=== PATIENT | male | born 1980 | race Caucasian/White ===

== ENCOUNTER 2021-11-04 20:06 | Emergency (ER) | payer OTHER, SELFPAY ==
--- NOTE | ~2021-11-04 | CT_ITS ---
EXAMINATION: NONCONTRAST HEAD CT NONCONTRAST CERVICAL SPINE CT INDICATION INFORMATION: Fall COMPARISON: None TECHNIQUE: Separate noncontrast CT examinations of the head and cervical spine were performed. Coronal and sagittal images were created for each examination at the technologist workstation. This CT examination was performed using dose optimization techniques as appropriate, variously including the following: *Automated exposure control *Adjustment of mA and/or kV according to patient size (this includes techniques or standardized protocols for targeted exams where dose is matched to indication/reason for exam; i.e. extremities or head) *Use of iterative reconstruction technique DLP: 1218 mGy-cm FINDINGS: Head: There is no evidence of acute intracranial hemorrhage or territorial infarction. No abnormal mass effect or midline shift is seen. Lainez to white matter differentiation is well preserved. No extra-axial fluid collections are identified. No hydrocephalus. No significant volume loss. There is no abnormal attenuation within the brain parenchyma. No acute osseous abnormality. The mastoid air cells and visualized portions of the paranasal sinuses are well aerated. Cervical spine: There is anatomic alignment of the vertebral bodies and posterior elements. The atlantoaxial and atlantooccipital articulations are intact. Vertebral body heights maintained. Endplate osteophytes present throughout cervical spine, most millimeters C5-C6 and C6-C7 No evidence of acute fracture. No prevertebral soft tissue swelling. Visualized portions of the lung apices are unremarkable. The thyroid gland is unremarkable. CT/CT cervical spine wo IV con IMPRESSION: No acute intracranial pathology. No cervical spine fracture or traumatic malalignment.
--- NOTE | ~2021-11-04 | CT_ITS ---
EXAMINATION CT CHEST, ABDOMEN AND PELVIS WITH CONTRAST CLINICAL INFORMATION: Left upper quadrant pain COMPARISON: None. TECHNIQUE: Multidetector volumetric CT imaging of the chest, abdomen and pelvis was obtained after the administration of 85 mL of intravenous Omnipaque 350 without immediate adverse reactions. Coronal and sagittal reformats were reviewed. This CT examination was performed using dose optimization techniques as appropriate, variously including the following: *Automated exposure control *Adjustment of mA and/or kV according to patient size (this includes techniques or standardized protocols for targeted exams where dose is matched to indication/reason for exam; i.e. extremities or head) *Use of iterative reconstruction technique DLP: 1184 mGy-cm. FINDINGS: CHEST LUNGS/PLEURA: The lungs are clear with no evidence of inflammation or nodules. There is no pleural effusion. No pleural mass or thickening. MEDIASTINUM/YUMI: Heart normal in size without pericardial effusion. Great vessels normal caliber. No mediastinal or hilar lymphadenopathy. CHEST WALL/AXILLA: Unremarkable. ABDOMEN/PELVIS HEPATOBILIARY: Liver normal in size, contour and morphology. No suspicious lesions. No intra or extrahepatic biliary dilation. Gallbladder unremarkable. PANCREAS: Unremarkable. SPLEEN: Unremarkable. ADRENAL GLANDS: Unremarkable. KIDNEYS, URETERS AND BLADDER: Kidneys normal in size, axis and morphology demonstrating symmetric enhancement. No hydronephrosis or urinary calculi. Ureters normal in course and caliber. Bladder grossly unremarkable.. GASTROINTESTINAL TRACT: No bowel related abnormalities. PELVIC VISCERA: Uterus and adnexa unremarkable. LYMPH NODES: No lymphadenopathy. PERITONEUM/BODY WALL: Unremarkable. VASCULAR STRUCTURES: Unremarkable. OSSEOUS STRUCTURES Age-indeterminate nondisplaced avulsion fracture of the left anteroinferior glenoid. No additional potential acute fractures. CT/CT abdomen pelvis w IV con IMPRESSION: * No acute visceral traumatic injury within the chest, abdomen or pelvis. * Age-indeterminate avulsion fracture of the left anteroinferior glenoid AKA osseous Bankart lesion. * No additional fractures.
--- NOTE | ~2021-11-04 | CT_ITS ---
EXAMINATION: NONCONTRAST HEAD CT NONCONTRAST CERVICAL SPINE CT INDICATION INFORMATION: Fall COMPARISON: None TECHNIQUE: Separate noncontrast CT examinations of the head and cervical spine were performed. Coronal and sagittal images were created for each examination at the technologist workstation. This CT examination was performed using dose optimization techniques as appropriate, variously including the following: *Automated exposure control *Adjustment of mA and/or kV according to patient size (this includes techniques or standardized protocols for targeted exams where dose is matched to indication/reason for exam; i.e. extremities or head) *Use of iterative reconstruction technique DLP: 1218 mGy-cm FINDINGS: Head: There is no evidence of acute intracranial hemorrhage or territorial infarction. No abnormal mass effect or midline shift is seen. [place] to white matter differentiation is well preserved. No extra-axial fluid collections are identified. No hydrocephalus. No significant volume loss. There is no abnormal attenuation within the brain parenchyma. No acute osseous abnormality. The mastoid air cells and visualized portions of the paranasal sinuses are well aerated. Cervical spine: There is anatomic alignment of the vertebral bodies and posterior elements. The atlantoaxial and atlantooccipital articulations are intact. Vertebral body heights maintained. Endplate osteophytes present throughout cervical spine, most millimeters C5-C6 and C6-C7 No evidence of acute fracture. No prevertebral soft tissue swelling. Visualized portions of the lung apices are unremarkable. The thyroid gland is unremarkable. CT/CT head/brain wo IV con IMPRESSION: No acute intracranial pathology. No cervical spine fracture or traumatic malalignment.
[2021-11-04 20:11] VITALS: BP 136/78; PULSE 100; O2SAT 98
[2021-11-04 20:23] VITALS: BP 140/84; PULSE 100; RESP 18; TEMP 36.6; O2SAT 96; BMI 28.3
[2021-11-04] MEDS: Ketorolac Tromethamine 30 MG/ML VIAL 15 MG IVPUSH (22:34)
[2021-11-04] MEDS: LORazepam 1 MG TABLET PO (22:34)
--- NOTE | 2021-11-04 22:40 | ED.GENADULT ---
HPI - General Adult General Chief complaint: Extremity Injury, Upper Stated complaint: fall from skateboard LEFT SHOULDER PAIN Time Seen by Provider: 11/04/21 21:57 Source: patient Mode of arrival: EMS History of Present Illness HPI narrative: 40-year-old male arrives via EMS for persistent chest pain after falling off of his skateboard 2 days prior. Patient was evaluated at [facility]. Patient is autistic and communicates primarily through texting. History is difficult to obtain as patient is currently experiencing anxiety that he states stems from his inability to move back and forth to relieve the anxiety because of the pain that he is currently experiencing. Related Data Previous Rx's Medication Instructions Recorded ketorolac 10 mg tablet 10 mg PO Q6H PRN pain 5 days #20 11/05/21 tabs Allergies Allergy/AdvReac Type Severity Reaction Status Date / Time No Known Allergies Allergy Verified 11/04/21 20:16 Review of Systems Review of Systems: Pertinent positives and negatives as stated in HPI. PMFSH Past Medical History Source: nursing notes reviewed Social History Social History Advance Directives: No Advance Directives Information Provided: Yes Physical Exam ED Vital Signs: Vital Signs - 24 hr 11/04/21 20:23 Temperature 97.9 F Pulse Rate 100 Respiratory Rate 18 Blood Pressure 140/84 H Pulse Oximetry 96 Oxygen Delivery Method Room Air BMI result Body Mass Index 28.3 VITAL SIGNS: Reviewed. GENERAL: Well developed, well nourished, in no acute distress. HEAD: Normocephalic/atraumatic EYES: PERRLA, EOMI EARS: Ext canals without abnormality, TMs non-bulging and non-erythematous NOSE: Nares patent bilateral OROPHARYNX: no oral lesions noted, posterior pharynx clear and non-erythematous without noted tonsillar enlargement/erythema/exudates NECK: Supple, no adenopathy, no midline cervical spine tenderness LUNGS: Normal breath sounds. No adventitious sounds or accessory muscle use. SpO2<96>; CHEST PAIN: No crepitus or obvious deformity but pain on palpation at the left anterior lower chest wall CARDIOVASCULAR: Regular rate and rhythm without noted murmurs, no JVD or lower extremity edema. ABDOMEN: Soft, non-tender, non-distended with bowel sounds. No rigidity. No guarding. No palpable masses or hernias noted MUSCULOSKELETAL: No tenderness, deformities, or effusions noted on gross inspection. EXTREMITIES: No cyanosis, clubbing or edema; road rash noted at bilateral distal quads and at the left proximal forearm onto the elbow, but full range of motion noted at all shoulders/elbows/wrists/knees.. SKIN: Inspection of the skin reveals no rashes, but abrasions as noted above NEUROLOGIC: Alert and oriented x 4. Strength and sensation to light touch were grossly intact x 4. Course Course Course Narrative: 40-year-old male with history and clinical presentation consistent with traumatic injury sustained after motorized skateboard. Concern regarding possible rib fractures but lower clinical suspicion for splenic injury however will trauma scan at this time. Review of all investigations negative for acute findings but on re-evaluation patient has had complete resolution of his pain. He was given all results and discharged home in stable condition. Medical Decision Making Lab Data Result diagrams: 11/04/21 22:35 11/04/21 22:35 Labs: Lab Results 11/04/21 11/04/21 11/04/21 Range/Units 22:35 22:35 22:35 WBC 8.2 (4.8-10.8) X10*3/uL RBC 5.39 (4.60-5.80) X10*6/uL Hgb 15.6 (14.0-18.0) g/dl Hct 46.5 (42.0-52.0) % MCV 86.3 (80.0-98.0) fL MCH 28.9 (27.0-33.0) pg MCHC 33.5 (31.0-36.0) g/dl RDW 13.1 (11.0-16.0) % Plt Count 253 (160-400) X10*3/uL MPV 10.6 (9.4-12.4) fL Immature Gran % (Auto) 0.1 (0.0-0.4) % Neut % (Auto) 58.4 (45-73) % Lymph % (Auto) 32.1 (20-40) % [place] % (Auto) 8.0 (2-11) % Eos % (Auto) 1.0 (0-4) % Baso % (Auto) 0.4 (0-2) % Lymph # (Auto) 2.6 (1.2-4.9) X10*3/uL [place] # (Auto) 0.7 (0.1-1.2) X10*3/uL Eos # (Auto) 0.1 (0.0-0.4) X10*3/uL Baso # (Auto) 0.0 (0.0-0.2) X10*3/uL Abs Immat Gran (auto) 0.01 (0.00-0.03) X10*3/uL Absolute Neuts (auto) 4.8 (2.0-8.3) x10*3/uL Absolute Nucleated RBC 0.000 (0.0-0.012) X10*3/uL Nucleated RBC % (auto) 0.0 (0.0-0.2) /100WBC PT 11.5 (10.0-13.1) SEC INR 1.0 (0.9-1.1) Sodium 140 (135-145) mmol/L Potassium 4.3 (3.3-5.1) mmol/L Chloride 104 (96-108) mmol/L Carbon Dioxide 23 (22-29) mmol/L Anion Gap 17 (12-20) BUN 11 (9-16) mg/dL Creatinine 1.21 (0.5-1.4) mg/dL Estim Creat Clear Calc 78.5 Estimated GFR > 60 Random Glucose 90 (60-115) mg/dL Calcium 9.1 (8.4-10.2) mg/dL Total Bilirubin 1.0 (0.0-1.0) mg/dL AST 34 (5-37) U/L ALT 37 (0-40) U/L Alkaline Phosphatase 94 (39-117) U/L Total Protein 7.2 (6.5-8.0) g/dL Albumin 4.3 (3.5-5.0) g/dL Discharge Plan Discharge Clinical Impression: Fall from skateboard, subsequent encounter, Chest wall pain Patient Disposition: Home, Self-Care Instructions: Fall Prevention (ED), Chest Wall Pain (ED) Additional Instructions: 1. Take medication as prescribed. 2. Follow-up with your primary care provider in the next 1-2 days for re-evaluation. Return to the ER for worsening symptoms. Prescriptions: New ketorolac 10 mg tablet 10 mg PO Q6H PRN (Reason: pain) 5 Days Qty: 20 0RF Rx Instructions: Patient received Toradol in the emergency room.
[2021-11-04 22:59] LABS: MANUAL DIFF FLAG NO
[2021-11-04 23:00] LABS: Basophils Percent Auto 0.4 % (0-2); Eosinophils Absolute Auto 0.1 X10*3/uL (0.0-0.4); Hematocrit 46.5 % (42.0-52.0); Hemoglobin 15.6 g/dl (14.0-18.0); Imm Gran Abs Auto 0.01 X10*3/uL (0.00-0.03); Imm Gran Pct Auto 0.1 % (0.0-0.4); Lymphocytes Absolute Auto 2.6 X10*3/uL (1.2-4.9); Lymphocytes Percent Auto 32.1 % (20-40); Mean Corpuscular HGB Conc 33.5 g/dl (31.0-36.0); Mean Corpuscular Hemoglobin 28.9 pg (27.0-33.0); Mean Corpuscular Volume 86.3 fL (80.0-98.0); Mean Platelet Volume 10.6 fL (9.4-12.4); Monocytes Absolute Auto 0.7 X10*3/uL (0.1-1.2); Neutrophils Absolute Auto 4.8 x10*3/uL (2.0-8.3); Neutrophils Percent Auto 58.4 % (45-73); Platelet Count 253 X10*3/uL (160-400); Red Blood Count 5.39 X10*6/uL (4.60-5.80); Red Cell Distribution Width 13.1 % (11.0-16.0); White Blood Count 8.2 X10*3/uL (4.8-10.8)
[2021-11-04 23:05] LABS: Prothrombin Time 11.5 SEC (10.0-13.1)
[2021-11-04 23:15] LABS: Alanine Aminotransferase 37 U/L (0-40); Albumin Level 4.3 g/dL (3.5-5.0); Alkaline Phosphatase 94 U/L (39-117); Anion Gap 17 (12-20); Aspartate Amino Transferase 34 U/L (5-37); Blood Urea Nitrogen 11 mg/dL (9-16); Calcium 9.1 mg/dL (8.4-10.2); Carbon Dioxide 23 mmol/L (22-29); Chloride 104 mmol/L (96-108); Creatinine Clr Calc Pharmacy 78.5; Estimated Glomerular Filt Rate > 60; Glucose Random 90 mg/dL (60-115); Potassium 4.3 mmol/L (3.3-5.1); Sodium 140 mmol/L (135-145); Total Protein 7.2 g/dL (6.5-8.0)
[2021-11-04] MEDS: iohexoL 350 MG/ML 100 ML INFUS..BTL 85 ML IV (23:50)
[2021-11-05 00:10] VITALS: BP 122/64; PULSE 88
[2021-11-05] MEDS: Mirtazapine 7.5 MG TABLET 3.75 MG PO (02:28)
[2021-11-05] MEDS: Lidocaine 4 % Patch ADH..PATCH 1 PATCH TRANSDERMA (02:28)
[2021-11-05] MEDS: clonazePAM 1 MG TABLET PO (02:28)
[2021-11-05 04:51] VITALS: BP 113/61; PULSE 59; RESP 15; TEMP 36.1; O2SAT 95
[2021-11-05 05:47] VITALS: BP 122/62; PULSE 54; RESP 17; TEMP 36.1; O2SAT 97
--- NOTE | 2021-11-05 05:48 | PC.NURSE ---
Addendum entered by Shagufta Rae 11/05/21 05:49: PT SLEEPING . GIVEN WARM BLANKET AND BELONGINGS PLACES IN PERSONAL BELONGINGS AND PLACED BEDSIDE Original Note: PT S;AMY
--- NOTE | 2021-11-05 06:42 | PC.NURSE ---
CALL OUT TO [facility] FOR TRANSFER BACK TO HOME CALLS OUT TO [facility] [id number], [id number], [id number] AND [id number] [facility] WAS UNABLE TO PASS DUMP MOTORMAN AFTER MULTIPLE TIMES
[2021-11-05] MEDS: Ketorolac Tromethamine 15 MG/ML VIAL IVPUSH (07:45)
--- NOTE | 2021-11-05 07:56 | PC.NURSE ---
PT AWAITING RIDE HOME. TRANSPORTATION BOOKED PT REQUESTING MEDICATION PRIOR TO DISCHARGE. ADDITIONAL DOSE PROVIDED TO PATIENT OF TORADOL. IV REMOVED. PT UPDATED ON PLAN OF CARE NUMEROUS TIMES.
--- NOTE | 2021-11-05 08:39 | PC.NURSE ---
PT REFUSING TO WAIT FOR RIDE. DUE TO THE PATIENT HAVING TO TRAVEL BACK TO [place], THE COOLER WEATHER CONDITIONS THIS AM, THIS RN SPOKE WITH SECURITY AND SECURITY WILL BRING PATIENT HOME.
== END 2021-11-05 08:40 | disposition home or self-care (01) ==
PROVIDERS: Emergency Provider Student in an Organized Health Care Education/Training Program
DX: Z04.3 Encounter for examination and observation following other accident (principal); R07.89 Other chest pain; M25.512 Pain in left shoulder; F41.9 Anxiety disorder, unspecified; F84.0 Autistic disorder
CPT/HCPCS: 36415; 70450; 71260; 72125; 74177; 80053; 85025; 85610; 96374; 96376; 99284; J1885; Q9967

== ENCOUNTER 2021-11-24 00:25 | Emergency (ER) | payer OTHER, SELFPAY ==
[2021-11-24 00:40] VITALS: PULSE 82; O2SAT 98
--- NOTE | 2021-11-24 00:51 | ED_ITS ---
HPI - Psych General Chief Complaint: General Medical Stated Complaint: EMOTIONALLY DISTRAUGHT Time Seen by Provider: 11/24/21 00:50 Source: patient Mode of arrival: ambulatory Limitations: no limitations History of Present Illness HPI Narrative: Patient autistic with limited history being very anxious nauseated vomiting 5 or 6 times no diarrhea no fever no other complaints Related Data Home Medications Medication Instructions Recorded Confirmed clonazepam 1 mg disintegrating 1 tab PO DAILY 11/05/21 11/05/21 tablet mirtazapine 7.5 mg tablet 0.5 - 1 tab PO BEDTIME insomnia 11/05/21 11/05/21 Previous Rx's Medication Instructions Recorded ketorolac 10 mg tablet 10 mg PO Q6H PRN pain 5 days #20 11/05/21 tabs Allergies Allergy/AdvReac Type Severity Reaction Status Date / Time No Known Allergies Allergy Verified 11/04/21 20:16 Review of Systems Review of Systems: Yes all other systems are reviewed and are negative PMFSH Social History Social History Advance Directives: No Advance Directives Information Provided: Yes Physical Exam Vital Signs: Vital Signs: Last Vital Signs Temp 97.9 F 11/24/21 02:56 Pulse 89 11/24/21 02:56 Resp 17 11/24/21 02:56 BP 126/76 11/24/21 02:56 Pulse Ox 96 11/24/21 02:56 O2 Del Method 11/24/21 02:56 BMI result Body Mass Index 31.3 Appearance: Alert. Very anxious using sign language Eyes: PERRLA, No Nystagmus ENT: Pharynx normal. Oral Mucosa moist Neck: Normal inspection. Neck supple. CVS: Normal heart rate and rhythm. Pulses normal. Respiratory: No respiratory distress. Equal air entry bilateral, no wheezing/ rales/rhonchi Abdomen: Soft and nontender. Bowel sounds are present, no mass palpable, no CVA tenderness Skin: Skin warm and dry. Normal skin color. Normal skin turgor. Extremities: No lower extremity edema. No calf tenderness Neuro: Oriented X 3. No motor deficit. MDM - Psych MDM Narrative Medical decision making narrative: Patient with stable labs nausea improved after Zofran taking p.o. fluids discharged patient to residential Lab Data Attestation: I reviewed the patient's lab results. Result diagrams: 11/24/21 01:23 11/24/21 01:23 Labs: Lab Results 11/24/21 11/24/21 11/24/21 Range/Units 01:23 01:23 01:23 WBC 8.7 (4.8-10.8) X10*3/uL RBC 5.72 (4.60-5.80) X10*6/uL Hgb 16.7 (14.0-18.0) g/dl Hct 49.3 (42.0-52.0) % MCV 86.2 (80.0-98.0) fL MCH 29.2 (27.0-33.0) pg MCHC 33.9 (31.0-36.0) g/dl RDW 13.2 (11.0-16.0) % Plt Count 283 (160-400) X10*3/uL MPV 10.8 (9.4-12.4) fL Immature Gran % (Auto) 0.2 (0.0-0.4) % Neut % (Auto) 62.4 (45-73) % Lymph % (Auto) 27.8 (20-40) % [place] % (Auto) 8.6 (2-11) % Eos % (Auto) 0.7 (0-4) % Baso % (Auto) 0.3 (0-2) % Lymph # (Auto) 2.4 (1.2-4.9) X10*3/uL [place] # (Auto) 0.8 (0.1-1.2) X10*3/uL Eos # (Auto) 0.1 (0.0-0.4) X10*3/uL Baso # (Auto) 0.0 (0.0-0.2) X10*3/uL Abs Immat Gran (auto) 0.02 (0.00-0.03) X10*3/uL Absolute Neuts (auto) 5.4 (2.0-8.3) x10*3/uL Absolute Nucleated RBC 0.000 (0.0-0.012) X10*3/uL Nucleated RBC % (auto) 0.0 (0.0-0.2) /100WBC Sodium 141 (135-145) mmol/L Potassium 4.2 (3.3-5.1) mmol/L Chloride 104 (96-108) mmol/L Carbon Dioxide 23 (22-29) mmol/L Anion Gap 18 (12-20) BUN 11 (9-16) mg/dL Creatinine 1.18 (0.5-1.4) mg/dL Estim Creat Clear Calc 89.3 Estimated GFR > 60 Random Glucose 94 (60-115) mg/dL Lactic Acid 1.9 (0.5-2.0) mmol/L Calcium 9.3 (8.4-10.2) mg/dL Total Bilirubin 0.6 (0.0-1.0) mg/dL AST 27 (5-37) U/L ALT 23 (0-40) U/L Alkaline Phosphatase 116 D (39-117) U/L Total Protein 7.8 (6.5-8.0) g/dL Albumin 4.5 (3.5-5.0) g/dL COVID-19 (SUZI) (Negative) COVID-19 Clin Com 11/24/21 Range/Units 01:23 WBC (4.8-10.8) X10*3/uL RBC (4.60-5.80) X10*6/uL Hgb (14.0-18.0) g/dl Hct (42.0-52.0) % MCV (80.0-98.0) fL MCH (27.0-33.0) pg MCHC (31.0-36.0) g/dl RDW (11.0-16.0) % Plt Count (160-400) X10*3/uL MPV (9.4-12.4) fL Immature Gran % (Auto) (0.0-0.4) % Neut % (Auto) (45-73) % Lymph % (Auto) (20-40) % [place] % (Auto) (2-11) % Eos % (Auto) (0-4) % Baso % (Auto) (0-2) % Lymph # (Auto) (1.2-4.9) X10*3/uL [place] # (Auto) (0.1-1.2) X10*3/uL Eos # (Auto) (0.0-0.4) X10*3/uL Baso # (Auto) (0.0-0.2) X10*3/uL Abs Immat Gran (auto) (0.00-0.03) X10*3/uL Absolute Neuts (auto) (2.0-8.3) x10*3/uL Absolute Nucleated RBC (0.0-0.012) X10*3/uL Nucleated RBC % (auto) (0.0-0.2) /100WBC Sodium (135-145) mmol/L Potassium (3.3-5.1) mmol/L Chloride (96-108) mmol/L Carbon Dioxide (22-29) mmol/L Anion Gap (12-20) BUN (9-16) mg/dL Creatinine (0.5-1.4) mg/dL Estim Creat Clear Calc Estimated GFR Random Glucose (60-115) mg/dL Lactic Acid (0.5-2.0) mmol/L Calcium (8.4-10.2) mg/dL Total Bilirubin (0.0-1.0) mg/dL AST (5-37) U/L ALT (0-40) U/L Alkaline Phosphatase (39-117) U/L Total Protein (6.5-8.0) g/dL Albumin (3.5-5.0) g/dL COVID-19 (SUZI) Negative (Negative) COVID-19 Clin Com See Note Discharge Plan Discharge Clinical Impression: Anxiety Patient Disposition: Home, Self-Care Instructions: Anxiety (ED) Additional Instructions: Relax at home Continue taking your medication Prescriptions: No [facility] ketorolac 10 mg tablet 10 mg PO Q6H PRN (Reason: pain) 5 Days Qty: 20 0RF Rx Instructions: Patient received Toradol in the emergency room. mirtazapine 7.5 mg tablet 0.5 - 1 tab PO BEDTIME clonazepam 1 mg tablet,disintegrating 1 tab PO DAILY Interventions: ED Discharge Assessment Last Done: 11/24/21 06:26 Discharge Date/Time: 11/24/21 06:30
[2021-11-24 01:03] VITALS: BP 125/90; PULSE 62; RESP 16; O2SAT 95; BMI 31.3
[2021-11-24 01:33] LABS: MANUAL DIFF FLAG NO
[2021-11-24 01:37] LABS: Basophils Percent Auto 0.3 % (0-2); Eosinophils Absolute Auto 0.1 X10*3/uL (0.0-0.4); Eosinophils Percent Auto 0.7 % (0-4); Hematocrit 49.3 % (42.0-52.0); Hemoglobin 16.7 g/dl (14.0-18.0); Imm Gran Abs Auto 0.02 X10*3/uL (0.00-0.03); Imm Gran Pct Auto 0.2 % (0.0-0.4); Lymphocytes Absolute Auto 2.4 X10*3/uL (1.2-4.9); Lymphocytes Percent Auto 27.8 % (20-40); Mean Corpuscular HGB Conc 33.9 g/dl (31.0-36.0); Mean Corpuscular Hemoglobin 29.2 pg (27.0-33.0); Mean Corpuscular Volume 86.2 fL (80.0-98.0); Mean Platelet Volume 10.8 fL (9.4-12.4); Monocytes Absolute Auto 0.8 X10*3/uL (0.1-1.2); Monocytes Percent Auto 8.6 % (2-11); Neutrophils Absolute Auto 5.4 x10*3/uL (2.0-8.3); Neutrophils Percent Auto 62.4 % (45-73); Platelet Count 283 X10*3/uL (160-400); Red Blood Count 5.72 X10*6/uL (4.60-5.80); Red Cell Distribution Width 13.2 % (11.0-16.0); White Blood Count 8.7 X10*3/uL (4.8-10.8)
[2021-11-24 01:45] LABS: Lactic Acid 1.9 mmol/L (0.5-2.0)
[2021-11-24 01:46] VITALS: TEMP 37.4
[2021-11-24] MEDS: 0.9 % Sodium Chloride 1,000 ML 999 ML IV (01:47)
[2021-11-24] MEDS: ondansetron HCL 4 MG/2 ML VIAL IVPUSH (01:49)
--- NOTE | 2021-11-24 01:50 | PC.NURSE ---
pt has his spiderman in has arms with headphones on with his hat. sigh board at bedside. pt also has a bite calming mouth piece.
[2021-11-24 01:51] LABS: Alanine Aminotransferase 23 U/L (0-40); Albumin Level 4.5 g/dL (3.5-5.0); Alkaline Phosphatase 116 U/L (39-117); Anion Gap 18 (12-20); Aspartate Amino Transferase 27 U/L (5-37); Bilirubin Total 0.6 mg/dL (0.0-1.0); Blood Urea Nitrogen 11 mg/dL (9-16); COVID-19 Test Negative (Negative); Calcium 9.3 mg/dL (8.4-10.2); Carbon Dioxide 23 mmol/L (22-29); Chloride 104 mmol/L (96-108); Creatinine Clr Calc Pharmacy 89.3; Estimated Glomerular Filt Rate > 60; Glucose Random 94 mg/dL (60-115); Potassium 4.2 mmol/L (3.3-5.1); Sodium 141 mmol/L (135-145); Total Protein 7.8 g/dL (6.5-8.0)
--- OUTSIDE RECORDS SUMMARY | 2021-11-24 01:52 | XMS_ITS | Continuity of Care Document ---
:1980 Author Organization [facility] Address [address] [place] [id number]- Care Team Providers Name Role Phone Not on Staff, PCP Primary Care Physician Unavailable Encounter [facility] [place](s[place] 12/29/20 - 12/30/[address] [id number]- Encounter Diagnosis Pain, dental (Final) - 12/30/20 Discharge Disposition: A-D/C Home Attending Physician: Alix Howard MD Admitting Physician: Alix Howard MD Referring Physician: Not on Staff, Referring MD Allergies, Adverse Reactions, Alerts Substance Reaction Severity Status Ativan Active Medications Augmentin 875 mg-125 mg oral tablet 1 tablet, By Mouth, Every 12 hours, for 10 days, # 20 tablet, 0 Refills, Acute 01/09/21 6:47:00 EST,12/30/20 6:47:00 EST, Tablet, [facility]/pharmacy #[id number], Partial fill upon patient request if the prescription is for a schedule II opioid drug. Start Date: 12/30/20 Stop Date: 01/09/21 Status: Ordered Vital Signs Most recent to oldest 1 2 3 [Reference Range]: Oxygen Saturation [94-100 %] 95 % 98 % 100 % (12/30/20 6:31 AM) (12/30/20 2:31 AM) (12/29/20 8:22 PM) Pulse Rate [55-90 bpm] 64 bpm 80 bpm 81 bpm (12/30/20 6:31 AM) (12/30/20 2:31 AM) (12/29/20 8:22 PM) Blood Pressure [90-138/55-84 124/63 mm Hg 142/70 mm Hg 144 /86 mm Hg mm Hg] (12/30/20 6:31 AM) *H* *H* (12/30/20 2:31 AM) (12/29/20 8:2 2 PM) Respiratory Rate [16-30 18 br/min 24 br/min 20 br/mi n br/min] (12/30/20 6:31 AM) (12/30/20 2:31 AM) (12/29/20 8:22 PM) Temperature [96.8-100.4 98.3 DegF 99.1 DegF DegF] (12/30/20 2:31 AM) (12/29/20 8:22 PM) Mode of Delivery (Oxygen) Room air Room air (12/30/20 2:31 AM) (12/29/20 8:22 PM) Blood pressure sites Arm, left (12/30/20 2:31 AM) Temperature Route Oral Oral (12/30/20 2:31 AM) (12/29/20 8:22 PM)
--- OUTSIDE RECORDS SUMMARY | 2021-11-24 01:52 | XMS_ITS | Continuity of Care Document ---
:1980 Author Organization [facility] Address [address] [place] [id number] Care Team Providers Name Role Phone Not on Staff, PCP Primary Care Physician Unavailable Encounter [facility] Date(s): 09/02/21 - 09/09/[address] [address] Encounter Diagnosis Unresponsive (Final) - 09/02/21 Discharge Disposition: A-D/C Home Attending Physician: Charlie Berg MD Admitting Physician: Madi Moya MD Referring Physician: Not on Staff, Referring MD Allergies, Adverse Reactions, Alerts Substance Reaction Severity Status Ativan Active Milk Products Active Immunizations Given and Recorded Vaccine Date Status Refusal Reason SARS-CoV-2 (COVID-19) mRNA BNT-162b2 vac 09/30/20 Recorde d Medications Adderall XR 30 mg oral capsule, extended release 1 capsule = 30 mg, By Mouth, 2 times a day, 0 Refills, Maintenance, 08/31/21 23:30:00 EDT, Partial fill upon patient request if the prescription is for a schedule II opioid drug. Start Date: 08/31/21 Status: OrderedclonazePAM 0.5 mg oral tablet 1 tablet = 0.5 mg, By Mouth, 3 times a day, 0 Refills, Maintenance, 08/31/21 23:30:00 EDT, Partial fill upon patient request if the prescription is for a schedule II opioid drug. Start Date: 08/31/21 Status: OrderedclonazePAM 1 mg oral tablet, disintegrating 1 tablet = 1 mg, By Mouth, Daily at bedtime, PRN Anxiety, 0 Refills, Maintenance, 09/02/21 22:54:00 EDT, DIS Tablet, Partial fill upon patient request if the prescription is for a schedule II opioid drug. Start Date: 09/02/21 Status: Orderedomeprazole 40 mg oral enteric coated capsule 1 capsule = 40 mg, By Mouth, 2 times a day, 0 Refills, Maintenance, 08/31/21 23:30:00 EDT, Partial fill upon patient request if the prescription is for a schedule II opioid drug. Start Date: 08/31/21 Status: OrderedTestosterone Cypionate 200 mg/mL intramuscular solution = 100 mg, Intramuscular, Every 7 days Start Date: 09/02/21 Status: Orderedtriamcinolone 0.1% topical cream 1 application, Topically, 2 times a day, 2 Weeks on, 1 Week off., 0 Refills, Maintenance, 08/31/21 23:30:00 EDT, Partial fill upon patient request if the prescription is for a schedule II opioid drug. Start Date: 08/31/21 Status: Ordered Problem List Condition Effective Dates Status Health Status Informant ADHD(Confirmed) Active Autism disorder(Confirmed) Active Results Orders for Microbiology Reports Name Date Blood Culture 09/02/21 Blood Culture #2 09/02/21 Microbiology Reports TEST:Blood Culture STATUS:Auth (Verified) BODY SITE: SOURCE:Blood COLLECTED DATE/TIME:09/02/21 5:30 PMBlood Culture SPECIMEN DESCRIPTION : BLOOD NO SITE SPECIAL REQUESTS : NONE CULTURE : NO GROWTH 5 DAYS. REPORT STATUS : FINAL 09/07/2021TEST:Blood Culture, Second Order STATUS:Auth (Verified) BODY SITE: SOURCE:Blood COLLECTED DATE/TIME:09/02/21 5:30 PMBlood Culture, Second Order SPECIMEN DESCRIPTION : BLOOD RTHD SPECIAL REQUESTS : NONE CULTURE : NO GROWTH 5 DAYS. REPORT STATUS : FINAL 2Radiology Reports Exam Date Time Procedure Performing Provider Status 09/09/21 7:51 AM Chest Portable Nuno Bradley; Auth (Verified) Notes:(Chest Portable) Reason For Exam: Tube PlacementRESULT: Chest Portable Chest Portable Reason: Tube Placement; Clinical Question(s): Tube Placement COMPARISON: 09/08/2021 FINDINGS: LINES AND TUBES: Endotracheal tube and nasogastric tubes are in stable position. LUNGS AND PLEURA: There is persistent increased opacity within the right infrahilar and left lower lobe. No pleural effusion. No pneumothorax. HEART, MEDIASTINUM AND YUMI: Heart is normal in size. Normal upper mediastinal and hilar contour. BONES AND SOFT TISSUES: No acute abnormality. IMPRESSION: Bibasilar airspace disease. Recommend follow-up to resolution. WSN: [id number] Ordering Physician: Rich Schwartz Dictated By: Gogo Jaime MD Dictated Date/Time: 09/09/21 9:01 am Reviewed By: Gogo Jaime MD Signed By: Gogo Jaime MD Signed Date/Time: 09/09/21 9:01 am Transcribed By: MIKAYLA Transcribed Date/Time: 09/09/21 8:59 am Exam Date Time Procedure Performing Provider Status 09/08/21 4:58 PM Chest Portable Do , Jerry; Jan (Verified) Notes:(Chest Portable) Reason For Exam: Follow up ET Tube advancement - patient pulled at tube;Tube PlacementRESULT: Chest Portable Chest Portable Reason: Tube Placement; Follow up ET Tube advancement - patient pulled at tube; Clinical Question(s): Tube Placement / Tube Placement COMPARISON: Earlier today. FINDINGS: LINES AND TUBES: Endotracheal tube ends 3.2 cm above the sintia. Enteric tube tip and side-port project in the stomach. LUNGS AND PLEURA: Low lung volumes with mild bibasilar airspace opacity, likely atelectasis. No pleural effusion. No pneumothorax. HEART, MEDIASTINUM AND YUMI: Heart is normal in size. Normal mediastinal and hilar contour. BONES AND SOFT TISSUES: No acute abnormality. IMPRESSION: Support structures as above. WSN: [id number] Ordering Physician: Sandy Patricio Dictated By: Damián Baptiste MD Dictated Date/Time: 09/08/21 4:59 pm Reviewed By: Damián Baptiste MD Signed By: Damián Baptiste MD Signed Date/Time: 09/08/21 4:59 pm Transcribed By: CSLino Transcribed Date/Time: 09/08/21 4:59 pm Exam Date Time Procedure Performing Provider Status 09/08/21 9:05 AM Chest Portable Christie Caldera; Jan (Verified) Notes:(Chest Portable) Reason For Exam: Tube PlacementRESULT: Chest Portable Chest Portable Reason: Tube Placement; COMPARISON: Earlier this morning FINDINGS: LINES AND TUBES: ET tube and NG tube are in good position. LUNGS AND PLEURA: Slightly improved lung volumes. Improved minor bibasilar opacity. No new consolidation or edema. No pleural effusion. No pneumothorax. HEART, MEDIASTINUM AND YUMI: Heart is normal in size. Normal upper mediastinal and hilar contour. BONES AND SOFT TISSUES: No acute abnormality. IMPRESSION: Improved lung volumes and aeration. Minor bibasilar opacity is probably atelectasis. WSN: [id number] Ordering Physician: Rich Schwartz Dictated By: Brad Waller MD Dictated Date/Time: 09/08/21 2:13 pm Reviewed By: Brad Waller MD Signed By: Brad Waller MD Signed Date/Time: 09/08/21 2:13 pm Transcribed By: MIKAYLA Transcribed Date/Time: 09/08/21 2:11 pm Exam Date Time Procedure Performing Provider Status 09/08/21 6:30 AM Chest Portable Ele Palma (Verified) Notes:(Chest Portable) Reason For Exam: Tube PlacementRESULT: Chest Portable AP supine portable chest dated September 08, 2021 at 0612 hours. Comparison films are from September 02, 2021. HISTORY: Tube placement. FINDINGS: The cardiac silhouette is mildly increased in size and unchanged. Endotracheal tube is present with its tip 3.9 cm proximal to the sintia. A nasogastric tube enters the left upper quadrant loops in the region of the gastric fundus and extends off the film in the midline. The tip and sideholeare distal to the EG junction region. There is some increased attenuation at the lung bases most consistent with atelectasis. No pleural effusions are identified. Minimal degenerative changes are noted in the spine. IMPRESSION: Endotracheal tube and nasogastric tube in place. Minimal bibasilar atelectasis. Examination [id number]. Thank you for allowing me to participate in the care of this patient. WSN: [id number] Ordering Physician: Flavio Sherman Dictated By: Hal Harrison MD Dictated Date/Time: 09/08/21 10:19 a Reviewed By: Hal Harrison MD Signed By: Hal Harrison MD Signed Date/Time: 09/08/21 10:19 am Transcribed By: MIKAYLA Transcribed Date/Time: 09/08/21 10:18 am Exam Date Time Procedure Performing Provider Status 09/04/21 9:23 PM Abdomen AP Cherry , David; Auth (Verified) Notes:(Abdomen AP) Reason For Exam: MRI screen;Other:RESULT: XR Abdomen AP XR Abdomen AP 1 view INDICATION/CLINICAL QUESTION: Reason: Other:; MRI screen; Clinical Question(s): Other:; MRI screen; Order Comment: Called RN 2009 she requested that we do exam portably COMPARISON: None FINDINGS: Normal bowel gas pattern. No evidence of obstruction. No evidence of pneumoperitoneum. No organomegaly, masses or calcifications. No acute bone findings. IMPRESSION: No acute abnormality. WSN: [id number] Ordering Physician: Hema Soto Dictated By: Dayday Castanon MD Dictated Date/Time: 09/04/21 9:37 pm Reviewed By: Dayday Castanon MD Signed By: Dayday Castanon MD Signed Date/Time: 09/04/21 9:37 pm Transcribed By: MIKAYLA Transcribed Date/Time: 09/04/21 9:29 pm Exam Date Time Procedure Performing Provider Status 09/02/21 8:46 PM Chest Portable Jorge Heath; Jan (Verifie d) Notes:(Chest Portable) Reason For Exam: Line/Tube Placement;Other:RESULT: Chest Portable Chest Portable Reason: Other:; Line Tube Placement; Clinical Question(s): Other:; Confirm Position, Assess for Complication COMPARISON: Previous exam same day FINDINGS: LINES AND TUBES: Endotracheal tube tip 4 cm above the Sintia. Enteric tube in good position with the sidehole believe the diaphragm. LUNGS AND PLEURA: Clear lungs. Normal pulmonary vascularity. No pleural effusion. No pneumothorax. HEART, MEDIASTINUM AND YUMI: Heart is normal in size. Normal upper mediastinal and hilar contour. BONES AND SOFT TISSUES: No acute abnormality. IMPRESSION: Enteric tube and endotracheal tube appear in good position. WSN: [id number] Ordering Physician: Carri Pennington Dictated By: Dayday Castanon MD Dictated Date/Time: 09/02/21 8:55 pm Reviewed By: Dayday Castanon MD Signed By: Dayday Castanon MD Signed Date/Time: 09/02/21 8:55 pm Transcribed By: MIKAYLA Transcribed Date/Time: 09/02/21 8:54 pm Exam Date Time Procedure Performing Provider Status 09/02/21 5:46 PM Chest Portable Micheal Paez; Auth (Verified) Notes:(Chest Portable) Reason For Exam: Shortness of BreathRESULT: Chest Portable Chest Portable INDICATION: Hx of Present Illness: see level one sheet; Reason: Shortness of Breath; Clinical Question(s): CHF COMPARISON: None. FINDINGS: LINES AND TUBES: An endotracheal tube terminating 3 cm above the sintia is noted. An enterogastric tube is also present terminating in the mid/distal stomach. LUNGS AND PLEURA: The lungs are clear and the pulmonary vascularity is normal. There is mild bibasilar atelectasis. No effusion or pneumothorax. HEART, MEDIASTINUM AND YUMI: The cardiac silhouette is mildly enlarged. The mediastinal contours are within normal limits. BONES AND SOFT TISSUES: No acute abnormality. IMPRESSION: Mild cardiomegaly. No consolidation or edema. Support tubes as described. WSN: [id number] Ordering Physician: Terrell Lau Dictated By: Renae Keith MD Dictated Date/Time: 09/02/21 5:50 pm Reviewed By: Renae Keith MD Signed By: Renae Keith MD Signed Date/Time: 09/02/21 5:50 pm Transcribed By: MIKAYLA Transcribed Date/Time: 09/02/21 5:48 pm Vital Signs Most recent to oldest 1 2 3 [Reference Range]: Weight 83.5 kg (09/02/21 9:50 PM) Oxygen Saturation [94-100 %] 94 % 91 % 92 % (09/09/21 2:00 PM) *L* *L* (09/09/21 1:00 PM) (09/09/21 12:00 P M) Pulse Rate [55-90 bpm] 49 bpm 77 bpm 66 bpm *L* (09/06/21 8:00 PM) (09/06/21 2:00 PM ) (09/08/21 5:00 AM) Blood Pressure [90-138/55-84 mm 136/72 mm Hg 108/52 mm Hg 116/68 mm Hg Hg] (09/09/21 1:00 PM) (09/09/21 12:00 PM) (09/09/21 11:00 AM) Respiratory Rate [16-30 br/min] 32 br/min 28 br/min 21 br/min *H* (09/09/21 1:00 PM) (09/09/21 12:00 P M) (09/09/21 2:00 PM) Temperature [96.8-100.4 DegF] 99.0 DegF 98.7 DegF 98 .8 DegF (09/09/21 8:00 AM) (09/09/21 4:00 AM) (09/09/21 12:00 AM) Mode of Delivery (Oxygen) Room air Room air Room a ir (09/09/21 2:00 PM) (09/09/21 1:00 PM) (09/09/21 12:00 PM) Blood pressure sites Arm, right Arm, left Arm, left (09/08/21 5:00 PM) (09/08/21 4:00 PM) (09/08/21 3:00 P M) Temperature Route Oral Axillary Axillary (09/09/21 8:00 AM) (09/09/21 4:00 AM) (09/09/21 12:00 AM) Dry Weight 90 kg 83.5 kg 90 kg (09/02/21 9:50 PM) (09/02/21 9:00 PM) (09/02/21 8:1 4 PM) Weight Obtained Via Bed scale (09/02/21 9:50 PM) Dry Weight Obtained Via Bed scale (09/02/21 9:00 PM) Social History Social History Type Response Smoking Status Never (less than 100 in life time) entered on: 09/02/21 Sex
--- OUTSIDE RECORDS SUMMARY | 2021-11-24 01:52 | XMS_ITS ---
:1980 Author Care Team Providers Name Role Phone [facility] Primary Care Provider [phone] SONAM MAHAJAN MD Primary Care Provider [phone] Allergies Code Code System Name Reaction Severity Status Onset [id number] RxNorm Ativan ? ? Active ? Notes: SSRIs antipsychotics Medications Name Status Start Date Stop Date ? ? acetaminophen 500 mg tablet Active ? Not available TAKE 2 TABLETS EVERY 6 HOURS BY ORAL ROUTE FOR 7 DAYS. *OTC NOT COVERED* Adderall XR 30 mg capsule,extended release Active ? Not available TAKE 1 CAPSULE (30 MG TOTAL) BY MOUTH 2 (TWO) TIMES A DAY FOR 2 8 DAYS. amoxicillin 500 mg capsule Completed ? 12/13 amoxicillin 875 mg-potassium clavulanate 125 mg tablet Completed ? 05/08/2021 TAKE 1 TABLET BY MOUTH EVERY 12 HOURS FOR 10 DAYS anastrozole Active ? Not available azithromycin 250 mg tablet Completed ? 07/03 TAKE 1 TABLET BY MOUTH EVERY DAY FOR 4 DAYS bacitracin 500 unit/gram topical ointment Completed ? 05/08/2021 APPLY TO AFFECTED AREA TWICE A DAY BD Integra Syringe 3 mL 25 gauge x 1 Active ? Not available INJECT MEDICATION ONCE WEEKLY (PREFER 1 ML SYRINGE, OK TO S UB 3 ML IF NEEDED) BD Luer-Akila Syringe 3 mL 25 gauge x 1 Active ? Not available USE TO INJECT MEDICATION WEEKLY BD PrecisionGlide 25 gauge x 1 needle Active ? Not available USE 1 BY MISCELLANEOUS ROUTE EVERY 7 DAYS. BD Tuberculin Slip-Tip 1 mL syringe Active ? Not available 1 EACH BY MISCELLANEOUS ROUTE EVERY 7 DAYS. cefuroxime axetil 500 mg tablet Completed ? 05/08/2021 1 TABLET TWICE DAILY X 1 WEEK clindamycin 1 % lotion Completed ? APPLY TO FACE AND BACK TWICE DAILY AFTER CLEANSING WITH BENZOYL PEROXIDE clindamycin HCl 300 mg capsule Completed ? 0 05/08/2021 TAKE 1 CAPSULE BY MOUTH THREE TIMES A DAY clonazepam 0.5 mg tablet Active ? Not martin ilable TAKE 1 TABLET BY MOUTH 2 TIMES A DAY. clonazepam 1 mg disintegrating tablet Completed ? 07/03/2021 diclofenac 1 % topical gel Completed ? 10/18 APPLY 2 GRAMS TO AFFECTED AREA 4 TIMES A DAY escitalopram 5 mg tablet Completed ? Fiber Laxative (calcium polycarbophil) 625 mg tablet Completed ? 10/18/2020 TAKE 1 TABLET BY MOUTH THREE TIMES A DAY OTC NOT COVERED guanfacine ER 2 mg tablet,extended release 24 hr Completed ? 10/18/2020 TAKE 1 TABLET BY MOUTH EVERY DAY hydrocortisone 2.5 % topical ointment Completed ? 12/13/2020 APPLY TO AFFECTED AREA TWICE A DAY Hypodermic [place] 18 gauge x 02/07 Active ? Not available USE TO DRAW UP MEDICATION WEEKLY. ibuprofen 200 mg tablet Active ? Not avai lable 400 mg PO administered on scene. Time administered:1824 Linzess 290 mcg capsule Completed ? 10/19/19 methylphenidate 10 mg tablet Completed ? 03/2021 TAKE 1 TABLET BY MOUTH TWICE A DAY methylphenidate 5 mg tablet Completed ? 08/2020 TAKE 1 TABLET BY MOUTH TWICE A DAY mirtazapine 7.5 mg tablet Completed ? 2021 naproxen Active ? Not available naproxen 500 mg tablet Completed ? omeprazole 20 mg capsule,delayed release Active ? Not available omeprazole 40 mg capsule,delayed release Completed ? 05/08/2021 ondansetron 4 mg disintegrating tablet Completed ? 10/18/2020 DISSOLVE 1 TABLET BY MOUTH EVERY 8 HOURS NEEDED FOR NAUSEA oxycodone 10 mg tablet Completed ? TAKE 1 TABLET (10 MG TOTAL) BY MOUTH EV MICHELLE 6 (SIX) HOURS NEEDED. PARTIAL FILL OK penicillin V potassium 500 mg tablet Completed ? 12/13/2020 TAKE 1 TABLET EVERY 8 HOURS BY ORAL ROUTE FOR 7 DAYS. Senna Laxative 8.6 mg tablet Completed ? 01/2021 TAKE 2 TABLETS BY MOUTH NIGHTLY AT BEDTIME. OTC NOT COVERRED sucralfate 1 gram tablet Completed ? TAKE 1 TABLET BY MOUTH FOUR TIMES A DAY NEEDED testosterone cypionate 200 mg/mL intramuscular oil Active ? Not available INJECT 0.5 ML (100 MG TOTAL) INTO THE MUSCLE EVERY 7 DAYS. triamcinolone acetonide 0.1 % topical cream Active ? Not available APPLY TWICE DAILY TO ABDOMEN AND BACK 2 WEEKS ON, 1 WEEK OFF. NOT FOR FACE OR BODY FOLDS. Vyvanse 40 mg capsule Completed ? 10/18/2020 TAKE 1 CAPSULE BY MOUTH EVERY DAY IN THE MORNING Vyvanse 50 mg capsule Completed ? 10/18/2020 TAKE 1 CAPSULE BY MOUTH EVERY MORNING Notes: naproxen 500 mg BID in home tizanidine 4mg Q6prn in home Problems None recorded. Procedures Date Name Performed by ? 07/03/2021 XR, Cervical Spine, 2 or 3 View [facility] are Corporate Office ([facility]) [address] [place] [address] (Work Place) 07/03/2021 XR, Thoracic Spine, 2 View [facility] ([facility]) [address] [place] [address] (Work Place) Results Lab Results None recorded. Past Encounters 07/03/2021 Pain in Cervical Spine; Thoracic Back Pa in Rosmery Castro [employer]: [address], [place] , Ph. [phone] 05/08/2021 Acute Pharyngitis; Acute Otitis Media Rosmery Castro [employer]: [address], [place] , Ph. [phone] 12/13/2020 Dental Abscess; High-functioning Autism Neftali Rutledge PA: [address], [place] , Ph. [phone] 10/18/2020 Dental Abscess Lotus Hernández [employer]: [address] [place], [place] , Ph. [phone] Social History None recorded. Vaccine List None recorded. Plan of Care Patient Instructions Explicit directions written out for pt and to show to case liner next week when arrives and instructions regarding Tride nt calling -You were seen today for sore throat an d right ear pain -You have a right ear infection and am t reating you for a possible strep throat as well -We gave you ibuprofen 400mg and your fi rst dose of your antibiotic Azithromycin 500mg -A prescription for Azithromycin 250mg o ne tablet once a day for 4 days is sent to your pharmacy -TAKE YOUR TYLENOL 1000MG 3 TIMES A DAY TO HELP YOU WITH YOUR PAIN -Increase your water to prevent dehydrat ion -Mariana will pickler helper your prescription t omorrow for your antibiotics -Call your doctor for a follow up visit; seek medical attention if any increased fever, pain, cough or shortness of breath Thank you for your visit with [facility] today. We cannot always find the exact cause of your symptoms during your initial visit. Please follow up with your primary care provider or specialist with in 24-48 hours to be rechecked or seek m edical attention if your symptoms do not go away or get worse. If you develop any new or worsening symptoms and need after hours care, please go to nearest ER and/or call 911. If you have additional concerns or deve lop a change in your condition between 8am-10pm, please [facility] at [phone] to help navigate your care. [facility] came to your home to ev aluate you for pain to your sinuses and left teeth. You have an absess to the gums and infec tion. We sent a prescription to the pharmacy f or antibiotics You were taking acetaminophen PM for ana n. THis has benadryl in it. You should not take that during the day- it can make you feel drowsy. We sent a prescription to the pharmacy f or acetaminophen to take for the pain THis prescription may not be covered by your insurance. You talked about your headhitting and eric wilkinson overwhelmed. I am going to contact Emma so she ca n help you with resources. If you feel anymore pain or vomiting go to the Emergency department. Reminders Provider Appointments None recorded. ? ? Lab None recorded. ? ? Referral None recorded. ? ? Procedures None recorded. ? ? Surgeries None recorded. ? ? Imaging None recorded. ? ? Vitals 07/03/2021 05:32PM D05 Established Patient Blood Pressure 134/78 mm[Hg] 05/08/2021 07:06PM D05 Established Patient Blood Pressure 138/72 mm[Hg] 12/13/2020 06:20PM D05 New patient Blood Pressure 120/80 mm[Hg] 10/18/2020 05:51PM D05 Established Patient Blood Pressure 120/74 mm[Hg]
[2021-11-24 02:56] VITALS: BP 126/76; PULSE 89; RESP 17; TEMP 36.6; O2SAT 96
--- NOTE | 2021-11-24 03:03 | PC.NURSE ---
PT COMMUNICATING WITH STAFF THROUGH AN ALPHABET BOARD SPELLING OUT WORDS. PT REQUESTED ALL NOISES MINIMIZED AND ROOM DARK. PT GIVEN CALL ORTIZ AND LIGHT AND NOISE MINIMIZED.
--- NOTE | 2021-11-24 05:09 | PC.NURSE ---
pt is awake and hungry and thirsty per to sign board. pt has been sleeping ivf infusing.
--- NOTE | 2021-11-24 05:46 | PC.NURSE ---
pt tolerated po challenge, pt had crackers, pudding, gingerale and no vomiting or pain. pt is ready for discharge and trying to obtain a ride home for the pt.
--- NOTE | 2021-11-24 06:31 | PC.NURSE ---
pt lives by himself and address comfirmed with pt.
== END 2021-11-24 06:30 | disposition home or self-care (01) ==
PROVIDERS: Emergency Provider Internal Medicine
DX: F41.9 Anxiety disorder, unspecified (principal); R11.2 Nausea with vomiting, unspecified; Z20.822 Contact with and (suspected) exposure to COVID-19; F84.0 Autistic disorder; Z79.899 Other long term (current) drug therapy
CPT/HCPCS: 80053; 83605; 85025; 87635; 96361; 96374; 99284; 99285; J2405

== ENCOUNTER 2021-11-25 01:03 | Emergency (ER) | payer OTHER, SELFPAY ==
--- NOTE | 2021-11-25 01:19 | ED.GENADULT ---
HPI - General Adult General Chief complaint: General Medical Stated complaint: not feeling well, abd pain yesterday Time Seen by Provider: 11/25/21 01:14 Source: patient Mode of arrival: EMS Limitations: language barrier History of Present Illness HPI narrative: Patient nonverbal autistic was seen here yesterday for vomiting today he was found lying on the ground next to the POOL saying not feeling good but unable to get in details no vomiting today no diarrhea today no fever On further investigation did notice that patient has PCU supposed to bring food and water every day and has not come for 1 week as HAND PLEATER does not have a car to come to his house Related Data Home Medications Medication Instructions Recorded Confirmed clonazepam 1 mg disintegrating 1 tab PO DAILY 11/05/21 11/05/21 tablet mirtazapine 7.5 mg tablet 0.5 - 1 tab PO BEDTIME insomnia 11/05/21 11/05/21 Previous Rx's Medication Instructions Recorded ketorolac 10 mg tablet 10 mg PO Q6H PRN pain 5 days #20 11/05/21 tabs Allergies Allergy/AdvReac Type Severity Reaction Status Date / Time No Known Allergies Allergy Verified 11/04/21 20:16 Review of Systems Review of Systems: Yes all other systems are reviewed and are negative [facility] Social History Social History Advance Directives: No Physical Exam ED Vital Signs: Vital Signs - 24 hr 11/25/21 01:21 11/25/21 01:25 11/25/21 02:00 Pulse Rate 75 57 64 Respiratory Rate 14 14 16 Blood Pressure 132/62 132/62 Pulse Oximetry 97 98 Oxygen Delivery Method Room Air BMI result Body Mass Index 25.9 Appearance: Alert. Autistic nonverbal. No acute distress. Eyes: PERRLA, No Nystagmus ENT: Pharynx normal. Oral Mucosa moist Neck: Normal inspection. Neck supple. CVS: Normal heart rate and rhythm. Pulses normal. Respiratory: No respiratory distress. Equal air entry bilateral, no wheezing/rales/rhonchi Abdomen: Soft and nontender. Bowel sounds are present, no mass palpable, no CVA tenderness Skin: Skin warm and dry. Normal skin color. Normal skin turgor. Extremities: No lower extremity edema. No calf tenderness Neuro: Alert and awake nonverbal autistic Medical Decision Making [facility] Narrative Medical decision making narrative: Patient with situation with HAND PLEATER not able to come to his house unable to supply his meals comes here with nonspecific complaints will consult case management for disposition Lab Data Labs: Lab Results 11/25/21 Range/Units 04:44 POC Glucose 90 (60-115) mg/dL Discharge Plan Discharge Clinical Impression: Weakness Patient Disposition: Still a Patient Instructions: Weakness (ED) Prescriptions: No Action ketorolac 10 mg tablet 10 mg PO Q6H PRN (Reason: pain) 5 Days Qty: 20 0RF Rx Instructions: Patient received Toradol in the emergency room. mirtazapine 7.5 mg tablet 0.5 - 1 tab PO BEDTIME clonazepam 1 mg tablet,disintegrating 1 tab PO DAILY
[2021-11-25 01:21] VITALS: BP 132/62; PULSE 75; RESP 14; O2SAT 97; BMI 25.9
[2021-11-25 01:25] VITALS: BP 132/62; PULSE 57; RESP 14; O2SAT 98
[2021-11-25] MEDS: LORazepam 1 MG TABLET PO (01:28)
[2021-11-25 02:00] VITALS: PULSE 64; RESP 16
--- NOTE | 2021-11-25 02:03 | PC.NURSE ---
EDDI MCDONALD SAID NOT TO CHANGE PATIENT INTO HOSPITAL ATTIRE .
[2021-11-25] MEDS: Acetaminophen 325 MG TABLET 650 MG PO (03:52)
--- NOTE | 2021-11-25 04:06 | PC.NURSE ---
Addendum entered by Robyn Wynn RN 11/25/21 04:51: Pt drank 2 containers of apple juice. POC came out to 90 after the apple juice. I discussed with the patient what low blood sugar can do to the body and pt stated he understands. Pt given a sandwich, jello, and apple juice. Will recheck when he's finished. Original Note: Pt is nonverbal at a baseline but has been communicating using communication boards and [id number]. Pt stated that his [employer] is supposed to come every day but she has not been there since due to her having no car. The [employer] is the person who brings him food and drinks so the pt has not had food and drinks for several days. Pt also stated he has been unable to control urination and has been unable to have a bowel movement. Pt is complaining of a headache, which was treated with tylenol, and dizziness, likely related to lack of food and proper hydration. Pt has been given oral fluids. Continuing to monitor, Charge and Provider aware of situation.
[2021-11-25 04:48] LABS: Glucose, Whole Blood 90 mg/dL (60-115)
[2021-11-25 05:27] VITALS: BP 118/55; PULSE 67; RESP 16; TEMP 36.7; O2SAT 96
[2021-11-25 10:00] VITALS: BP 122/62; PULSE 66; RESP 16; TEMP 36.7; O2SAT 99
--- NOTE | 2021-11-25 10:27 | MHC.CM.ED ---
Addendum entered by Annelise Sotelo 11/25/21 10:35: PCP is Fabiola Wilkerson on [facility] in [place]. Original Note: Received case management consult overnight. Patient came to the ER due to not feeling well. Work up essentially negative. 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 Patient told ER staff his [employer], Trang, no longer has a car and has not been able to get him found. Patient is active with [employer]. T/W spoke with Nighat at [facility] via telephone at [phone]. Patient has been privately paying for Trang. [facility] has secured [employer] hours through [employer]. Ernesto has just been having difficulty finding someone for patient. Staff from [facility] sees patient on Monday and Monday. Nighat will be at patient's apartment on tomorrow, Sunday 11/26. Patient typically orders [employer] delivery when he needs food. He also travels all over using his skateboard. Patient recently has received a No trespassing and No harassment order against a child welfare social worker in [place]. Patient has not taken this well. Patient denies he has mental health issues and will become defensive about this, which is how the 2 orders were obtained. Nighat feels patient can safely be discharged home. SHARI Lock aware. Security will transport patient home. Continue to monitor for d/c needs.
== END 2021-11-25 11:25 | disposition home or self-care (01) ==
PROVIDERS: Emergency Provider Internal Medicine; PCP Family Medicine
DX: R10.9 Unspecified abdominal pain (principal); R11.10 Vomiting, unspecified; Z79.899 Other long term (current) drug therapy
CPT/HCPCS: 82947; 99284

== ENCOUNTER 2021-12-06 18:19 | Emergency (ER) | payer MEDICAID, OTHER, SELFPAY ==
--- NOTE | ~2021-12-06 | XR_ITS ---
EXAMINATION: XR shoulder LT 1V, XR shoulder RT 1V CLINICAL INFORMATION: Reason for Exam shoulder pain COMPARISON: None. TECHNIQUE: Single AP views both shoulders taken portably FINDINGS: Patient is in 4 point restraints, unable to be positioned for transscapular Y-view per technologist report. Right shoulder: No gross fracture or dislocation on limited single view. Small humeral head marginal osteophyte consistent with mild glenohumeral joint osteoarthritis. AC joint is congruent and intact. Visualized portion of the right lung is grossly clear. Left shoulder: No acute fracture or gross dislocation on limited single view. AC joint is congruent and intact with small marginal osteophytes. Suspected subacromial spur. Visualized left lung is grossly clear. XR/XR shoulder RT 1V IMPRESSION: 1. No gross fracture or dislocation on limited single view of the shoulders. 2. Mild right glenohumeral joint osteoarthritis and mild left acromioclavicular arthropathy. 3. Left subacromial spur.
--- NOTE | ~2021-12-06 | XR_ITS ---
EXAMINATION: XR shoulder LT 1V, XR shoulder RT 1V CLINICAL INFORMATION: Reason for Exam shoulder pain COMPARISON: None. TECHNIQUE: Single AP views both shoulders taken portably FINDINGS: Patient is in 4 point restraints, unable to be positioned for transscapular Y-view per technologist report. Right shoulder: No gross fracture or dislocation on limited single view. Small humeral head marginal osteophyte consistent with mild glenohumeral joint osteoarthritis. AC joint is congruent and intact. Visualized portion of the right lung is grossly clear. Left shoulder: No acute fracture or gross dislocation on limited single view. AC joint is congruent and intact with small marginal osteophytes. Suspected subacromial spur. Visualized left lung is grossly clear. XR/XR shoulder LT 1V IMPRESSION: 1. No gross fracture or dislocation on limited single view of the shoulders. 2. Mild right glenohumeral joint osteoarthritis and mild left acromioclavicular arthropathy. 3. Left subacromial spur.
[2021-12-06 18:35] VITALS: BP 146/76; PULSE 102; RESP 18; TEMP 36.9; O2SAT 98; BMI 28.3
[2021-12-06] MEDS: Midazolam HCl/PF 2 MG/2 ML VIAL IM (20:00)
[2021-12-06] MEDS: Haloperidol Lactate 5 MG/ML VIAL IM (20:00)
--- NOTE | 2021-12-06 20:09 | ED_ITS ---
HPI - Psych General Chief Complaint: Psychiatric Symptoms Stated Complaint: crisis, autistic Time Seen by Provider: 12/06/21 19:05 Source: patient Mode of arrival: ambulatory Limitations: other (Patient communicating with an iPad and typing. Tells me he does not feel comfortable talking) History of Present Illness HPI Narrative: 41-year-old male history of autism, anxiety presenting to the emergency department with suicidal ideation with plan that he is unwilling to disclose. Patient walked into the emergency department in told triage that he was having a hard time in that he is having issues with the world. He was speaking through his captain Gabi stuffed animal. I was called to the front of the emergency department to see this patient as they were trying to walk him into a room and patient sat down in the hallway by the [facility] with his iPad and refused to go into the behavioral health pod. I tried to speak to patient and figure out why he was here and he kept asking me will I be forced to stay? , I explained to him I did not now and it depended on why he was here, he was unwilling to tell me why he came into the emergency department today. Patient then proceeded to call his autism passenger service representative, her name was Nighat, he called Nighat and Nighat was placed on speaker phone, I was speaking to patient for approximately 45 minutes and trying to get information out of him however guillermo luna not cooperating. Nighat explained to me that over the past few months patient has been expressing suicidal thoughts and has acted a few times. She tells me recently patient laid on railroad tracks and was hoping to get hit by a moving train. She expresses that today he stood in front of a moving vehicle and did not care if he was going to . She reports that he had a hard day today with several court this morning that did not go as he wanted. She tells me he was advised to come into the emergency department. She tells me that for the 1st time this patient was asking for inpatient admission as he felt like he needed additional support and help. She tells me that he is afraid of the words Section 12. I explained to Nighat in patient that unfortunately based off comments he made and wanting to hurt himself he would have to be placed on a Section 12 by a doctor here in the emergency department so he could be evaluated by them behavioral health team and potentially happen inpatient psychiatric admission. During this conversation patient became very upset he tried to elope from the emergency department after I repetitively told him he could not eloped. Patient went and being done the [facility] doors trying to leave, became aggressive and started throwing things and hitting the wall. At this time patient was a threat to self and others around him. Security was called for additional help, we tried to verbally deescalate the situation for approximately 45 minutes to an hour, patient decided to lay in front of 1 of the emergency department main entrance is not allowing for people to come into the department or leave the department, blocking an exit way, we explained to patient that we needed to speak to him in a private space that we could try to get him the resources he needed, patient became very angry started throwing his iPad, phone, backpack, headphones on the ground, when we tried to help the patient up into a we a chair he began punching, biting, hitting, kicking security guards, again threat to self and others, I instructed nursing to please initiate medication restrained on this patient, patient told me multiple times that he was allergic to all antipsychotic and allergic to everything and unwilling to take the injection, I was willing to compromise with patient and explained to him that if he got into the wheelchair and was brought into the [facility] willingly we would not need restraints, patient again became very combative towards staff members and drink security guards, therefore medication restraints were given. When I asked patient what his allergy was he tells me it did not make him feel good. Did not report any severe allergic reactions affects such as anaphylaxis, shortness of breath, chest pain or difficulty breathing. Therefore Versed, Haldol and Benadryl were administered with an IM injection. We tried to place patient into a wheelchair again patient uncooperative, it took multiple security guards and nursing staff to get patient into a wheelchair. Patient was brought into the psychiatric [facility] continues to scream, still combative, threat to self and others, was placed in 4 point restraints and an additional dose of Zyprexa was given as patient was still threat to others and self. After physical restraints patient complained of shoulder pain bilaterally and he said is hurting him a lot however he was moving bilateral shoulders freely, no gross abnormalities on exam normal pulses and strength. Therefore x- rays were immediately ordered to rule out fracture, dislocation. Prior to this all occurring patient did deny medical complaints. Was unwilling to answer a full review of systems. He did however endorse suicidal ideation with plan that he was unwilling to disclose. My attending Dr. Arreola placed patient on a section 12. Related Data Home Medications Medication Instructions Recorded Confirmed clonazepam 1 mg disintegrating 1 tab PO DAILY 11/05/21 11/05/21 tablet mirtazapine 7.5 mg tablet 0.5 - 1 tab PO BEDTIME insomnia 11/05/21 11/05/21 Previous Rx's Medication Instructions Recorded ketorolac 10 mg tablet 10 mg PO Q6H PRN pain 5 days #20 11/05/21 tabs Allergies Allergy/AdvReac Type Severity Reaction Status Date / Time No Known Allergies Allergy Verified 12/06/21 18:35 Review of Systems Review of Systems: Yes Unobtainable due to mental status PMFSH Past Medical History Attestation statement: The following information was validated with the patient. Source: old records reviewed and nursing notes reviewed Social History Social History Advance Directives: No Advance Directives Information Provided: No Physical Exam Vital Signs: Vital Signs: Last Vital Signs Temp 98.5 F 12/06/21 18:35 Pulse 102 H 12/06/21 18:35 Resp 18 12/06/21 18:35 BP 146/76 H 12/06/21 18:35 Pulse Ox 98 12/06/21 18:35 O2 Del Method 12/06/21 18:35 BMI result Body Mass Index 28.3 vss Appearance: Alert.? Oriented X3.? No acute distress.? Head: Normocephalic, atraumatic, no step-offs or deformities Eyes: Pupils equal, round and reactive to light.? Neck: Normal inspection.? Neck supple.? CVS: Normal heart rate and rhythm.? Pulses normal.? Respiratory: No respiratory distress.? Breath sounds normal.? Abdomen: Soft and nontender.? Skin: Skin warm and dry.? Normal skin color.? Normal skin turgor.? Extremities: No lower extremity edema.? No calf ttp. 5/5 strength to bilateral upper and lower extremities Neuro: Oriented X 3.? No motor deficit.? No sensory deficit. CN 2-12 intact Course Reevaluation(s) Reevaluation #1: X-rays of bilateral shoulders with no acute fractures or dislocations. Based off physical exam low suspicion for ligamentous or tendon injury. Time: 21:14 Reevaluation #2: Patient out of restraints, cooperative. CBC within normal limits. Chemistry with no acute findings. Ethanol negative. COVID negative. X-ray of bilateral shoulders again within normal limits. Patient moving bilateral upper extremities without difficulties. At this time patient will be placed in physician observation to allow more time to be evaluated by the behavioral health team. At time observation was started patient common cooperative vital signs stable. Will continue to monitor Time: 22:10 MDM - Psych MDM Narrative Medical decision making narrative: 1938 41-year-old male presents with suicidal ideation unwilling to disclose plan, uncooperative with history, physical exam. Requiring physical and medical restraints. Threat to self and others upon arrival. Physical examination benign. Plan at this time is medical clearance evaluation by the behavioral health team. I suspect this patient would benefit from an inpatient psychiatric admission based off of his history, physical and speaking to his autism passenger service representative Medical Records Attestation: I reviewed the patient's medical records. Lab Data Attestation: I reviewed the patient's lab results. Result diagrams: 12/06/21 21:13 12/06/21 21:13 Labs: Lab Results 12/06/21 12/06/21 12/06/21 Range/Units 21:13 21:13 21:13 WBC 10.6 (4.8-10.8) X10*3/uL RBC 5.29 (4.60-5.80) X10*6/uL Hgb 15.4 (14.0-18.0) g/dl Hct 45.5 (42.0-52.0) % MCV 86.0 (80.0-98.0) fL MCH 29.1 (27.0-33.0) pg MCHC 33.8 (31.0-36.0) g/dl RDW 13.7 (11.0-16.0) % Plt Count 234 (160-400) X10*3/uL MPV 10.7 (9.4-12.4) fL Immature Gran % (Auto) 0.4 (0.0-0.4) % Neut % (Auto) 80.9 H (45-73) % Lymph % (Auto) 11.9 L (20-40) % Chase % (Auto) 6.5 (2-11) % Eos % (Auto) 0.1 (0-4) % Baso % (Auto) 0.2 (0-2) % Lymph # (Auto) 1.3 (1.2-4.9) X10*3/uL Chase # (Auto) 0.7 (0.1-1.2) X10*3/uL Eos # (Auto) 0.0 (0.0-0.4) X10*3/uL Baso # (Auto) 0.0 (0.0-0.2) X10*3/uL Abs Immat Gran (auto) 0.04 H (0.00-0.03) X10*3/uL Absolute Neuts (auto) 8.6 H (2.0-8.3) x10*3/uL Absolute Nucleated RBC 0.000 (0.0-0.012) X10*3/uL Nucleated RBC % (auto) 0.0 (0.0-0.2) /100WBC Sodium 142 (135-145) mmol/L Potassium 3.7 (3.3-5.1) mmol/L Chloride 105 (96-108) mmol/L Carbon Dioxide 23 (22-29) mmol/L Anion Gap 18 (12-20) BUN 14 (9-16) mg/dL Creatinine 1.22 (0.5-1.4) mg/dL Estim Creat Clear Calc 77.1 Estimated GFR > 60 Random Glucose 89 (60-115) mg/dL Calcium 9.1 (8.4-10.2) mg/dL Magnesium 2.3 (1.6-2.6) mg/dL Total Bilirubin 0.7 (0.0-1.0) mg/dL AST 37 (5-37) U/L ALT 34 (0-40) U/L Alkaline Phosphatase 102 (39-117) U/L Total Protein 7.0 (6.5-8.0) g/dL Albumin 4.2 (3.5-5.0) g/dL Ethyl Alcohol < 10 mg/dL COVID-19 (SUZI) Negative (Negative) COVID-19 Clin Com See Note Critical Care Time Critical Care Time Critical Care Time: No Discharge Plan Discharge Clinical Impression: Suicidal ideation, Depression, Acute anxiety, Autism Patient Disposition: Still a Patient Prescriptions: No Action ketorolac 10 mg tablet 10 mg PO Q6H PRN (Reason: pain) 5 Days Qty: 20 0RF Rx Instructions: Patient received Toradol in the emergency room. mirtazapine 7.5 mg tablet 0.5 - 1 tab PO BEDTIME clonazepam 1 mg tablet,disintegrating 1 tab PO DAILY
[2021-12-06] MEDS: OLANZapine 10 MG VIAL IM (20:10)
[2021-12-06 21:00] VITALS: BP 128/68; PULSE 117; RESP 18; TEMP 36.3; O2SAT 93
[2021-12-06 21:33] LABS: MANUAL DIFF FLAG NO
[2021-12-06 21:35] LABS: Basophils Percent Auto 0.2 % (0-2); Eosinophils Percent Auto 0.1 % (0-4); Hematocrit 45.5 % (42.0-52.0); Hemoglobin 15.4 g/dl (14.0-18.0); Imm Gran Abs Auto 0.04 X10*3/uL (0.00-0.03); Imm Gran Pct Auto 0.4 % (0.0-0.4); Lymphocytes Absolute Auto 1.3 X10*3/uL (1.2-4.9); Lymphocytes Percent Auto 11.9 % (20-40); Mean Corpuscular HGB Conc 33.8 g/dl (31.0-36.0); Mean Corpuscular Hemoglobin 29.1 pg (27.0-33.0); Mean Platelet Volume 10.7 fL (9.4-12.4); Monocytes Absolute Auto 0.7 X10*3/uL (0.1-1.2); Monocytes Percent Auto 6.5 % (2-11); Neutrophils Absolute Auto 8.6 x10*3/uL (2.0-8.3); Neutrophils Percent Auto 80.9 % (45-73); Platelet Count 234 X10*3/uL (160-400); Red Blood Count 5.29 X10*6/uL (4.60-5.80); Red Cell Distribution Width 13.7 % (11.0-16.0); White Blood Count 10.6 X10*3/uL (4.8-10.8)
[2021-12-06 21:48] LABS: COVID-19 Test Negative (Negative)
[2021-12-06 21:50] LABS: Alanine Aminotransferase 34 U/L (0-40); Albumin Level 4.2 g/dL (3.5-5.0); Alkaline Phosphatase 102 U/L (39-117); Anion Gap 18 (12-20); Aspartate Amino Transferase 37 U/L (5-37); Bilirubin Total 0.7 mg/dL (0.0-1.0); Blood Urea Nitrogen 14 mg/dL (9-16); Calcium 9.1 mg/dL (8.4-10.2); Carbon Dioxide 23 mmol/L (22-29); Chloride 105 mmol/L (96-108); Creatinine Clr Calc Pharmacy 77.1; Estimated Glomerular Filt Rate > 60; Ethanol < 10 mg/dL; Glucose Random 89 mg/dL (60-115); Magnesium 2.3 mg/dL (1.6-2.6); Potassium 3.7 mmol/L (3.3-5.1); Sodium 142 mmol/L (135-145)
--- NOTE | 2021-12-06 22:08 | PC.NURSE ---
Pt changed into appropriate hospital attire, belonging searched by security
--- NOTE | 2021-12-06 22:18 | MHC.CARE ---
CARE team attempted to contact Nighat from [employer] ([phone]) and left a message requesting a return call to gather information. Pt received several IM medications and is snoring and sleeping soundly. CARE team will attempt to meet with pt later this evening, otherwise he will be seen in the morning.
[2021-12-07 01:57] LABS: Appearance Urine Clear; Color Urine Yellow; Glucose Urine UA Negative (Negative); Leukocyte Esterase Urine Negative (Negative); Nitrite Urine Negative (Negative); PH 7.5 (5.0-9.0); UMIC TRIGGER UACC YES; Urine Blood Negative (Negative); Urine Ketones Negative (Negative); Urine Protein 30 (1+) mg/dL (Neg-Trace)
[2021-12-07 02:00] LABS: Bacteria Urine None Seen (None Seen); Hyaline Casts Urine 0-2 /LPF (0-2); RBC Urine 0-2 /HPF (0-2); Squamous Epithelial Cell Urine 0-2 /HPF (0-2); WBC Urine 0-5 /HPF (0-5)
[2021-12-07 02:25] LABS: Amphetamine Screen Urine POSITIVE (Not Detect); Barbiturates, Urine Not Detected (Not Detect); Benzodiazepines Screen Urine POSITIVE (Not Detect); Cannabinoid Screen Urine Not Detected (Not Detect); Cocaine Screen Urine Not Detected (Not Detect); Fentanyl, urine Not Detected (Not Detect); Opiate Screen Urine Not Detected (Not Detect); Phencyclidine Screen Urine Not Detected (Not Detect)
--- NOTE | 2021-12-07 05:19 | PC.NURSE ---
Pt attempted to communicate with staff. Staff asked are you hungry, thirsty, cold and do you have to use the restroom all of which pt shook his head no. Pt then shook head yes to wanting his tablet to which is being held at this time.
--- NOTE | 2021-12-07 05:39 | PC.NURSE ---
Pt cleaned and changed, linen changed.
[2021-12-07 06:01] VITALS: RESP 18
[2021-12-07] MEDS: clonazePAM 1 MG TABLET PO (07:12)
--- NOTE | 2021-12-07 07:27 | PC.NURSE ---
patient appears to remain at rest at present respirations are even and unlabored patient appears in no distress
[2021-12-07] MEDS: clonazePAM 1 MG TABLET 0.5 MG PO (11:07)
[2021-12-07] MEDS: clonazePAM 0.5 MG TABLET PO ×2 (13:31→20:16)
[2021-12-07] MEDS: Omeprazole 20 MG CAPSULE.DR PO (14:45)
--- NOTE | 2021-12-07 15:47 | PC.NURSE ---
via communication board client informed me he dislikes our undergarments fit, he tried to message his resource herman, no answer, i called and left message for this person to provide some for him.
--- NOTE | 2021-12-07 15:50 | P.CNPS_ITS ---
History of Present Illness Date of Service: 12/07/2021 Chief Complaint: Unknown? Autisitic Reason for Consult: SI Discussed with referring provider: Yes Sources of Information: patient interviewed, chart reviewed and crisis/core team assessment reviewed HPI Narrative: Mr. Fernandes is a 41 year-old male with hx of Autism. Pt self presented to [facility]. He reported increase suicidal ideation. He initially was hesitant to enter the pod asking if he will be held against his will. Pt communicated with IPad. In the ED pt reported increase anxiety; he reports he can't care for himself as he used to. He lives on his own. He has a master degree as SHERI therapist and worked up until several month currently on medical leave. 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 Pt reports this person helping changing clothes, taking a bath, cleaning. However, this person according to the pt, told he she can no longer work for him as she was using drugs and getting high. Pt asked to be referred to [facility] where they can meet both psychiatric and needs related to developmental condition such as Autism. Collateral information was gathered from Nighat, who is an adaptive physical education specialist who has worked with Jose Juan since he moved 2 years ago to [place] from [place]. Nighat reports that at baseline pt is able able to have full conversations without use of ipad or other devices. Nighat reports that he is consider a high functioning individual with Autism and for this reason he does not qualify for further services from [facility] including housing as he was making a salary of 60,000/year and able to attend to his ADLs. Nighat reports that pt can present very different to different people (to some as more capable or less capable than he truly is). Nighat reports that regression in her expertise is not due to his underlying Autistic disorder. Nighat reports that pt has been showing increase in impulsive behaviors such as walking into traffic or into train track which he denies was w ith intent to end his life. Nighat also reports some concerning behaviors such as stocking female providers and has one or more restraining orders against him. In the ED, pt denies suicidal or homicidal ideation. He denies hx of VH/AH. He denies any plan or intent to harm himself. Pt reports he would like to do PHP through [facility] if wait time for inpt bed in their D[facility] is too long. He reports be ing in the ED is too stressful and triggering for him. Past Psychiatric History: Past medication trials: adderall, which pt reports has been helpful, clonazepam. Pt reports he has paradoxical effects with antipsychotics and can't take them. Hx of impulsive behaviors such as running into traffic, but he denies that this was a suicide attempt. Medical Evaluation Reviewed: Yes [facility] Medical History (Updated 12/21/21 @ 13:50 by Kiya Martínez) Autism Diagnostics Vital Signs (24Hr): Vital Signs - 24 hr 12/06/21 18:35 12/06/21 21:00 12/07/21 06:01 Temperature 98.5 F 97.3 F Pulse Rate 102 H 117 H Respiratory Rate 18 18 18 Blood Pressure 146/76 H 128/68 Pulse Oximetry 98 93 Oxygen Delivery Method Room Air Room Air BMI result Body Mass Index 28.3 Labs Results: 12/06/21 21:13 12/06/21 21:13 Labs: Laboratory Results - last 48 hr 12/06/21 12/06/21 12/06/21 21:13 21:13 21:13 WBC 10.6 RBC 5.29 Hgb 15.4 Hct 45.5 MCV 86.0 MCH 29.1 MCHC 33.8 RDW 13.7 Plt Count 234 MPV 10.7 Immature Gran % (Auto) 0.4 Neut % (Auto) 80.9 H Lymph % (Auto) 11.9 L Kerr % (Auto) 6.5 Eos % (Auto) 0.1 Baso % (Auto) 0.2 Lymph # (Auto) 1.3 Kerr # (Auto) 0.7 Eos # (Auto) 0.0 Baso # (Auto) 0.0 Abs Immat Gran (auto) 0.04 H Absolute Neuts (auto) 8.6 H Absolute Nucleated RBC 0.000 Nucleated RBC % (auto) 0.0 Sodium 142 Potassium 3.7 Chloride 105 Carbon Dioxide 23 Anion Gap 18 BUN 14 Creatinine 1.22 Estim Creat Clear Calc 77.1 Estimated GFR > 60 Random Glucose 89 Calcium 9.1 Magnesium 2.3 Total Bilirubin 0.7 AST 37 ALT 34 Alkaline Phosphatase 102 Total Protein 7.0 Albumin 4.2 Urine Color Urine Appearance Urine pH Ur Specific [place] Urine Protein Urine Glucose (UA) Urine Ketones Urine Blood Urine Nitrite Ur Leukocyte Esterase Urine RBC Urine WBC Ur Squamous Epith Cells Urine Bacteria Hyaline Casts Urine Opiates Screen Urine Fentanyl Screen Ur Barbiturates Screen Ur Phencyclidine Scrn Ur Amphetamines Screen U Benzodiazepines Scrn Urine Cocaine Screen U Marijuana (THC) Screen Ethyl Alcohol < 10 COVID-19 (SUZI) Negative COVID-19 Clin Com See Note 12/07/21 12/07/21 01:47 01:47 WBC RBC Hgb Hct MCV MCH MCHC RDW Plt Count MPV Immature Gran % (Auto) Neut % (Auto) Lymph % (Auto) Kerr % (Auto) Eos % (Auto) Baso % (Auto) Lymph # (Auto) Kerr # (Auto) Eos # (Auto) Baso # (Auto) Abs Immat Gran (auto) Absolute Neuts (auto) Absolute Nucleated RBC Nucleated RBC % (auto) Sodium Potassium Chloride Carbon Dioxide Anion Gap BUN Creatinine Estim Creat Clear Calc Estimated GFR Random Glucose Calcium Magnesium Total Bilirubin AST ALT Alkaline Phosphatase Total Protein Albumin Urine Color Yellow Urine Appearance Clear Urine pH 7.5 Ur Specific [place] 1.020 Urine Protein 30 (1+) H Urine Glucose (UA) Negative Urine Ketones Negative Urine Blood Negative Urine Nitrite Negative Ur Leukocyte Esterase Negative Urine RBC 0-2 Urine WBC 0-5 Ur Squamous Epith Cells 0-2 Urine Bacteria None Seen Hyaline Casts 0-2 Urine Opiates Screen Not Detected Urine Fentanyl Screen Not Detected Ur Barbiturates Screen Not Detected Ur Phencyclidine Scrn Not Detected Ur Amphetamines Screen POSITIVE H U Benzodiazepines Scrn POSITIVE H Urine Cocaine Screen Not Detected U Marijuana (THC) Screen Not Detected Ethyl Alcohol COVID-19 (SUZI) COVID-19 Clin Com Imaging Radiology Impressions: ITS Impressions Shoulder X-Ray 12/06/21 20:49 IMPRESSION: 1. No gross fracture or dislocation on limited single view of the shoulders. 2. Mild right glenohumeral joint osteoarthritis and mild left acromioclavicular arthropathy. 3. Left subacromial spur. Shoulder X-Ray 12/06/21 20:49 IMPRESSION: 1. No gross fracture or dislocation on limited single view of the shoulders. 2. Mild right glenohumeral joint osteoarthritis and mild left acromioclavicular arthropathy. 3. Left subacromial spur. Mental Status Exam Mental Status Exam Narrative: Appearance: casually groomed, fair hygiene, in NAD Psychomotor: some agitation noted Speech: communicating through Ipad, mostly non verba; SI: denies HI: denies Mood: anxious Affect: congruent Insight/judgment: fair Memory/cog: alert, oriented x 3 not formally tested. Medications Medications Current Medications Amphetamine/Dextroamphetamine (Dextroamphetamine/Amphetamine Xr 10 Mg Cap.Er.24h) 30 mg PO BID [facility] Last Admin: 12/07/21 13:28 Dose: Not Given Clonazepam (Clonazepam 0.5 Mg Tablet) 0.5 mg PO TID [facility] Last Admin: 12/07/21 13:31 Dose: 0.5 mg Clonazepam (Clonazepam 1 Mg Tablet) 1 mg PO BEDTIME PRN PRN Reason: Insomnia Allergies Allergies Allergy/AdvReac Type Severity Reaction Status Date / Time No Known Allergies Allergy Verified 12/06/21 18:35 Assessment & Plan Assessment & Plan (1) Autism disorder: Status: Acute Code(s): F84.0 - Autistic disorder Plan Mr. Fernandes is a 41 year-old trans male with hx of high functioning Autism. He self presented to [facility] reporting increase suicidal ideation, sturggling to care for himself. Pt adamantly denied any plan or intent to harm himself and requested referral to [facility] as they offered specialized treatment for individual with both developmental disorders and psychiatric disorder. Due to long wait list and given that pt adamantly denies any plan or intent to harm himself, recommendation was to referred pt to PHP at [facility] who report can increase level of care to inpatient if acuity increases. We discussed risks, benefits and alternative treatment options. At this moment, pt has been on same psychotropic medications prescribed by his PCP. Pt reports paradoxical effects with antipsychotics and feels adderall most effective for impulsivity. Nighat- his OP onboarding specialist expressed concern regarding this pt increasing impulsivity, inappropriate behaviors towards female providers and legal consequences including restraining orders. Nighat concern that this are not traits of his Autistic disorder and hoping pt more open to accept psychiatric care as he had declined in the past. PLAN 1. Pt to return home, follow up with PHP at [facility]. Given that he denies any plan or intent to harm himself and requestion OP psychiatric treatment. I spent minutes with the patient and/or on the patient floor today, greater than?50% of which was spent counseling/coordinating care.
[2021-12-07] MEDS: LORazepam 1 MG TABLET 2 MG PO ×3 (16:32→21:47)
--- NOTE | 2021-12-07 18:17 | PC.NURSE ---
client over the last 60-90 minutes expressed via communication board how he was concerned regarding the wait, and the fact he could not get a hold of [facility] support resource person to bring him new undergarments. im always different , everyone dc besides me
[2021-12-07] MEDS: OLANZapine 10 MG TABLET PO (18:37)
--- NOTE | 2021-12-07 18:38 | PC.NURSE ---
client soon after dinner escalated, walking around unit testing doors thiago go thiago go explained to patient couldnt leave, sought out oreder from provider, client took po ativan and olanzapine, provider also had added in beadryl and will admin that also po if possible
[2021-12-07] MEDS: diphenhydrAMINE HCL 25 MG TABLET 50 MG PO (18:56)
[2021-12-07] MEDS: Magnesium Hydrox/Alum Hydrox 30 ML ORAL.SUSP 15 ML PO (20:16)
[2021-12-07 20:30] VITALS: BP 109/64; PULSE 107; RESP 20; TEMP 36.3; O2SAT 96
--- NOTE | 2021-12-07 21:36 | PC.NURSE ---
pt with increasing restlessness, agitation. patient very upset because she is being held hostage here, asking to speak to a croze machine operator. saying we are not allowed to keep him here for more than one night. pt banging on exit doors. security called, DI Duke present. gave verbal order to this RN to administer 2mg ativan po. pt is willing to take this medication for sleep.
--- NOTE | 2021-12-07 22:22 | PC.NURSE ---
patient resting comfortably on stretcher
[2021-12-07] MEDS: Dextroamphetamine/Amphetamine XR 10 MG CAP.ER.24H 30 MG PO (22:31)
--- NOTE | 2021-12-07 22:34 | PC.NURSE ---
pt up again, agitated and restless, requesting his adderall medication because he says it helps to calm him down at night time and he takes it every night before bed. administered as ordered. pt requesting tablet but denied because last time the tablet was in his possession he tried smashing it on the ground. will continue to monitor
--- NOTE | 2021-12-07 23:33 | ECG_ITS ---
Test Reason : cp Blood Pressure : / mmHG Vent. Rate : 090 BPM Atrial Rate : 090 BPM P-R Int : 142 ms QRS Dur : 086 ms QT Int : 338 ms P-R-T Axes : 047 051 007 degrees QTc Int : 413 ms Normal sinus rhythm Minimal voltage criteria for LVH, may be normal variant ( Sokolow-Owusu ) Borderline ECG No previous ECGs available Referred By: Megan Francois Electronically Signed By:CONSTANCE FERNÁNDEZ MD
[2021-12-08] MEDS: chlorproMAZINE HCl 25 MG/ML AMPUL 50 MG IM (00:25)
--- NOTE | 2021-12-08 00:36 | PC.NURSE ---
IM thorazine administered per provider request. pt still restless with increasing aggression and agitation. pt is a harm to self and others. pt becomes very agitated and aggressive when unable to get his words/thoughts out as he wishes. multiple attempts for prn meds, other remedies such as food, drink, music, coloring, headphones attempted to calm patient but no relief. will continue to monitor closely.
[2021-12-08 07:48] VITALS: BP 117/75; PULSE 116; RESP 17; TEMP 36.8; O2SAT 96
--- NOTE | 2021-12-08 07:50 | PC.NURSE ---
Patient unsteady on feet, provider notified. Additionally, patients HR 116. Provider notified.
--- NOTE | 2021-12-08 09:33 | PC.NURSE ---
Addendum entered by Romain Augustine 12/08/21 13:36: Kiya ordered 1mg Klonopin and instructed to still give patient 0.5mg Klonopin at 1500 med pass. Addendum entered by Romain Augustine 12/08/21 13:34: Provider Kiya ordered patients morning meds due to patient refusing medications this morning. Addendum entered by Romain Augustine 12/08/21 10:06: Patient refused medications, provider made aware Original Note: patient starting to escalate. Saying he wants to leave AMA. Refusing medications. Dr. Gonzales made aware.
[2021-12-08] MEDS: Dextroamphetamine/Amphetamine XR 10 MG CAP.ER.24H 30 MG PO (11:31)
[2021-12-08] MEDS: clonazePAM 1 MG TABLET PO (11:31)
--- NOTE | 2021-12-08 13:42 | PC.NURSE ---
Patient accompanied to car with provider network manager Mihaela and Ciro from [employer] to get helmet and vest. Commercial Loan Underwriter Mihaela says there is no need for a 1:1 with this individual due to no ligature risks on his belongings (helmet and calming vest). Provider Kiya and provider network manager Mihaela say patient can use phone, tablet and xbox controller while in room. The phone, tablet and xbox controller are to have a time limit for use. Mihaela instructed for about an hour at a time then to be out back in locker or Care team office to charge device. Electronics are to be used only in the individuals room and not on the unit.
[2021-12-08] MEDS: hydrOXYzine HCL 50 MG TABLET PO (16:15)
[2021-12-08] MEDS: LORazepam 1 MG TABLET 2 MG PO (16:15)
--- NOTE | 2021-12-08 16:49 | MHC.SW.PN ---
This keno writer/runner spoke to [facility] regarding resource availability that could provide compassionate, educated care for both the patient's autism and psychiatric diagnosis. The inpatient unit currently has an estimated three week waiting list. This keno writer/runner spoke with a social media intern at the [facility] who verified they are able provide services to the patient that would address both his identified needs. This keno writer/runner spoke with the patient who continued to ask to leave the hospital indicating the pod was a challenging environment for him to be in due to the noise, and numerous people going in and out, and being stuck in a isolated area. The patient reported he would like to be discharged home with PC support and a referral to [facility]. When this keno writer/runner explained to the patient that he can't stay on the [facility] inpatient wait list if he is discharged, but could work with their team via the virtual [facility] the patient requested a referral be placed for the outpatient program. This keno writer/runner review the case with the treatment team in the Pod who were agreeable with this plan. A referral to [facility] was placed with an anticipated intake apt before Monday. Outpatient resources are attempting to secure PC support for the patient. The patient was agreeable with this plan, denied SI/HI and reported that if he felt unsafe he would call 911.
--- NOTE | 2021-12-08 18:16 | PC.NURSE ---
Due to patient being medicated with 2mg Ativan prior to discharge orders being put in Dr. Escobar discharged patient with a Lyft that was set up by the Care team.
--- NOTE | 2021-12-08 18:55 | MHC.CARE ---
Multiple conversations with patient regarding discharge planning. Providers expressed concern about patient driving home after receiving Ativan dose at 4:15 pm as it could be sedating and put him at risk. Patient adamantly disagreed with plan to stay until 8:00 and safely take his own car home. A compromise was reached and patient agreed to accept a LYFT home, additional LYFT was offered to pick him up at home tomorrow and bring him back to get his car. He stated he would take the LYFT home and get his car later tonight after 8pm. Patient did not get into the LYFT at 5:50 but stated he would wait in the parking lot until [address] his own car home.
== END 2021-12-08 18:33 | disposition still patient (30) ==
PROVIDERS: Physician Assistant; Emergency Provider Internal Medicine; PCP Family Medicine
DX: F33.1 Major depressive disorder, recurrent, moderate (principal); R45.851 Suicidal ideations; F41.1 Generalized anxiety disorder; M25.512 Pain in left shoulder; M25.511 Pain in right shoulder; F43.0 Acute stress reaction; F84.0 Autistic disorder; Z20.822 Contact with and (suspected) exposure to COVID-19; Z79.899 Other long term (current) drug therapy
CPT/HCPCS: 73020; 80053; 80307; 81001; 82077; 83735; 85025; 87635; 93005; 96372; 99285; J2250; J3230; Q0163

== ENCOUNTER 2021-12-13 13:59 | Emergency (ER) | payer MEDICAID, SELFPAY ==
--- NOTE | 2021-12-13 14:10 | ED_ITS ---
HPI - General Adult General Chief complaint: General Medical Stated complaint: UTI AND TOOTH INFECTION Time Seen by Provider: 12/13/21 14:10 Source: patient and EMS Mode of arrival: EMS Limitations: no limitations History of Present Illness HPI narrative: Patient is a 41 year old assigned female at , now male, with a history of autism, violent behaviors, manipulative behaviors, and recent diagnosis of a dental infection and vaginal infection presenting to the emergency department today to get his first dose of medication that he was prescribed at a different facility last night. Patient is able to speak full sentences and sometimes chooses to communicate via his tablet or cell phone. This evening, the patient refused to answer any of my questions. EMS stated that the patient's discharge p aperwork suggested the patient was prescribed Augmentin and when they asked the patient, the patient told them he was unable to go turkey picker this medication but he needs it so he came here. CARE team informed me that the patient has been behaving inappropriately toward various hospitals resulting in multiple no trespassing orders. CARE team informed me that the patient needs boundaries to be asserted, firmly. EMS stated that the patient's family service caseworker is off until tomorrow evening. Treatments prior to arrival: none Related Data Home Medications Medication Instructions Recorded Confirmed clonazepam 1 mg disintegrating 1 tab PO BEDTIME PRN Insomnia 11/05/21 12/07/21 tablet clonazepam 0.5 mg tablet 1 tab PO TID 12/07/21 12/07/21 dextroamphetamine-amphetamine ER 1 cap PO BID 12/07/21 12/07/21 30 mg 24hr capsule,extend release (Adderall XR) testosterone cypionate 200 mg/mL 0.5 ml IM QWEEK 12/07/21 12/07/21 intramuscular oil Allergies Allergy/AdvReac Type Severity Reaction Status Date / Time quetiapine [From Seroquel] Allergy Unknown Verified 12/08/21 11:53 Review of Systems Review of Systems: Yes Other (patient refused to answer) [facility] Past Medical History Attestation statement: The following information was validated with the patient. Source: old records reviewed Social History Social History Advance Directives: No Advance Directives Information Provided: No Physical Exam ED Vital Signs: Vital Signs - 24 hr 12/13/21 14:16 Temperature 97.9 F Pulse Rate 67 Respiratory Rate 18 Blood Pressure 103/51 L Pulse Oximetry 97 BMI result Body Mass Index 31.4 Const General: alert and awake Nutritional Appearance: obese Orientation/consciousness: patient oriented x3 Limitations: behavioral limitations HENMT Head: Yes normal to inspection Ears: hearing grossly normal bilaterally General nose exam: Normal external nose present Face and sinus: Yes normal facial exam Teeth and gingiva: dentition normal Eyes General: appearance normal, both eyes and all related structures Periorbital: periorbital findings normal Eyelids: Yes eyelids normal Conjunctivae: conjunctivae normal Pupils: Equal, round and reactive pupils present EOM: EOMs intact bilaterally Neck Neck: Yes normal visual inspection and Yes full ROM Chest Chest palpation & inspection: normal inspection of the chest Resp Effort & Inspection: normal respiratory effort GI Inspection: Yes normal to inspection Neuro General: patient oriented x3 Cranial nerves: Yes Equal, round and reactive pupils present Extrem General: Yes normal to inspection and Yes full ROM Medications Administered Discontinued Medications Generic Name Dose Route Start Last Admin Trade Name Freq PRN Reason Stop Dose Admin Acetaminophen 650 mg 12/13/21 16:49 12/13/21 17:07 Acetaminophen 325 Mg Tablet PO 12/13/21 16:50 650 mg ONCE ONE Administration Amoxicillin/Clavulanate Potassium 875 mg 12/13/21 15:27 12/13/21 15:33 Amoxicillin/Potassium Clav 875 Mg Tablet PO 12/13/21 15:28 875 mg ONCE ONE Administration Medical Decision Making [facility] Narrative Medical decision making narrative: Patient is a 41 year old assigned female at , now male, with a history of autism, violent behaviors, manipulative behaviors, and recent diagnosis of a dental infection and vaginal infection presenting to the emergency department today for an initial dose of his medication he was prescribed last night. Patient's physical exam showed an uncooperative and easily agitated individual. Patient refused all additional testing. After reviewing the records from [facility] and confirming he was prescribed Augmentin and told to use an OTC barrier cream for his vaginal infection, I gave him a dose of Augmentin here. Patient's primary care sales representative confirmed she would be getting the rest of his prescription tomorrow. Patient was cleared for discharge and attempted multiple manipulative behaviors to stay in the department longer. With the help of security and the patient's aide, the patient was able to discharge safely. Medical Records Medical records reviewed: Yes I reviewed the patient's medical records. Discharge Plan Discharge Clinical Impression: Malingering, Dental infection Patient Disposition: Home, Self-Care Instructions: Dental Abscess (ED) Additional Instructions: Take your antibiotics as prescribed by the facility you visited last night. Follow up with your primary care provider. Return to the emergency department immediately if your symptoms worsen or if you develop any dizziness, shortness of breath, difficulty breathing, chest pain, blurry vision, loss of vision, nausea, vomiting, abdominal pain, fever, chills, back pain, or any other complaints. Prescriptions: No Action clonazepam 1 mg tablet,disintegrating 1 tab PO BEDTIME PRN (Reason: Insomnia) dextroamphetamine-amphetamine [Adderall XR] 30 mg capsule,extended release 24hr 1 cap PO BID clonazepam 0.5 mg tablet 1 tab PO TID testosterone cypionate 200 mg/mL oil 0.5 ml IM QWEEK Referrals: [facility] [Provider Group] (Call to establish and follow up with a primary care provider. If you already have a primary care provider, please follow up with them. ) [facility] [Provider Group] (Call to establish and follow up with a primary care provider. If you already have a primary care provider, please follow up with them. ) [facility] [Provider Group] (Call to establish and follow up with a primary care provider. If you already have a primary care provider, please follow up with them. ) Print Language: Persian
[2021-12-13 14:16] VITALS: BP 103/51; BP 118/78; PULSE 67; PULSE 68; RESP 18; TEMP 36.6; O2SAT 97; O2SAT 98; BMI 31.4
--- NOTE | 2021-12-13 15:00 | PC.NURSE ---
patient uncooperative with changing and taking vitals . provider aware . patient aware of plan of care .
--- NOTE | 2021-12-13 15:30 | PC.NURSE ---
patient increased agitation yelling and hitting head against wall . attempting to redirect patient . provider aware . security at bedside for assistance . patient assisted back to room . provider contacted care team regarding plan of care .
[2021-12-13] MEDS: Amoxicillin/Potassium Clav 875 MG TABLET PO (15:33)
--- NOTE | 2021-12-13 16:00 | PC.NURSE ---
Plan of care for patient to discharge , patient had increased agitation in hallway . patient deceided to leave without paperwork . provider aware .
--- NOTE | 2021-12-13 16:55 | PC.NURSE ---
patient returned with pct to get discharge paperwork and Tylenol . went over discharge paperwork and plan of care . provider aware .
[2021-12-13] MEDS: Acetaminophen 325 MG TABLET 650 MG PO (17:07)
== END 2021-12-13 17:00 | disposition home or self-care (01) ==
PROVIDERS: Emergency Provider Emergency Medicine
DX: Z76.5 Malingerer [conscious simulation] (principal); K04.7 Periapical abscess without sinus; F64.0 Transsexualism
CPT/HCPCS: 99283

== ENCOUNTER 2021-12-20 20:10 | Inpatient (IN) | payer OTHER, MEDICAID, SELFPAY ==
--- NOTE | 2021-12-20 | ECG_ITS ---
Test Reason : SLOW HEART RATE Blood Pressure : / mmHG Vent. Rate : 050 BPM Atrial Rate : 050 BPM P-R Int : 122 ms QRS Dur : 084 ms QT Int : 374 ms P-R-T Axes : 011 055 033 degrees QTc Int : 340 ms Sinus bradycardia Minimal voltage criteria for LVH, may be normal variant ( Sokolow-Owusu ) Borderline ECG When compared with ECG of 07-DEC-2021 23:56, Vent. rate has decreased BY 40 BPM T wave amplitude has decreased in Anterior leads QT has shortened Referred By: Mariela Ibarra Electronically Signed By:CONSTANCE FERNÁNDEZ MD
[2021-12-20 20:17] VITALS: BP 138/75; PULSE 61; RESP 18; TEMP 37; O2SAT 97
--- NOTE | 2021-12-20 20:19 | ED_ITS ---
HPI - Psych General Chief Complaint: Overdose Stated Complaint: SI Time Seen by Provider: 12/20/21 20:18 Source: patient, EMS and old records reviewed Mode of arrival: EMS Limitations: no limitations History of Present Illness HPI Narrative: 41-year-old transgender female to male with history of autism, violent behavior who presents to the ER from home via EMS for evaluation of possible suicidal ideation and tylenol overdose. His immigration case manager hadn't heard from him all weekend so police were called for a wellness check. He was found barricaded in his apartment with furniture. He was holding an empty tylenol PM bottle and NyQuil bottle that was [address]. He reports he ingested the medications over the last 48-72 hours. He was using his ipad to communicate with police and said he did it to kill himself. On arrival to the ER patient was minimally cooperative with interview. He denied SI or attempt to the nurse. MD complaint: suicidal ideation and feels depressed Onset (ago): unknown Treatments prior to arrival: placed on mental health hold Related Data Home Medications Medication Instructions Recorded Confirmed clonazepam 1 mg disintegrating 1 tab PO BEDTIME PRN Insomnia 11/05/21 12/07/21 tablet clonazepam 0.5 mg tablet 1 tab PO TID 12/07/21 12/07/21 dextroamphetamine-amphetamine ER 1 cap PO BID 12/07/21 12/07/21 30 mg 24hr capsule,extend release (Adderall XR) testosterone cypionate 200 mg/mL 0.5 ml IM QWEEK 12/07/21 12/07/21 intramuscular oil Allergies Allergy/AdvReac Type Severity Reaction Status Date / Time quetiapine [From Seroquel] Allergy Unknown Verified 12/20/21 20:51 Review of Systems Review of Systems: Yes Unobtainable due to mental condition and Unobtainable due to mental status PMFSH Social History Social History Advance Directives: No Advance Directives Information Provided: Yes Physical Exam Vital Signs: Vital Signs: Last Vital Signs Temp 98.6 F 12/20/21 20:40 Pulse 63 12/20/21 20:40 Resp 18 12/20/21 20:40 BP 122/62 12/20/21 20:40 Pulse Ox 99 12/20/21 20:40 O2 Del Method 12/20/21 20:40 BMI result Body Mass Index 35.5 Appearance: Alert. Nonverbal, rocking back and forth. Eyes: Pupils equal, round and reactive to light. ENT: Pharynx normal. Neck: Normal inspection. Neck supple. CVS: Normal heart rate and rhythm. Pulses normal. Respiratory: No respiratory distress. Breath sounds normal. Abdomen: Soft and nontender. +BS x4 Skin: Skin warm and dry. Normal skin color. Normal skin turgor. No rashes. Extremities: No lower extremity edema. Neuro/psych: awake and alert, agitated. not answering questions or following commands. moving all extremities spontaneously. Course Course Course Narrative: 41-year-old male with history of autism who presents to the ER for evaluation of possible suicide attempt. He reportedly ingested a significant amount of Tylenol over the weekend, unknown time frame. Will check Tylenol level, LFTs, U tox. Sitter at the bedside. Patient vomited small amount of green vomitus which could be the nyquil. Reevaluation(s) Reevaluation #1: Tylenol level is elevated at 33. Spoke with poison Control who is recommending treatment with N-acetylcysteine given his ingestion time is unknown. Will plan for medical admission. 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 He has taken a significant clinical decline over the last 6 months. Consultations Consultation #1: Poison Control Medications Administered Discontinued Medications Generic Name Dose Route Start Last Admin Trade Name Francis PRN Reason Stop Dose Admin Acetylcysteine 15,000 mg/ 275 mls @ 275 mls/hr 12/20/21 21:53 12/20/21 22:40 Dextrose IV 12/20/21 22:52 275 mls/hr ONCE ONE Administration Lorazepam 1 mg 12/20/21 21:54 12/20/21 22:01 Lorazepam 1 Mg Tablet PO 12/20/21 21:55 1 mg ONCE ONE Administration MDM - Psych Medical Records Attestation: I reviewed the patient's medical records. Lab Data Attestation: I reviewed the patient's lab results. Result diagrams: 12/20/21 21:08 12/20/21 21:08 Labs: Lab Results 12/20/21 12/20/21 12/20/21 Range/Units 21:08 21:08 21:08 WBC 6.6 (4.8-10.8) X10*3/uL RBC 5.44 (4.60-5.80) X10*6/uL Hgb 15.6 (14.0-18.0) g/dl Hct 47.5 (42.0-52.0) % MCV 87.3 (80.0-98.0) fL MCH 28.7 (27.0-33.0) pg MCHC 32.8 (31.0-36.0) g/dl RDW 13.6 (11.0-16.0) % Plt Count 280 (160-400) X10*3/uL MPV 11.0 (9.4-12.4) fL Immature Gran % (Auto) 0.5 H (0.0-0.4) % Neut % (Auto) 53.3 (45-73) % Lymph % (Auto) 35.1 (20-40) % [place] % (Auto) 9.2 (2-11) % Eos % (Auto) 1.4 (0-4) % Baso % (Auto) 0.5 (0-2) % Lymph # (Auto) 2.3 (1.2-4.9) X10*3/uL [place] # (Auto) 0.6 (0.1-1.2) X10*3/uL Eos # (Auto) 0.1 (0.0-0.4) X10*3/uL Baso # (Auto) 0.0 (0.0-0.2) X10*3/uL Abs Immat Gran (auto) 0.03 (0.00-0.03) X10*3/uL Absolute Neuts (auto) 3.5 (2.0-8.3) x10*3/uL Absolute Nucleated RBC 0.000 (0.0-0.012) X10*3/uL Nucleated RBC % (auto) 0.0 (0.0-0.2) /100WBC PT (10.0-13.1) SEC INR (0.9-1.1) APTT (26.0-36.4) SEC Sodium 143 (135-145) mmol/L Potassium 4.1 (3.3-5.1) mmol/L Chloride 107 (96-108) mmol/L Carbon Dioxide 23 (22-29) mmol/L Anion Gap 17 (12-20) BUN 12 (9-16) mg/dL Creatinine 1.14 (0.5-1.4) mg/dL Estim Creat Clear Calc 95.2 Estimated GFR > 60 Random Glucose 105 (60-115) mg/dL Calcium 9.2 (8.4-10.2) mg/dL Magnesium 2.0 (1.6-2.6) mg/dL Total Bilirubin 0.3 (0.0-1.0) mg/dL Direct Bilirubin < 0.2 (0.0-0.5) mg/dL AST 24 (5-37) U/L ALT 24 (0-40) U/L Alkaline Phosphatase 95 (39-117) U/L Total Protein 7.2 (6.5-8.0) g/dL Albumin 4.3 (3.5-5.0) g/dL Salicylates < 5.0 L (15-30) mg/dL Acetaminophen 33 H (<30) mcg/mL Ethyl Alcohol < 10 mg/dL COVID-19 (SUZI) Negative (Negative) COVID-19 Clin Com See Note 12/20/21 Range/Units 21:08 WBC (4.8-10.8) X10*3/uL RBC (4.60-5.80) X10*6/uL Hgb (14.0-18.0) g/dl Hct (42.0-52.0) % MCV (80.0-98.0) fL MCH (27.0-33.0) pg MCHC (31.0-36.0) g/dl RDW (11.0-16.0) % Plt Count (160-400) X10*3/uL MPV (9.4-12.4) fL Immature Gran % (Auto) (0.0-0.4) % Neut % (Auto) (45-73) % Lymph % (Auto) (20-40) % [place] % (Auto) (2-11) % Eos % (Auto) (0-4) % Baso % (Auto) (0-2) % Lymph # (Auto) (1.2-4.9) X10*3/uL [place] # (Auto) (0.1-1.2) X10*3/uL Eos # (Auto) (0.0-0.4) X10*3/uL Baso # (Auto) (0.0-0.2) X10*3/uL Abs Immat Gran (auto) (0.00-0.03) X10*3/uL Absolute Neuts (auto) (2.0-8.3) x10*3/uL Absolute Nucleated RBC (0.0-0.012) X10*3/uL Nucleated RBC % (auto) (0.0-0.2) /100WBC PT 10.8 (10.0-13.1) SEC INR 0.9 (0.9-1.1) APTT 32.0 (26.0-36.4) SEC Sodium (135-145) mmol/L Potassium (3.3-5.1) mmol/L Chloride (96-108) mmol/L Carbon Dioxide (22-29) mmol/L Anion Gap (12-20) BUN (9-16) mg/dL Creatinine (0.5-1.4) mg/dL Estim Creat Clear Calc Estimated GFR Random Glucose (60-115) mg/dL Calcium (8.4-10.2) mg/dL Magnesium (1.6-2.6) mg/dL Total Bilirubin (0.0-1.0) mg/dL Direct Bilirubin (0.0-0.5) mg/dL AST (5-37) U/L ALT (0-40) U/L Alkaline Phosphatase (39-117) U/L Total Protein (6.5-8.0) g/dL Albumin (3.5-5.0) g/dL Salicylates (15-30) mg/dL Acetaminophen (<30) mcg/mL Ethyl Alcohol mg/dL COVID-19 (SUZI) (Negative) COVID-19 Clin Com ECG Data Attestation: I personally reviewed and interpreted this ECG as follows: ECG interpretation date: 12/20/21 ECG interpretation time: 22:56 Interpretation: Sinus bradycardia, ventricular rate 50 beats per minute, normal OH interval, normal QT, normal QTC, peaked T-waves in V2 and V3. No ST segment elevations. Critical Care Time Critical Care Time Critical Care Time: Yes Total Critical Care Time: 38 Attestation: I have personally provided critical care time exclusive of time spent on separately billable procedures. Time includes review of lab data, radiology results, discussion with consultants, and monitoring for potential decompensation. Intervention performed as documented. Discharge Plan Discharge Clinical Impression: Acetaminophen overdose Patient Disposition: Admitted As Inpatient
[2021-12-20 20:40] VITALS: BP 122/62; PULSE 63; RESP 18; TEMP 37; O2SAT 99; BMI 35.5
[2021-12-20 21:17] LABS: MANUAL DIFF FLAG NO
[2021-12-20 21:23] LABS: INTERNATIONAL NORM RATIO 0.9 (0.9-1.1); Prothrombin Time 10.8 SEC (10.0-13.1)
[2021-12-20 21:25] LABS: COVID-19 Test Negative (Negative); IDNOW Serial# 55D5AD1C
[2021-12-20 21:34] LABS: Basophils Percent Auto 0.5 % (0-2); Eosinophils Absolute Auto 0.1 X10*3/uL (0.0-0.4); Eosinophils Percent Auto 1.4 % (0-4); Hematocrit 47.5 % (42.0-52.0); Hemoglobin 15.6 g/dl (14.0-18.0); Imm Gran Abs Auto 0.03 X10*3/uL (0.00-0.03); Imm Gran Pct Auto 0.5 % (0.0-0.4); Lymphocytes Absolute Auto 2.3 X10*3/uL (1.2-4.9); Lymphocytes Percent Auto 35.1 % (20-40); Mean Corpuscular HGB Conc 32.8 g/dl (31.0-36.0); Mean Corpuscular Hemoglobin 28.7 pg (27.0-33.0); Mean Corpuscular Volume 87.3 fL (80.0-98.0); Monocytes Absolute Auto 0.6 X10*3/uL (0.1-1.2); Monocytes Percent Auto 9.2 % (2-11); Neutrophils Absolute Auto 3.5 x10*3/uL (2.0-8.3); Neutrophils Percent Auto 53.3 % (45-73); Platelet Count 280 X10*3/uL (160-400); Red Blood Count 5.44 X10*6/uL (4.60-5.80); Red Cell Distribution Width 13.6 % (11.0-16.0); White Blood Count 6.6 X10*3/uL (4.8-10.8)
[2021-12-20 21:40] LABS: Acetaminophen LAB 33 mcg/mL (<30); Alanine Aminotransferase 24 U/L (0-40); Albumin Level 4.3 g/dL (3.5-5.0); Alkaline Phosphatase 95 U/L (39-117); Anion Gap 17 (12-20); Aspartate Amino Transferase 24 U/L (5-37); Bilirubin Direct < 0.2 mg/dL (0.0-0.5); Bilirubin Total 0.3 mg/dL (0.0-1.0); Blood Urea Nitrogen 12 mg/dL (9-16); Calcium 9.2 mg/dL (8.4-10.2); Carbon Dioxide 23 mmol/L (22-29); Chloride 107 mmol/L (96-108); Creatinine Clr Calc Pharmacy 95.2; Estimated Glomerular Filt Rate > 60; Ethanol < 10 mg/dL; Glucose Random 105 mg/dL (60-115); Potassium 4.1 mmol/L (3.3-5.1); Salicylate < 5.0 mg/dL (15-30); Sodium 143 mmol/L (135-145); Total Protein 7.2 g/dL (6.5-8.0)
[2021-12-20] MEDS: LORazepam 1 MG TABLET PO (22:01)
[2021-12-20] MEDS: Acetylcysteine 15,000 MG in Dextrose 5 % 200 ML 275 MG IV (22:40)
--- NOTE | 2021-12-20 22:43 | P.HPHOSP_ITS ---
History of Present Illness Date of Service: 12/20/21 Chief Complaint: overdose This is a 41-year-old male with past medical history of autism communicates through Ipad, for possible suicidal ideation and attempt. Patient is not communicating with me, his iPad is being charged right now and he has his back turned to me and not cooperating and unable to give much history to me and I am unable to review his system. Therefore history is obtained mostly from EMR as well as ER PA. It appears the patient was found after his crm consultant had not heard from him all weekend long so police were called for a wellness check. He was found barricaded in his apartment with furniture, he was holding an empty Tylenol p.m. bottle and NyQuil bottle that was 3/[address] gone. The ingestion. Is unclear although he reported to the ED PA that he ingested of 48-72 hours ago. He reported to police that he wanted to kill himself. On arrival patient is hemodynamically stable no significant abnormal vitals Labs are significant for WBC count of 6.6, LFTs within normal range, with no abnormal AST, ALT, or bili. Poison control was called, and given the unknown ingestion time they recommended complete NAC treatment Unable to obtain past medical history Review of Systems Review of Systems: Yes all other systems are reviewed and are negative [facility] Medical History (Updated 12/21/21 @ 06:55 by Lupillo Grant MD) Autism Pertinent family history: unable to obtain Social History Patient Tobacco Use Status: Never used Tobacco Smoked in Last 30 Days: No Advance Directives: No Advance Directives Information Provided: Yes Meds Allergies Allergy/AdvReac Type Severity Reaction Status Date / Time quetiapine [From Seroquel] Allergy Unknown Verified 12/20/21 20:51 Active Medications: Current Medications Acetylcysteine 15,000 mg/ (Dextrose) 275 mls @ 275 mls/hr IV ONCE ONE Stop: 12/20/21 22:52 Last Admin: 12/20/21 22:40 Dose: 275 mls/hr Acetylcysteine 10,000 mg/ (Dextrose) 1,050 mls @ 62.506 mls/hr IV ONCE@0400 ELADIO Stop: 12/21/21 20:48 Acetylcysteine 5,000 mg/ (Dextrose) 525 mls @ 131.25 mls/hr IV ONCE ONE Stop: 12/21/21 03:59 Pharmacy Consult (Consult Rx Perform Med Rec) 1 each MISCELLANE ONCE PRN PRN Reason: Consult order Home Medications Medication Instructions Recorded Confirmed Last Taken Type clonazepam 1 mg disintegrating 1 tab PO BEDTIME PRN Insomnia 11/05/21 12/07/21 11/04/21 History tablet clonazepam 0.5 mg tablet 1 tab PO TID 12/07/21 12/07/21 Unknown History dextroamphetamine-amphetamine ER 1 cap PO BID 12/07/21 12/07/21 Unknown History 30 mg 24hr capsule,extend release (Adderall XR) testosterone cypionate 200 mg/mL 0.5 ml IM QWEEK 12/07/21 12/07/21 Unknown History intramuscular oil Physical Exam Vital Signs and Narrative: Vital Signs: Last Vital Signs Temp 98.6 F 12/20/21 20:40 Pulse 63 12/20/21 20:40 Resp 18 12/20/21 20:40 BP 122/62 12/20/21 20:40 Pulse Ox 99 12/20/21 20:40 O2 Del Method 12/20/21 20:40 BMI result Body Mass Index 35.5 Results Labs CBC and Chem 7: 12/21/21 05:33 12/20/21 21:08 Labs: Laboratory Results - last 24 hr 12/20/21 12/20/21 12/20/21 21:08 21:08 21:08 MCV 87.3 MCH 28.7 MCHC 32.8 RDW 13.6 Plt Count 280 MPV 11.0 Immature Gran % (Auto) 0.5 H Neut % (Auto) 53.3 Lymph % (Auto) 35.1 [place] % (Auto) 9.2 Eos % (Auto) 1.4 Baso % (Auto) 0.5 Lymph # (Auto) 2.3 [place] # (Auto) 0.6 Eos # (Auto) 0.1 Baso # (Auto) 0.0 Abs Immat Gran (auto) 0.03 Absolute Neuts (auto) 3.5 Absolute Nucleated RBC 0.000 Nucleated RBC % (auto) 0.0 PT INR APTT Anion Gap 17 Estim Creat Clear Calc 95.2 Estimated GFR > 60 Random Glucose 105 Calcium 9.2 Magnesium 2.0 Total Bilirubin 0.3 Direct Bilirubin < 0.2 AST 24 ALT 24 Alkaline Phosphatase 95 Total Protein 7.2 Albumin 4.3 Salicylates < 5.0 L Acetaminophen 33 H Ethyl Alcohol < 10 COVID-19 (SUZI) Negative COVID-19 Clin Com See Note 12/20/21 21:08 MCV MCH MCHC RDW Plt Count MPV Immature Gran % (Auto) Neut % (Auto) Lymph % (Auto) [place] % (Auto) Eos % (Auto) Baso % (Auto) Lymph # (Auto) [place] # (Auto) Eos # (Auto) Baso # (Auto) Abs Immat Gran (auto) Absolute Neuts (auto) Absolute Nucleated RBC Nucleated RBC % (auto) PT 10.8 INR 0.9 APTT 32.0 Anion Gap Estim Creat Clear Calc Estimated GFR Random Glucose Calcium Magnesium Total Bilirubin Direct Bilirubin AST ALT Alkaline Phosphatase Total Protein Albumin Salicylates Acetaminophen Ethyl Alcohol COVID-19 (SUZI) COVID-19 Clin Com Assessment and Plan (1) Acetaminophen overdose: Status: Acute Plan 41-year-old male with autism presents to the hospital after ingesting unknown amount of Tylenol and NyQuil and admitting to to being suicidal # acetaminophen overdose - unknown ingestion time or amount - acetaminophen level of 33 - no LFT abnormality - poison control recommends NAC- started in ED - Will monitor CMP q6hr - psych consulted DVT ppx: lovenox Given requirement for neck, evaluation for suicidal attempt patient required minimum 2 night inpatient hospital stay Quality Stroke Does the patient have a stroke diagnosis?: No VTE Prior VTE?: No VTE Risk Level:: Medical - moderate - high VTE Device Contraindication: Treatment Not Indicated VTE Drug Contraindication: N/A - Med Ordered
--- NOTE | 2021-12-20 22:54 | MHC.CARE ---
CARE team aware of the pt in the ED. This instructional writer spoke with ED provider who reported that the pt ingested a significant amount of tylenol over the weekend and will require medical admission. Per report- pt endorsed suicidal ideation to EMS and that he was trying to kill himself. In the ED pt has denied this. Pt is known to the CARE team from recent presentations to the ED for behavioral health concerns. Dr. Joellen Lorenz, clinical psychologist for [facility], called and requested an update on the pt. This instructional writer called back and left a message for Dr. Lorenz. Phone number is [phone].
--- NOTE | 2021-12-20 23:13 | PC.NURSE ---
Sam arrives via EMS d/t attempted SI via OD on tylenol and nyquill. 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 Per his community team, He has had a mental decline for the past several months and his outpatient team is working closely with him. They say Jose Juan is very intelligent and will use his autism diagnosis and disability to mask his mental health problems. They used the phrase he maxes out his autism to hide his mental health Don't use the phrase mental health this will send Sam into a fit. He will not acknowledge he has mental health issues. His outpatient team frequently has to send police for well checks because he disappears Today he was found in his apartment with the door barricaded and locked. He had taken ??unknown amounts of tylenol and 3/4 bottle of Nyquill. He communicated with police (who know sam well) that he wanted to and kill himself. He now denies saying this. Poison control contacted r/t OD and recommendations given. Sam needs firm directions and limit setting. He is re-directable easily with a firm voice and a choice of 2 things (sit in chair or bed, blood draw on left or right, etc) He does not like psycal touch, loud noise and bright lights. He has his noise canceling headphones on him, a stuffed hulk to hold onto and his IPAD is charging at the nurses station. (his name is on it) He likes a blanket over his eyes to help block out light. He has his Captain Gabi dotson locked in a locker. He stims by rocking back and forth, twirling his fingers, groaning and chewing (he did not bring anything to chew on) He also has relaxing music on his IPAD to listen to. Sam sleeps in a tent at home and one was made in the ER for him using a fitted sheet stretched over the side rails. (sitter is still able to visualize his face) Sam's normal baseline is verbal and can communicate easily. If he is overwhelmed he will use his IPAD and jesters to communicate. for [facility] psych or further info: Radha Waller area president and chief executive officer of [facility] [phone] rosmery Larson regional safety manager [phone] Morelia Lorenz clinical psych DDS [phone]
--- NOTE | 2021-12-20 23:30 | PC.NURSE ---
pt bed linen soiled ,was change and pt given warm blanket .
[2021-12-20 23:33] VITALS: BP 155/77; PULSE 66; RESP 16; TEMP 36.6; O2SAT 98
--- NOTE | 2021-12-20 23:51 | PC.NURSE ---
Pt was not able to insert an IV d/t he was agitated.
[2021-12-21] MEDS: Acetylcysteine 5,000 MG in Dextrose 5 % 500 ML 131.25 MG IV (01:28)
[2021-12-21] MEDS: LORazepam 0.5 MG TABLET PO (03:33)
[2021-12-21] MEDS: Acetylcysteine 10,000 MG in Dextrose 5 % 1,000 ML 62.51 MG IV (03:38)
[2021-12-21 06:08] LABS: MANUAL DIFF FLAG NO
[2021-12-21 06:17] LABS: Basophils Percent Auto 0.4 % (0-2); Eosinophils Absolute Auto 0.1 X10*3/uL (0.0-0.4); Eosinophils Percent Auto 1.1 % (0-4); Hematocrit 44.9 % (42.0-52.0); Hemoglobin 14.7 g/dl (14.0-18.0); Imm Gran Abs Auto 0.02 X10*3/uL (0.00-0.03); Imm Gran Pct Auto 0.3 % (0.0-0.4); Lymphocytes Absolute Auto 2.2 X10*3/uL (1.2-4.9); Lymphocytes Percent Auto 30.5 % (20-40); Mean Corpuscular HGB Conc 32.7 g/dl (31.0-36.0); Mean Corpuscular Hemoglobin 28.4 pg (27.0-33.0); Mean Corpuscular Volume 86.8 fL (80.0-98.0); Mean Platelet Volume 10.8 fL (9.4-12.4); Monocytes Absolute Auto 0.7 X10*3/uL (0.1-1.2); Monocytes Percent Auto 9.3 % (2-11); Neutrophils Absolute Auto 4.2 x10*3/uL (2.0-8.3); Neutrophils Percent Auto 58.4 % (45-73); Platelet Count 252 X10*3/uL (160-400); Red Blood Count 5.17 X10*6/uL (4.60-5.80); Red Cell Distribution Width 13.5 % (11.0-16.0); White Blood Count 7.2 X10*3/uL (4.8-10.8)
[2021-12-21 07:02] VITALS: BP 133/98; PULSE 90; RESP 18; O2SAT 97
--- NOTE | 2021-12-21 07:19 | PHA.MEDREC ---
Pharmacy Consult ? Medication Reconciliation Pharmacy has completed the medication reconciliation. Patient was just here on 12/13.
--- NOTE | 2021-12-21 09:56 | MHC.CARE ---
CARE Team receives a call from Steve Lorenz who is a part of pt?s team.? She is returning a return call placed by CARE Team yesterday.? Dr. Lorenz advises CARE Team of the following: Dr. Lorenz and pt?s team are concerned about how close pt comes to harming himself.? She identifies ?several? incidents where pt has ?Come close? to harming himself. Pt has SI and para suicidal thoughts at baseline He struggles with supports as he is someone who provides supports to others.? Because of this, he does not work well with his support system. 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 He has recently lost his license Pt was recently admitted to [facility] ICU after he lost consciousness.? He had to be intubated.? There is a suspicion that he overtook Clonopin.
[2021-12-21] MEDS: clonazePAM 0.5 MG TABLET PO ×3 (11:14→20:24)
--- NOTE | 2021-12-21 11:17 | MHC.CM.PN ---
MESSAGE LEFT FOR CALVIN ([facility] SUPERVISOR) TO ASK FOR A CALL BACK TO PERFORM CASE MANAGEMENT ASSESSMENT. CALVIN : [phone]
--- NOTE | 2021-12-21 11:29 | MHC.CARE ---
Jamila from [facility] Co-Response clinician who was on scene during the initial call available to provide information. [phone]
--- NOTE | 2021-12-21 12:00 | MHC.CARE ---
CARE public information coordinator speaks with assistant manager airside operations from [facility] crisis services, Marissa Pettit [facility] in order to gather history about pt to inform a plan of care. [facility] crisis has worked closely with pt, as he is in their catchment area, residing in [place], [place]. Per Marissa, pt has a dx of ASD and has DDS, but is very high functioning. Pt does struggle in some areas of functioning, however, pt's challenges are also impacted by borderline personality disorder. Pt has a history of suicide attempts and gestures. Pt struggles with interpersonal effectiveness, helplessness, chronic feelings of emptiness and severe emotion dysregulation. Per Marissa, pt has not been hospitalized by the [facility] team, as they have been unable to place him on an adult unit due to ASD dx and the wait time for DDU, and pt not being willing to remain for the bedsearch. Pt is not yet medically cleared. Once medically cleared, please consult the CARE Team. In the meantime, CARE Team recommends clear, consistent boundaries, minimal, monotone response to inappropriate behavior, positive engagement during periods of appropriate behavior. Staff should huddle often to make sure everyone is on the same page. Reducing staff splitting and maintaining consistent communication will decrease opportunities for pt to engage in staff manipulation.?If pt becomes dysregulated, a small core group should respond with a clear lead. Give short, concrete answers, directions, rules. Direct, blunt language is helpful. This is safe. This is not safe. Also use first, then language: First we need to lower the volume, then you can use the phone. Only ask one question at a time to the pt. Tell the pt how long you have to spend with him, and give him a heads up when you only have a few minutes remaining in your interaction.
--- NOTE | 2021-12-21 12:48 | P.CNPS_ITS ---
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 Banquet Set Up Person called to assess capacity for patient to make medical decisions for himself after he refused Acetylcystiene treatment. Initially, patient was emotional having recently been restrained for trying to leave the hospital, saying he was handled roughly; pt was non-verbal, making grunts and writing down his complaints on a white-board, protesting the restraint saying he was only leaving to get his Ipad which he uses to communicate. Patient was able to calm down and communicated via writing that he did not attempt suicide at all, that he's not stupid and would never have chosen such a method that is rarely effective; rather he said he's been taking tyelonol PM and Nyquill, trying to sleep since he's been feeling depressed due to unfairly treated by police in [place]. Regarding taking acetylcysteine for treatment, patient says he has no problem with it, that he just unplugged the IV to go to the bathroom and was angry when he was restrained while trying to leave the hospital. Banquet Set Up Person reviewed/educated patient on Tylenol overdose, acetaminophen levels in the blood, the potential benefits of acetylcysteine treatment and the risks of refusing treatment including the risk of fulminant liver; fha underwriter and patient looked at his acetaminophen level. Patient adequately understands the medical concern and risks of taking too much Tylenol and the need for treatment. Patient asked very astute, even medically informed questions, demonstrating that he fully understood. He asked to see his acetaminophen blood level. When fha underwriter showed it to him, he pointed out that his level is just minimally over the threshold and an unlikely concern. Patient was able to make a clear decision regarding treatment and said he agreed to continue treatment. And at this point fha underwriter finds that patient has capacity to make such medical decisions for himself. Initially patient was mute and communicated by writing on the white board and then writing on a piece of paper. However as the interview progressed patient started saying words; eventually he started speaking in rudimentary-like sentences but they were linear, goal oriented and effective, without any ambiguity. Patient explained that he took a leave of absence from his job Banquet Set Up Person was not called to assess for safety. However there was concerns regarding Tylenol overdose. Patient admits being depressed and that suicidal ideation can come and go and it is fleeting; however he denies any suicidality at this time. Of note, it seems patient told EMS that he was suicidal and then at Hospital, told nurse at the hospital this was not a suicide attempt. Patient reports that he did attempt suicide around 20 years ago with a gun but nothing since; he said couple months ago as he approached train tracks, and idea popped into his head and he lingered around train tracks, with what he reports was mild SI no actual intent or plan. Later fha underwriter talked to Marissa Pettit, pressure dispatcher of Crisis whose been working with patient over past few months. Regarding mutism, she that patient changes his communication depending on the situation. She says he is able to talk in clear, articulate full sentences, with perfect grammar, without any lisp or impediment and remaining completely logical and linear; she says the same with written communication. She says that he will pretend to be mute depending on with whom he's interacting. Marissa says that he has reported depression and expressed passive wish, however she does not think that patient is in imminent risk of harm to self or others, at least not intentionally. She says he has many suicidal gestures with high rescue factor. She thinks that this most recent Tylenol overdose was intended to be provocative, and not that the patient wanted to . She does agree that he remains at risk for accidentally over-stepping a gesture and accidentally harming himself however she maintains that this would be unintentional. She does not think inpatient admission would be helpful at all. She shared about his numerous charges for harassment and restraining orders. Banquet Set Up Person also talk to his counseling case manager Nighat. She reports that he has gotten Section 12 multiple times but never gets admitted to a psychiatric hospital. She agrees that he makes gestures and is provocative, making people worried that he is suicidal when he is not. She is worried that at some point in the future he will also push the gesture too far in accidentally hurt himself. She is also worried that he has suicidal thoughts high functioning until this summer However history of splitting relationships and significant interpersonal relationship strife Patient clear that he is not currently suicidal saying I am not going to leave and kill myself ... says that I am safe to go Is future oriented and looking for help to get his [facility] back [facility] Medical History (Updated 10/16/23 @ 18:28 by Henri Jones MD) Autism disorder Anxiety with depression ADHD Autism Diagnostics Vital Signs (24Hr): Vital Signs - 24 hr 12/20/21 20:40 12/20/21 20:17 12/20/21 23:33 Temperature 98.6 F 98.6 F 97.8 F Pulse Rate 63 61 66 Respiratory Rate 18 18 16 Blood Pressure 122/62 138/75 155/77 H Pulse Oximetry 99 97 98 Oxygen Delivery Method Room Air Room Air Room Air 12/21/21 07:02 Temperature Pulse Rate 90 Respiratory Rate 18 Blood Pressure 133/98 H Pulse Oximetry 97 Oxygen Delivery Method Room Air BMI result Body Mass Index 35.5 Labs 12/21/21 05:33 12/21/21 21:48 Labs: Laboratory Results - last 48 hr 12/20/21 12/20/21 12/20/21 21:08 21:08 21:08 WBC 6.6 RBC 5.44 Hgb 15.6 Hct 47.5 MCV 87.3 MCH 28.7 MCHC 32.8 RDW 13.6 Plt Count 280 MPV 11.0 Immature Gran % (Auto) 0.5 H Neut % (Auto) 53.3 Lymph % (Auto) 35.1 [place] % (Auto) 9.2 Eos % (Auto) 1.4 Baso % (Auto) 0.5 Lymph # (Auto) 2.3 [place] # (Auto) 0.6 Eos # (Auto) 0.1 Baso # (Auto) 0.0 Abs Immat Gran (auto) 0.03 Absolute Neuts (auto) 3.5 Absolute Nucleated RBC 0.000 Nucleated RBC % (auto) 0.0 PT INR APTT Sodium 143 Potassium 4.1 Chloride 107 Carbon Dioxide 23 Anion Gap 17 BUN 12 Creatinine 1.14 Estim Creat Clear Calc 95.2 Estimated GFR > 60 Random Glucose 105 Calcium 9.2 Magnesium 2.0 Total Bilirubin 0.3 Direct Bilirubin < 0.2 AST 24 ALT 24 Alkaline Phosphatase 95 Total Protein 7.2 Albumin 4.3 Salicylates < 5.0 L Acetaminophen 33 H Ethyl Alcohol < 10 COVID-19 (SUZI) Negative COVID-19 Clin Com See Note 12/20/21 12/21/21 21:08 05:33 WBC 7.2 RBC 5.17 Hgb 14.7 Hct 44.9 MCV 86.8 MCH 28.4 MCHC 32.7 RDW 13.5 Plt Count 252 MPV 10.8 Immature Gran % (Auto) 0.3 Neut % (Auto) 58.4 Lymph % (Auto) 30.5 [place] % (Auto) 9.3 Eos % (Auto) 1.1 Baso % (Auto) 0.4 Lymph # (Auto) 2.2 [place] # (Auto) 0.7 Eos # (Auto) 0.1 Baso # (Auto) 0.0 Abs Immat Gran (auto) 0.02 Absolute Neuts (auto) 4.2 Absolute Nucleated RBC 0.000 Nucleated RBC % (auto) 0.0 PT 10.8 INR 0.9 APTT 32.0 Sodium Potassium Chloride Carbon Dioxide Anion Gap BUN Creatinine Estim Creat Clear Calc Estimated GFR Random Glucose Calcium Magnesium Total Bilirubin Direct Bilirubin AST ALT Alkaline Phosphatase Total Protein Albumin Salicylates Acetaminophen Ethyl Alcohol COVID-19 (SUZI) COVID-19 Clin Com Medications Medications Current Medications Amphetamine/Dextroamphetamine (Dextroamphetamine/Amphetamine Xr 10 Mg Cap.Er.24h) 30 mg PO BID [facility] Clonazepam (Clonazepam 0.5 Mg Tablet) 0.5 mg PO TID [facility] Last Admin: 12/21/21 11:14 Dose: 0.5 mg Clonazepam (Clonazepam 1 Mg Tablet) 1 mg PO BEDTIME PRN PRN Reason: Insomnia Docusate Sodium (Docusate Sodium 100 Mg Capsule) 100 mg PO DAILY PRN PRN Reason: Constipation Enoxaparin Sodium (Enoxaparin Sodium 40 Mg/0.4 Ml Syringe) 40 mg SUBCUT Q24H [facility] Last Admin: 12/21/21 00:27 Dose: Not Given Acetylcysteine 10,000 mg/ (Dextrose) 1,050 mls @ 62.506 mls/hr IV ONCE@0400 [facility] Stop: 12/21/21 20:48 Last Admin: 12/21/21 03:38 Dose: 62.51 mls/hr Lactated Ringer's (Lr) 1,000 mls @ 100 mls/hr IVCONT .Q10H [facility] Last Admin: 12/21/21 12:41 Dose: Not Given Ondansetron HCl (Ondansetron Hcl 4 Mg/2 Ml Vial) 4 mg IVPUSH Q8H PRN PRN Reason: Nausea and Vomiting Pharmacy Consult (Consult Rx Perform Med Rec) 1 each MISCELLANE ONCE PRN PRN Reason: Consult order Sodium Chloride (0.9 % Sodium Chloride Flush 3 Ml Syringe) 3 ml IVFLUSH QSHIFT [facility] Last Admin: 12/21/21 12:41 Dose: Not Given Allergies Allergies Allergy/AdvReac Type Severity Reaction Status Date / Time quetiapine [From Seroquel] Allergy Unknown Verified 12/20/21 20:51 Assessment & Plan Assessment & Plan (1) Borderline personality disorder: Status: Suspected Code(s): F60.3 - Borderline personality disorder (2) ADHD: Status: Acute Code(s): F90.9 - Attention-deficit hyperactivity disorder, unspecified type (3) Autism disorder: Status: Acute Code(s): F84.0 - Autistic disorder Plan Patient does not require inpatient level of care I spent minutes with the patient and/or on the patient floor today, greater than?50% of which was spent counseling/coordinating care.
--- NOTE | 2021-12-21 13:27 | MHC.CARE ---
CARE Team responds to [place] [facility], room 370 to assist with the de-escalation of pt.? Attempts at de-escalation were initially successful but pt soon escalated and was restrained and brought back to his room by Security Officers. Pt continued to escalate and CARE Team cleared the scene, returning to the office to gather collateral information on interventions that have been successful for pt. CARE Team speaks with Morelia Lorenz, Clinical psych DDS ([phone]).? She reports that Direct, almost blunt, honest conversation works well for communicating with pt.? Knowing when things are rules/safe is important to communication with pt: ?It?s not safe to take too much Tylenol? [place] language works best with pt. Pt is a fan of [employer]/movies.? He sees himself as Captain Gabi (The hero) and The Hulk(A misunderstood villain) When communicating with pt, questions such as ?What would Gabi do?? have been helpful in the past. Pt will engage in head banging behavior as a means of self-soothing. This usually occurs when he has reached a pinnacle of frustration.? Pt has a helmet he wears for such behaviors. At home, he has two tents in his apartment, one in the living room and the other in the bedroom.? He does not own a bed.? He sleeps in both tents and has expressed no desire to own a bed. Pt has a weighted vest, weighing approximately 80lbs that he wears; this has a calming effect on him. Pt also utilizes a sensory swing.? It is a sack like swing he sits inside that compresses him. Pt is sensitive to sound and light as well as large groups of people. He has sensory videos on his I Pad which have proven helpful for him in the past.? Watching things on his I Pad whether they be sensory videos or movies has proven helpful in the past. Pt also has a foam chew object that he uses.? Any object with ?give? can be used to perform this function. Pt reported an Ativan allergy, Dr. Lorenz stated she was unaware of any Ativan allergy stating that pt responds well to Ativan and had wanted a standing order for it as it helps him to speak better. Pt also reported a dairy allergy.? Dr. Lorenz was unaware of any dairy allergy. CARE Team speaks with pt?s President Sales And Marketing Ms. Nighat Alanis ([phone]).? Pt has been with her since August 2021.? Since she has had pt on her caseload, he has stopped a train on the tracks in [place] by standing on the tracks. On Monday of last week, pt had a therapy appointment and was discussing the perceived transgressions of the [facility].? When this topic is discussed, pt usually becomes upset.? Ms. Alanis last had a conversation with pt Monday evening via text.? Ms. Alains stated that she does not monitor her work cell phone over the weekend and on Monday mornings she often has emails and texts sent by pt.? On Monday, she had none.? She attempted to contact pt and there was no response.? Generally, pt will respond or will delay his response.? Ms. Alanis believes this may be attention seeking behavior.? Once a deadline is established, ?If you don?t respond by this time I will call the police for a wellness check? pt will respond by that time or shortly after the deadline.? On this day, pt did not respond.? Concerned, Ms. Alanis called the police and requested a wellness search. Pt has a hx of attempts.? Ms. Alanis reports that every time he makes an attempt, he goes to the hospital, stabilizes, is discharged and the next attempt is worse.
[2021-12-21] MEDS: Dextroamphetamine/Amphetamine XR 10 MG CAP.ER.24H 30 MG PO ×2 (13:58→20:24)
--- NOTE | 2021-12-21 14:24 | HO.PM.IMPN ---
Subjective Subjective Date of Service: 12/21/21 Interval History: SIand attemp. tylenol toxicity Review of Systems patient was significantly agitated this morning, has underlying history of autism was trying to go out of the hospital, but his all resection considering suicidal ideation and attempt. Otherwise denies chest pain or shortness of breath or nausea or vomiting. Physical Exam Vital Signs: Vital Signs: Last Vital Signs Temp 97.8 F 12/20/21 23:33 Pulse 90 12/21/21 07:02 Resp 18 12/21/21 07:02 BP 133/98 H 12/21/21 07:02 Pulse Ox 97 12/21/21 07:02 O2 Del Method 12/21/21 07:02 BMI result Body Mass Index 35.5 Refused exam otherwise working okay conveys most to the masses by writing on the board Objective Data Active Medications Amphetamine/Dextroamphetamine (Dextroamphetamine/Amphetamine Xr 10 Mg Cap.Er.24h) 30 mg PO BID [facility] Last Admin: 12/21/21 13:58 Dose: 30 mg Documented By: JENNIFER Clonazepam (Clonazepam 0.5 Mg Tablet) 0.5 mg PO TID [facility] Last Admin: 12/21/21 11:14 Dose: 0.5 mg Documented By: JENNIFER Clonazepam (Clonazepam 1 Mg Tablet) 1 mg PO BEDTIME PRN PRN Reason: Insomnia Docusate Sodium (Docusate Sodium 100 Mg Capsule) 100 mg PO DAILY PRN PRN Reason: Constipation Enoxaparin Sodium (Enoxaparin Sodium 40 Mg/0.4 Ml Syringe) 40 mg SUBCUT Q24H [facility] Last Admin: 12/21/21 00:27 Dose: Not Given Documented By: CELESTE Non-Admin Reason: Patient Refused Acetylcysteine 10,000 mg/ (Dextrose) 1,050 mls @ 62.506 mls/hr IV ONCE@0400 [facility] Stop: 12/21/21 20:48 Last Admin: 12/21/21 03:38 Dose: 62.51 mls/hr Documented By: ALVA Lactated Ringer's (Lr) 1,000 mls @ 100 mls/hr IVCONT .Q10H [facility] Last Admin: 12/21/21 12:41 Dose: Not Given Documented By: JENNIFER Non-Admin Reason: IV Running Ondansetron HCl (Ondansetron Hcl 4 Mg/2 Ml Vial) 4 mg IVPUSH Q8H PRN PRN Reason: Nausea and Vomiting Pharmacy Consult (Consult Rx Perform Med Rec) 1 each MISCELLANE ONCE PRN PRN Reason: Consult order Sodium Chloride (0.9 % Sodium Chloride Flush 3 Ml Syringe) 3 ml IVFLUSH QSHIFT [facility] Last Admin: 12/21/21 12:41 Dose: Not Given Documented By: JENNIFER Non-Admin Reason: IV Running Labs CBC & Chem 7: 12/21/21 05:33 12/20/21 21:08 Labs: Laboratory Results - last 24 hr 12/20/21 12/20/21 12/20/21 21:08 21:08 21:08 MCV 87.3 MCH 28.7 MCHC 32.8 RDW 13.6 Plt Count 280 MPV 11.0 Immature Gran % (Auto) 0.5 H Neut % (Auto) 53.3 Lymph % (Auto) 35.1 [place] % (Auto) 9.2 Eos % (Auto) 1.4 Baso % (Auto) 0.5 Lymph # (Auto) 2.3 [place] # (Auto) 0.6 Eos # (Auto) 0.1 Baso # (Auto) 0.0 Abs Immat Gran (auto) 0.03 Absolute Neuts (auto) 3.5 Absolute Nucleated RBC 0.000 Nucleated RBC % (auto) 0.0 PT INR APTT Anion Gap 17 Estim Creat Clear Calc 95.2 Estimated GFR > 60 Random Glucose 105 Calcium 9.2 Magnesium 2.0 Total Bilirubin 0.3 Direct Bilirubin < 0.2 AST 24 ALT 24 Alkaline Phosphatase 95 Total Protein 7.2 Albumin 4.3 Salicylates < 5.0 L Acetaminophen 33 H Ethyl Alcohol < 10 COVID-19 ([facility]ZI) Negative COVID-19 Clin Com See Note 12/20/21 12/21/21 21:08 05:33 MCV 86.8 MCH 28.4 MCHC 32.7 RDW 13.5 Plt Count 252 MPV 10.8 Immature Gran % (Auto) 0.3 Neut % (Auto) 58.4 Lymph % (Auto) 30.5 [place] % (Auto) 9.3 Eos % (Auto) 1.1 Baso % (Auto) 0.4 Lymph # (Auto) 2.2 [place] # (Auto) 0.7 Eos # (Auto) 0.1 Baso # (Auto) 0.0 Abs Immat Gran (auto) 0.02 Absolute Neuts (auto) 4.2 Absolute Nucleated RBC 0.000 Nucleated RBC % (auto) 0.0 PT 10.8 INR 0.9 APTT 32.0 Anion Gap Estim Creat Clear Calc Estimated GFR Random Glucose Calcium Magnesium Total Bilirubin Direct Bilirubin AST ALT Alkaline Phosphatase Total Protein Albumin Salicylates Acetaminophen Ethyl Alcohol COVID-19 ([facility]ZI) COVID-19 Clin Com Assessment and Plan (1) Autism disorder: Status: Acute (2) Acetaminophen overdose: Status: Acute (3) Suicidal ideation: Status: Acute Plan 41-year-old male with autism presents to the hospital after ingesting unknown amount of Tylenol and NyQuil and admitting to to being suicidal # acetaminophen overdose - unknown ingestion time or amount - acetaminophen level of 33 - no LFT abnormality - poison control recommends NAC- started in ED d/w poision control -advised to do next labs including cmp,pt/inr ,tylenol levels 2 hours before completion of NAC. will call back poison control once NAC completed and above labs are available. autism?-behvaiour agiatation: started clonazepam and adderal - psych consulted. SI/attemp: will need BHN clearence before discharge, patient cannot sign AMA unless cleared by BHN ( after he is medically clear). DVT ppx: lovenox ongoing inpatient need; suicidal attempt, tylenol toxicity-on NAC, needs labs monitering as above (cmp,pt/inr ,tylenol levels 2 hours before completion of NAC). Quality Stroke Does the patient have a stroke diagnosis?: No VTE Prior VTE?: No VTE Risk Level:: Medical - moderate - high VTE Device Contraindication: Treatment Not Indicated VTE Drug Contraindication: N/A - Med Ordered
[2021-12-21] MEDS: ondansetron HCL 4 MG/2 ML VIAL IVPUSH (14:45)
--- NOTE | 2021-12-21 15:04 | PC.NURSE ---
Between - code assist was called twice on PT. Pt is on SI watch and is section 12. Pt tried to leave by the the stairs. Security responded. Pt returned to room and sat in his bed. Aprox 15min later he tried to leave again. Pt got aggrevated by the security and got physical and yelling. Pt was forced to the ground in order so no one, including the pt would be hurt. He calmed down when his tablet was returned to him (which was charging on a docking station). He then returned to his room where he took his clonipine. MD Jones came to speak to Pt. Stressed the importance of the SI precautions, and the need to continue his treatment for Acetiminophen OD. Patient has been staying in his room, except to go on walks through the unit w/ the sitter.
[2021-12-21 16:00] VITALS: BP 124/60; PULSE 63; RESP 17; TEMP 36.6; O2SAT 96
[2021-12-21] MEDS: cloNIDine HCL 0.1 MG TABLET PO ×2 (16:58→20:22)
--- NOTE | 2021-12-21 17:19 | MHC.CARE ---
CARE Team meets with pt in order to gather information to inform a care plan and support pt self regulating while in the hospital and decrease behavioral concerns. T/w is joined by JAY Hernandez. Pt is initially reluctant to meet with CARE Team, making no eye contact and mumbled speech about super heros and comics, fixated on his IV pump. Pt is able to focus within a minute or two, redirected by his 1:1, and lays in bed. Pt makes intermittent eye contact during the remainder of this interaction and communicates exclusively through his tablet. CARE Team introduces the intervention that they are there to learn about pt's strengths and needs in order to help the staff in the hospital learn how to best work with him. Pt is initial resistant and unwilling to talk about himself, derailing the conversation to focus on the rights of people with autism broadly instead of his needs. Pt identifies that he does not want staff to be hands on with him or give him medication, but is also unwilling to talk about himself, changing the subject despite being redirected to the topic of conversation many times. Pt has an inflated sense of self, and is focused on discussing his accomplishments and criticizing t/w, again avoiding talking about any problems or solutions. CARE Team offers validation, empathic response, and motivational interviewing. Pt eventually agrees to make a list of his triggers and coping strategies to share with the CARE Team tomorrow morning. CARE Team recommends a multidisciplinary huddle tomorrow to discuss how to best support pt. CARE Team will continue to work on a care plan so pt can be best served [place] [facility] [place]
[2021-12-21] MEDS: Haloperidol Lactate 5 MG/ML VIAL IVPUSH (19:55)
--- NOTE | 2021-12-21 20:35 | PM.EVENT ---
Event Note Date of Service: 12/21/21 Event Note: Echo to assist was called on this patient, patient was being very aggressive, attacking nurse, not following command, walking around the candelario and being destructive, 5 mg of Haldol had to be given.
[2021-12-21 22:07] LABS: Prothrombin Time 11.3 SEC (10.0-13.1)
[2021-12-21 22:17] LABS: Acetaminophen LAB < 1 mcg/mL (<30); Alanine Aminotransferase 26 U/L (0-40); Albumin Level 4.1 g/dL (3.5-5.0); Alkaline Phosphatase 88 U/L (39-117); Anion Gap 16 (12-20); Aspartate Amino Transferase 28 U/L (5-37); Bilirubin Total 0.2 mg/dL (0.0-1.0); Blood Urea Nitrogen 14 mg/dL (9-16); Calcium 9.3 mg/dL (8.4-10.2); Carbon Dioxide 22 mmol/L (22-29); Chloride 106 mmol/L (96-108); Creatinine Clr Calc Pharmacy 107.5; Estimated Glomerular Filt Rate > 60; Glucose Random 109 mg/dL (60-115); Potassium 3.9 mmol/L (3.3-5.1); Sodium 140 mmol/L (135-145); Total Protein 6.8 g/dL (6.5-8.0)
--- NOTE | 2021-12-21 23:05 | MHC.PIE ---
12/22 1999 p; staff reports pt anxious agitated in room, pt taking iv med line off iv site. med line placed back on pt, pt educated on need for iv medication. ?sitter at bed side. ? as this display card writer come out of room and in candelario way, pt came out of room with increased anxiousness and agitation, when try to redirect pt back in room, pt pushed his way out to the nursing station, started erasing and drawing onto nursing boards. staff try to stop pt, where then pt became aggressive flailing his arms and legs hitting and kicking staff as staff and I were sandwich between pt and nursing station counter i; code assist called, security called. on seen, stat haldol given. pt redirected back into room. e; back in pt room, pt making accusation security broke arms and shoulders as he flailing his arms and legs. nursing supervisor fiberglass boat assembly in room pt redirected numerous times. pt given prn catapress along with his pm meds. at 2300, pt in bed asleep, sitter at bed side will cont to monitor
[2021-12-21] MEDS: 0.9 % Sodium Chloride Flush 3 ML SYRINGE IVFLUSH (23:13)
--- NOTE | 2021-12-21 23:29 | PC.NURSE ---
Around 1949, code assist called on pt, Dr. Grnat gave verbal order for 5 mg IV Haldol, this RN removed haldol from pyxis by override and administered medication to pt at 1954.
[2021-12-22] MEDS: cloNIDine HCL 0.1 MG TABLET PO ×2 (05:14→10:59)
[2021-12-22] MEDS: LORazepam 0.5 MG TABLET PO (06:17)
--- NOTE | 2021-12-22 06:18 | MHC.PIE ---
p; pt c/o anxiety and agitation i; prn catapress given p; pt c/o anxiety and agitation. pt reports catapress had little to no effect. pt asking for more meds. note; pt is asking for more meds to calm down as pt is rocking in bed and trying to bang his head i; dr nash notified; new order ativan 0.5 po now e; will cont to montor
[2021-12-22 07:53] VITALS: BP 117/60; PULSE 63; RESP 18; TEMP 36.9; O2SAT 98
[2021-12-22] MEDS: Dextroamphetamine/Amphetamine XR 10 MG CAP.ER.24H 30 MG PO (07:58)
[2021-12-22] MEDS: clonazePAM 0.5 MG TABLET PO ×3 (07:58→14:40)
[2021-12-22] MEDS: 0.9 % Sodium Chloride Flush 3 ML SYRINGE IVFLUSH (07:59)
--- NOTE | 2021-12-22 11:04 | PC.NURSE ---
1045: Pt asking for security to come so they can make you give me medicine to sleep Told pt this nurse would contact physician to see about any additional medications. Pt banging head continuously into bed rail. Dr Arellano notified, stat BHN consult ordered. Po Klonopin and prn Clonidine ordered to be given to pt- medication given per MD. Attempting to get BHN stat but nobody avaiable at this momoent. Dr Arellano notified and care team will be asked to see pt.
[2021-12-22 12:00] VITALS: BP 100/70; PULSE 81; RESP 18; TEMP 36.5; O2SAT 95
--- NOTE | 2021-12-22 13:32 | PM.DS ---
DS: Providers Provider Date of Service: 12/22/21 Date of admission: 12/20/21 22:41 Primary care physician: Unknown Physician Consults: 12/21/21 06:55 Consult to Psychiatry Routine Consulting Provider: Psych Covering Reason for consultation: Suicide attempt Has provider been notified: No 12/21/21 10:07 BHN [Consult to Crisis] Stat Reason for consultation: SI/ tylenol toxicity Has provider been notified: No Consult to Care Team Routine Comment: Reason for consultation: SI/tyelnol toxicity 12/21/21 10:43 Consult to Psychiatry Stat Consulting Provider: Psych Covering Reason for consultation: mood dis /behavioural agitation/tylenol toxicity Has provider been notified: No 12/22/21 10:46 BHN [Consult to Crisis] Stat Reason for consultation: med clear ,possible need psych placement,increased behaviour disturbances Has provider been notified: No DS: Diagnosis Discharge Diagnosis (1) Autism disorder: Status: Acute (2) Acetaminophen overdose: Status: Acute (3) Suicidal ideation: Status: Acute DS: Summary Hospital Course Hospital Course: 41-year-old male with past medical history of autism communicates through Ipad, for possible suicidal ideation and attempt.? Patient is not communicating with me, his iPad is being charged right now and he has his back turned to me and not cooperating and unable to give much history to me and I am unable to review his system.? Therefore history is obtained mostly from EMR as well as ER PA. It appears the patient was found after his information clerk brokerage had not heard from him all weekend long so police were called for a wellness check.? He was found barricaded in his apartment with furniture, he was holding an empty Tylenol p.m. bottle and NyQuil bottle that was [address].? The ingestion.? Is unclear although he reported to the ED PA that he ingested of 48-72 hours ago.? He reported to police that he wanted to kill himself. On arrival patient is hemodynamically stable no significant abnormal vitals Labs are significant for WBC count of 6.6, LFTs within normal range, with no abnormal AST, ALT, or bili. Poison control was called, and given the unknown ingestion time they recommended complete NAC treatment. Unable to obtain past medical history. Hopsital course: patient came to the hospital because of suicidal attempt secondary to Tylenol overdose- completed NAC - with LFTs BMP and PT INR seems to be fine.discussed with poision control no further recomendation, Strongly advised to avoid Tylenol use. seen by psych and care team and cleared for discharge. patient follow-up with his psych outpatient. Patient is to follow up outpatient with PCP. above management discussed with the patient by psych and also Hospitalist team. Time Spent with Patient Time attestation: Total time spent providing and/or coordinating discharge services: Discharge coordination time: Greater than 30 minutes Quality: Safe Use of Opioids Does Pt have an Active Cancer Diagnosis on the Problem List?: No Quality: Stroke Does the patient have a stroke diagnosis?: No Physical Exam Vital Signs: Vital Signs: Last Vital Signs Temp 97.7 F 12/22/21 12:00 Pulse 81 12/22/21 12:00 Resp 18 12/22/21 12:00 BP 100/70 12/22/21 12:00 Pulse Ox 95 12/22/21 12:00 O2 Del Method 12/22/21 12:00 BMI result Body Mass Index 35.5 refused exam. DS: Data Data Completed and Pending Labs on day of discharge: Laboratory Results - last 24 hr 12/21/21 12/21/21 21:48 21:48 PT 11.3 INR 1.0 Sodium 140 Potassium 3.9 Chloride 106 Carbon Dioxide 22 Anion Gap 16 BUN 14 Creatinine 1.01 Estim Creat Clear Calc 107.5 Estimated GFR > 60 Random Glucose 109 Calcium 9.3 Total Bilirubin 0.2 AST 28 ALT 26 Alkaline Phosphatase 88 Total Protein 6.8 Albumin 4.1 Acetaminophen < 1 Discharge Plan Discharge Anticipated Discharge Date/Time: 12/22/21 13:27 Patient Disposition: Home, Self-Care Discharge Diagnosis: acetaminophen toxicity,SI Referrals: Physician,Unknown J [Primary Care Provider] - 1 Week Discharge Medications: Continued clonazepam 1 mg tablet,disintegrating 1 tab PO BEDTIME PRN (Reason: Insomnia) dextroamphetamine-amphetamine [Adderall XR] 30 mg capsule,extended release 24hr 1 cap PO BID clonazepam 0.5 mg tablet 1 tab PO TID testosterone cypionate 200 mg/mL oil 0.5 ml IM QWEEK Discharge Orders: Discharge Order (Routine); Ordered 12/22/21 Ordered By: Suri Arellano Diet: Advance to usual diet Activity on Discharge: As tolerated Stand Alone Forms: Patient Portal Discharge page Care Plan Goals: patient came to the hospital because of suicidal attempt secondary to Tylenol overdose- completed NAC - with LFTs BMP and PT INR seems to be fine. seen by psych and care team and cleared for discharge. patient follow-up with his psych outpatient. Health Concerns: as above. Plan of Treatment: As above. Assessment: As above.
--- NOTE | 2021-12-22 16:01 | MHC.CARE ---
Per Dr. Jones, pt is appropriate for discharge as pt denied suicidal intent when ingesting tylenol, denies ongoing SI, and has been struggling with chronic emotional and behavioral dysregulation. CARE Team goes to see pt on S3 to follow up on intervention from yesterday. Pt is advocating to return to his apartment in [place], denying SI repetitively to CARE Team. Pt does not use Ipad to communicate today, instead is verbally communicating in short, stammered sentences. Pt is emotionally regulated throughout interactions with CARE Team today and is observed to be less hostile then during interactions yesterday. Pt was ready for discharge per Dr. Santiago and Dr. Solitario, however, pt's outpatient case Nighat baez reached out and stated that pt made a statement that he was planning to attempt suicide once he leaves the hospital. CARE Team seeks to gather information about this and asks pt's 1:1 for more information. 1:1 states that she has not left pt's side all day and he has not made any calls. Pt states that he was communicating with Nighat by text and agrees to show t/w the texts which follow: Nighat- I asked him what would happen if you didn't go. He wasn't sure. He's gonna find out. I am not allowed to assist you in court because I am not a command post craftsman Pt- Who is help me I wish is kill before felony criminal I am not criminal Why is Emma not answer me any ever I am leaving now go home Is Chiara come tomorrow help with get [facility] back Upon processing with pt about what he means, he indicates that he would rather be then go to skilled nursing, as he has a court date coming up on the . CARE Team informs pt that if he is having suicidal thoughts before, during or after court, he should be assessed by crisis or come to the ED. Pt is agreeable with this plan. Pt also shows future orientation and hopefulness about getting insurance reinstated, which would allow him to get reconnected with a therapist and psychiatrist outpatient. Pt also shows orientation in terms of speaking at length about wanting to reside in a senior care, hopeful that he will feel much better once he is around other people. He reflects on feeling profoundly lonely without any friends or family. Pt discloses to CARE Team that he has been shunned by his entire family. He identifies that he was raised in an amish Christian community and he is not accepted due to being a trans man. He reports sorrowfully that his siblings are forbidden by the parents to interact with him. He reports being raised in [place] and that his family later relocated to [place]. He describes that his family regards him as a monster. This chronically invalidating environment was likely a contributing factor to the development of a personality disorder. CARE Team speaks with Dr. Jones and Dena Ramos, director of Behavioral Health. The plan continues to be for pt to discharge back to his apartment today. Pt continue to deny SI. Pt has been struggling chronically with emotional dysregulation and has engaging in risky behavioral without the intent to . The following safety plan was made in collaboration with pt and was shared with [facility] crisis services, DDS, pt and his renal case manager Nighat: Safety Plan for Jose Juan- If experiencing thoughts of taking dangerous actions that could cause injury or : Call [facility] crisis services [phone] Call 911 Proceed to a local emergency department If Jose Juan has already taken dangerous actions that have caused or could cause danger to him, such as taking medications in any way that it does not say on the bottle, Jose Juan will Call 911 Jose Juan engaged in a discussion with the CARE Team, using language recommended by his team that was clear and concrete about what is ?dangerous? and an ?emergency.? Jose Juan was able to help list the following: ?not breathing,? ?train tracks,? ?anything that causes bleeding,? ?not being able to breathe.? Once Jose Juan gets home from the ED on 12/22- Dispose of leftover Nyquil by throwing it away and taking out the trash Engage in a distraction by playing video games Get a good night?s sleep In the morning, check in with your team Distress Tolerance: When Jose Juan is feeling intense negative emotions, Jose Juan should use distractions, such as playing video games, reading comics, etc. Jose Juan is encouraged to try the attached TIPP skills when experiencing intense negative emotions. Try paired muscle relaxation technique attached.? Jose Juan is encouraged to engage in a sensory self check in and make himself as comfortable as possible and follow this up by engaging his mind in a distracting activity that will challenge the mind.? Use sensory swing, spend time in tent, wear vest Other: Jose Juan has been placed on alert with [facility] crisis services in [place]. Jose Juan denies having access to firearms, or other dangerous means at home. CARE Team has recommended to Jose Juan?s team daily check ins and increased support leading up to the court date on 12/28 which is causing Jose Juan increased stress.? CARE Team recommends that Jose Juan?s outpatient team refer Jose Juan to a therapist and psychiatrist.? CARE Team receives a call from [facility] clinical psychologist, Morelia Lorenz [phone]. Morelia identifies that she agrees that pt has borderline personality disorder along with ASD, and she has also been concerned that pt may have DID. She indicates that pt has been seen many time by [facility] crisis by they have never found pt to meet IPLOC. Morelia advocates for IPLOC for pt for diagnostic clarification and med management. CARE TEam shares recommendations and safety plans. CARE Team recommends referral for outpatient psychiatrist and therapist for pt. Morelia reports that there is not a senior care from [facility] for pt to reside in.
--- NOTE | 2021-12-22 16:01 | MHC.CM.PN ---
DP: PT MEDICALLY CLEARED FOR DISCHARGE. LYSUDHIR RIDE BOOKED AND PT AWARE TO BE IN LOBBY BY 4: 15 PM.
== END 2021-12-22 16:00 | disposition home or self-care (01) | DRG 918 ==
LOC: HO.ED 22:01 → HO.EDOVER 22:51 → HO.S3 23:43
PROVIDERS: Physician Assistant; Admitting Provider Internal Medicine; Emergency Provider Internal Medicine; PCP Family Medicine; Visit Provider Internal Medicine
DX: T39.1X2A Poisoning by 4-Aminophenol derivatives, intentional self-harm, initial encounter (principal); F84.0 Autistic disorder; Z20.822 Contact with and (suspected) exposure to COVID-19; Z88.8 Allergy status to other drugs, medicaments and biological substances; Z79.899 Other long term (current) drug therapy; F64.0 Transsexualism
CPT/HCPCS: 36415; 80048; 80053; 80076; 80143; 80179; 82077; 83735; 85025; 85610; 85730; 87635; 93005; 99285; J0132; J2405

== ENCOUNTER → 2021-12-20 22:41 | Outpatient (BNV) | payer OTHER, MEDICAID, SELFPAY | PROVIDERS: Admitting Provider Internal Medicine; Emergency Provider Internal Medicine; PCP Family Medicine; Visit Provider Psychiatry & Neurology Psychiatry | DX: F60.3 Borderline personality disorder (principal); F90.9 Attention-deficit hyperactivity disorder, unspecified type; F84.0 Autistic disorder | CPT/HCPCS: 99499 ==

== ENCOUNTER 2021-12-23 17:59 | Emergency (ER) | payer MEDICAID, SELFPAY ==
[2021-12-23 18:01] VITALS: BP 139/73; PULSE 134; RESP 18; TEMP 36.6; O2SAT 95; BMI 28.3
--- NOTE | 2021-12-23 18:01 | ED.PSYCH ---
HPI - Psych General Chief Complaint: Psychiatric Symptoms <DI Trejo - Last Filed: 12/23/21 18:07> Stated Complaint: crisis <DI Trejo - Last Filed: 12/23/21 18:07> Time Seen by Provider: 12/23/21 18:28 <DI Trejo - Last Filed: 12/23/21 18:07> Source: other (Patient's nurse) <Carri Mclean MD - Last Filed: 12/24/21 00:21> Mode of arrival: ambulatory <Carri Mclean MD - Last Filed: 12/24/21 00:21> Limitations: no limitations <Carri Mclean MD - Last Filed: 12/24/21 00:21> History of Present Illness HPI Narrative: Per patient's notes, Patient comes to the emergency room stating that ?he steam is telling him that he should be at the community health?. Patient was discharged from the hospital yesterday after a Tylenol overdose. When I spoke to the patient, patient is wearing a comfort best, helmet for head protection as he likes to hit his head against the wall for anxiety relief. I phoned the patient under at tent that he built with the room mattress, a chair and a blanket. The only thing the patient says overnight over again is hulk . According to triage nurse, patient made suicidal comments. <Carri Mclean MD - Last Filed: 12/24/21 00:21> Related Data Home Medications: Home Medications Medication Instructions Recorded Confirmed clonazepam 1 mg disintegrating 1 tab PO BEDTIME PRN Insomnia 11/05/21 12/21/21 tablet clonazepam 0.5 mg tablet 1 tab PO TID 12/07/21 12/21/21 dextroamphetamine-amphetamine ER 1 cap PO BID 12/07/21 12/21/21 30 mg 24hr capsule,extend release (Adderall XR) testosterone cypionate 200 mg/mL 0.5 ml IM QWEEK 12/07/21 12/21/21 intramuscular oil Previous Rx's Medication Instructions Recorded clonidine HCl 0.1 mg tablet 0.1 mg PO BID PRN Anxiety #14 tabs 12/22/21 <DI Trejo - Last Filed: 12/23/21 18:07> Allergies/Adverse Reactions: Allergies Allergy/AdvReac Type Severity Reaction Status Date / Time quetiapine [From Seroquel] Allergy Unknown Verified 12/20/21 20:51 <DI Trejo - Last Filed: 12/23/21 18:07> Review of Systems Review of Systems: Yes Unobtainable due to mental condition <Carri Mclean MD - Last Filed: 12/24/21 00:21> [facility] Past Medical History Medical History: Medical History Autism <DI Trejo - Last Filed: 12/23/21 18:07> Social History Social History: Social History Patient Tobacco Use Status: Never used Tobacco Advance Directives: No Advance Directives Information Provided: No <DI Trejo - Last Filed: 12/23/21 18:07> Physical Exam Vital Signs: Vital Signs: Last Vital Signs Temp 98 F 12/23/21 22:36 Pulse 65 12/23/21 22:36 Resp 19 12/23/21 22:36 BP 126/76 12/23/21 22:36 Pulse Ox 96 12/23/21 22:36 O2 Del Method 12/23/21 22:36 BMI result Body Mass Index 28.3 <DI Trejo - Last Filed: 12/23/21 18:07> Vital Signs: Last Vital Signs Temp 98 F 12/23/21 22:36 Pulse 65 12/23/21 22:36 Resp 19 12/23/21 22:36 BP 126/76 12/23/21 22:36 Pulse Ox 96 12/23/21 22:36 O2 Del Method 12/23/21 22:36 BMI result Body Mass Index 28.3 <Carri Mclean MD - Last Filed: 12/24/21 00:21> Const: Other: Appearance: Alert. No acute distress, hiding under his tent made from a mattress, a chair and blankets Eyes: Pupils equal, round and reactive to light. ENT: Pharynx normal. Wearing a helmet Neck: Normal inspection. Neck supple. No lymph nodes noted. No crepitus CVS: Normal heart rate and rhythm. Pulses normal. Normal S1 and S2, wearing a comfort vest Respiratory: No respiratory distress. Breath sounds normal. No Wheezing. No rales Abdomen: Soft and nontender. No rigidity. No distention. Skin: Skin warm and dry. Normal skin color. Normal skin turgor. Extremities: No lower extremity edema. No Lacerations. No Rash Neuro: CN 2 through 12 grossly intact Psych: Hiding, keeps saying hulk <Carri Mclean MD - Last Filed: 12/24/21 00:21> Course Course Course Narrative: RMVic--41-year-old male with past medical history of autism communicates through Ipad, discharged yesterday after suicide attempt by Tylenol overdose, c/o suicidal ideations. Reports everyone is telling me I need to be in a psych hospital. Vague plan. Denies HI/ ETOH or drug use Plan: Labs, RENE, Crisis consult ordered <DI Trejo - Last Filed: 12/23/21 18:07> RME--41-year-old male with past medical history of autism communicates through Ipad, discharged yesterday after suicide attempt by Tylenol overdose, c/o suicidal ideations. Reports everyone is telling me I need to be in a psych hospital. Vague plan. Denies HI/ ETOH or drug use Plan: Labs, RENE, Crisis consult ordered Since the patient has a Hulk stuffed animal, care team and also nursing bone plant supervisor are agreeable to have the patient keep his hulk at bedside, security checking it for potential harmful objects. Patient has not provided any urine sample. [facility] consult pending. Physician observation started at 21:30 <Carri Mclean MD - Last Filed: 12/24/21 00:21> Medications Administered Generic Name Dose Route Start Last Admin Trade Name Freq PRN Reason Stop Dose Admin Clonazepam 1 mg 12/23/21 22:30 12/23/21 22:36 Clonazepam 1 Mg Tablet PO 1 mg BEDTIME ELADIO Administration Discontinued Medications Generic Name Dose Route Start Last Admin Trade Name Freq PRN Reason Stop Dose Admin Clonidine HCl 0.1 mg 12/23/21 23:16 12/23/21 23:22 Clonidine Hcl 0.1 Mg Tablet PO 12/23/21 23:17 0.1 mg ONCE ONE Administration Protocol Lorazepam 2 mg 12/23/21 23:16 12/23/21 23:22 Lorazepam 1 Mg Tablet PO 12/23/21 23:17 2 mg ONCE ONE Administration Omeprazole 40 mg 12/23/21 23:16 12/23/21 23:22 Omeprazole 40 Mg Capsule. PO 12/23/21 23:17 40 mg ONCE ONE Administration <DI Trejo - Last Filed: 12/23/21 18:07> Medications Administered Generic Name Dose Route Start Last Admin Trade Name Freq PRN Reason Stop Dose Admin Clonazepam 1 mg 12/23/21 22:30 12/23/21 22:36 Clonazepam 1 Mg Tablet PO 1 mg BEDTIME ELADIO Administration Discontinued Medications Generic Name Dose Route Start Last Admin Trade Name Freq PRN Reason Stop Dose Admin Clonidine HCl 0.1 mg 12/23/21 23:16 12/23/21 23:22 Clonidine Hcl 0.1 Mg Tablet PO 12/23/21 23:17 0.1 mg ONCE ONE Administration Protocol Lorazepam 2 mg 12/23/21 23:16 12/23/21 23:22 Lorazepam 1 Mg Tablet PO 12/23/21 23:17 2 mg ONCE ONE Administration Omeprazole 40 mg 12/23/21 23:16 12/23/21 23:22 Omeprazole 40 Mg Capsule. PO 12/23/21 23:17 40 mg ONCE ONE Administration <Carri Mclean MD - Last Filed: 12/24/21 00:21> MDM - Psych Lab Data Labs: Lab Results 12/23/21 Range/Units 19:23 COVID-19 (SUZI) Negative (Negative) COVID-19 Clin Com See Note <DI Trejo - Last Filed: 12/23/21 18:07> Lab Results 12/23/21 Range/Units 19:23 COVID-19 (SUZI) Negative (Negative) COVID-19 Clin Com See Note <Carri Mclean MD - Last Filed: 12/24/21 00:21> Discharge Plan Discharge Clinical Impression: Suicidal ideation <DI Trejo - Last Filed: 12/23/21 18:07> Patient Disposition: Still a Patient <DI Trejo - Last Filed: 12/23/21 18:07> Prescriptions: No Action clonazepam 1 mg tablet,disintegrating 1 tab PO BEDTIME PRN (Reason: Insomnia) dextroamphetamine-amphetamine [Adderall XR] 30 mg capsule,extended release 24hr 1 cap PO BID clonazepam 0.5 mg tablet 1 tab PO TID testosterone cypionate 200 mg/mL oil 0.5 ml IM QWEEK clonidine HCl 0.1 mg Tablet 0.1 mg PO BID PRN (Reason: Anxiety) Qty: 14 0RF Protocol: Hold for SBP< HOLD for SBP < : 90 <DI Trejo - Last Filed: 12/23/21 18:07>
--- NOTE | 2021-12-23 19:02 | PC.NURSE ---
Addendum entered by Idania Palacio RN 12/24/21 05:35: pt walked out of his room, asking why his room does not have a TV and the other room has TV, this RN explained to him that the room that he has unfortunately does not have a TV he can watch tv after 7am,in order to respect other pt sleep schedule. pt stated to get increasealy agitated and wrote down that he was placed in that room because he's being target because he is autistic, pt stated that this is torturing. pt continuously looking into other pt room, this RN told him that he cant do that because he needs to respect other patient privacy. pt became very frustrated and walked into his room and started to hit his head on the wall, this RN told him that he needs to wear his helmet, pt refuse to wear his helmet, security, pt asked to be restrained. This RN tried to re-oriented the pt multiple time, pt not following direction, pt continuously stating that he being target because he is autistic. The pt proceeded to take the chair and started to hit the chair, security removed the chair from the room and pt became more labile. this RN been accommodating pt needs throughout the night. gave pt home diapers because he stated that the one here leaked through, helped the pt put his vest, helped the pt with incontinent care. this RN advocated for the pt to obtained his stuff animal for comfort, before giving his stuff animal, this RN called security and asked them to come and patdown the stuff toy, then called back and told me that it was already patdown and that it is safe to give it to the pt. pt made aware that once a room with a TV becomes available, we can accommodate changes, but unfortunately all room are occupied and it wont happen until one of the other pt are discharged. pt stated that he wants his tablet, this RN told him that he cant get his tablet due to policy. pt being disruptive to the unit. when this RN walked into the pt room to fix his bed, I notice a bottle of pills in the floor, pt stated that it felt from the black underwear, security will run the cameras to see where the pills came from. incontinent care provided to the pt. cylinder tester allowed the pt to watch TV in the community area, this RN verbalized that it not safe to keep pt in the community area because he still agitated and I need to maintained the rest of the pt safety. Addendum entered by Idania Palacio RN 12/23/21 22:42: this RN spoke with nursing wet end supervisor Dajuan, and she agree that Jose Juan can have his hulk stuff animal Original Note: report received from EDDI Guy pt is alert, in his room, currently wearing a safety helmet pt currently hitting his head with the wall close monitoring maintained
--- NOTE | 2021-12-23 19:03 | PC.NURSE ---
Addendum entered by Malena Jose 12/23/21 19:21: pt has historically thrown ipad when frustrated/upset at staff or in regards to changes in treatment plan. Original Note: Pt arrives ambulatory c/o SI symptoms. Pt compliant w/ job change crew member. Pt is intermittently non-verbal and utilizes ipad as communication device when needed. Nursing garbage collection supervisor contacted, care team contacted. Ipad taken with rest of belongings. Paper Non-verbal communication board left in room. Pt allowed to keep velcro compression vest and helmet for safety. Belongings inventoried. Per care team: pt's stuffed animal was placed in locker.
[2021-12-23 19:44] LABS: COVID-19 Test Negative (Negative)
--- NOTE | 2021-12-23 20:42 | MHC.CARE ---
CARE team spoke to nurse and charge regarding CARE plan. Pt has been engaging in head banging despite attempting to redirect. CARE Team attempted to meet with pt, he was observed to be laying in position underneath chair and desk in pod room. Pt refused to engage with this automatic typewriter inspector and continues to preseverate on his hulk stuffed animal and comfort item. Pt refused to engage even after multiple attempts and attempting to utilize his communication board, he kept replying hulk, hulk indicating he wanted his hulk. Pt has a hx of borderline personality disorder, goal is to not admit him psychiatrically as this has not been helpful to him and will not resolve his ongoing chronic issues. Pt is non-verbal at this time, but also refusing to engage in ways that he does communicate. Pt will be a follow up tomorrow.
[2021-12-23 22:00] VITALS: RESP 20
[2021-12-23 22:36] VITALS: BP 126/76; PULSE 65; RESP 19; TEMP 36.6; O2SAT 96
[2021-12-23] MEDS: clonazePAM 1 MG TABLET PO (22:36)
[2021-12-23] MEDS: LORazepam 1 MG TABLET 2 MG PO (23:22)
[2021-12-23] MEDS: Omeprazole 40 MG CAPSULE.DR PO (23:22)
[2021-12-23] MEDS: cloNIDine HCL 0.1 MG TABLET PO (23:22)
[2021-12-24] MEDS: OLANZapine 10 MG TABLET PO (03:27)
--- NOTE | 2021-12-24 10:59 | PC.NURSE ---
pt requesting home meds including testosterone that he typically takes on wednesdays. pt reports that he did not take it this week and therefor he needs it. contacted pharmacy to verify ability to give the testosterone, pt does have the vials, sealed, in his belongings. pt becoming increasingly frustrated in the process it takes to verify and give him his meds. pt gesturing and did hit his head three times on the nursing station frame. was able to accept redirection. Working with Dr. Kaplan to verify and order meds at this time.
[2021-12-24] MEDS: clonazePAM 0.5 MG TABLET PO ×3 (11:07→20:23)
[2021-12-24] MEDS: cloNIDine HCL 0.1 MG TABLET PO (11:07)
[2021-12-24] MEDS: Dextroamphetamine/Amphetamine XR 10 MG CAP.ER.24H 30 MG PO ×2 (11:07→20:24)
[2021-12-24] MEDS: Omeprazole 20 MG CAPSULE.DR PO (11:07)
[2021-12-24] MEDS: LORazepam 1 MG TABLET 2 MG PO (13:12)
[2021-12-24] MEDS: HaloperidoL 5 MG TABLET 10 MG PO ×2 (13:12→22:39)
--- NOTE | 2021-12-24 17:41 | MHC.CARE ---
CARE Team makes referral to [facility] at [phone]. At 1744 CARE Team follow up with Peng at [facility], who reports that have received referral, however, their electronic fax system is down and they are unable to open the referral to review it.
[2021-12-24] MEDS: Ondansetron ODT 4 MG TAB.RAPDIS TRANSLINGU (18:11)
--- NOTE | 2021-12-24 18:40 | PC.NURSE ---
pt has been labile throughout shift requiring frequent redirection. pt showered on his own today but did appear from shower naked and stood in the milue two times to make requests for more shampoo. informed pt this is not acceptable as there are other pts on the unit and pt was redirected to shower. pt medicated as necessary throughout shift per APR. home meds continued.
--- NOTE | 2021-12-24 19:35 | MHC.CARE ---
Peng from [facility] reports that his director is indicating that pt is too high functioning for their unit so they are unable to accommodate pt tonight but will reconsider tomorrow morning. Pt will remain in the ED tomorrow night and CARE Team will follow up with [facility] tomorrow. Pt continues to be here on a voluntary basis and should be want to d/c, CARE Team will meet w/ pt and complete a safety plan and d/c pt. DDS in agreement that long boarding for [facility] is not ideal.
[2021-12-24] MEDS: clonazePAM 1 MG TABLET PO (20:24)
--- NOTE | 2021-12-25 01:12 | PC.NURSE ---
patient restless. having bad dreams . reassured that he is in a safe place, tucked into bed with his hulk stuffed animal. will continue 15 min checks..
[2021-12-25 01:43] VITALS: RESP 18
[2021-12-25 02:44] VITALS: BP 112/67; PULSE 72; RESP 16; TEMP 36.2; O2SAT 97
[2021-12-25] MEDS: clonazePAM 1 MG TABLET PO (04:25)
--- NOTE | 2021-12-25 08:20 | PC.NURSE ---
report taken from night rn. Undertstood from report and pt chart that [facility] was connsidering pt but he might be to high functioning for their facility. Pt in er for aggresion at [facility] and some regressive behavior (wearing diapers). Pt is voluntary and may be d/c after a reeval by care team. pt asleep but was awake and ambulatory @0700, pt tolerated all of breakfast tray
--- NOTE | 2021-12-25 09:52 | MHC.CARE ---
Call placed to [facility] admissions dept [phone] to check in on eligibility for admission to [facility]. The admissions personnel report that pt is ineligible for the [facility], but he was also put on the waitlist. When asked to clarify what this means, they state there is no supervisor lending activities on all weekend and to call back Monday. CARE Team advocates that this is unfair to the pt, DDS and the pt are advocating for [facility], etc.
[2021-12-25] MEDS: Dextroamphetamine/Amphetamine XR 10 MG CAP.ER.24H 30 MG PO (10:37)
[2021-12-25] MEDS: Omeprazole 20 MG CAPSULE.DR PO (10:38)
[2021-12-25] MEDS: clonazePAM 0.5 MG TABLET PO (10:38)
[2021-12-25] MEDS: cloNIDine HCL 0.1 MG TABLET PO (12:11)
[2021-12-25 12:25] VITALS: BP 132/83; PULSE 91; RESP 20; TEMP 36.2; O2SAT 98
== END 2021-12-25 12:35 | disposition home or self-care (01) ==
PROVIDERS: Emergency Medicine; Emergency Provider Emergency Medicine Emergency Medical Services; PCP Family Medicine
DX: R45.851 Suicidal ideations (principal); F41.1 Generalized anxiety disorder; F43.0 Acute stress reaction; Z20.822 Contact with and (suspected) exposure to COVID-19; Z79.899 Other long term (current) drug therapy
CPT/HCPCS: 87635; 99284; 99285

== ENCOUNTER 2022-01-08 11:38 | Emergency (ER) | payer MEDICAID, SELFPAY ==
[2022-01-08 11:44] VITALS: BP 139/67; PULSE 104; RESP 18; TEMP 36.9; O2SAT 97; BMI 35.2
--- NOTE | 2022-01-08 12:36 | PC.NURSE ---
Pt refused Covid swab and urine collection at this time. Rn aware.
[2022-01-08] MEDS: clonazePAM 0.5 MG TABLET PO (13:06)
[2022-01-08] MEDS: cloNIDine HCL 0.2 MG TABLET PO (13:06)
[2022-01-08 14:00] VITALS: BP 118/78; PULSE 70; RESP 16; TEMP 36.2; O2SAT 98
[2022-01-08 14:19] LABS: MANUAL DIFF FLAG NO
[2022-01-08 14:24] LABS: Basophils Percent Auto 0.4 % (0-2); Eosinophils Absolute Auto 0.1 X10*3/uL (0.0-0.4); Hematocrit 46.6 % (42.0-52.0); Hemoglobin 15.5 g/dl (14.0-18.0); Imm Gran Abs Auto 0.02 X10*3/uL (0.00-0.03); Imm Gran Pct Auto 0.3 % (0.0-0.4); Lymphocytes Absolute Auto 1.9 X10*3/uL (1.2-4.9); Lymphocytes Percent Auto 25.5 % (20-40); Mean Corpuscular HGB Conc 33.3 g/dl (31.0-36.0); Mean Corpuscular Hemoglobin 28.4 pg (27.0-33.0); Mean Corpuscular Volume 85.5 fL (80.0-98.0); Mean Platelet Volume 10.7 fL (9.4-12.4); Monocytes Absolute Auto 0.7 X10*3/uL (0.1-1.2); Monocytes Percent Auto 9.3 % (2-11); Neutrophils Absolute Auto 4.7 x10*3/uL (2.0-8.3); Neutrophils Percent Auto 63.5 % (45-73); Platelet Count 272 X10*3/uL (160-400); Red Blood Count 5.45 X10*6/uL (4.60-5.80); Red Cell Distribution Width 13.6 % (11.0-16.0); White Blood Count 7.3 X10*3/uL (4.8-10.8)
[2022-01-08 14:44] LABS: Alanine Aminotransferase 22 U/L (0-40); Albumin Level 4.4 g/dL (3.5-5.0); Alkaline Phosphatase 109 U/L (39-117); Anion Gap 12 (12-20); Aspartate Amino Transferase 24 U/L (5-37); Bilirubin Total 0.6 mg/dL (0.0-1.0); Blood Urea Nitrogen 16 mg/dL (9-16); Calcium 9.4 mg/dL (8.4-10.2); Carbon Dioxide 25 mmol/L (22-29); Chloride 104 mmol/L (96-108); Estimated Glomerular Filt Rate > 60; Glucose Random 89 mg/dL (60-115); Potassium 3.8 mmol/L (3.3-5.1); Sodium 137 mmol/L (135-145); Total Protein 7.4 g/dL (6.5-8.0)
[2022-01-08 14:45] LABS: Acetaminophen LAB < 1 mcg/mL (<30)
--- NOTE | 2022-01-08 15:34 | MHC.CARE ---
Safety Plan for Jose Juan- If experiencing thoughts of taking dangerous actions that could cause injury or : Call [facility] crisis services [phone] Call 911 Proceed to a local emergency department If Jose Juan has already taken dangerous actions that have caused or could cause danger to him, such as taking medications in any way that it does not say on the bottle, Jose Juan will Call 911 Distress Tolerance: When Jose Juan is feeling intense negative emotions, Jose Juan should use distractions, such as playing video games, reading comics, etc. Jose Juan is encouraged to try the attached TIPP skills when experiencing intense negative emotions. Try paired muscle relaxation technique attached.? Jose Juan is encouraged to engage in a sensory self check in and make himself as comfortable as possible and follow this up by engaging his mind in a distracting activity that will challenge the mind.? Use sensory swing, spend time in tent, wear vest Other: Jose Juan has been placed on alert with [facility] crisis services in [place]. Jose Juan denies having access to firearms, or other dangerous means at home. CARE Team has recommended to Jose Juan?s team daily check ins an over the weekend.? CARE Team recommends that Jose Juan?s outpatient team continues to work with him on creating weekend support plan.
[2022-01-08] MEDS: hydrOXYzine HCL 50 MG TABLET PO (15:41)
--- NOTE | 2022-01-08 15:51 | MHC.CARE ---
MARJAN with Morelia from [facility]
--- NOTE | 2022-01-08 21:20 | MHC.CARE ---
Care Team left a voice message for pt. Purpose of call was to follow up.
--- NOTE | 2022-01-09 12:24 | MHC.CARE ---
CARE team attempted to contact pt for follow up call, phone disconnected.
== END 2022-01-08 16:08 | disposition home or self-care (01) ==
PROVIDERS: Emergency Provider Emergency Medicine
DX: T39.1X2A Poisoning by 4-Aminophenol derivatives, intentional self-harm, initial encounter (principal); T48.4X2A Poisoning by expectorants, intentional self-harm, initial encounter; Y92.039 Unspecified place in apartment as the place of occurrence of the external cause; R45.851 Suicidal ideations; F20.9 Schizophrenia, unspecified; F84.0 Autistic disorder; F64.0 Transsexualism; F60.3 Borderline personality disorder
CPT/HCPCS: 36415; 80053; 80143; 85025; 99284

== ENCOUNTER 2022-01-24 10:11 | Inpatient (IN) | payer OTHER, SELFPAY ==
--- NOTE | ~2022-01-24 | CT_ITS ---
EXAMINATION: CT SCAN OF THE TEMPORAL BONES CLINICAL INFORMATION: Vertigo and ataxia. COMPARISON: Brain MRI dated 01/25/2022. TECHNIQUE: Multidetector helical imaging was performed in the axial plane with generation of oblique axial and coronal reformatted projections. This CT examination was performed using dose optimization techniques as appropriate, variously including the following: *Automated exposure control *Adjustment of mA and/or kV according to patient size (this includes techniques or standardized protocols for targeted exams where dose is matched to indication/reason for exam; i.e. extremities or head) *Use of iterative reconstruction technique DLP: 188 mGy-cm. FINDINGS: The external auditory canals and tympanic membranes are normal. The ossicular chains are intact bilaterally. No osseous erosion is seen. No soft tissue abnormality is seen in the middle ear cavities. The mastoid air cells are well aerated. The facial nerves follow a normal course bilaterally. There is focal significant osseous thinning at the apices of both superior semicircular canals. The remaining inner ear structures and internal auditory canals are normal. The visualized paranasal sinuses are clear. CT/CT internal auditory canals BI IMPRESSION: Significant focal bony thinning at the apices of both superior semicircular canals, for which the possibility of a subtle osseous dehiscence is difficult to rule out.
--- NOTE | ~2022-01-24 | CT_ITS ---
EXAMINATION: CT HEAD WITHOUT CONTRAST CLINICAL INFORMATION: Trauma COMPARISON: 11/04/2021 TECHNIQUE: Contiguous axial imaging was performed from the skull base to vertex without intravenous administration of contrast. This CT examination was performed using dose optimization techniques as appropriate, variously including the following: *Automated exposure control *Adjustment of mA and/or kV according to patient size (this includes techniques or standardized protocols for targeted exams where dose is matched to indication/reason for exam; i.e. extremities or head) *Use of iterative reconstruction technique DLP: 714 mGy-cm FINDINGS: There is no evidence of acute intracranial hemorrhage or territorial infarction. No abnormal mass effect or midline shift is seen. Lainez to white matter differentiation is well preserved. No extra-axial fluid collections are identified. No significant volume loss. No hydrocephalus. There is no abnormal attenuation within the brain parenchyma. The osseous structures and soft tissues are normal. The mastoid air cells and visualized portions of the paranasal sinuses are well aerated. CT/CT head/brain wo IV con IMPRESSION: No acute intracranial pathology.
--- NOTE | ~2022-01-24 | MR_ITS ---
EXAMINATION: MR BRAIN WITHOUT AND WITH CONTRAST CLINICAL INFORMATION: Persistent vertigo. Ataxia. COMPARISON: CT head 01/24/2022. TECHNIQUE: Multiplanar MR imaging of the brain was performed without and with contrast. A total of 9 mL Gadavist was utilized for this examination. FINDINGS: Dedicated high-resolution imaging through the posterior fossa reveals no cerebellopontine angle cistern mass. There is no abnormal enhancement along the cisternal segments of the 7th or 8th cranial nerves. There is a questionable thinning or dehiscence at the apex of the right superior semicircular canal. Labyrinthine structures are otherwise normal. No mastoid or middle ear effusion. No abnormal petrous temporal bone enhancement. Postcontrast images of the whole brain reveal no abnormal intracranial mass or enhancement. There is no intracranial mass effect midline shift. No abnormal extra-axial collection. Lateral and third ventricles are normal. No hydrocephalus. Midline structures including the cervicomedullary junction are normal. No acute bone marrow signal changes. MR/MR head/brain wo/w con IMPRESSION: There is questionable thinning or dehiscence of bone at the apex of the right superior semicircular canal. Correlation with clinical symptoms of a third window phenomenon are therefore recommended. A dedicated CT scan of the temporal bone can also be obtained for better anatomic characterization. Otherwise no discrete anatomic finding to provide an explanation for this patient's vertigo and ataxia.
--- NOTE | ~2022-01-24 | XR_ITS ---
EXAMINATION: XR ABDOMEN KUB CLINICAL INDICATION: Abdominal pain COMPARISON: None TECHNIQUE: AP view of the abdomen. FINDINGS: Large colonic stool burden. Small amount of gas and stool in the rectum. No dilated air-filled small bowel loops. No appreciable bowel wall thickening. No gross large volume free air on this supine exam. Visualized lung bases are clear. No acute osseous abnormality identified. XR/XR KUB IMPRESSION: 1. Large colonic stool burden. Correlate clinically with signs or symptoms of constipation. 2. Nonobstructive bowel gas pattern.
[2022-01-24 10:25] VITALS: BP 147/74; BP 172/78; PULSE 70; RESP 18; TEMP 36.6; O2SAT 98; BMI 32.9
--- NOTE | 2022-01-24 10:41 | PC.NURSE ---
patient communicating with staff with use of phone. bg etienne . heart rate regular 70 beats per minute . breathing even and unlabored . lungs clear throughout . skin pink warm and dry . abdomen soft not tender . patient reports headache 10 out of 10 with episodes of feeling dizzy at times also nauseous that started this AM . patient aware of plan of care .
--- NOTE | 2022-01-24 10:59 | ED_ITS ---
HPI - General Adult General Chief complaint: General Medical Stated complaint: HEADACHE Time Seen by Provider: 01/24/22 10:49 Source: patient Limitations: other (Patient with history of autism who is unable to verbalize when under stress. He communicates typing in to his cellphone.) History of Present Illness HPI narrative: Patient states he feels very dizzy for the past 2 days. Worse with head movement. He states it feels like his head is going to explode. A feels similar to when he had an episode of vertigo about 20 years ago. He states he was hospitalized at that time it was due to crystals in his ears. He currently denies headache. Positive nausea. Unable to elicit causative factor secondary to communication issues. Related Data Home Medications Medication Instructions Recorded Confirmed clonazepam 0.5 mg tablet 1 tab PO TID 12/07/21 01/08/22 dextroamphetamine-amphetamine ER 1 cap PO BID 12/07/21 01/08/22 30 mg 24hr capsule,extend release (Adderall XR) testosterone cypionate 200 mg/mL 0.5 ml IM QWEEK 12/07/21 01/08/22 intramuscular oil clonidine HCl 0.2 mg tablet 1 tab PO TID attention deficit 01/08/22 01/08/22 hyperactivity disorder hydroxyzine pamoate 50 mg capsule 1 cap PO BID PRN anxiety 01/08/22 01/08/22 omeprazole 40 mg capsule,delayed 1 cap PO BID 01/08/22 01/08/22 release Allergies Allergy/AdvReac Type Severity Reaction Status Date / Time quetiapine [From Seroquel] Allergy Unknown Verified 12/20/21 20:51 Review of Systems Review of Systems: See HPI for limitations [facility] Past Medical History Medical History Autism Social History Social History Patient Tobacco Use Status: Never used Tobacco Smoked in Last 30 Days: Yes Advance Directives: No Advance Directives Information Provided: Yes Physical Exam ED Vital Signs: Vital Signs - 24 hr 01/24/22 10:25 01/24/22 12:06 Temperature 97.9 F Pulse Rate 70 66 Respiratory Rate 18 18 Blood Pressure 147/74 H 144/49 H Pulse Oximetry 98 97 Oxygen Delivery Method Room Air Room Air BMI result Body Mass Index 32.9 Const Other: Patient appears highly anxious. Vital signs are stable, mildly hypertensive. HENMT Other: Normocephalic atraumatic Eyes Other: Patient unable to cooperate with extraocular muscles as this makes him very n auseous when he at times to look laterally. Resp Other: Clear and equal bilaterally Cardio Other: Regular rate and rhythm without murmurs rubs or gallops GI Other: Soft, nontender, nondistended Skin Other: Warm pink and dry Neuro Other: Unable to evaluate Psych Other: Appears very anxious Course Course Course Narrative: 13:20. Patient is feeling little better after Ativan and Phenergan. Will treat with more Ativan. Patient states he has been banging his head a lot this week. He states he strikes it up against the wall as part of his autism. He is still communicating with his phone and not verbally. Will order CT scan of the brain. Routine labs 16:20. Workup shows normal CBC, normal chemistries. His CT scan is normal. He was treated with IV Ativan, IV Phenergan, IV Benadryl. P.o. meclizine. He states he feels a little bit better and was able to attempt ambulation but is very unsteady on his feet and is unable to ambulate without assistance. Given these findings, we will hospitalize him for further treatment until he is improved enough to ambulate safely. If no improvement possibly further neurologic evaluation. Medications Administered Discontinued Medications Generic Name Dose Route Start Last Admin Trade Name Freq PRN Reason Stop Dose Admin Diphenhydramine HCl 50 mg 01/24/22 14:10 01/24/22 14:37 Diphenhydramine Hcl 50 Mg/Ml Vial IVPUSH 01/24/22 14:11 50 mg ONCE ONE Administration Sodium Chloride 1,000 mls @ 999 mls/hr 01/24/22 11:00 01/24/22 13:23 Ns IV 01/24/22 12:00 Infused .Q1H1M ELADIO Infusion Promethazine HCl 12.5 mg/ 50.5 mls @ 202 mls/hr 01/24/22 10:58 01/24/22 13:23 Sodium Chloride IV 01/24/22 10:59 Infused ONCE ONE Infusion Lorazepam 1 mg 01/24/22 10:58 01/24/22 11:53 Lorazepam 2 Mg/Ml Vial IVPUSH 01/24/22 10:59 1 mg ONCE ONE Administration Lorazepam 1 mg 01/24/22 13:18 01/24/22 13:46 Lorazepam 2 Mg/Ml Vial IVPUSH 01/24/22 13:19 1 mg ONCE ONE Administration Meclizine HCl 25 mg 01/24/22 16:10 01/24/22 16:17 Meclizine Hcl 25 Mg Tablet PO 01/24/22 16:11 25 mg ONCE ONE Administration Medical Decision Making Medical Decision Making [facility] Narrative: Patient with a history of autism presents with symptoms that are certainly comp atible with benign positional vertigo. Additional differential would include stroke. Unable to do full neuro exam secondary to severe symptoms. Will treat symptomatically with lorazepam IV as well as Phenergan IV. Will reassess afterwards. Patient is outside of treatment windows for stroke, but symptoms are more likely peripheral vertigo in origin. Lab Data Result Diagrams: 01/24/22 13:29 01/24/22 13:29 Labs: Lab Results 01/24/22 01/24/22 01/24/22 Range/Units 11:07 13:29 13:29 WBC 7.5 (4.8-10.8) X10*3/uL RBC 5.27 (4.60-5.80) X10*6/uL Hgb 14.9 (14.0-18.0) g/dl Hct 44.6 (42.0-52.0) % MCV 84.6 (80.0-98.0) fL MCH 28.3 (27.0-33.0) pg MCHC 33.4 (31.0-36.0) g/dl RDW 13.1 (11.0-16.0) % Plt Count 232 (160-400) X10*3/uL MPV 10.2 (9.4-12.4) fL Immature Gran % (Auto) 0.3 (0.0-0.4) % Neut % (Auto) 72.5 (45-73) % Lymph % (Auto) 19.3 L (20-40) % [place] % (Auto) 7.2 (2-11) % Eos % (Auto) 0.3 (0-4) % Baso % (Auto) 0.4 (0-2) % Lymph # (Auto) 1.4 (1.2-4.9) X10*3/uL [place] # (Auto) 0.5 (0.1-1.2) X10*3/uL Eos # (Auto) 0.0 (0.0-0.4) X10*3/uL Baso # (Auto) 0.0 (0.0-0.2) X10*3/uL Abs Immat Gran (auto) 0.02 (0.00-0.03) X10*3/uL Absolute Neuts (auto) 5.4 (2.0-8.3) x10*3/uL Absolute Nucleated RBC 0.000 (0.0-0.012) X10*3/uL Nucleated RBC % (auto) 0.0 (0.0-0.2) /100WBC Sodium 140 (135-145) mmol/L Potassium 4.5 (3.3-5.1) mmol/L Chloride 109 H (96-108) mmol/L Carbon Dioxide 24 (22-29) mmol/L Anion Gap 12 (12-20) BUN 12 (9-16) mg/dL Creatinine 1.14 (0.5-1.4) mg/dL Estim Creat Clear Calc 85.7 Estimated GFR > 60 Random Glucose 96 (60-115) mg/dL Calcium 8.9 (8.4-10.2) mg/dL Total Bilirubin 0.9 (0.0-1.0) mg/dL AST 23 (5-37) U/L ALT 20 (0-40) U/L Alkaline Phosphatase 107 (39-117) U/L Total Protein 6.7 (6.5-8.0) g/dL Albumin 4.1 (3.5-5.0) g/dL Influenza Type A (PCR) NEGATIVE (Negative) Influenza Type B (PCR) NEGATIVE (Negative) RSV RNA Qual (PCR) NEGATIVE (Negative) SARS-CoV-2 RNA (RT-PCR) NEGATIVE (Negative) Discharge Plan Discharge Patient Disposition: Admitted As Inpatient Prescriptions: No Action dextroamphetamine-amphetamine [Adderall XR] 30 mg capsule,extended release 24hr 1 cap PO BID clonazepam 0.5 mg tablet 1 tab PO TID testosterone cypionate 200 mg/mL oil 0.5 ml IM QWEEK clonidine HCl 0.2 mg tablet 1 tab PO TID omeprazole 40 mg capsule,delayed release(DR/EC) 1 cap PO BID hydroxyzine pamoate 50 mg capsule 1 cap PO BID PRN (Reason: anxiety)
[2022-01-24] MEDS: LORazepam 2 MG/ML VIAL 1 MG IVPUSH ×2 (11:53→13:46)
[2022-01-24] MEDS: 0.9 % Sodium Chloride 1,000 ML 999 ML IV (11:53)
[2022-01-24 11:54] LABS: Influenza A PCR NEGATIVE (Negative); Influenza B PCR NEGATIVE (Negative); Resp Syncy Virus RNA Qual PCR NEGATIVE (Negative); SARS COV2 PCR INHOUSE NEGATIVE (Negative)
[2022-01-24 12:06] VITALS: BP 144/49; PULSE 66; RESP 18; O2SAT 97
[2022-01-24 13:38] LABS: MANUAL DIFF FLAG NO
[2022-01-24 13:46] LABS: Basophils Percent Auto 0.4 % (0-2); Eosinophils Percent Auto 0.3 % (0-4); Hematocrit 44.6 % (42.0-52.0); Hemoglobin 14.9 g/dl (14.0-18.0); Imm Gran Abs Auto 0.02 X10*3/uL (0.00-0.03); Imm Gran Pct Auto 0.3 % (0.0-0.4); Lymphocytes Absolute Auto 1.4 X10*3/uL (1.2-4.9); Lymphocytes Percent Auto 19.3 % (20-40); Mean Corpuscular HGB Conc 33.4 g/dl (31.0-36.0); Mean Corpuscular Hemoglobin 28.3 pg (27.0-33.0); Mean Corpuscular Volume 84.6 fL (80.0-98.0); Mean Platelet Volume 10.2 fL (9.4-12.4); Monocytes Absolute Auto 0.5 X10*3/uL (0.1-1.2); Monocytes Percent Auto 7.2 % (2-11); Neutrophils Absolute Auto 5.4 x10*3/uL (2.0-8.3); Neutrophils Percent Auto 72.5 % (45-73); Platelet Count 232 X10*3/uL (160-400); Red Blood Count 5.27 X10*6/uL (4.60-5.80); Red Cell Distribution Width 13.1 % (11.0-16.0); White Blood Count 7.5 X10*3/uL (4.8-10.8)
[2022-01-24 13:57] LABS: Alanine Aminotransferase 20 U/L (0-40); Albumin Level 4.1 g/dL (3.5-5.0); Alkaline Phosphatase 107 U/L (39-117); Anion Gap 12 (12-20); Aspartate Amino Transferase 23 U/L (5-37); Bilirubin Total 0.9 mg/dL (0.0-1.0); Blood Urea Nitrogen 12 mg/dL (9-16); Calcium 8.9 mg/dL (8.4-10.2); Carbon Dioxide 24 mmol/L (22-29); Chloride 109 mmol/L (96-108); Creatinine Clr Calc Pharmacy 85.7; Estimated Glomerular Filt Rate > 60; Glucose Random 96 mg/dL (60-115); Potassium 4.5 mmol/L (3.3-5.1); Sodium 140 mmol/L (135-145); Total Protein 6.7 g/dL (6.5-8.0)
[2022-01-24] MEDS: diphenhydrAMINE HCL 50 MG/ML VIAL IVPUSH (14:37)
--- NOTE | 2022-01-24 15:30 | PC.NURSE ---
PT GIVEN A SANDWICH AND APPLE JUICE FOR PO CHALLENGE.
[2022-01-24] MEDS: Meclizine HCl 25 MG TABLET PO ×2 (16:17→20:46)
[2022-01-24 16:43] VITALS: BP 140/69; PULSE 57; RESP 16; TEMP 36.3; O2SAT 97
--- NOTE | 2022-01-24 18:06 | PHA.MEDREC ---
Pharmacy Consult ? Medication Reconciliation Pharmacy has completed the medication reconciliation.
--- NOTE | 2022-01-24 18:48 | PM.IMHP ---
History of Present Illness Date of Service: 01/24/22 Attending physician on admission: [facility] Chief Complaint: headache, vertigo 41-year-old assigned female at , now male on hormone injections, history of autism, history of violent and manipulative behaviors, and ADHD presented to the ED earlier today from home where he states he resides alone with the assistance of AIDS from DDS, for evaluation of dizziness, headache, and gait instability for the last 2 days. He communicates primarily typing into his cellphone and is unable to verbalize when under stress. He states dizziness feels like the room is spinning in circles and is worse with head movements. States he has had a constant headache rated as a 5/10 sharp pain that increases to a 10/10 with head movements. There has also been associated nausea but no vomiting. He has been unable to walk without feeling as if he is going to fall which is not his baseline. He states he had a similar episode of vertigo years ago and has been hospitalized in the past ?due to Crystal's in my ears?. In the ED, vital signs stable. Hematology chemistry studies unremarkable. Negative for flu, RSV, and COVID-19. Head CT negative for any acute intracranial pathology. In the ED, patient treated with Phenergan, 25 mg meclizine, 1 mg lorazepam, 50 mg diphenhydramine with some improvement in symptoms. However, he was still noted to be very unsteady on his feet and as a result as being recommended for admission. He is also given 1 L IV NS. Review of Systems Review of Systems: General: No fevers, malaise, unintentional weight loss HEENT: No blurred vision, diplopia. Cardiovascular: No chest pain, palpitations, or leg edema Respiratory: No shortness of breath, wheezing, cough GI: +nausea. No abdominal pain, vomiting, diarrhea, constipation, melena, hematochezia : No dysuria, hematuria, increased urinary frequency MSK: No myalgia, back pain Neuro: +generalized weakness, +headache, +vertigo. No paresthesias Skin: No rashes or lesions [facility] Medical History ADHD Autism Family History Other Family history unknown Pertinent family history: Pt unaware of family history Social History Household Members: None Housing: Unknown / Unable to assess Do you presently have visiting nurse or other home services: No Unable to assess alcohol history related to: Unknown Patient Tobacco Use Status: Never used Tobacco service: No Current occupational status: disabled Meds Allergies Allergy/AdvReac Type Severity Reaction Status Date / Time quetiapine [From Seroquel] Allergy Unknown Verified 12/20/21 20:51 Active Medications: Current Medications Acetaminophen (Acetaminophen 325 Mg Tablet) 650 mg PO Q6H PRN PRN Reason: Pain, Mild (Pain Scale 1-3) Lorazepam (Lorazepam 0.5 Mg Tablet) 0.5 mg PO Q6H PRN PRN Reason: Anxiety Meclizine HCl (Meclizine Hcl 25 Mg Tablet) 25 mg PO TID ELADIO Ondansetron HCl (Ondansetron Hcl 4 Mg/2 Ml Vial) 4 mg IVPUSH Q8H PRN PRN Reason: Nausea and Vomiting Sodium Chloride (0.9 % Sodium Chloride Flush 3 Ml Syringe) 3 ml IVFLUSH [facility] Home Medications Medication Instructions Recorded Confirmed Last Taken Type dextroamphetamine-amphetamine ER 1 cap PO BID 12/07/21 01/24/22 Unknown History 30 mg 24hr capsule,extend release (Adderall XR) testosterone cypionate 200 mg/mL 0.5 ml IM [id number] 12/07/21 01/24/22 01/23/22 History intramuscular oil clonidine HCl 0.2 mg tablet 1 tab PO TID attention deficit 01/08/22 01/24/22 Unknown History hyperactivity disorder hydroxyzine pamoate 50 mg capsule 1 cap PO TID@0800,1200,1600 01/08/22 02/13/22 Unknown History omeprazole 40 mg capsule,delayed 1 cap PO BID 01/08/22 01/24/22 Unknown History release hydroxyzine pamoate 50 mg capsule 2 cap PO BEDTIME 02/13/22 02/13/22 Unknown History Physical Exam Vital Signs and Narrative: Vital Signs: Last Vital Signs Temp 97.4 F 01/24/22 16:43 Pulse 57 01/24/22 16:43 Resp 16 01/24/22 16:43 BP 140/69 H 01/24/22 16:43 Pulse Ox 97 01/24/22 16:43 O2 Del Method 01/24/22 16:43 BMI result Body Mass Index 32.9 Constitutional - Awake and Alert, No apparent distress Eyes - PERRLA Ears: External ears normal, canals clear, TMs intact and pearly rich with good cone of light Cardiovascular - S1S2, RRR, No edema Respiratory - Normal lung expansion, Normal respiratory effort, No respiratory distress, CTA bilaterally Gastrointestinal - NT / ND; +BS; No rebound or guarding Extremities - no calf tenderness bilaterally, no swelling Skin - Warm/Dry Neurological - Alert & oriented x3, PERRLA, Unable to participate in further neuro exam, mildly tremulous Psychological - Anxious appearing Results Labs 01/24/22 13:29 01/27/22 06:40 Labs: Laboratory Results - last 24 hr 01/24/22 01/24/22 01/24/22 11:07 13:29 13:29 MCV 84.6 MCH 28.3 MCHC 33.4 RDW 13.1 Plt Count 232 MPV 10.2 Immature Gran % (Auto) 0.3 Neut % (Auto) 72.5 Lymph % (Auto) 19.3 L [place] % (Auto) 7.2 Eos % (Auto) 0.3 Baso % (Auto) 0.4 Lymph # (Auto) 1.4 [place] # (Auto) 0.5 Eos # (Auto) 0.0 Baso # (Auto) 0.0 Abs Immat Gran (auto) 0.02 Absolute Neuts (auto) 5.4 Absolute Nucleated RBC 0.000 Nucleated RBC % (auto) 0.0 Anion Gap 12 Estim Creat Clear Calc 85.7 Estimated GFR > 60 Random Glucose 96 Calcium 8.9 Total Bilirubin 0.9 AST 23 ALT 20 Alkaline Phosphatase 107 Total Protein 6.7 Albumin 4.1 Influenza Type A (PCR) NEGATIVE Influenza Type B (PCR) NEGATIVE RSV RNA Qual (PCR) NEGATIVE SARS-CoV-2 RNA (RT-PCR) NEGATIVE Imaging Radiologist's Impressions: Impressions Head CT 01/24/22 14:35 IMPRESSION: No acute intracranial pathology. Assessment and Plan (1) Vertigo: Status: Acute Plan 41-year-old assigned female at , now male on hormone injections, history of autism, history of violent and manipulative behaviors, and ADHD to be observed for persistent vertigo with gait ataxia. #Vertigo -Likely peripheral, however cannot exclude central vertigo/cerebellar infarction given persistent gait ataxia, vertigo, nausea though suspicion is low given pt history -Head CT without acute intracranial abnormality -Unable to perform MRI at this time due to pt autism/anxiety without sedation -Appreciate neuro input -Meclizine 25 mg TID -Out of bed with assist -Ondansetron PRN nausea -Monitor vitals -PT eval for kurt maneuver, gait/generalized weakness evaluation #Acute headache -Head CT unremarkable -Tylenol prn #ADHD/anxiety -Continue home meds #GERD -continue ppi DVT prophylaxis- mechanical Full code Time Spent With Patient Time: Total time managing care of this patient today ____ minutes. Quality Stroke Does the patient have a stroke diagnosis?: No VTE Prior VTE?: No VTE Risk Level:: Medical - moderate - high VTE Device Contraindication: N/A - Device Ordered VTE Drug Contraindication: Treatment Not Indicated
[2022-01-24 18:57] VITALS: BP 142/70; PULSE 74; RESP 16; TEMP 36.6; O2SAT 97
--- NOTE | 2022-01-24 19:35 | PC.NURSE ---
This writter assumed care for this PT at 1900. PT communicating via cellphone. PT calm, laying on stretcher.
[2022-01-24 20:00] VITALS: BP 124/60; PULSE 52; RESP 16; TEMP 36.6; O2SAT 98
--- NOTE | 2022-01-24 20:25 | PC.NURSE ---
PT reported 08/15 headpain, refused tylenol. Provider notified. Waiting for mew orders
--- NOTE | 2022-01-24 20:38 | MHC.EDTECH ---
pt had 2 ham sandwiches and 2 pudding for supper ,drank 600 ml juice .
--- NOTE | 2022-01-24 20:40 | MHC.EDTECH ---
pt was wet ,care given ,clean pullups on .
[2022-01-24] MEDS: ondansetron HCL 4 MG/2 ML VIAL IVPUSH (20:46)
[2022-01-24] MEDS: LORazepam 0.5 MG TABLET PO (20:54)
--- NOTE | 2022-01-24 21:07 | PC.NURSE ---
PT refused new order of pain med states don't care for me because I have autisms .PT reassured . Meds given as documented. PT aware of plan.
[2022-01-24 21:49] VITALS: BP 137/62; PULSE 52; RESP 14; TEMP 36.7; O2SAT 96
[2022-01-24] MEDS: hydrOXYzine HCL 50 MG TABLET PO (23:46)
[2022-01-24] MEDS: cloNIDine HCL 0.2 MG TABLET PO (23:46)
[2022-01-25] MEDS: traZODone HCL 25 MG HALFTAB PO ×3 (00:06→23:23)
[2022-01-25] MEDS: 0.9 % Sodium Chloride Flush 3 ML SYRINGE IVFLUSH ×4 (00:13→19:27)
[2022-01-25] MEDS: Omeprazole 40 MG CAPSULE.DR PO ×3 (00:13→19:27)
[2022-01-25 04:00] VITALS: BP 140/62; PULSE 67; RESP 18; TEMP 36.6; O2SAT 97
[2022-01-25] MEDS: ondansetron HCL 4 MG/2 ML VIAL IVPUSH (05:20)
[2022-01-25] MEDS: LORazepam 0.5 MG TABLET PO ×3 (05:28→21:01)
[2022-01-25] MEDS: hydrOXYzine HCL 50 MG TABLET PO ×3 (08:45→21:00)
[2022-01-25] MEDS: Dextroamphetamine/Amphetamine XR 10 MG CAP.ER.24H 30 MG PO ×2 (08:45→14:30)
[2022-01-25] MEDS: cloNIDine HCL 0.2 MG TABLET PO ×3 (08:45→19:27)
[2022-01-25] MEDS: SUMAtriptan succinate 50 MG TABLET PO (08:45)
[2022-01-25] MEDS: Meclizine HCl 25 MG TABLET PO ×3 (08:45→19:27)
[2022-01-25 08:55] VITALS: BP 117/59; PULSE 52; RESP 16; TEMP 37.2; O2SAT 98
[2022-01-25] MEDS: Ibuprofen 400 MG TABLET PO ×2 (10:55→17:05)
--- NOTE | 2022-01-25 11:13 | PM.NEUROCN ---
History of Present Illness Data of Consult Service Date: 01/25/22 Primary Care Provider: None Physician HPI Reason for consult: vertigo and headache 41 yr old female at , now transitioning to male on hormone injections, history of autism, history of violent and manipulative behaviors, and ADHD presented to the ED earlier today from home where he states he resides alone with the assistance of AIDS from D[facility], for evaluation of dizziness, headache, and gait instability for the last 2 days.? He communicates primarily typing into his cellphone and is unable to verbalize when under stress.? He states dizziness feels like the room is spinning in circles and is worse with head movements.? States he has had a constant headache rated as a 5/10 sharp pain that increases to a 10/10 with head movements.? There has also been associated nausea but no vomiting.? He has been unable to walk without feeling as if he is going to fall which is not his baseline.? 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 Review of Systems Review of Systems: General: No fevers, malaise, unintentional weight loss HEENT: No blurred vision, diplopia. Cardiovascular: No chest pain, palpitations, or leg edema Respiratory: No shortness of breath, wheezing, cough GI: +nausea. No abdominal pain, vomiting, diarrhea, constipation, melena, hematochezia : No dysuria, hematuria, increased urinary frequency MSK: No myalgia, back pain Neuro: +generalized weakness, +headache, +vertigo. No paresthesias Skin: No rashes or lesions PMFSH Past Medical History Medical History ADHD Autism Family History Family History Other Family history unknown Pertinent family history: Pt unaware of family history Social History Social History Patient Tobacco Use Status: Never used Tobacco Smoked in Last 30 Days: Yes Currently Displaying Signs/Symptoms of Drug Intoxication Withdrawal: No Advance Directives: No Advance Directives Information Provided: Yes Meds Allergies Allergy/AdvReac Type Severity Reaction Status Date / Time quetiapine [From Seroquel] Allergy Unknown Verified 12/20/21 20:51 Active Medications: Current Medications Acetaminophen (Acetaminophen 325 Mg Tablet) 650 mg PO Q6H PRN PRN Reason: Pain, Mild, headache Amphetamine/Dextroamphetamine (Dextroamphetamine/Amphetamine Xr 10 Mg Cap.Er.24h) 30 mg PO BID@0830,1430 [facility] Last Admin: 01/25/22 08:45 Dose: 30 mg Clonidine HCl (Clonidine Hcl 0.2 Mg Tablet) 0.2 mg PO TID [facility]; Protocol Last Admin: 01/25/22 08:45 Dose: 0.2 mg Hydroxyzine HCl (Hydroxyzine Hcl 50 Mg Tablet) 50 mg PO QID PRN PRN Reason: anxiety Last Admin: 01/25/22 08:45 Dose: 50 mg Ibuprofen (Ibuprofen 400 Mg Tablet) 400 mg PO Q6H PRN PRN Reason: moderate pain Last Admin: 01/25/22 10:55 Dose: 400 mg Lorazepam (Lorazepam 0.5 Mg Tablet) 0.5 mg PO Q6H PRN PRN Reason: Anxiety Last Admin: 01/25/22 05:28 Dose: 0.5 mg Meclizine HCl (Meclizine Hcl 25 Mg Tablet) 25 mg PO TID [facility] Last Admin: 01/25/22 08:45 Dose: 25 mg Omeprazole (Omeprazole 40 Mg Capsule.Dr) 40 mg PO BID [facility] Last Admin: 01/25/22 08:45 Dose: 40 mg Ondansetron HCl (Ondansetron Hcl 4 Mg/2 Ml Vial) 4 mg IVPUSH Q8H PRN PRN Reason: Nausea and Vomiting Last Admin: 01/25/22 05:20 Dose: 4 mg Sodium Chloride (0.9 % Sodium Chloride Flush 3 Ml Syringe) 3 ml IVFLUSH QSHIFT [facility] Last Admin: 01/25/22 08:46 Dose: 3 ml Sumatriptan Succinate (Sumatriptan Succinate 50 Mg Tablet) 50 mg PO DAILY MRX1 PRN PRN Reason: mejias/dizziness Last Admin: 01/25/22 08:45 Dose: 50 mg Trazodone HCl (Trazodone Hcl 25 Mg Halftab) 25 mg PO BEDTIME PRN PRN Reason: insomnia Last Admin: 01/25/22 00:06 Dose: 25 mg Home Medications Medication Instructions Recorded Confirmed Last Taken Type dextroamphetamine-amphetamine ER 1 cap PO BID 12/07/21 01/24/22 Unknown History 30 mg 24hr capsule,extend release (Adderall XR) testosterone cypionate 200 mg/mL 0.5 ml IM [id number] 12/07/21 01/24/22 01/23/22 History intramuscular oil clonidine HCl 0.2 mg tablet 1 tab PO TID attention deficit 01/08/22 01/24/22 Unknown History hyperactivity disorder hydroxyzine pamoate 50 mg capsule 1 cap PO BID PRN anxiety 01/08/22 01/24/22 Unknown History omeprazole 40 mg capsule,delayed 1 cap PO BID 01/08/22 01/24/22 Unknown History release Physical Exam Vital Signs: Vital Signs: Last Vital Signs Temp 98.9 F 01/25/22 08:55 Pulse 52 01/25/22 08:55 Resp 16 01/25/22 08:55 BP 117/59 L 01/25/22 08:55 Pulse Ox 98 01/25/22 08:55 O2 Del Method 01/25/22 08:55 BMI result Body Mass Index 32.9 Const: Other: Patient appears highly anxious. Vital signs are stable, mildly hypertensive. HEENT: Other: Normocephalic atraumatic Eyes: Other: Patient unable to cooperate with extraocular muscles as this makes him very nauseous when he at times to look laterally. Resp: Other: Clear and equal bilaterally Cardio: Other: Regular rate and rhythm without murmurs rubs or gallops GI: Other: Soft, nontender, nondistended Skin: Other: Warm pink and dry Neuro: Other: inconsistent exam with many features suggestive of a functional disorder. Communicates well thru typing via cell phone. No nystagmus . Espinosa snot turn eyes to left . No facial droop. No movement sensitivity on exam. LUE weakness and non functional status on objective testing but was using cell phone with both hands earlier. Plantars are flexor Psych: Other: Appears very anxious Results Labs CBC & Chem 7: 01/24/22 13:29 01/24/22 13:29 Labs: Short CBC 01/24/22 Range/Units 13:29 WBC 7.5 (4.8-10.8) X10*3/uL Hgb 14.9 (14.0-18.0) g/dl Hct 44.6 (42.0-52.0) % Plt Count 232 (160-400) X10*3/uL BMP 01/24/22 13:29 Sodium 140 Potassium 4.5 Chloride 109 H Carbon Dioxide 24 BUN 12 Creatinine 1.14 Calcium 8.9 Liver Function 01/24/22 Range/Units 13:29 Total Bilirubin 0.9 (0.0-1.0) mg/dL AST 23 (5-37) U/L ALT 20 (0-40) U/L Alkaline Phosphatase 107 (39-117) U/L Albumin 4.1 (3.5-5.0) g/dL Assessment and Plan (1) Vertigo: Status: Acute Possible labyrinthine dysfunction. Lot of functional overlay with inconsistent left sided weakness Recom: MRI brain. Clonazepam 0.5 mg bid (2) Autism disorder: Status: Acute (3) Anxiety with depression: Status: Acute Clonazepam 0.5 mg bid. Psych evaluation Plan 41-year-old assigned female at , now male on hormone injections, history of autism, history of violent and manipulative behaviors, and ADHD to be observed for persistent vertigo with gait ataxia. #Vertigo -Likely peripheral, however cannot exclude central vertigo/cerebellar infarction given persistent gait ataxia, vertigo, nausea though suspicion is low given pt history -Head CT without acute intracranial abnormality -Unable to perform MRI at this time due to pt autism/anxiety without sedation -Appreciate neuro input -Meclizine 25 mg TID -Out of bed with assist -Ondansetron PRN nausea -Monitor vitals -PT eval for kurt maneuver, gait/generalized weakness evaluation #Acute headache -Head CT unremarkable -Tylenol prn #ADHD/anxiety -Continue home meds #GERD -continue ppi DVT prophylaxis- mechanical Full code Time Spent With Patient Time: Total time managing care of this patient today ____ minutes. Procedures Date of Service Date of Service: 01/25/22
--- NOTE | 2022-01-25 11:20 | MHC.CM.PN ---
Addendum entered by Catina Sharp 01/26/22 12:32: PER PT, PCP DR. MAHAJAN OF [facility] Original Note: [facility] DELIVERED. EMR REVIEWED FROM PAST VISITS, SOME INPUT FROM PT WITH YES/NO SIGN LANGUAGE, NON VERBAL AND UNABLE TO ACCESS HIS CELL PHONE LOW ON POWER. MESSAGE LEFT FOR [employer]ENDIE ([phone]) TO RETURN CALL TO PROVIDE FUTHER INFO AND TO INQUIRE ABOUT BRINGING A PHONE BIOMEDICAL ENGINEERING TECHNOLOGIST TO [facility] [place]. CHART REVIEW: LIVES ALONE IN AN APT. USES IPAD/CELL PHONE TO COMMUNICATE. NO HCP ON FILE. UNSURE OF PCP. CM WILL FOLLOW AND ADD TO ASSESSMENT ONCE SPEAKS WITH [employer]. DP: HOME WITH RESUMPTION OF COMMUNITY SERVICES. ? BLS VS.LYFT? CM TO FOLLOW.
--- NOTE | 2022-01-25 12:40 | P.PNIM_ITS ---
Subjective Subjective Date of Service: 01/25/22 <DI Mueller - Last Filed: 01/25/22 13:23> 02/14/22 <Jim Egan MD - Last Filed: 02/14/22 11:56> Interval History: Seen in follow up for gait ataxia, CARCAMO, vertigo Interval history: Still reporting nausea, vomiting x1. States he does not have headache, but persistent zaps throughout his head worse with head movements. Still feels like he will fall if walking. <DI Mueller - Last Filed: 01/07 13:23> Review of Systems Review of Systems: Yes all other systems are reviewed and are negative <DI Mueller - Last Filed: 01/25/22 13:23> Physical Exam Vital Signs: Vital Signs: Last Vital Signs Temp 98.9 F 01/25/22 08:55 Pulse 52 01/25/22 08:55 Resp 16 01/25/22 08:55 BP 117/59 L 01/25/22 08:55 Pulse Ox 98 01/25/22 08:55 O2 Del Method 01/25/22 08:55 BMI result Body Mass Index 32.9 <DI Mueller - Last Filed: 01/25/22 13:23> Constitutional - Awake and Alert, No apparent distress Eyes - PERRLA Ears:? External ears normal, canals clear, TMs intact and pearly rich with good cone of light Cardiovascular - S1S2, RRR, No edema Respiratory - Normal lung expansion, Normal respiratory effort, No respiratory distress, CTA bilaterally Extremities - no calf tenderness bilaterally, no swelling? Skin - Warm/Dry Neurological - Alert & oriented x3, PERRLA, Unable to participate in further neuro exam, mildly tremulous Psychological - Anxious appearing <DI Mueller - Last Filed: 01/25/22 13:23> Objective Data Active Medications Acetaminophen (Acetaminophen 325 Mg Tablet) 650 mg PO Q6H PRN PRN Reason: Pain, Mild, headache Amphetamine/Dextroamphetamine (Dextroamphetamine/Amphetamine Xr 10 Mg Cap.Er .24h) 30 mg PO BID@0830,1430 [facility] Last Admin: 01/25/22 08:45 Dose: 30 mg Documented By: CLAY Clonidine HCl (Clonidine Hcl 0.2 Mg Tablet) 0.2 mg PO TID [facility]; Protocol Last Admin: 01/25/22 08:45 Dose: 0.2 mg Documented By: CLAY Hydroxyzine HCl (Hydroxyzine Hcl 50 Mg Tablet) 50 mg PO QID PRN PRN Reason: anxiety Last Admin: 01/25/22 08:45 Dose: 50 mg Documented By: CLAY Ibuprofen (Ibuprofen 400 Mg Tablet) 400 mg PO Q6H PRN PRN Reason: moderate pain Last Admin: 01/25/22 10:55 Dose: 400 mg Documented By: CLAY Lorazepam (Lorazepam 0.5 Mg Tablet) 0.5 mg PO Q6H PRN PRN Reason: Anxiety Last Admin: 01/25/22 11:39 Dose: 0.5 mg Documented By: CLAY Meclizine HCl (Meclizine Hcl 25 Mg Tablet) 25 mg PO TID [facility] Last Admin: 01/25/22 08:45 Dose: 25 mg Documented By: CLAY Omeprazole (Omeprazole 40 Mg Capsule.Dr) 40 mg PO BID [facility] Last Admin: 01/25/22 08:45 Dose: 40 mg Documented By: CLAY Ondansetron HCl (Ondansetron Hcl 4 Mg/2 Ml Vial) 4 mg IVPUSH Q8H PRN PRN Reason: Nausea and Vomiting Last Admin: 01/25/22 05:20 Dose: 4 mg Documented By: TARA Sodium Chloride (0.9 % Sodium Chloride Flush 3 Ml Syringe) 3 ml IVFLUSH [facility] Last Admin: 01/25/22 08:46 Dose: 3 ml Documented By: CLAY Sumatriptan Succinate (Sumatriptan Succinate 50 Mg Tablet) 50 mg PO DAILY MRX1 PRN PRN Reason: carcamo/dizziness Last Admin: 01/25/22 08:45 Dose: 50 mg Documented By: CLAY Trazodone HCl (Trazodone Hcl 25 Mg Halftab) 25 mg PO BEDTIME PRN PRN Reason: insomnia Last Admin: 01/25/22 00:06 Dose: 25 mg Documented By: LALALM <DI Mueller - Last Filed: 01/25/22 13:23> Labs CBC & Chem 7: 01/24/22 13:29 01/27/22 06:40 <DI Mueller - Last Filed: 01/25/22 13:23> Labs: Laboratory Results - last 24 hr 01/24/22 01/24/22 13:29 13:29 MCV 84.6 MCH 28.3 MCHC 33.4 RDW 13.1 Plt Count 232 MPV 10.2 Immature Gran % (Auto) 0.3 Neut % (Auto) 72.5 Lymph % (Auto) 19.3 L [place] % (Auto) 7.2 Eos % (Auto) 0.3 Baso % (Auto) 0.4 Lymph # (Auto) 1.4 [place] # (Auto) 0.5 Eos # (Auto) 0.0 Baso # (Auto) 0.0 Abs Immat Gran (auto) 0.02 Absolute Neuts (auto) 5.4 Absolute Nucleated RBC 0.000 Nucleated RBC % (auto) 0.0 Anion Gap 12 Estim Creat Clear Calc 85.7 Estimated GFR > 60 Random Glucose 96 Calcium 8.9 Total Bilirubin 0.9 AST 23 ALT 20 Alkaline Phosphatase 107 Total Protein 6.7 Albumin 4.1 <DI Mueller - Last Filed: 01/25/22 13:23> Assessment and Plan (1) Vertigo: Status: Acute <DI Mueller - Last Filed: 01/25/22 13:23> Assessment and Plan: 41-year-old assigned female at , now male on hormone injections, history of autism, history of violent and manipulative behaviors, and ADHD to be observed for persistent vertigo with gait ataxia. #Vertigo -Likely peripheral, however cannot exclude central vertigo/cerebellar infarction given persistent gait ataxia, vertigo, nausea though suspicion is low given pt history -Head CT without acute intracranial abnormality. -Seen by neuro w/ question of labyrinth d/o. MRI recommended. Will premedicate with versed for sedation due to severe anxiety -Meclizine 25 mg TID -Out of bed with assist -Ondansetron PRN nausea -Monitor vitals -PT eval for kurt maneuver, gait/generalized weakness evaluation #Headache -associated with nausea and vertigo -?vestibular migraine -Sumatriptan ordered, tylenol, ibuprofen -Treat vertigo as above #ADHD/anxiety -Continue home meds -Add lorazepam #GERD -continue ppi DVT prophylaxis- mechanical Full code Pt requires ongoing inpt stay for management of persistent vertigo with gait ataxia at significant risk for falls requiring further imaging with MRI requi ring sedation as well as ongoing expert consultation <DI Mueller - Last Filed: 01/25/22 13:23> Time Spent With Patient Time: Total time managing care of this patient today ____ minutes. <DI Mueller - Last Filed: 01/25/22 13:23> Quality Stroke Does the patient have a stroke diagnosis?: No <DI Mueller - Last Filed: 01/25/22 13:23> VTE Prior VTE?: No <DI Mueller - Last Filed: 01/25/22 13:23> VTE Risk Level:: Medical - moderate - high <DI Mueller - Last Filed: 01/25/22 13:23> VTE Device Contraindication: N/A - Device Ordered <DI Mueller - Last Filed: 01/25/22 13:23> VTE Drug Contraindication: Treatment Not Indicated <DI Mueller - Last Filed: 01/25/22 13:23>
[2022-01-25 15:27] VITALS: PULSE 52; O2SAT 98
[2022-01-25] MEDS: Midazolam HCl/PF 2 MG/2 ML VIAL IVPUSH (19:26)
[2022-01-25] MEDS: Acetaminophen 325 MG TABLET 650 MG PO (21:01)
[2022-01-25 23:48] VITALS: BP 106/58; PULSE 56; RESP 18; TEMP 36.3; O2SAT 97
[2022-01-26 05:12] VITALS: BP 112/57; PULSE 49; RESP 16; TEMP 36.4; O2SAT 97
[2022-01-26] MEDS: cloNIDine HCL 0.2 MG TABLET PO ×3 (07:05→19:59)
[2022-01-26] MEDS: hydrOXYzine HCL 50 MG TABLET PO ×3 (07:06→19:59)
[2022-01-26] MEDS: Acetaminophen 325 MG TABLET 650 MG PO ×2 (07:06→20:01)
[2022-01-26] MEDS: Dextroamphetamine/Amphetamine XR 10 MG CAP.ER.24H 30 MG PO ×2 (07:06→14:05)
[2022-01-26] MEDS: Omeprazole 40 MG CAPSULE.DR PO ×2 (07:06→19:59)
[2022-01-26] MEDS: 0.9 % Sodium Chloride Flush 3 ML SYRINGE IVFLUSH ×3 (07:06→20:04)
[2022-01-26] MEDS: Meclizine HCl 25 MG TABLET PO ×3 (07:06→19:59)
[2022-01-26 08:00] VITALS: BP 100/55; PULSE 68; RESP 19; TEMP 36.2; O2SAT 93
[2022-01-26 09:48] LABS: Anion Gap 13 (12-20); Blood Urea Nitrogen 11 mg/dL (9-16); Calcium 9.2 mg/dL (8.4-10.2); Carbon Dioxide 26 mmol/L (22-29); Chloride 102 mmol/L (96-108); Creatinine Clr Calc Pharmacy 68.8; Estimated Glomerular Filt Rate 55; Glucose Random 145 mg/dL (60-115); Potassium 4.3 mmol/L (3.3-5.1); Sodium 137 mmol/L (135-145)
[2022-01-26] MEDS: LORazepam 0.5 MG TABLET PO ×2 (10:45→20:59)
[2022-01-26] MEDS: Midazolam HCl/PF 2 MG/2 ML VIAL IVPUSH (11:02)
[2022-01-26] MEDS: ondansetron HCL 4 MG/2 ML VIAL IVPUSH (14:05)
--- NOTE | 2022-01-26 14:38 | MHC.CM.PN ---
EMR REVIEWED P.T. RECOMMENDS HOME VS. STR, MULTIPLE REFERRALS PLACED WITH NO BED OFFERS. [facility] IS FOLLOWING BUT UNSURE IF WILL HAVE AN AVAILABILITY. CM WILL CONTINUE TO FOLLOW.
[2022-01-26 15:23] VITALS: BP 121/65; PULSE 86; RESP 18; TEMP 36.6; O2SAT 98
--- NOTE | 2022-01-26 16:37 | P.PNNE_ITS ---
Subjective Subjective Date of Service: 01/26/22 Interval History: gait ataxia, CARCAMO, vertigo, nausea, vomiting x1. States he does not have headache. Gets persistent zaps throughout his head worse with head movements. Still feels like he will fall if walking. Critical Care Time (minutes): 0 Physical Exam Vital Signs: Vital Signs: Last Vital Signs Temp 97.8 F 01/26/22 15:23 Pulse 86 01/26/22 15:23 Resp 18 01/26/22 15:23 BP 121/65 01/26/22 15:23 Pulse Ox 98 01/26/22 15:23 O2 Del Method 01/26/22 15:23 BMI result Body Mass Index 32.9 Const: Other: Patient appears highly anxious. Vital signs are stable, mildly hypertensive. HEENT: Other: Normocephalic atraumatic Eyes: Other: Patient unable to cooperate with extraocular muscles as this makes him very nauseous when he at times to look laterally. Resp: Other: Clear and equal bilaterally Cardio: Other: Regular rate and rhythm without murmurs rubs or gallops GI: Other: Soft, nontender, nondistended Skin: Other: Warm pink and dry Neuro: Other: inconsistent exam with many features suggestive of a functional disorder. Communicates well thru typing via cell phone. No nystagmus . Espinosa snot turn eyes to left . No facial droop. No movement sensitivity on exam. LUE weakness and non functional status on objective testing but was using cell phone with both hands earlier. Plantars are flexor Psych: Other: Appears very anxious Objective Data Labs CBC & Chem 7: 01/24/22 13:29 01/26/22 09:03 Labs: Laboratory Results - last 24 hr 01/26/22 09:03 Sodium 137 Potassium 4.3 Chloride 102 Carbon Dioxide 26 Anion Gap 13 BUN 11 Creatinine 1.42 H Estim Creat Clear Calc 68.8 Estimated GFR 55 Random Glucose 145 H Calcium 9.2 Progress Note: A&P Assessment and plan (1) Vertigo: Status: Acute Assessment and Plan: MRI and CT reviewed . Not convinced that this is clinically relevant. Recom. Clonazepam 1mg hs and 0.5 mg in am. Meclizine 25mg bid. If sx persist can be referred to [facility] for another opinion about the rel evance of the MRI/ Ct findings. Plan 41-year-old assigned female at , now male on hormone injections, history of autism, history of violent and manipulative behaviors, and ADHD to be observed for persistent vertigo with gait ataxia. #Vertigo -Likely peripheral, however cannot exclude central vertigo/cerebellar infarction given persistent gait ataxia, vertigo, nausea though suspicion is low given pt history -Head CT without acute intracranial abnormality. -Seen by neuro w/ question of labyrinth d/o. MRI recommended. Will premedicate with versed for sedation due to severe anxiety -Meclizine 25 mg TID -Out of bed with assist -Ondansetron PRN nausea -Monitor vitals -PT eval for kurt maneuver, gait/generalized weakness evaluation #Headache -associated with nausea and vertigo -?vestibular migraine -Sumatriptan ordered, tylenol, ibuprofen -Treat vertigo as above #ADHD/anxiety -Continue home meds -Add lorazepam #GERD -continue ppi DVT prophylaxis- mechanical Full code Pt requires ongoing inpt stay for management of persistent vertigo with gait ataxia at significant risk for falls requiring further imaging with MRI requiring sedation as well as ongoing expert consultation Time Spent With Patient Time: Total time managing care of this patient today ____ minutes. Procedures Date of Service Date of Service: 01/26/22 Quality Stroke Does the patient have a stroke diagnosis?: No VTE Prior VTE?: No VTE Risk Level:: Medical - moderate - high VTE Device Contraindication: N/A - Device Ordered VTE Drug Contraindication: Treatment Not Indicated
--- NOTE | 2022-01-26 17:05 | HO.PM.IMPN ---
Subjective Subjective Date of Service: 01/26/22 <DI Mueller - Last Filed: 01/26/22 17:08> 02/14/22 <Jim Egan MD - Last Filed: 02/14/22 11:56> Interval History: Seen in follow up for gait ataxia, CARCAMO, vertigo Interval history: Still reporting nausea, vomiting x1. States he does not have headache, but persistent zaps throughout his head worse with head movements. Still feels like he will fall if walking. <DI Mueller - Last Filed: 01/26/22 17:08> Review of Systems Review of Systems: Yes all other systems are reviewed and are negative <DI Mueller - Last Filed: 01/26/22 17:08> Physical Exam Vital Signs: Vital Signs: Last Vital Signs Temp 97.8 F 01/26/22 15:23 Pulse 86 01/26/22 15:23 Resp 18 01/26/22 15:23 BP 121/65 01/26/22 15:23 Pulse Ox 98 01/26/22 15:23 O2 Del Method 01/26/22 15:23 BMI result Body Mass Index 32.9 <DI Mueller - Last Filed: 01/26/22 17:08> Constitutional - Awake and Alert, No apparent distress Eyes - PERRLA Ears:? External ears normal, canals clear, TMs intact and pearly rich with good cone of light Cardiovascular - S1S2, RRR, No edema Respiratory - Normal lung expansion, Normal respiratory effort, No respiratory distress, CTA bilaterally Extremities - no calf tenderness bilaterally, no swelling? Skin - Warm/Dry Neurological - Alert & oriented x3, PERRLA, Unable to participate in further neuro exam, mildly tremulous Psychological - Anxious appearing <DI Mueller - Last Filed: 01/26/22 17:08> Objective Data Active Medications Acetaminophen (Acetaminophen 325 Mg Tablet) 650 mg PO Q6H PRN PRN Reason: Pain, Mild, headache Last Admin: 01/26/22 07:06 Dose: 650 mg Documented By: CLAY Amphetamine/Dextroamphetamine (Dextroamphetamine/Amphetamine Xr 10 Mg Cap.Er.24h) 30 mg PO BID@0830,1430 [facility] Last Admin: 01/26/22 14:05 Dose: 30 mg Documented By: CLAY Clonidine HCl (Clonidine Hcl 0.2 Mg Tablet) 0.2 mg PO TID [facility]; Protocol Last Admin: 01/26/22 14:05 Dose: 0.2 mg Documented By: CLAY Hydroxyzine HCl (Hydroxyzine Hcl 50 Mg Tablet) 50 mg PO QID PRN PRN Reason: anxiety Last Admin: 01/26/22 14:05 Dose: 50 mg Documented By: CLAY Ibuprofen (Ibuprofen 400 Mg Tablet) 400 mg PO Q6H PRN PRN Reason: moderate pain Last Admin: 01/25/22 17:05 Dose: 400 mg Documented By: CLAY Lorazepam (Lorazepam 0.5 Mg Tablet) 0.5 mg PO Q6H PRN PRN Reason: Anxiety Last Admin: 01/26/22 10:45 Dose: 0.5 mg Documented By: CLAY Meclizine HCl (Meclizine Hcl 25 Mg Tablet) 25 mg PO TID [facility] Last Admin: 01/26/22 14:05 Dose: 25 mg Documented By: CLAY Omeprazole (Omeprazole 40 Mg Capsule.Dr) 40 mg PO BID [facility] Last Admin: 01/26/22 07:06 Dose: 40 mg Documented By: CLAY Ondansetron HCl (Ondansetron Hcl 4 Mg/2 Ml Vial) 4 mg IVPUSH Q8H PRN PRN Reason: Nausea and Vomiting Last Admin: 01/26/22 14:05 Dose: 4 mg Documented By: CLAY Sodium Chloride (0.9 % Sodium Chloride Flush 3 Ml Syringe) 3 ml IVFLUSH QSHIFT [facility] Last Admin: 01/26/22 14:13 Dose: 3 ml Documented By: CLAY Sumatriptan Succinate (Sumatriptan Succinate 50 Mg Tablet) 50 mg PO DAILY MRX1 PRN PRN Reason: carcamo/dizziness Last Admin: 01/25/22 08:45 Dose: 50 mg Documented By: CLAY Trazodone HCl (Trazodone Hcl 25 Mg Halftab) 25 mg PO BEDTIME PRN PRN Reason: insomnia Last Admin: 01/25/22 21:01 Dose: 25 mg Documented By: CELESTE <DI Mueller - Last Filed: 01/26/22 17:08> Labs CBC & Chem 7: 01/24/22 13:29 01/27/22 06:40 <DI Mueller Last Filed: 01/26/22 17:08> Labs: Laboratory Results - last 24 hr 01/26/22 09:03 Anion Gap 13 Estim Creat Clear Calc 68.8 Estimated GFR 55 Random Glucose 145 H Calcium 9.2 <DI Mueller Last Filed: 01/26/22 17:08> Assessment and Plan (1) Vertigo: Status: Acute <DI Mueller - Last Filed: 01/26/22 17:08> Assessment and Plan: 41-year-old assigned female at , now male on hormone injections, history of autism, history of violent and manipulative behaviors, and ADHD to be observed for persistent vertigo with gait ataxia. #Vertigo -MRI brain and CT IAC showing significant focal bony thinning at the apices of both superior semicircular canals, for which a possibility of a subtle osseous dehiscence is difficult to rule out -evaluated by Neurology. MRI/CT findings not felt to be clinically relevant, however symptoms do not improve he can follow up with [facility] in the future -per neurology, clonazepam 1 mg at bedtime and clonazepam 0.5 mg daily -continue Meclizine 25 mg TID -Out of bed with assist -Ondansetron PRN nausea -discharge tomorrow to short-term rehab versus home with services per PT #Headache -associated with nausea and vertigo -?vestibular migraine -Sumatriptan ordered, tylenol, ibuprofen -Treat vertigo as above #ADHD/anxiety -Continue home meds -Add lorazepam #GERD -continue ppi DVT prophylaxis- mechanical Full code Pt requires ongoing inpt stay for management of persistent vertigo with gait ataxia at significant risk for falls requiring further imaging with MRI requiring sedation as well as ongoing expert consultation, pending placement vs home with services tomorrow <DI Mueller Last Filed: 01/26/22 17:08> Time Spent With Patient Time: Total time managing care of this patient today ____ minutes. <DI Mueller Last Filed: 01/26/22 17:08> Quality Stroke Does the patient have a stroke diagnosis?: No <DI Mueller Last Filed: 01/26/22 17:08> VTE Prior VTE?: No <DI Mueller - Last Filed: 01/26/22 17:08> VTE Risk Level:: Medical - moderate - high <DI Mueller - Last Filed: 01/26/22 17:08> VTE Device Contraindication: N/A - Device Ordered <DI Mueller - Last Filed: 01/26/22 17:08> VTE Drug Contraindication: Treatment Not Indicated <DI Mueller - Last Filed: 01/26/22 17:08>
[2022-01-26 19:28] VITALS: BP 121/64; PULSE 50; RESP 18; TEMP 36.4; O2SAT 97
[2022-01-26] MEDS: clonazePAM 1 MG TABLET PO (19:59)
[2022-01-26] MEDS: traZODone HCL 25 MG HALFTAB PO ×2 (19:59→23:10)
[2022-01-26] MEDS: SUMAtriptan succinate 50 MG TABLET PO (20:58)
--- NOTE | 2022-01-27 | ECG_ITS ---
Test Reason : bradycardia Blood Pressure : / mmHG Vent. Rate : 054 BPM Atrial Rate : 054 BPM P-R Int : 134 ms QRS Dur : 086 ms QT Int : 396 ms P-R-T Axes : 015 051 007 degrees QTc Int : 375 ms Sinus bradycardia Otherwise normal ECG When compared with ECG of 20-DEC-2021 22:50, No significant change was found Referred By: Xi Moore Electronically Signed By:Familia Neff
[2022-01-27 03:51] VITALS: BP 113/61; PULSE 51; RESP 18; TEMP 36.4; O2SAT 97
--- NOTE | 2022-01-27 05:52 | PC.NURSE ---
pt refused labs this morning, Dr. Grant notified.
[2022-01-27 07:46] VITALS: BP 118/62; PULSE 52; RESP 18; TEMP 36.3; O2SAT 97
[2022-01-27 07:48] LABS: Anion Gap 14 (12-20); Blood Urea Nitrogen 14 mg/dL (9-16); Calcium 9.2 mg/dL (8.4-10.2); Carbon Dioxide 25 mmol/L (22-29); Chloride 104 mmol/L (96-108); Creatinine Clr Calc Pharmacy 81.4; Estimated Glomerular Filt Rate > 60; Glucose Random 96 mg/dL (60-115); Potassium 4.9 mmol/L (3.3-5.1); Sodium 138 mmol/L (135-145)
[2022-01-27] MEDS: cloNIDine HCL 0.2 MG TABLET PO ×3 (08:19→19:59)
[2022-01-27] MEDS: Ibuprofen 400 MG TABLET PO (08:19)
[2022-01-27] MEDS: Meclizine HCl 25 MG TABLET PO ×3 (08:20→19:58)
[2022-01-27] MEDS: Dextroamphetamine/Amphetamine XR 10 MG CAP.ER.24H 30 MG PO ×2 (08:20→14:20)
[2022-01-27] MEDS: 0.9 % Sodium Chloride Flush 3 ML SYRINGE IVFLUSH ×3 (08:20→19:57)
[2022-01-27] MEDS: hydrOXYzine HCL 50 MG TABLET PO ×3 (08:20→19:59)
[2022-01-27] MEDS: clonazePAM 0.5 MG TABLET PO (08:20)
[2022-01-27] MEDS: Omeprazole 40 MG CAPSULE.DR PO ×2 (08:20→19:58)
[2022-01-27] MEDS: LORazepam 0.5 MG TABLET PO ×2 (09:30→19:59)
--- NOTE | 2022-01-27 12:51 | P.PNIM_ITS ---
Subjective Subjective Date of Service: 01/27/22 Interval History: follow up for gait ataxia, CARCAMO, vertigo Still reporting nausea upon moving, sitting diet though Report persistent zaps throughout his head worse with head movements Still feels like he will fall if walkingBut doing overall better with physical therapy Review of Systems General: No fevers, malaise HEENT: No blurred vision, diplopia. Cardiovascular: No chest pain, palpitations Respiratory: No shortness of breath, wheezing, cough GI: +nausea. No abdominal pain, vomiting : No dysuria, hematuria, increased urinary frequency MSK: No myalgia, back pain Neuro: +vertigo Skin: No rashes or lesions Physical Exam Vital Signs: Vital Signs: Last Vital Signs Temp 97.3 F 01/27/22 07:46 Pulse 52 01/27/22 07:46 Resp 18 01/27/22 07:46 BP 118/62 01/27/22 07:46 Pulse Ox 97 01/27/22 07:46 O2 Del Method 01/27/22 07:46 BMI result Body Mass Index 32.9 Objective Data Active Medications Acetaminophen (Acetaminophen 325 Mg Tablet) 650 mg PO Q6H PRN PRN Reason: Pain, Mild, headache Last Admin: 01/26/22 20:01 Dose: 650 mg Documented By: CELESTE Amphetamine/Dextroamphetamine (Dextroamphetamine/Amphetamine Xr 10 Mg Cap.Er.24h) 30 mg PO BID@0830,1430 [facility] Last Admin: 01/27/22 08:20 Dose: 30 mg Documented By: CLAY Clonazepam (Clonazepam 1 Mg Tablet) 1 mg PO BEDTIME [facility] Last Admin: 01/26/22 19:59 Dose: 1 mg Documented By: CELESTE Clonazepam (Clonazepam 0.5 Mg Tablet) 0.5 mg PO DAILY [facility] Last Admin: 01/27/22 08:20 Dose: 0.5 mg Documented By: CLAY Clonidine HCl (Clonidine Hcl 0.2 Mg Tablet) 0.2 mg PO TID [facility]; Protocol Last Admin: 01/27/22 08:19 Dose: 0.2 mg Documented By: CLAY Hydroxyzine HCl (Hydroxyzine Hcl 50 Mg Tablet) 50 mg PO QID PRN PRN Reason: anxiety Last Admin: 01/27/22 08:20 Dose: 50 mg Documented By: CLAY Ibuprofen (Ibuprofen 400 Mg Tablet) 400 mg PO Q6H PRN PRN Reason: moderate pain Last Admin: 01/27/22 08:19 Dose: 400 mg Documented By: CLAY Lorazepam (Lorazepam 0.5 Mg Tablet) 0.5 mg PO Q6H PRN PRN Reason: anxiety/restlessness Last Admin: 01/27/22 09:30 Dose: 0.5 mg Documented By: CLAY Meclizine HCl (Meclizine Hcl 25 Mg Tablet) 25 mg PO TID [facility] Last Admin: 01/27/22 08:20 Dose: 25 mg Documented By: CLAY Omeprazole (Omeprazole 40 Mg Capsule.Dr) 40 mg PO BID [facility] Last Admin: 01/27/22 08:20 Dose: 40 mg Documented By: CLAY Ondansetron HCl (Ondansetron Hcl 4 Mg/2 Ml Vial) 4 mg IVPUSH Q8H PRN PRN Reason: Nausea and Vomiting Last Admin: 01/26/22 14:05 Dose: 4 mg Documented By: CLAY Sodium Chloride (0.9 % Sodium Chloride Flush 3 Ml Syringe) 3 ml IVFLUSH QSHIFT [facility] Last Admin: 01/27/22 08:20 Dose: 3 ml Documented By: CLAY Sumatriptan Succinate (Sumatriptan Succinate 50 Mg Tablet) 50 mg PO DAILY MRX1 PRN PRN Reason: carcamo/dizziness Last Admin: 01/26/22 20:58 Dose: 50 mg Documented By: AMALIAQC Trazodone HCl (Trazodone Hcl 50 Mg Tablet) 50 mg PO BEDTIME PRN PRN Reason: insomnia Labs CBC & Chem 7: 01/24/22 13:29 01/27/22 06:40 Labs: Laboratory Results - last 24 hr 01/27/22 06:40 Anion Gap 14 Estim Creat Clear Calc 81.4 Estimated GFR > 60 Random Glucose 96 Calcium 9.2 Assessment and Plan (1) Vertigo: Status: Acute (2) Autism disorder: Status: Acute Plan 41-year-old assigned female at , now male on hormone injections, history of autism, history of violent and manipulative behaviors, and ADHD to be observed for persistent vertigo with gait ataxia. #Vertigo MRI brain and CT IAC showing significant focal bony thinning at the apices of both superior semicircular canals, for which a possibility of a subtle osseous dehiscence is difficult to rule out Neurology input appreciated, MRI/CT findings not felt to be clinically relevant, however symptoms do not improve he can follow up with [facility] in the future continue clonazepam 1 mg at bedtime and clonazepam 0.5 mg daily continue Meclizine 25 mg TID physical therapy, increase physical activity Ondansetron PRN nausea pending savedischarge tomorrow to short-term rehab versus home with services # bradycardia to get an EKG for further evaluation Asymptomatic as heart rate still fully in 50s #Headache Improved questionable vestibular migraine Sumatriptan ordered, tylenol, ibuprofen #ADHD/anxiety Continue home meds Add lorazepam #GERD continue ppi DVT prophylaxis- mechanical Full code Pt requires ongoing inpt stay for management of persistent vertigo with gait ataxia at significant risk for falls pending placement vs home with services tomorrow Time Spent With Patient Time: Total time managing care of this patient today ____ minutes. Quality Stroke Does the patient have a stroke diagnosis?: No VTE Prior VTE?: No VTE Risk Level:: Medical - moderate - high VTE Device Contraindication: N/A - Device Ordered VTE Drug Contraindication: Treatment Not Indicated
[2022-01-27] MEDS: SUMAtriptan succinate 50 MG TABLET PO (14:37)
[2022-01-27 14:52] VITALS: PULSE 52; O2SAT 97
--- NOTE | 2022-01-27 15:06 | MHC.CM.PN ---
PT WORKED WITH [facility] WHO RECOMMENDS STR AT THIS TIME. NO BED OFFERS BUT SEARCH EXPANDED TO [facility]. CM WILL CONTINUE TO FOLLOW.
[2022-01-27 15:42] VITALS: BP 112/69; PULSE 56; RESP 18; TEMP 36.1; O2SAT 92
[2022-01-27] MEDS: ondansetron HCL 4 MG/2 ML VIAL IVPUSH (19:54)
[2022-01-27] MEDS: traZODone HCL 50 MG TABLET PO (19:59)
[2022-01-27] MEDS: clonazePAM 1 MG TABLET PO (19:59)
[2022-01-27] MEDS: LORazepam 2 MG/ML VIAL 1 MG IVPUSH (21:42)
[2022-01-27] MEDS: Haloperidol Lactate 5 MG/ML VIAL 2.5 MG IVPUSH (22:42)
--- NOTE | 2022-01-28 03:21 | PC.NURSE ---
According to day RN pt stared to became agitated and restless around 1800 and security was called for assist. As the next shift started, pt still on the hallway half-naked with urine soaked brief and pants with 3 security personnel talking to the pt, pt was still very anxious and agitated accusing security staffs, refusing to move to his room and be changed. Paged Dr. Santillan to see the pt., spoke to pt for quite sometime and then was convince to get up and move to his room, meds taken , Pt's anxiety heighten up again when his cellphone was drained and he doesn't have a classifier, staff lend him a classifier, pt stayed in room after. Pt requested for a PTSD med, pt is now paranoid to staff ,thought he is being ridiculed by staff talking in the Nurses station about him. Dr. Santillan was made aware, Haldol 2.5 mg Iv given, slept fairly after.
[2022-01-28 04:00] VITALS: BP 101/60; PULSE 58; RESP 16; TEMP 36.2; O2SAT 97
[2022-01-28] MEDS: SUMAtriptan succinate 50 MG TABLET PO ×2 (05:28→22:34)
[2022-01-28 07:36] VITALS: BP 108/62; PULSE 51; RESP 12; TEMP 36; O2SAT 97
[2022-01-28] MEDS: Meclizine HCl 25 MG TABLET PO ×3 (09:05→20:16)
[2022-01-28] MEDS: clonazePAM 0.5 MG TABLET PO (09:05)
[2022-01-28] MEDS: Dextroamphetamine/Amphetamine XR 10 MG CAP.ER.24H 30 MG PO ×2 (09:05→14:30)
[2022-01-28] MEDS: cloNIDine HCL 0.2 MG TABLET PO ×3 (09:05→20:18)
[2022-01-28] MEDS: Omeprazole 40 MG CAPSULE.DR PO ×2 (09:06→20:16)
[2022-01-28] MEDS: 0.9 % Sodium Chloride Flush 3 ML SYRINGE IVFLUSH ×2 (09:06→22:40)
--- NOTE | 2022-01-28 10:44 | HO.PM.IMPN ---
Subjective Subjective Date of Service: 01/28/22 Interval History: follow up for gait ataxia, CARCAMO, vertigo Still reporting nausea upon moving, sitting diet though Report persistent zaps throughout his head worse with head movements Still feels like he will fall if walkingBut doing overall better with physical therapy Review of Systems General: No fevers, malaise HEENT: No blurred vision, diplopia. Cardiovascular: No chest pain, palpitations Respiratory: No shortness of breath, wheezing, cough GI: +nausea. No abdominal pain, vomiting : No dysuria, hematuria, increased urinary frequency MSK: No myalgia, back pain Neuro: +vertigo Skin: No rashes or lesions Physical Exam Vital Signs: Vital Signs: Last Vital Signs Temp 96.8 F 01/28/22 07:36 Pulse 51 01/28/22 07:36 Resp 12 01/28/22 07:36 BP 108/62 01/28/22 07:36 Pulse Ox 97 01/28/22 07:36 O2 Del Method 01/28/22 07:36 BMI result Body Mass Index 32.9 Const: Other: Constitutional : Awake, interactive by typing, not in distress Neck : Normal inspection, Supple Cardiovascular : RRR, , no lower extremity edema Respiratory : good bilateral air entry, no wheezes Gastrointestinal: soft, lax, Non tender Skin : Warm, Dry Neurological : Alert & oriented x3, No focal deficit, Mutism Objective Data Active Medications Acetaminophen (Acetaminophen 325 Mg Tablet) 650 mg PO Q6H PRN PRN Reason: Pain, Mild, headache Last Admin: 01/26/22 20:01 Dose: 650 mg Documented By: CELESTE Amphetamine/Dextroamphetamine (Dextroamphetamine/Amphetamine Xr 10 Mg Cap.Er.24h) 30 mg PO BID@0830,1430 [facility] Last Admin: 01/28/22 09:05 Dose: 30 mg Documented By: PIPPA Clonazepam (Clonazepam 1 Mg Tablet) 1 mg PO BEDTIME [facility] Last Admin: 01/27/22 19:59 Dose: 1 mg Documented By: MARLEY Clonazepam (Clonazepam 0.5 Mg Tablet) 0.5 mg PO DAILY [facility] Last Admin: 01/28/22 09:05 Dose: 0.5 mg Documented By: PIPPA Clonidine HCl (Clonidine Hcl 0.2 Mg Tablet) 0.2 mg PO TID [facility]; Protocol Last Admin: 01/28/22 09:05 Dose: 0.2 mg Documented By: PIPPA Hydroxyzine HCl (Hydroxyzine Hcl 50 Mg Tablet) 50 mg PO QID PRN PRN Reason: anxiety Last Admin: 01/27/22 19:59 Dose: 50 mg Documented By: MARLEY Ibuprofen (Ibuprofen 400 Mg Tablet) 400 mg PO Q6H PRN PRN Reason: moderate pain Last Admin: 01/27/22 08:19 Dose: 400 mg Documented By: CLAY Lorazepam (Lorazepam 0.5 Mg Tablet) 0.5 mg PO Q6H PRN PRN Reason: anxiety/restlessness Last Admin: 01/27/22 19:59 Dose: 0.5 mg Documented By: MARLEY Meclizine HCl (Meclizine Hcl 25 Mg Tablet) 25 mg PO TID [facility] Last Admin: 01/28/22 09:05 Dose: 25 mg Documented By: PIPPA Omeprazole (Omeprazole 40 Mg Capsule.Dr) 40 mg PO BID [facility] Last Admin: 01/28/22 09:06 Dose: 40 mg Documented By: PIPPA Ondansetron HCl (Ondansetron Hcl 4 Mg/2 Ml Vial) 4 mg IVPUSH Q8H PRN PRN Reason: Nausea and Vomiting Last Admin: 01/27/22 19:54 Dose: 4 mg Documented By: MARLEY Sodium Chloride (0.9 % Sodium Chloride Flush 3 Ml Syringe) [facility] Last Admin: 01/28/22 09:06 Dose: 3 ml Documented By: PIPPA Sumatriptan Succinate (Sumatriptan Succinate 50 Mg Tablet) 50 mg PO DAILY MRX1 PRN PRN Reason: carcamo/dizziness Last Admin: 01/28/22 05:28 Dose: 50 mg Documented By: MARLEY Trazodone HCl (Trazodone Hcl 50 Mg Tablet) 50 mg PO BEDTIME PRN PRN Reason: insomnia Last Admin: 01/27/22 19:59 Dose: 50 mg Documented By: MARLEY Labs CBC & Chem 7: 01/24/22 13:29 01/27/22 06:40 Assessment and Plan (1) Anxiety with depression: Status: Acute (2) Vertigo: Status: Acute (3) Autism disorder: Status: Acute Plan 41-year-old assigned female at , now male on hormone injections, history of autism, history of violent and manipulative behaviors, and ADHD to be observed for persistent vertigo with gait ataxia. #Vertigo MRI brain and CT IAC showing significant focal bony thinning at the apices of both superior semicircular canals, for which a possibility of a subtle osseous dehiscence is difficult to rule out, will try to get him Appt w ENT at [facility] Gen Neurology input appreciated, MRI/CT findings not felt to be clinically relevant, however symptoms do not improve he can follow up with [facility] in the future continue clonazepam 1 mg at bedtime and clonazepam 0.5 mg daily continue Meclizine 25 mg TID physical therapy, increase physical activity Ondansetron PRN nausea pending savedischarge tomorrow to short-term rehab versus home with services # bradycardia normal EKG Asymptomatic as heart rate still fully in 50s likely 2/2 Meclizine usage #Headache Improved questionable vestibular migraine Sumatriptan ordered, tylenol, ibuprofen #ADHD/anxiety Continue home meds Add lorazepam prn Get psychiatry evaluation #GERD continue ppi DVT prophylaxis- mechanical Full code Pt requires ongoing inpt stay for management of persistent vertigo with gait ataxia at significant risk for falls pending placement vs home with services tomorrow Time Spent With Patient Time: Total time managing care of this patient today ____ minutes. Quality Stroke Does the patient have a stroke diagnosis?: No VTE Prior VTE?: No VTE Risk Level:: Medical - moderate - high VTE Device Contraindication: N/A - Device Ordered VTE Drug Contraindication: Treatment Not Indicated
[2022-01-28] MEDS: hydrOXYzine HCL 50 MG TABLET PO ×2 (13:48→20:16)
[2022-01-28] MEDS: LORazepam 0.5 MG TABLET PO (13:48)
[2022-01-28 14:29] VITALS: BP 108/62; PULSE 51; O2SAT 97
--- NOTE | 2022-01-28 14:39 | MHC.CM.PN ---
EMR REVIEWED AND BED SEARCH CONTINUES FOR STR. NO BED OFFERS AT THIS TIME. [facility] MAY HAVE A BED NEXT WEEK. APPOINTMENT MADE FOR May AT 10:15 AM AT THE [facility] FOR ENT CONSULT. PT IS AWARE AND INFORMATION REGARDING THIS APPOINTMENT LEFT AT BEDSIDE.
[2022-01-28 15:19] VITALS: BP 97/54; PULSE 65; RESP 18; TEMP 36.3; O2SAT 97
[2022-01-28] MEDS: LORazepam 1 MG TABLET PO (17:35)
[2022-01-28 20:00] VITALS: BP 141/81; PULSE 72; RESP 18; TEMP 37; O2SAT 98
[2022-01-28] MEDS: traZODone HCL 50 MG TABLET PO (20:15)
[2022-01-28] MEDS: clonazePAM 1 MG TABLET PO (20:16)
[2022-01-28] MEDS: ondansetron HCL 4 MG/2 ML VIAL IVPUSH (22:31)
[2022-01-29] MEDS: LORazepam 0.5 MG TABLET PO (00:32)
[2022-01-29 03:35] VITALS: BP 105/60; PULSE 58; RESP 18; TEMP 36.5; O2SAT 96
[2022-01-29] MEDS: hydrOXYzine HCL 50 MG TABLET PO ×4 (03:42→15:09)
[2022-01-29 08:00] VITALS: BP 120/70; PULSE 66; RESP 18; TEMP 36.9; O2SAT 96
[2022-01-29] MEDS: ondansetron HCL 4 MG/2 ML VIAL IVPUSH ×2 (08:06→16:23)
[2022-01-29] MEDS: Meclizine HCl 25 MG TABLET PO ×3 (08:06→21:06)
[2022-01-29] MEDS: Dextroamphetamine/Amphetamine XR 10 MG CAP.ER.24H 30 MG PO ×2 (08:06→15:10)
[2022-01-29] MEDS: cloNIDine HCL 0.2 MG TABLET PO ×3 (08:07→20:17)
[2022-01-29] MEDS: 0.9 % Sodium Chloride Flush 3 ML SYRINGE IVFLUSH ×2 (08:07→15:10)
[2022-01-29] MEDS: Omeprazole 40 MG CAPSULE.DR PO ×2 (08:07→20:17)
[2022-01-29] MEDS: clonazePAM 0.5 MG TABLET PO ×2 (08:07→15:09)
--- NOTE | 2022-01-29 10:37 | HO.PM.IMPN ---
Subjective Subjective Date of Service: 01/29/22 Interval History: follow up for gait ataxia, CARCAMO, vertigo Still reporting nausea upon moving, sitting Tolerating diet though feels more anxious and asking crease his medications still unsteady upon ambulating and high risk for falling Review of Systems General: No fevers, malaise HEENT: No blurred vision, diplopia. Cardiovascular: No chest pain, palpitations Respiratory: No shortness of breath, wheezing, cough GI: +nausea. No abdominal pain, vomiting : No dysuria, hematuria, increased urinary frequency MSK: No myalgia, back pain Neuro: +vertigo Skin: No rashes or lesions Physical Exam Vital Signs: Vital Signs: Last Vital Signs Temp 98.4 F 01/29/22 08:00 Pulse 66 01/29/22 08:00 Resp 18 01/29/22 08:00 BP 120/70 01/29/22 08:00 Pulse Ox 96 01/29/22 08:00 O2 Del Method 01/29/22 08:00 BMI result Body Mass Index 32.9 Const: Other: Constitutional : Awake, interactive by typing, said few words today,not in distress Neck : Normal inspection, Supple Cardiovascular : RRR, , no lower extremity edema Respiratory : good bilateral air entry, no wheezes Gastrointestinal: soft, lax, Non tender Skin : Warm, Dry Neurological : Alert & oriented x3, No focal deficit, Mutism Objective Data Active Medications Acetaminophen (Acetaminophen 325 Mg Tablet) 650 mg PO Q6H PRN PRN Reason: Pain, Mild, headache Last Admin: 01/26/22 20:01 Dose: 650 mg Documented By: CELESTE Amphetamine/Dextroamphetamine (Dextroamphetamine/Amphetamine Xr 10 Mg Cap.Er.24h) 30 mg PO BID@0830,1430 [facility] Last Admin: 01/29/22 08:06 Dose: 30 mg Documented By: SHER Clonazepam (Clonazepam 1 Mg Tablet) 1 mg PO BEDTIME [facility] Last Admin: 01/28/22 20:16 Dose: 1 mg Documented By: EVERARDO Clonazepam (Clonazepam 0.5 Mg Tablet) 0.5 mg PO DAILY [facility] Last Admin: 01/29/22 08:07 Dose: 0.5 mg Documented By: SHER Clonidine HCl (Clonidine Hcl 0.2 Mg Tablet) 0.2 mg PO TID [facility]; Protocol Last Admin: 01/29/22 08:07 Dose: 0.2 mg Documented By: SHER Hydroxyzine HCl (Hydroxyzine Hcl 50 Mg Tablet) 50 mg PO Q4H PRN PRN Reason: anxiety Ibuprofen (Ibuprofen 400 Mg Tablet) 400 mg PO Q6H PRN PRN Reason: moderate pain Last Admin: 01/27/22 08:19 Dose: 400 mg Documented By: CLAY Lorazepam (Lorazepam 0.5 Mg Tablet) 0.5 mg PO Q6H PRN PRN Reason: anxiety/restlessness Last Admin: 01/29/22 00:32 Dose: 0.5 mg Documented By: EVERARDO Meclizine HCl (Meclizine Hcl 25 Mg Tablet) 25 mg PO TID [facility] Last Admin: 01/29/22 08:06 Dose: 25 mg Documented By: SHER Omeprazole (Omeprazole 40 Mg Capsule.Dr) 40 mg PO BID [facility] Last Admin: 01/29/22 08:07 Dose: 40 mg Documented By: SHER Ondansetron HCl (Ondansetron Hcl 4 Mg/2 Ml Vial) 4 mg IVPUSH Q8H PRN PRN Reason: Nausea and Vomiting Last Admin: 01/29/22 08:06 Dose: 4 mg Documented By: SHER Sodium Chloride (0.9 % Sodium Chloride Flush 3 Ml Syringe) [facility] Last Admin: 01/29/22 08:07 Dose: 3 ml Documented By: SHER Sumatriptan Succinate (Sumatriptan Succinate 50 Mg Tablet) 50 mg PO DAILY MRX1 PRN PRN Reason: carcamo/dizziness Last Admin: 01/28/22 22:34 Dose: 50 mg Documented By: EVERARDO Trazodone HCl (Trazodone Hcl 50 Mg Tablet) 50 mg PO BEDTIME PRN PRN Reason: insomnia Last Admin: 01/28/22 20:15 Dose: 50 mg Documented By: EVERARDO Labs CBC & Chem 7: 01/24/22 13:29 01/27/22 06:40 Assessment and Plan (1) Anxiety with depression: Status: Acute (2) Vertigo: Status: Acute Plan 41-year-old assigned female at , now male on hormone injections, history of autism, history of violent and manipulative behaviors, and ADHD to be observed for persistent vertigo with gait ataxia. # Vertigo MRI brain and CT IAC showing significant focal bony thinning at the apices of both superior semicircular canals, for which a possibility of a subtle osseous dehiscence is difficult to rule out, will try to get him Appt w ENT at [facility] Neurology input appreciated, MRI/CT findings not felt to be clinically relevant, however symptoms do not improve he can follow up with [facility] in the future continue clonazepam 1 mg at bedtime and clonazepam 0.5 mg daily continue Meclizine 25 mg TID physical therapy, increase physical activity Ondansetron PRN nausea PT felt the patient is unsafe to be home at this point given high risk for falls and inability to ambulate safely recommending short-term rehab placement as 1st option pending safe discharge to short-term rehab versus home with services his symptoms improved plan to get an appointment with [facility] for outpatient follow-up # ADHD/anxiety increased anxiety level and agitation over the last few days Continue home meds Discontinue lorazepam prn pending psychiatry evaluation start small dose Seroquel # Bradycardia normal EKG Asymptomatic as heart rate still fully in 50s likely 2/2 Meclizine usage #Headache Improved questionable vestibular migraine Sumatriptan ordered, tylenol, ibuprofen #GERD continue ppi DVT prophylaxis- mechanical Full code Pt requires ongoing inpt stay for management of persistent vertigo with gait ataxia at significant risk for falls pending placement vs home with services tomorrow Time Spent With Patient Time: Total time managing care of this patient today ____ minutes. Quality Stroke Does the patient have a stroke diagnosis?: No VTE Prior VTE?: No VTE Risk Level:: Medical - moderate - high VTE Device Contraindication: N/A - Device Ordered VTE Drug Contraindication: Treatment Not Indicated
[2022-01-29 15:23] VITALS: BP 109/65; PULSE 65; RESP 17; TEMP 36.5; O2SAT 96
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
[2022-01-29 19:22] VITALS: BP 122/74; PULSE 65; RESP 17; TEMP 36.6; O2SAT 98
[2022-01-29] MEDS: traZODone HCL 50 MG TABLET PO (19:37)
[2022-01-29] MEDS: traZODone HCL 100 MG TABLET PO (20:17)
[2022-01-29] MEDS: clonazePAM 1 MG TABLET PO (20:18)
[2022-01-29] MEDS: hydrOXYzine HCL 50 MG TABLET 100 MG PO (20:18)
[2022-01-30] MEDS: 0.9 % Sodium Chloride Flush 3 ML SYRINGE IVFLUSH ×4 (01:41→19:59)
[2022-01-30 04:00] VITALS: BP 99/56; PULSE 52; RESP 14; TEMP 36.7; O2SAT 97
[2022-01-30 08:00] VITALS: BP 92/55; PULSE 62; RESP 18; TEMP 36.7; O2SAT 97
[2022-01-30] MEDS: Dextroamphetamine/Amphetamine XR 10 MG CAP.ER.24H 30 MG PO ×2 (08:06→15:00)
[2022-01-30] MEDS: clonazePAM 0.5 MG TABLET PO ×3 (08:06→15:00)
[2022-01-30] MEDS: Omeprazole 40 MG CAPSULE.DR PO ×2 (08:06→20:06)
[2022-01-30] MEDS: cloNIDine HCL 0.2 MG TABLET PO ×3 (08:06→20:06)
[2022-01-30] MEDS: hydrOXYzine HCL 50 MG TABLET PO ×3 (08:06→15:00)
[2022-01-30] MEDS: Meclizine HCl 25 MG TABLET PO ×3 (08:06→20:06)
--- NOTE | 2022-01-30 09:50 | HO.PM.IMPN ---
Subjective Subjective Date of Service: 01/30/22 Interval History: follow up for gait ataxia, vertigo Still reporting dizziness & unsteadiness upon moving, sitting Tolerating diet well anxiety better controlled still unsteady upon ambulating and high risk for falling Review of Systems General: No fevers, malaise HEENT: No blurred vision, diplopia. Cardiovascular: No chest pain, palpitations Respiratory: No shortness of breath, wheezing, cough GI: +nausea. No abdominal pain, vomiting : No dysuria, hematuria, increased urinary frequency MSK: No myalgia, back pain Neuro: +vertigo Skin: No rashes or lesions Physical Exam Vital Signs: Vital Signs: Last Vital Signs Temp 98.0 F 01/30/22 08:00 Pulse 62 01/30/22 08:00 Resp 18 01/30/22 08:00 BP 92/55 L 01/30/22 08:00 Pulse Ox 97 01/30/22 08:00 O2 Del Method 01/30/22 08:00 BMI result Body Mass Index 32.9 Const: Other: Constitutional : Awake, interactive by typing, said few words today,not in distress Neck : Normal inspection, Supple Cardiovascular : RRR, , no lower extremity edema Respiratory : good bilateral air entry, no wheezes Gastrointestinal: soft, lax, Non tender Skin : Warm, Dry Neurological : Alert & oriented x3, No focal deficit, Mutism Objective Data Active Medications Acetaminophen (Acetaminophen 325 Mg Tablet) 650 mg PO Q6H PRN PRN Reason: Pain, Mild, headache Last Admin: 01/26/22 20:01 Dose: 650 mg Documented By: CELESTE Amphetamine/Dextroamphetamine (Dextroamphetamine/Amphetamine Xr 10 Mg Cap.Er.24h) 30 mg PO BID@0830,1430 [facility] Last Admin: 01/30/22 08:06 Dose: 30 mg Documented By: SHER Clonazepam (Clonazepam 1 Mg Tablet) 1 mg PO BEDTIME [facility] Last Admin: 01/29/22 20:18 Dose: 1 mg Documented By: EVERARDO Clonazepam (Clonazepam 0.5 Mg Tablet) 0.5 mg PO TID@0800,1200,1600 [facility] Last Admin: 01/30/22 08:06 Dose: 0.5 mg Documented By: SHER Clonidine HCl (Clonidine Hcl 0.2 Mg Tablet) 0.2 mg PO TID [facility]; Protocol Last Admin: 01/30/22 08:06 Dose: 0.2 mg Documented By: SHER Hydroxyzine HCl (Hydroxyzine Hcl 50 Mg Tablet) 50 mg PO TID@0800,1200,1600 [facility] Last Admin: 01/30/22 08:06 Dose: 50 mg Documented By: SHER Hydroxyzine HCl (Hydroxyzine Hcl 50 Mg Tablet) 100 mg PO BEDTIME [facility] Last Admin: 01/29/22 20:18 Dose: 100 mg Documented By: EVERARDO Ibuprofen (Ibuprofen 400 Mg Tablet) 400 mg PO Q6H PRN PRN Reason: moderate pain Last Admin: 01/27/22 08:19 Dose: 400 mg Documented By: CLAY Meclizine HCl (Meclizine Hcl 25 Mg Tablet) 25 mg PO TID [facility] Last Admin: 01/30/22 08:06 Dose: 25 mg Documented By: SHER Non-Formulary Medication (Testosterone Cypionate) 0.5 ml IM NUÑEZ [facility] Omeprazole (Omeprazole 40 Mg Capsule.Dr) 40 mg PO BID [facility] Last Admin: 01/30/22 08:06 Dose: 40 mg Documented By: SHER Ondansetron HCl (Ondansetron Hcl 4 Mg/2 Ml Vial) 4 mg IVPUSH Q8H PRN PRN Reason: Nausea and Vomiting Last Admin: 01/29/22 16:23 Dose: 4 mg Documented By: SHER Sodium Chloride (0.9 % Sodium Chloride Flush 3 Ml Syringe) [facility] Last Admin: 01/30/22 08:09 Dose: 3 ml Documented By: SHER Sumatriptan Succinate (Sumatriptan Succinate 50 Mg Tablet) 50 mg PO DAILY MRX1 PRN PRN Reason: mejias/dizziness Last Admin: 01/28/22 22:34 Dose: 50 mg Documented By: EVERARDO Trazodone HCl (Trazodone Hcl 50 Mg Tablet) 50 mg PO Q6H PRN PRN Reason: agitation, anxiety Last Admin: 01/29/22 19:37 Dose: 50 mg Documented By: EVERARDO Trazodone HCl (Trazodone Hcl 100 Mg Tablet) 100 mg PO BEDTIME [facility] Last Admin: 01/29/22 20:17 Dose: 100 mg Documented By: EVERARDO Labs CBC & Chem 7: 01/24/22 13:29 01/27/22 06:40 Assessment and Plan (1) Anxiety with depression: Status: Acute (2) Vertigo: Status: Acute Plan 41-year-old assigned female at , now male on hormone injections, history of autism, history of violent and manipulative behaviors, and ADHD to be observed for persistent vertigo with gait ataxia. # Vertigo MRI brain and CT IAC showing significant focal bony thinning at the apices of both superior semicircular canals, for which a possibility of a subtle osseous dehiscence is difficult to rule out, will try to get him Appt w ENT at [facility] Neurology input appreciated, MRI/CT findings not felt to be clinically relevant, however symptoms do not improve he can follow up with [facility] in the future continue clonazepam 1 mg at bedtime and clonazepam 0.5 mg daily continue Meclizine 25 mg TID physical therapy, increase physical activity Ondansetron PRN nausea PT felt the patient is unsafe to be home at this point given high risk for falls and inability to ambulate safely recommending short-term rehab placement as 1st option pending safe discharge to short-term rehab versus home with services his symptoms improved appointment with [facility] for outpatient follow-up in May, on cancellation list. # ADHD/anxiety increased anxiety level and agitation over the last few days Continue home meds Discontinue lorazepam prn Psych input appreciated; Increase Klonipin, Trazodone for prn agitation start small dose Seroquel # Bradycardia normal EKG Asymptomatic as heart rate still fully in 50s likely 2/2 Meclizine usage #Headache Improved questionable vestibular migraine Sumatriptan ordered, tylenol, ibuprofen #GERD continue ppi DVT prophylaxis- mechanical Full code Pt requires ongoing inpt stay for management of persistent vertigo with gait ataxia at significant risk for falls pending placement vs home with services tomorrow Time Spent With Patient Time: Total time managing care of this patient today ____ minutes. Quality Stroke Does the patient have a stroke diagnosis?: No VTE Prior VTE?: No VTE Risk Level:: Medical - moderate - high VTE Device Contraindication: N/A - Device Ordered VTE Drug Contraindication: Treatment Not Indicated
[2022-01-30] MEDS: SUMAtriptan succinate 50 MG TABLET PO (10:19)
[2022-01-30] MEDS: traZODone HCL 50 MG TABLET PO ×2 (10:19→17:39)
--- NOTE | 2022-01-30 13:58 | PC.NURSE ---
Pt on Non Formulary medication every Monday. Spoke to pharmacist, they stated pt would have to bring in medication from home. Spoke to pt who stated he has no access to home currently to get home medication to hospital. Pt increasingly agitated with this information. Pts mother in room stated her and the pt will attempt to get in contact with the pts primary doctor to see what can be done. Dr Moore made aware.
[2022-01-30 16:00] VITALS: BP 125/59; PULSE 61; RESP 16; TEMP 36.6; O2SAT 96
[2022-01-30 19:53] VITALS: BP 117/63; PULSE 54; RESP 16; TEMP 36.5; O2SAT 99
[2022-01-30] MEDS: traZODone HCL 100 MG TABLET PO (20:06)
[2022-01-30] MEDS: hydrOXYzine HCL 50 MG TABLET 100 MG PO (20:06)
[2022-01-30] MEDS: clonazePAM 1 MG TABLET PO (20:07)
[2022-01-30] MEDS: Acetaminophen 325 MG TABLET 650 MG PO (20:18)
[2022-01-31 05:02] VITALS: BP 103/53; PULSE 57; RESP 18; TEMP 36; O2SAT 97
[2022-01-31 07:48] VITALS: BP 106/57; PULSE 66; RESP 18; TEMP 36.5; O2SAT 97
[2022-01-31] MEDS: Omeprazole 40 MG CAPSULE.DR PO ×2 (09:00→19:46)
[2022-01-31] MEDS: cloNIDine HCL 0.2 MG TABLET PO ×3 (09:00→20:55)
[2022-01-31] MEDS: Dextroamphetamine/Amphetamine XR 10 MG CAP.ER.24H 30 MG PO ×2 (09:00→14:15)
[2022-01-31] MEDS: clonazePAM 0.5 MG TABLET PO ×3 (09:00→17:24)
[2022-01-31] MEDS: hydrOXYzine HCL 50 MG TABLET PO ×3 (09:00→17:24)
[2022-01-31] MEDS: Meclizine HCl 25 MG TABLET PO ×3 (09:01→20:55)
[2022-01-31] MEDS: 0.9 % Sodium Chloride Flush 3 ML SYRINGE IVFLUSH ×2 (09:03→17:25)
--- NOTE | 2022-01-31 12:06 | HO.PM.IMPN ---
Subjective Subjective Date of Service: 01/31/22 Interval History: follow up for gait ataxia, vertigo reporting dizziness & unsteadiness upon changing position Tolerating diet well with less nausea anxiety better controlled still unsteady upon ambulating and high risk for falling Review of Systems General: No fevers, malaise HEENT: No blurred vision, diplopia. Cardiovascular: No chest pain, palpitations Respiratory: No shortness of breath, wheezing, cough GI: +nausea. No abdominal pain, vomiting : No dysuria, hematuria, increased urinary frequency MSK: No myalgia, back pain Neuro: +vertigo Skin: No rashes or lesions Physical Exam Vital Signs: Vital Signs: Last Vital Signs Temp 97.7 F 01/31/22 07:48 Pulse 66 01/31/22 07:48 Resp 18 01/31/22 07:48 BP 106/57 L 01/31/22 07:48 Pulse Ox 97 01/31/22 07:48 O2 Del Method 01/31/22 07:48 BMI result Body Mass Index 32.9 Const: Other: Constitutional : Awake, interactive by typing, said few words today,not in distress Neck : Normal inspection, Supple Cardiovascular : RRR, , no lower extremity edema Respiratory : good bilateral air entry, no wheezes Gastrointestinal: soft, lax, Non tender Skin : Warm, Dry Neurological : Alert & oriented x3, No focal deficit, Mutism Objective Data Active Medications Acetaminophen (Acetaminophen 325 Mg Tablet) 650 mg PO Q6H PRN PRN Reason: Pain, Mild, headache Last Admin: 01/30/22 20:18 Dose: 650 mg Documented By: NGA Amphetamine/Dextroamphetamine (Dextroamphetamine/Amphetamine Xr 10 Mg Cap.Er.24h) 30 mg PO BID@0830,1430 [facility] Last Admin: 01/31/22 09:00 Dose: 30 mg Documented By: PIPPA Clonazepam (Clonazepam 1 Mg Tablet) 1 mg PO BEDTIME [facility] Last Admin: 01/30/22 20:07 Dose: 1 mg Documented By: NGA Clonazepam (Clonazepam 0.5 Mg Tablet) 0.5 mg PO TID@0800,1200,1600 [facility] Last Admin: 01/31/22 11:59 Dose: 0.5 mg Documented By: PIPPA Clonidine HCl (Clonidine Hcl 0.2 Mg Tablet) 0.2 mg PO TID [facility]; Protocol Last Admin: 01/31/22 09:00 Dose: 0.2 mg Documented By: PIPPA Hydroxyzine HCl (Hydroxyzine Hcl 50 Mg Tablet) 50 mg PO TID@0800,1200,1600 [facility] Last Admin: 01/31/22 12:00 Dose: 50 mg Documented By: PIPPA Hydroxyzine HCl (Hydroxyzine Hcl 50 Mg Tablet) 100 mg PO BEDTIME [facility] Last Admin: 01/30/22 20:06 Dose: 100 mg Documented By: NGA Ibuprofen (Ibuprofen 400 Mg Tablet) 400 mg PO Q6H PRN PRN Reason: moderate pain Last Admin: 01/27/22 08:19 Dose: 400 mg Documented By: CLAY Meclizine HCl (Meclizine Hcl 25 Mg Tablet) 25 mg PO TID [facility] Last Admin: 01/31/22 09:01 Dose: 25 mg Documented By: IPPPA Non-Formulary Medication (Testosterone Cypionate) 0.5 ml IM NUÑEZ [facility] Omeprazole (Omeprazole 40 Mg Capsule.Dr) 40 mg PO BID [facility] Last Admin: 01/31/22 09:00 Dose: 40 mg Documented By: PIPPA Ondansetron HCl (Ondansetron Hcl 4 Mg/2 Ml Vial) 4 mg IVPUSH Q8H PRN PRN Reason: Nausea and Vomiting Last Admin: 01/29/22 16:23 Dose: 4 mg Documented By: SHER Sodium Chloride (0.9 % Sodium Chloride Flush 3 Ml Syringe) [facility] Last Admin: 01/31/22 09:03 Dose: 3 ml Documented By: PIPPA Sumatriptan Succinate (Sumatriptan Succinate 50 Mg Tablet) 50 mg PO DAILY MRX1 PRN PRN Reason: mejias/dizziness Last Admin: 01/30/22 10:19 Dose: 50 mg Documented By: SHER Trazodone HCl (Trazodone Hcl 50 Mg Tablet) 50 mg PO Q6H PRN PRN Reason: agitation, anxiety Last Admin: 01/30/22 17:39 Dose: 50 mg Documented By: SHER Trazodone HCl (Trazodone Hcl 100 Mg Tablet) 100 mg PO BEDTIME [facility] Last Admin: 01/30/22 20:06 Dose: 100 mg Documented By: NGA Labs CBC & Chem 7: 01/24/22 13:29 01/27/22 06:40 Assessment and Plan (1) Anxiety with depression: Status: Acute (2) Vertigo: Status: Acute Plan 41-year-old assigned female at , current lady male on testosterone injections, history of autism and ADHD to be followed inpatient for persistent vertigo with gait ataxia. # Vertigo MRI brain and CT IAC showing significant focal bony thinning at the apices of both superior semicircular canals, for which a possibility of a subtle osseous dehiscence is difficult to rule out Neurology input appreciated, MRI/CT findings not felt to be clinically relevant, however symptoms do not improve he can follow up with [facility] in the future continue clonazepam 1 mg at bedtime and clonazepam 0.5 mg TID continue Meclizine 25 mg TID Ondansetron PRN nausea physical therapy, increase physical activity appointment with [facility] for outpatient follow-up in May, on cancellation list. PT felt the patient is unsafe to be home at this point given high risk for falls and inability to ambulate safely recommending short-term rehab placement as 1st option pending safe discharge to short-term rehab versus home with services his symptoms improves to discuss with Dr. Farris any other options for treatment (waiting reply) # ADHD/anxiety improved anxiety level and agitation Continue home meds Discontinue lorazepam prn Psych input appreciated; Increase Klonipin, Trazodone for prn agitation # Bradycardia normal EKG Asymptomatic as heart rate still fully in 50s likely 2/2 Meclizine usage #Headache Improved questionable vestibular migraine Sumatriptan ordered, tylenol, ibuprofen #GERD continue ppi DVT prophylaxis- mechanical Full code Pt requires ongoing inpatient stay for management of persistent vertigo with gait ataxia at significant risk for falls pending placement vs home with services Time Spent With Patient Time: Total time managing care of this patient today ____ minutes. Quality Stroke Does the patient have a stroke diagnosis?: No VTE Prior VTE?: No VTE Risk Level:: Medical - moderate - high VTE Device Contraindication: N/A - Device Ordered VTE Drug Contraindication: Treatment Not Indicated
[2022-01-31] MEDS: ondansetron HCL 4 MG/2 ML VIAL IVPUSH (14:15)
[2022-01-31] MEDS: SUMAtriptan succinate 50 MG TABLET PO (14:21)
[2022-01-31 15:55] VITALS: BP 119/78; PULSE 77; RESP 18; TEMP 36.6; O2SAT 98
[2022-01-31 19:25] VITALS: BP 120/80; PULSE 91; RESP 18; TEMP 36.7; O2SAT 98
[2022-01-31] MEDS: traZODone HCL 50 MG TABLET PO (19:37)
[2022-01-31] MEDS: hydrOXYzine HCL 50 MG TABLET 100 MG PO (20:55)
[2022-01-31] MEDS: traZODone HCL 100 MG TABLET PO (20:55)
[2022-01-31] MEDS: clonazePAM 1 MG TABLET PO (20:56)
--- NOTE | 2022-01-31 21:02 | PM.EVENT ---
Event Note Date of Service: 01/31/22 Event Note: Pt becomes severely agitated, restless and anxious at bedtime. requesting zyprexa with good effect. will add as prn at bedtime Time Spent With Patient Time: Total time managing care of this patient today ____ minutes.
[2022-01-31] MEDS: OLANZapine 5 MG TABLET PO (21:16)
[2022-02-01] MEDS: 0.9 % Sodium Chloride Flush 3 ML SYRINGE IVFLUSH ×4 (00:25→23:59)
[2022-02-01 03:57] VITALS: BP 99/53; PULSE 62; RESP 18; TEMP 36.2; O2SAT 97
[2022-02-01 08:00] VITALS: BP 114/64; PULSE 54; RESP 18; TEMP 36.7; O2SAT 96
[2022-02-01] MEDS: hydrOXYzine HCL 50 MG TABLET PO ×3 (08:24→15:46)
[2022-02-01] MEDS: cloNIDine HCL 0.2 MG TABLET PO ×3 (08:24→21:10)
[2022-02-01] MEDS: clonazePAM 0.5 MG TABLET PO ×3 (08:24→15:46)
[2022-02-01] MEDS: Omeprazole 40 MG CAPSULE.DR PO ×2 (08:24→21:10)
[2022-02-01] MEDS: Dextroamphetamine/Amphetamine XR 10 MG CAP.ER.24H 30 MG PO ×2 (08:25→14:47)
[2022-02-01] MEDS: Meclizine HCl 25 MG TABLET PO ×3 (08:25→21:09)
[2022-02-01] MEDS: ondansetron HCL 4 MG/2 ML VIAL IVPUSH ×2 (10:14→23:55)
[2022-02-01] MEDS: SUMAtriptan succinate 50 MG TABLET PO (10:14)
[2022-02-01] MEDS: traZODone HCL 50 MG TABLET PO (12:48)
--- NOTE | 2022-02-01 13:08 | HO.PM.IMPN ---
Subjective Subjective Date of Service: 02/02/22 Interval History: follow up for gait ataxia, vertigo going to walk with staff Review of Systems still feels dizziness with walkin Physical Exam Vital Signs: Vital Signs: Last Vital Signs Temp 98.1 F 02/01/22 08:00 Pulse 54 02/01/22 08:00 Resp 18 02/01/22 08:00 BP 114/64 02/01/22 08:00 Pulse Ox 96 02/01/22 08:00 O2 Del Method 02/01/22 08:00 BMI result Body Mass Index 32.9 Constitutional : Awake, interactive by typing,?talk few sentences ,says feeling fine but just woke up,not in distress Neck : Normal inspection, Supple Cardiovascular : RRR, , no lower extremity edema Respiratory : good bilateral air entry,? no wheezes Gastrointestinal:? soft, nd, Non tender. Skin : Warm, Dry Neurological : Alert & oriented x3, No focal deficit. Objective Data Active Medications Acetaminophen (Acetaminophen 325 Mg Tablet) 650 mg PO Q6H PRN PRN Reason: Pain, Mild, headache Last Admin: 01/30/22 20:18 Dose: 650 mg Documented By: NGA Amphetamine/Dextroamphetamine (Dextroamphetamine/Amphetamine Xr 10 Mg Cap.Er.24h) 30 mg PO BID@0830,1430 [facility] Last Admin: 02/01/22 08:25 Dose: 30 mg Documented By: PIPPA Clonazepam (Clonazepam 1 Mg Tablet) 1 mg PO BEDTIME [facility] Last Admin: 01/31/22 20:56 Dose: 1 mg Documented By: SELENA Clonazepam (Clonazepam 0.5 Mg Tablet) 0.5 mg PO TID@0800,1200,1600 [facility] Last Admin: 02/01/22 12:48 Dose: 0.5 mg Documented By: PIPPA Clonidine HCl (Clonidine Hcl 0.2 Mg Tablet) 0.2 mg PO TID [facility]; Protocol Last Admin: 02/01/22 08:24 Dose: 0.2 mg Documented By: PIPPA Hydroxyzine HCl (Hydroxyzine Hcl 50 Mg Tablet) 50 mg PO TID@0800,1200,1600 [facility] Last Admin: 02/01/22 12:48 Dose: 50 mg Documented By: PIPPA Hydroxyzine HCl (Hydroxyzine Hcl 50 Mg Tablet) 100 mg PO BEDTIME [facility] Last Admin: 01/31/22 20:55 Dose: 100 mg Documented By: SELENA Ibuprofen (Ibuprofen 400 Mg Tablet) 400 mg PO Q6H PRN PRN Reason: moderate pain Last Admin: 01/27/22 08:19 Dose: 400 mg Documented By: CLAY Meclizine HCl (Meclizine Hcl 25 Mg Tablet) 25 mg PO TID [facility] Last Admin: 02/01/22 08:25 Dose: 25 mg Documented By: PIPPA Non-Formulary Medication (Testosterone Cypionate) 0.5 ml IM NUÑEZ [facility] Olanzapine (Olanzapine 5 Mg Tablet) 5 mg PO BEDTIME PRN PRN Reason: agitaiton,anxiety Last Admin: 01/31/22 21:16 Dose: 5 mg Documented By: SELENA Omeprazole (Omeprazole 40 Mg Capsule.Dr) 40 mg PO BID [facility] Last Admin: 02/01/22 08:24 Dose: 40 mg Documented By: PIPPA Ondansetron HCl (Ondansetron Hcl 4 Mg/2 Ml Vial) 4 mg IVPUSH Q8H PRN PRN Reason: Nausea and Vomiting Last Admin: 02/01/22 10:14 Dose: 4 mg Documented By: PIPPA Sodium Chloride (0.9 % Sodium Chloride Flush 3 Ml Syringe) 3 ml IVFLUSH QSHIFT [facility] Last Admin: 02/01/22 10:27 Dose: 3 ml Documented By: PIPPA Sumatriptan Succinate (Sumatriptan Succinate 50 Mg Tablet) 50 mg PO DAILY MRX1 PRN PRN Reason: mejias/dizziness Last Admin: 02/01/22 10:14 Dose: 50 mg Documented By: PIPPA Trazodone HCl (Trazodone Hcl 50 Mg Tablet) 50 mg PO Q6H PRN PRN Reason: agitation, anxiety Last Admin: 02/01/22 12:48 Dose: 50 mg Documented By: PIPPA Trazodone HCl (Trazodone Hcl 100 Mg Tablet) 100 mg PO BEDTIME [facility] Last Admin: 01/31/22 20:55 Dose: 100 mg Documented By: SELENA Labs CBC & Chem 7: 01/24/22 13:29 01/27/22 06:40 Assessment and Plan (1) Anxiety with depression: Status: Acute (2) Vertigo: Status: Acute Plan 41-year-old assigned female at , current lady male on testosterone injections, history of autism and ADHD to be followed inpatient for persistent vertigo with gait ataxia. # Vertigo MRI brain and CT IAC showing significant focal bony thinning at the apices of both superior semicircular canals, for which a possibility of a subtle osseous dehiscence is difficult to rule out Neurology input appreciated, MRI/CT findings not felt to be clinically relevant, however symptoms do not improve he can follow up with [facility] in the future continue clonazepam 1 mg at bedtime and clonazepam 0.5 mg TID continue Meclizine 25 mg TID Ondansetron PRN nausea physical therapy, increase physical activity appointment with [facility] for outpatient follow-up in May, on cancellation list. PT felt the patient is unsafe to be home at this point given high risk for falls and inability to ambulate safely recommending short-term rehab placement as 1st option pending safe discharge to short-term rehab versus home with services his symptoms improves to discuss with Dr. Farris any other options for treatment (waiting reply) # ADHD/anxiety improved anxiety level and agitation Continue home meds Discontinue lorazepam prn Psych input appreciated; Increase Klonipin, Trazodone for prn agitation # Bradycardia normal EKG Asymptomatic as heart rate still fully in 50s likely 2/2 Meclizine usage #Headache Improved questionable vestibular migraine Sumatriptan ordered, tylenol, ibuprofen #GERD continue ppi DVT prophylaxis- mechanical Full code ongoing inpatient stay for management of persistent vertigo with gait ataxia at significant risk for falls pending placement. Time Spent With Patient Time: Total time managing care of this patient today ____ minutes. Quality Stroke Does the patient have a stroke diagnosis?: No VTE Prior VTE?: No VTE Risk Level:: Medical - moderate - high VTE Device Contraindication: N/A - Device Ordered VTE Drug Contraindication: Treatment Not Indicated
--- NOTE | 2022-02-01 13:23 | MHC.CM.PN ---
EMR REVIEWED, CM STILL AWAITING BED OFFER, SNF REFERRAL UPDATED AND EXPANDED, CM ATTEMPTED TO CONTACT [facility]IA PHONE AT 1:10PM HOWEVER NO ANSWER, DETAILED MESSAGE LEFT. REFERRAL FOR ACUTE REHABS ALSO SENT TO [facility], [facility] WILL CONT TO FOLLOW D/C NEEDS.
--- NOTE | 2022-02-01 14:16 | MHC.CM.PN ---
[facility] REQUESTING OT EVAL, HOSPITALIST NOTIFIED VIA [employer] AND WILL ORDER.
[2022-02-01 15:27] VITALS: BP 125/78; PULSE 85; RESP 18; TEMP 37.1; O2SAT 96
--- NOTE | 2022-02-01 15:58 | PC.NURSE ---
pharmacist notified to call Dr. Natali Beckett office regarding testosterone medication for patient at [phone]
[2022-02-01 19:24] VITALS: BP 105/54; PULSE 66; RESP 18; TEMP 36.7; O2SAT 96
[2022-02-01] MEDS: traZODone HCL 100 MG TABLET PO (21:09)
[2022-02-01] MEDS: clonazePAM 1 MG TABLET PO (21:10)
[2022-02-01] MEDS: hydrOXYzine HCL 50 MG TABLET 100 MG PO (21:10)
[2022-02-01] MEDS: OLANZapine 5 MG TABLET PO (21:13)
--- NOTE | 2022-02-01 23:50 | PC.NURSE ---
patient requested that we call Dr. Natali Beckett at [phone] re testosterone medication from home,pharmacist was notified,Dr. Arellano was notified by pharmacist,med will be ordered for the patient,11-7 RN made aware of need to follow up and make sure med is available for patient.
[2022-02-02] VITALS (8 sets, daily range): BP systolic 100–116; BP diastolic 59–69; PULSE 63–80; RESP 16–18; TEMP 36–36.7; O2SAT 96–97
[2022-02-02] MEDS: Dextroamphetamine/Amphetamine XR 10 MG CAP.ER.24H 30 MG PO ×2 (08:37→14:41)
[2022-02-02] MEDS: Omeprazole 40 MG CAPSULE.DR PO ×2 (08:37→20:47)
[2022-02-02] MEDS: hydrOXYzine HCL 50 MG TABLET PO ×3 (08:38→16:26)
[2022-02-02] MEDS: clonazePAM 0.5 MG TABLET PO ×3 (08:38→16:26)
[2022-02-02] MEDS: 0.9 % Sodium Chloride Flush 3 ML SYRINGE IVFLUSH ×3 (08:39→20:47)
[2022-02-02] MEDS: cloNIDine HCL 0.2 MG TABLET PO ×3 (08:39→20:48)
[2022-02-02] MEDS: Meclizine HCl 25 MG TABLET PO ×3 (09:41→20:47)
[2022-02-02] MEDS: traZODone HCL 50 MG TABLET PO ×2 (11:56→18:35)
[2022-02-02] MEDS: SUMAtriptan succinate 50 MG TABLET PO (11:57)
--- NOTE | 2022-02-02 15:33 | P.PNIM_ITS ---
Subjective Subjective Date of Service: 02/02/22 Interval History: follow up for gait ataxia, vertigo going to walk with staff Review of Systems still feels dizziness with walkin Physical Exam Vital Signs: Vital Signs: Last Vital Signs Temp 96.8 F 02/02/22 08:00 Pulse 72 02/02/22 09:55 Resp 18 02/02/22 08:00 BP 111/68 02/02/22 09:55 Pulse Ox 96 02/02/22 08:00 O2 Del Method 02/02/22 08:00 BMI result Body Mass Index 32.9 Constitutional : Awake, interactive by typing,?talk few sentences ,says feeling fine but just woke up,not in distress Neck : Normal inspection, Supple Cardiovascular : RRR, , no lower extremity edema Respiratory : good bilateral air entry,? no wheezes Gastrointestinal:? soft, nd, Non tender. Skin : Warm, Dry Neurological : Alert & oriented x3, No focal deficit. Objective Data Active Medications Acetaminophen (Acetaminophen 325 Mg Tablet) 650 mg PO Q6H PRN PRN Reason: Pain, Mild, headache Last Admin: 01/30/22 20:18 Dose: 650 mg Documented By: NGA Amphetamine/Dextroamphetamine (Dextroamphetamine/Amphetamine Xr 10 Mg Cap.Er.24h) 30 mg PO BID@0830,1430 [facility] Last Admin: 02/02/22 14:41 Dose: 30 mg Documented By: YSABEL Clonazepam (Clonazepam 1 Mg Tablet) 1 mg PO BEDTIME [facility] Last Admin: 02/01/22 21:10 Dose: 1 mg Documented By: SELENA Clonazepam (Clonazepam 0.5 Mg Tablet) 0.5 mg PO TID@0800,1200,1600 [facility] Last Admin: 02/02/22 11:52 Dose: 0.5 mg Documented By: YSABEL Clonidine HCl (Clonidine Hcl 0.2 Mg Tablet) 0.2 mg PO TID [facility]; Protocol Last Admin: 02/02/22 14:42 Dose: 0.2 mg Documented By: YSABEL Hydroxyzine HCl (Hydroxyzine Hcl 50 Mg Tablet) 50 mg PO TID@0800,1200,1600 [facility] Last Admin: 02/02/22 11:51 Dose: 50 mg Documented By: YSABEL Hydroxyzine HCl (Hydroxyzine Hcl 50 Mg Tablet) 100 mg PO BEDTIME [facility] Last Admin: 02/01/22 21:10 Dose: 100 mg Documented By: SELENA Ibuprofen (Ibuprofen 400 Mg Tablet) 400 mg PO Q6H PRN PRN Reason: moderate pain Last Admin: 01/27/22 08:19 Dose: 400 mg Documented By: CLAY Meclizine HCl (Meclizine Hcl 25 Mg Tablet) 25 mg PO TID [facility] Last Admin: 02/02/22 14:42 Dose: 25 mg Documented By: YSABEL Olanzapine (Olanzapine 5 Mg Tablet) 5 mg PO BEDTIME PRN PRN Reason: agitaiton,anxiety Last Admin: 02/01/22 21:13 Dose: 5 mg Documented By: SELENA Omeprazole (Omeprazole 40 Mg Capsule.Dr) 40 mg PO BID [facility] Last Admin: 02/02/22 08:37 Dose: 40 mg Documented By: YSABEL Ondansetron HCl (Ondansetron Hcl 4 Mg/2 Ml Vial) 4 mg IVPUSH Q8H PRN PRN Reason: Nausea and Vomiting Last Admin: 02/01/22 23:55 Dose: 4 mg Documented By: JAVAD Sodium Chloride (0.9 % Sodium Chloride Flush 3 Ml Syringe) 3 ml IVFLUSH QSHIFT [facility] Last Admin: 02/02/22 08:39 Dose: 3 ml Documented By: YSABEL Sumatriptan Succinate (Sumatriptan Succinate 50 Mg Tablet) 50 mg PO DAILY MRX1 PRN PRN Reason: mejias/dizziness Last Admin: 02/02/22 11:57 Dose: 50 mg Documented By: YSABEL Testosterone Cypionate (Testosterone Cypionate 200 Mg/1 Ml Vial) 100 mg IM Q7D [facility] Trazodone HCl (Trazodone Hcl 50 Mg Tablet) 50 mg PO Q6H PRN PRN Reason: agitation, anxiety Last Admin: 02/02/22 11:56 Dose: 50 mg Documented By: YSABEL Trazodone HCl (Trazodone Hcl 100 Mg Tablet) 100 mg PO BEDTIME [facility] Last Admin: 02/01/22 21:09 Dose: 100 mg Documented By: SELENA Labs CBC & Chem 7: 01/24/22 13:29 01/27/22 06:40 Assessment and Plan (1) Anxiety with depression: Status: Acute (2) Vertigo: Status: Acute Plan 41-year-old assigned female at , current lady male on testosterone injections, history of autism and ADHD to be followed inpatient for persistent vertigo with gait ataxia. # Vertigo MRI brain and CT IAC showing significant focal bony thinning at the apices of both superior semicircular canals, for which a possibility of a subtle osseous dehiscence is difficult to rule out Neurology input appreciated, MRI/CT findings not felt to be clinically relevant, however symptoms do not improve he can follow up with [facility] in the future continue clonazepam 1 mg at bedtime and clonazepam 0.5 mg TID continue Meclizine 25 mg TID Ondansetron PRN nausea physical therapy, increase physical activity appointment with [facility] for outpatient follow-up in May, on cancellation list. PT felt the patient is unsafe to be home at this point given high risk for falls and inability to ambulate safely recommending short-term rehab placement as 1st option pending safe discharge to short-term rehab versus home with services his symptoms improves orthostais neg added OT eval for placement. # ADHD/anxiety improved anxiety level and agitation Continue home meds Discontinue lorazepam prn Psych input appreciated; Increase Klonipin, Trazodone for prn agitation # Bradycardia normal EKG Asymptomatic as heart rate still fully in 50s likely 2/2 Meclizine usage #Headache Improved questionable vestibular migraine Sumatriptan ordered, tylenol, ibuprofen #GERD continue ppi DVT prophylaxis- mechanical Full code ongoing inpatient stay for management of persistent vertigo with gait ataxia at significant risk for falls pending placement. Time Spent With Patient Time: Total time managing care of this patient today ____ minutes. Quality Stroke Does the patient have a stroke diagnosis?: No VTE Prior VTE?: No VTE Risk Level:: Medical - moderate - high VTE Device Contraindication: N/A - Device Ordered VTE Drug Contraindication: Treatment Not Indicated
[2022-02-02] MEDS: Testosterone Cypionate 200 MG/1 ML VIAL 100 MG IM (16:09)
[2022-02-02] MEDS: hydrOXYzine HCL 50 MG TABLET 100 MG PO (20:47)
[2022-02-02] MEDS: clonazePAM 1 MG TABLET PO (20:48)
[2022-02-02] MEDS: traZODone HCL 100 MG TABLET PO (20:48)
[2022-02-02] MEDS: OLANZapine 5 MG TABLET PO (20:49)
[2022-02-03] MEDS: ondansetron HCL 4 MG/2 ML VIAL IVPUSH ×2 (03:16→12:41)
[2022-02-03] MEDS: polyethylene glycoL 3350 17 GM POWD.PACK PO ×2 (03:35→08:30)
[2022-02-03 03:45] VITALS: BP 96/65; PULSE 62; RESP 18; TEMP 37.1; O2SAT 96
[2022-02-03] MEDS: Acetaminophen 325 MG TABLET 650 MG PO (05:20)
[2022-02-03] MEDS: traZODone HCL 50 MG TABLET PO ×3 (05:22→18:18)
[2022-02-03 08:00] VITALS: BP 121/73; PULSE 74; RESP 18; TEMP 36.4; O2SAT 96
[2022-02-03] MEDS: Meclizine HCl 25 MG TABLET PO ×3 (08:20→20:11)
[2022-02-03] MEDS: Docusate Sodium 100 MG CAPSULE PO ×2 (08:20→20:11)
[2022-02-03] MEDS: Omeprazole 40 MG CAPSULE.DR PO ×2 (08:20→20:11)
[2022-02-03] MEDS: clonazePAM 0.5 MG TABLET PO ×3 (08:21→15:43)
[2022-02-03] MEDS: hydrOXYzine HCL 50 MG TABLET PO ×3 (08:21→15:43)
[2022-02-03] MEDS: cloNIDine HCL 0.2 MG TABLET PO ×3 (08:21→20:11)
[2022-02-03] MEDS: Dextroamphetamine/Amphetamine XR 10 MG CAP.ER.24H 30 MG PO ×2 (08:21→15:36)
--- NOTE | 2022-02-03 12:06 | HO.PM.IMPN ---
Subjective Subjective Date of Service: 02/04/22 Interval History: follow up for gait ataxia, vertigo Review of Systems still feels dizziness with walkin, says feelin ok while sitting this morning no fevers Physical Exam Vital Signs: Vital Signs: Last Vital Signs Temp 97.6 F 02/03/22 08:00 Pulse 74 02/03/22 08:00 Resp 18 02/03/22 08:00 BP 121/73 02/03/22 08:00 Pulse Ox 96 02/03/22 08:00 O2 Del Method 02/03/22 08:00 BMI result Body Mass Index 32.9 Constitutional : Awake,not in distress,talking ok Neck : Normal inspection, Supple Cardiovascular : RRR, , no lower extremity edema Respiratory : good bilateral air entry,? no wheezes Gastrointestinal:? soft, nd, Non tender. Skin : Warm, Dry Neurological : Alert & oriented x3, No focal deficit. Objective Data Active Medications Acetaminophen (Acetaminophen 325 Mg Tablet) 650 mg PO Q6H PRN PRN Reason: Pain, Mild, headache Last Admin: 02/03/22 05:20 Dose: 650 mg Documented By: DANNY Amphetamine/Dextroamphetamine (Dextroamphetamine/Amphetamine Xr 10 Mg Cap.Er.24h) 30 mg PO BID@0830,1430 [facility] Last Admin: 02/03/22 08:21 Dose: 30 mg Documented By: MARIUSZ Clonazepam (Clonazepam 1 Mg Tablet) 1 mg PO BEDTIME [facility] Last Admin: 02/02/22 20:48 Dose: 1 mg Documented By: DANNY Clonazepam (Clonazepam 0.5 Mg Tablet) 0.5 mg PO TID@0800,1200,1600 [facility] Last Admin: 02/03/22 08:21 Dose: 0.5 mg Documented By: MARIUSZ Clonidine HCl (Clonidine Hcl 0.2 Mg Tablet) 0.2 mg PO TID [facility]; Protocol Last Admin: 02/03/22 08:21 Dose: 0.2 mg Documented By: MARIUSZ Docusate Sodium (Docusate Sodium 100 Mg Capsule) 100 mg PO BEDTIME [facility] Last Admin: 02/03/22 08:20 Dose: 100 mg Documented By: MARIUSZ Hydroxyzine HCl (Hydroxyzine Hcl 50 Mg Tablet) 50 mg PO TID@0800,1200,1600 [facility] Last Admin: 02/03/22 08:21 Dose: 50 mg Documented By: MARIUSZ Hydroxyzine HCl (Hydroxyzine Hcl 50 Mg Tablet) 100 mg PO BEDTIME [facility] Last Admin: 02/02/22 20:47 Dose: 100 mg Documented By: DANNY Ibuprofen (Ibuprofen 400 Mg Tablet) 400 mg PO Q6H PRN PRN Reason: moderate pain Last Admin: 01/27/22 08:19 Dose: 400 mg Documented By: CLAY Magnesium Hydroxide (Milk Of Magnesia 30 Ml Oral.Susp) 30 ml PO DAILY PRN PRN Reason: constipaiton Meclizine HCl (Meclizine Hcl 25 Mg Tablet) 25 mg PO TID [facility] Last Admin: 02/03/22 08:20 Dose: 25 mg Documented By: MARIUSZ Olanzapine (Olanzapine 5 Mg Tablet) 5 mg PO BEDTIME PRN PRN Reason: agitaiton,anxiety Last Admin: 02/02/22 20:49 Dose: 5 mg Documented By: DANNY Omeprazole (Omeprazole 40 Mg Capsule.Dr) 40 mg PO BID [facility] Last Admin: 02/03/22 08:20 Dose: 40 mg Documented By: MARIUSZ Ondansetron HCl (Ondansetron Hcl 4 Mg/2 Ml Vial) 4 mg IVPUSH Q6H PRN PRN Reason: Nausea and Vomiting Polyethylene Glycol (Polyethylene Glycol 3350 17 Gm Powd.Pack) 17 gm PO DAILY [facility] Last Admin: 02/03/22 08:30 Dose: 17 gm Documented By: MARIUSZ Sodium Chloride (0.9 % Sodium Chloride Flush 3 Ml Syringe) 3 ml IVFLUSH QSHIFT [facility] Last Admin: 02/03/22 08:29 Dose: Not Given Documented By: MARIUSZ Non-Admin Reason: Previously Administered Sumatriptan Succinate (Sumatriptan Succinate 50 Mg Tablet) 50 mg PO DAILY MRX1 PRN PRN Reason: mejias/dizziness Last Admin: 02/02/22 11:57 Dose: 50 mg Documented By: YSABEL Testosterone Cypionate (Testosterone Cypionate 200 Mg/1 Ml Vial) 100 mg IM Q7D [facility] Last Admin: 02/02/22 16:09 Dose: 100 mg Documented By: BETTY Trazodone HCl (Trazodone Hcl 50 Mg Tablet) 50 mg PO Q6H PRN PRN Reason: agitation, anxiety Last Admin: 12/29/22 05:22 Dose: 50 mg Documented By: DANNY Trazodone HCl (Trazodone Hcl 100 Mg Tablet) 100 mg PO BEDTIME [facility] Last Admin: 02/02/22 20:48 Dose: 100 mg Documented By: DANNY Labs CBC & Chem 7: 01/24/22 13:29 01/27/22 06:40 Assessment and Plan (1) Vertigo: Status: Acute Plan 41-year-old assigned female at ,? current lady male on? testosterone injections, history of autism and ADHD to be? followed inpatient for persistent vertigo with gait ataxia. # Vertigo MRI brain and CT IAC showing significant focal bony thinning at the apices of both superior semicircular canals, for which a possibility of a subtle osseous dehiscence is difficult to rule out Neurology input appreciated, MRI/CT findings not felt to be clinically relevant, however symptoms do not improve he can follow up with [facility] in the future continue clonazepam 1 mg at bedtime and clonazepam 0.5 mg TID continue Meclizine 25 mg TID Ondansetron PRN nausea physical therapy, increase physical activity appointment with [facility] for outpatient follow-up in May, on cancellation list. PT felt the patient is unsafe to be home at this point given high risk for falls and inability to ambulate safely recommending short-term rehab placement as 1st option ?pending? safe discharge to short-term rehab versus home with services? his symptoms improves orthostais neg OT eval for placement. # ADHD/anxiety improved anxiety level and agitation Continue home meds Discontinue lorazepam prn Psych input appreciated;? Increase Klonipin, Trazodone for prn agitation # Bradycardia normal EKG Asymptomatic as heart rate still fully in 50s likely 2/2 Meclizine usage #Headache Improved questionable vestibular migraine Sumatriptan ordered, tylenol, ibuprofen #GERD continue ppi DVT prophylaxis- mechanical [facility] hosp call placed -d/w cliincal and mri/ct finding with Dr Valencia from [facility] -recomended outpatient follow up ,also updated patient. Full code ongoing inpatient stay for management of persistent vertigo with gait ataxia at significant risk for falls pending placement. Time Spent With Patient Time: Total time managing care of this patient today ____ minutes. Quality Stroke Does the patient have a stroke diagnosis?: No VTE Prior VTE?: No VTE Risk Level:: Medical - moderate - high VTE Device Contraindication: N/A - Device Ordered VTE Drug Contraindication: Treatment Not Indicated
[2022-02-03] MEDS: SUMAtriptan succinate 50 MG TABLET PO (12:36)
--- NOTE | 2022-02-03 12:49 | MHC.CM.PN ---
CM SENT OT EVAL AND UPDATED SCLINICALS TO [facility] HOWEVER THEY ARE UNABLE TO OFFER A BED.
--- NOTE | 2022-02-03 13:47 | MHC.CM.PN ---
PT/OT STILL RECOMMENDING STR, REFERRAL EXPANDED TO [facility], STILL AWAITING BED OFFER.
--- NOTE | 2022-02-03 14:28 | MHC.CM.PN ---
CM ATTEMPTED TO CONTACT PT'S COMMUNITY CM CALVIN ESPINOZA AT 2:40PM [phone] FOR ASSISTANCE W/PLACEMENT, NO ANSWER AND MESSAGE LEFT W/REQUEST FOR RETURN CALL AND CM CONTACT INFO.
[2022-02-03 14:48] VITALS: PULSE 74; O2SAT 96
[2022-02-03 15:31] VITALS: BP 138/80; PULSE 64; RESP 16; TEMP 36.6; O2SAT 96
[2022-02-03] MEDS: 0.9 % Sodium Chloride Flush 3 ML SYRINGE IVFLUSH ×2 (15:44→20:14)
[2022-02-03 18:39] VITALS: PULSE 65; RESP 18; TEMP 36.4; O2SAT 98
[2022-02-03] MEDS: clonazePAM 1 MG TABLET PO (20:10)
[2022-02-03] MEDS: OLANZapine 5 MG TABLET PO (20:10)
[2022-02-03] MEDS: traZODone HCL 100 MG TABLET PO (20:11)
[2022-02-03] MEDS: hydrOXYzine HCL 50 MG TABLET 100 MG PO (20:11)
[2022-02-04] MEDS: traZODone HCL 50 MG TABLET PO ×2 (00:40→15:30)
[2022-02-04 08:00] VITALS: BP 120/70; PULSE 72; RESP 18; TEMP 36.4; O2SAT 96
--- NOTE | 2022-02-04 08:28 | MHC.CM.PN ---
LATE ENTRY NOTE FOR 02/03/22, PT REQUESTING TO MEET W/CM SEVERAL TIMES REGARDING PLACEMENT, CM MET W/PT X3, PT AND MOTHER CONT TO ASK REPETITIVELY WHY CM CANNOT FIND PLACEMENT FOR PT HOWEVER WHEN CM TRIES TO EXPLAIN BARRIERS PT AND MOTHER BECOME UPSET AND ARGUMENTATIVE W/CM. PT'S BARRIERS INCLUDE NOTED HISTORY OF AGGRESSION AND MANIPULATIVE BEHAVIOR ON H&P, PROGRESS NOTES AND PT EVAL/NOTES FROM EPISODES THAT OCCURRED DURING PREVIOUS ADMISSION; CURRENT PSYCHIATRIC MEDICATIONS AND POSSIBLY D/T PT NEEDING A PRIVATE ROOM. WHEN CM HAD ATTEMPTED TO DISCUSS THIS EARLY IN WEEK PT AND MOTHER BEGAN YELLING AT CM DEMANDING EVERYTHING BE STRICKEN FROM PT'S RECORD AND DEMANDING TO SPEAK WITH A HIGHER UP. ISSUE WAS ESCALATED TO UPPER MANAGEMENT. PT'S FATHER ALSO ARRIVED FROM [place] AND WAS PRESENT IN ROOM ON 02/03 HOWEVER WAS CALM AND QUIET IN ROOM.
--- NOTE | 2022-02-04 09:06 | MHC.CM.PN ---
LATE ENTRY FROM 02/03/22 AT APPROX 1600 CM RECEIVED A CALL BACK FROM PT'S COMMUNITY CM CALVIN JOYNERRRA WHO REPORTED PT HAS NO HX OF VIOLENCE HOWEVER WHEN CM TOLD HER THAT INFO LIKELY CAME FROM PT'S LAST AND ONLY OTHER OTHER AD[place]ION [place] [facility] [place] REPORTED HE HAS HAD AGGRESSIVE EPISODES AT [facility] AND STATED THAT PT HAS BEEN HOSPITAL HOPPING. CALVIN DID NOT REPORT ANY AGGRESSIVE OR VIOLENT BEHAVIOR IN THE COMMUNITY. PT'S MOTHER HAD REPORTED TO PT EXPERIENCE THAT PT ALSO HAD [employer] THROUGH WORK HOWEVER PT'S FMLA ENDED 01/14/22 AND PT NO SHOWED BACK TO WORK SO SHE BELIEVES HE NO LONGER HAS A JOB OR THE INSURANCE. CM HAS VERIFIED W/INSURANCE VERIFICATION DEPT THAT PT DOES NOT HAVE [employer] AND PT'S WELLSENSE WENT INTO EFFECT 12/23/21.
[2022-02-04] MEDS: Omeprazole 40 MG CAPSULE.DR PO ×2 (09:17→21:46)
[2022-02-04] MEDS: Dextroamphetamine/Amphetamine XR 10 MG CAP.ER.24H 30 MG PO ×2 (09:17→15:30)
[2022-02-04] MEDS: clonazePAM 0.5 MG TABLET PO ×3 (09:18→15:30)
[2022-02-04] MEDS: cloNIDine HCL 0.2 MG TABLET PO ×3 (09:18→21:46)
[2022-02-04] MEDS: hydrOXYzine HCL 50 MG TABLET PO ×3 (09:18→15:30)
[2022-02-04] MEDS: 0.9 % Sodium Chloride Flush 3 ML SYRINGE IVFLUSH ×3 (09:18→20:10)
[2022-02-04] MEDS: polyethylene glycoL 3350 17 GM POWD.PACK PO (09:18)
[2022-02-04] MEDS: Meclizine HCl 25 MG TABLET PO ×3 (09:18→21:46)
[2022-02-04] MEDS: methylPREDNISolone Sod Succ 125 MG/2 ML VIAL IVPUSH (09:50)
--- NOTE | 2022-02-04 13:06 | P.PNIM_ITS ---
Subjective Subjective Date of Service: 02/04/22 Interval History: Continues to complain of dizziness with position changes. No new issues Review of Systems Denies chest pain Denies shortness of breath Denies nausea vomiting diarrhea Denies fever chills Physical Exam Vital Signs: Vital Signs: Last Vital Signs Temp 97.6 F 02/04/22 08:00 Pulse 72 02/04/22 08:00 Resp 18 02/04/22 08:00 BP 120/70 02/04/22 08:00 Pulse Ox 96 02/04/22 08:00 O2 Del Method 02/04/22 08:00 BMI result Body Mass Index 32.9 Const: Other: Awake alert no acute distress Resp: Other: Clear to auscultation bilaterally no rales rhonchi or wheezes Cardio: Other: No S4; positive S1-S2; no S3 murmurs rubs or gallops GI: Other: Soft nontender nondistended normoactive bowel sounds Extrem: Other: No edema bilaterally Objective Data Active Medications Acetaminophen (Acetaminophen 325 Mg Tablet) 650 mg PO Q6H PRN PRN Reason: Pain, Mild, headache Last Admin: 02/03/22 05:20 Dose: 650 mg Documented By: DANNY Amphetamine/Dextroamphetamine (Dextroamphetamine/Amphetamine Xr 10 Mg Cap.Er.24h) 30 mg PO BID@0830,1430 [facility] Last Admin: 02/04/22 09:17 Dose: 30 mg Documented By: ALMA ROSA Clonazepam (Clonazepam 1 Mg Tablet) 1 mg PO BEDTIME [facility] Last Admin: 02/03/22 20:10 Dose: 1 mg Documented By: ARACELY Clonazepam (Clonazepam 0.5 Mg Tablet) 0.5 mg PO TID@0800,1200,1600 [facility] Last Admin: 02/04/22 12:07 Dose: 0.5 mg Documented By: ALMA ROSA Clonidine HCl (Clonidine Hcl 0.2 Mg Tablet) 0.2 mg PO TID [facility]; Protocol Last Admin: 02/04/22 09:18 Dose: 0.2 mg Documented By: ALMA ROSA Docusate Sodium (Docusate Sodium 100 Mg Capsule) 100 mg PO BEDTIME [facility] Last Admin: 02/03/22 20:11 Dose: 100 mg Documented By: ARACELY Hydroxyzine HCl (Hydroxyzine Hcl 50 Mg Tablet) 50 mg PO TID@0800,1200,1600 [facility] Last Admin: 02/04/22 12:07 Dose: 50 mg Documented By: ALMA ROSA Hydroxyzine HCl (Hydroxyzine Hcl 50 Mg Tablet) 100 mg PO BEDTIME [facility] Last Admin: 02/03/22 20:11 Dose: 100 mg Documented By: ARACLEY Ibuprofen (Ibuprofen 400 Mg Tablet) 400 mg PO Q6H PRN PRN Reason: moderate pain Last Admin: 01/27/22 08:19 Dose: 400 mg Documented By: CLAY Magnesium Hydroxide (Milk Of Magnesia 30 Ml Oral.Susp) 30 ml PO DAILY PRN PRN Reason: constipaiton Meclizine HCl (Meclizine Hcl 25 Mg Tablet) 25 mg PO TID [facility] Last Admin: 02/04/22 09:18 Dose: 25 mg Documented By: ALMA ROSA Olanzapine (Olanzapine 5 Mg Tablet) 5 mg PO BEDTIME PRN PRN Reason: agitaiton,anxiety Last Admin: 02/03/22 20:10 Dose: 5 mg Documented By: ARACELY Omeprazole (Omeprazole 40 Mg Capsule.Dr) 40 mg PO BID [facility] Last Admin: 02/04/22 09:17 Dose: 40 mg Documented By: ALMA ROSA Ondansetron HCl (Ondansetron Hcl 4 Mg/2 Ml Vial) 4 mg IVPUSH Q6H PRN PRN Reason: Nausea and Vomiting Last Admin: 02/03/22 12:41 Dose: 4 mg Documented By: MARIUSZ Polyethylene Glycol (Polyethylene Glycol 3350 17 Gm Powd.Pack) 17 gm PO DAILY [facility] Last Admin: 02/04/22 09:18 Dose: 17 gm Documented By: ALMA ROSA Sodium Chloride (0.9 % Sodium Chloride Flush 3 Ml Syringe) 3 ml IVFLUSH QSHIFT [facility] Last Admin: 02/04/22 09:18 Dose: 3 ml Documented By: ALMA ROSA Sumatriptan Succinate (Sumatriptan Succinate 50 Mg Tablet) 50 mg PO DAILY MRX1 PRN PRN Reason: mejias/dizziness Last Admin: 02/03/22 12:36 Dose: 50 mg Documented By: MARIUSZ Testosterone Cypionate (Testosterone Cypionate 200 Mg/1 Ml Vial) 100 mg IM Q7D [facility] Last Admin: 02/02/22 16:09 Dose: 100 mg Documented By: BETTY Trazodone HCl (Trazodone Hcl 50 Mg Tablet) 50 mg PO Q6H PRN PRN Reason: agitation, anxiety Last Admin: 02/04/22 00:40 Dose: 50 mg Documented By: JAVAD Trazodone HCl (Trazodone Hcl 100 Mg Tablet) 100 mg PO BEDTIME [facility] Last Admin: 02/03/22 20:11 Dose: 100 mg Documented By: ODRISM Labs CBC & Chem 7: 01/24/22 13:29 01/27/22 06:40 Assessment and Plan (1) Vertigo: Status: Acute (2) Autism disorder: Status: Acute Plan 41-year-old male who presents with ataxia and vertiginous symptoms; MRI brain/CT IAC showing significant bony thinning at the apices of both [place]. Case discussed with [facility]( Dr. Arellano); no indication for acute transfer at this time. 1. Vestibular neuropathy -discussed at length with patient that this is likely been present this since his youth and do not feel is contributing to his symptoms. If it were the cause of his symptoms is likely they would have occurred well before 2 weeks ago. H istory consistent with vestibular neuritis. -will trial steroids -continue PT; will likely need placement for vestibular therapy until symptoms resolve 2. Autism disorder -at baseline no acute issues -continue outpatient therapies Full code Will require ongoing hospitalization for IV steroids to treat vestibular neuritis Time Spent With Patient Time: Total time managing care of this patient today ____ minutes. Quality Stroke Does the patient have a stroke diagnosis?: No VTE Prior VTE?: No VTE Risk Level:: Medical - moderate - high VTE Device Contraindication: N/A - Device Ordered VTE Drug Contraindication: Treatment Not Indicated
--- NOTE | 2022-02-04 14:03 | MHC.CM.PN ---
CM ATTEMPTED TO CONTACT ADMISSIONS AT [facility] AT 1:30PM [phone] TO FOLLOW-UP ON REFERRAL HOWEVER NO ANSWER AND DETAILED MESSAGE LEFT W/CM CONTACT INFO. CM ATTEMPTED TO CONTACT ADMISSIONS AT [facility] AT 2:02PM [phone] TO FOLLOW-UP ON REFERRAL, NO ANSWER AND DERTAILED MESSAGE LEFT W/CM CONTACT INFO.
[2022-02-04 15:23] VITALS: BP 129/70; PULSE 58; RESP 18; TEMP 36.6; O2SAT 96
[2022-02-04] MEDS: Lactulose 20 GM/30 ML SOLUTION 30 GM PO (15:50)
[2022-02-04] MEDS: methylPREDNISolone Sod Succ 125 MG/2 ML VIAL 60 MG IVPUSH (18:31)
[2022-02-04] MEDS: ondansetron HCL 4 MG/2 ML VIAL IVPUSH (18:32)
[2022-02-04] MEDS: SUMAtriptan succinate 50 MG TABLET PO (18:32)
[2022-02-04 19:23] VITALS: BP 131/70; PULSE 59; RESP 20; TEMP 36.3; O2SAT 95
[2022-02-04] MEDS: Milk of Magnesia 30 ML ORAL.SUSP PO (20:07)
[2022-02-04] MEDS: Docusate Sodium 100 MG CAPSULE PO (20:07)
[2022-02-04] MEDS: Acetaminophen 325 MG TABLET 650 MG PO (20:09)
[2022-02-04] MEDS: traZODone HCL 100 MG TABLET PO (21:46)
[2022-02-04] MEDS: clonazePAM 1 MG TABLET PO (21:46)
[2022-02-04] MEDS: OLANZapine 5 MG TABLET PO (21:47)
[2022-02-04] MEDS: hydrOXYzine HCL 50 MG TABLET 100 MG PO (21:47)
--- NOTE | 2022-02-04 23:35 | PC.NURSE ---
Pt is c/o severe abdl pain at shift change, abd round +BS, no BM for 12 days, pt became very anxious as no result from Lactulose given, PRN MOM given, Dr. Santillan was made aware, KUB and Morphine Iv ordered, few minutes later pt, went to the BR and movd large amount of BM, pain was relieved, Dr. Santillan said to go ahead with KUB, BUFFER OPERATOR took pt to Radiology, pt denies any pain after, tolerated all meds.
[2022-02-05] MEDS: traZODone HCL 50 MG TABLET PO ×2 (00:03→16:35)
[2022-02-05] MEDS: methylPREDNISolone Sod Succ 125 MG/2 ML VIAL 60 MG IVPUSH ×4 (00:40→17:43)
--- NOTE | 2022-02-05 01:48 | PC.NURSE ---
pt accusing the staffs being lie to him and asked sleeping medication without waiting. non stop calling for medication. even though given all scheduled med and prn med. pt states that psych meds give him adverse reactions about more anxious and insomnia. notified sleeping issues. will keep monitoring s/s of anxiety and insomnia.
[2022-02-05] MEDS: diphenhydrAMINE HCL 50 MG/ML VIAL 25 MG IVPUSH (02:03)
[2022-02-05] MEDS: ondansetron HCL 4 MG/2 ML VIAL IVPUSH ×2 (02:57→16:36)
--- NOTE | 2022-02-05 02:59 | PC.NURSE ---
pt vomited after Benadryl, asking for zofran.given at this time checked vs. will monitor pt's s/s
--- NOTE | 2022-02-05 03:02 | PC.NURSE ---
pt through up it is smelly, so we offered (I& [employer]) to change the bed and jori, pt refused. I just fall asleep, I don't want that. so let him sleep at this time.
[2022-02-05 03:03] VITALS: BP 95/48; PULSE 76; RESP 16; TEMP 36.6; O2SAT 92
[2022-02-05 07:53] VITALS: BP 109/54; PULSE 83; RESP 16; TEMP 37; O2SAT 94
[2022-02-05] MEDS: Dextroamphetamine/Amphetamine XR 10 MG CAP.ER.24H 30 MG PO ×2 (10:08→14:26)
[2022-02-05] MEDS: Omeprazole 40 MG CAPSULE.DR PO ×2 (10:08→21:33)
[2022-02-05] MEDS: cloNIDine HCL 0.2 MG TABLET PO ×3 (10:08→21:34)
[2022-02-05] MEDS: Meclizine HCl 25 MG TABLET PO ×3 (10:08→21:34)
[2022-02-05] MEDS: polyethylene glycoL 3350 17 GM POWD.PACK PO (10:09)
[2022-02-05] MEDS: clonazePAM 0.5 MG TABLET PO ×3 (10:21→16:31)
[2022-02-05] MEDS: hydrOXYzine HCL 50 MG TABLET PO ×3 (10:21→16:31)
[2022-02-05] MEDS: 0.9 % Sodium Chloride Flush 3 ML SYRINGE IVFLUSH ×3 (10:21→21:36)
[2022-02-05] MEDS: Milk of Magnesia 30 ML ORAL.SUSP PO (14:26)
--- NOTE | 2022-02-05 14:53 | P.PNIM_ITS ---
Subjective Subjective Date of Service: 02/05/22 Interval History: Notes minimal improvement with steroids. Review of Systems Denies chest pain Denies shortness of breath Denies nausea vomiting diarrhea Denies fever chills Physical Exam Vital Signs: Vital Signs: Last Vital Signs Temp 98.6 F 02/05/22 07:53 Pulse 83 02/05/22 07:53 Resp 16 02/05/22 07:53 BP 109/54 L 02/05/22 07:53 Pulse Ox 94 02/05/22 07:53 O2 Del Method 02/05/22 07:53 BMI result Body Mass Index 32.9 Const: Other: Awake alert no acute distress Resp: Other: Clear to auscultation bilaterally no rales rhonchi or wheezes Cardio: Other: No S4; positive S1-S2; no S3 murmurs rubs or gallops GI: Other: Soft nontender nondistended normoactive bowel sounds Extrem: Other: No edema bilaterally Objective Data Active Medications Acetaminophen (Acetaminophen 325 Mg Tablet) 650 mg PO Q6H PRN PRN Reason: Pain, Mild, headache Last Admin: 02/04/22 20:09 Dose: 650 mg Documented By: MARLEY Amphetamine/Dextroamphetamine (Dextroamphetamine/Amphetamine Xr 10 Mg Cap.Er.24h) 30 mg PO BID@0830,1430 [facility] Last Admin: 02/05/22 14:26 Dose: 30 mg Documented By: JULIANE Clonazepam (Clonazepam 1 Mg Tablet) 1 mg PO BEDTIME [facility] Last Admin: 02/04/22 21:46 Dose: 1 mg Documented By: MARLEY Clonazepam (Clonazepam 0.5 Mg Tablet) 0.5 mg PO TID@0800,1200,1600 [facility] Last Admin: 02/05/22 13:00 Dose: 0.5 mg Documented By: JULIANE Clonidine HCl (Clonidine Hcl 0.2 Mg Tablet) 0.2 mg PO TID [facility]; Protocol Last Admin: 02/05/22 14:26 Dose: 0.2 mg Documented By: JULIANE Docusate Sodium (Docusate Sodium 100 Mg Capsule) 100 mg PO BEDTIME [facility] Last Admin: 02/04/22 20:07 Dose: 100 mg Documented By: MARLEY Hydroxyzine HCl (Hydroxyzine Hcl 50 Mg Tablet) 50 mg PO TID@0800,1200,1600 [facility] Last Admin: 02/05/22 13:00 Dose: 50 mg Documented By: JULIANE Hydroxyzine HCl (Hydroxyzine Hcl 50 Mg Tablet) 100 mg PO BEDTIME [facility] Last Admin: 02/04/22 21:47 Dose: 100 mg Documented By: MARLEY Ibuprofen (Ibuprofen 400 Mg Tablet) 400 mg PO Q6H PRN PRN Reason: moderate pain Last Admin: 01/27/22 08:19 Dose: 400 mg Documented By: CLAY Magnesium Hydroxide (Milk Of Magnesia 30 Ml Oral.Susp) 30 ml PO DAILY PRN PRN Reason: constipaiton Last Admin: 02/05/22 14:26 Dose: 30 ml Documented By: JULIANE Meclizine HCl (Meclizine Hcl 25 Mg Tablet) 25 mg PO TID [facility] Last Admin: 02/05/22 14:26 Dose: 25 mg Documented By: JULIANE Methylprednisolone Sodium Succinate (Methylprednisolone Sod Succ 125 Mg/2 Ml Vial) 60 mg IVPUSH Q6H [facility] Last Admin: 02/05/22 13:16 Dose: 60 mg Documented By: JULIANE Olanzapine (Olanzapine 5 Mg Tablet) 5 mg PO BEDTIME PRN PRN Reason: agitaiton,anxiety Last Admin: 02/04/22 21:47 Dose: 5 mg Documented By: MARLEY Omeprazole (Omeprazole 40 Mg Capsule.Dr) 40 mg PO BID [facility] Last Admin: 02/05/22 10:08 Dose: 40 mg Documented By: JULIANE Ondansetron HCl (Ondansetron Hcl 4 Mg/2 Ml Vial) 4 mg IVPUSH Q6H PRN PRN Reason: Nausea and Vomiting Last Admin: 02/05/22 02:57 Dose: 4 mg Documented By: NGA Polyethylene Glycol (Polyethylene Glycol 3350 17 Gm Powd.Pack) 17 gm PO DAILY [facility] Last Admin: 02/05/22 10:09 Dose: 17 gm Documented By: JULIANE Sodium Chloride (0.9 % Sodium Chloride Flush 3 Ml Syringe) 3 ml IVFLUSH QSHIFT [facility] Last Admin: 02/05/22 10:21 Dose: 3 ml Documented By: JULIANE Sumatriptan Succinate (Sumatriptan Succinate 50 Mg Tablet) 50 mg PO DAILY MRX1 PRN PRN Reason: mejias/dizziness Last Admin: 02/04/22 18:32 Dose: 50 mg Documented By: ALMA ROSA Testosterone Cypionate (Testosterone Cypionate 200 Mg/1 Ml Vial) 100 mg IM Q7D [facility] Last Admin: 02/02/22 16:09 Dose: 100 mg Documented By: BETTY Trazodone HCl (Trazodone Hcl 50 Mg Tablet) 50 mg PO Q6H PRN PRN Reason: agitation, anxiety Last Admin: 02/05/22 00:03 Dose: 50 mg Documented By: JENNIFER Trazodone HCl (Trazodone Hcl 100 Mg Tablet) 100 mg PO BEDTIME [facility] Last Admin: 02/04/22 21:46 Dose: 100 mg Documented By: MARLEY Labs CBC & Chem 7: 01/24/22 13:29 01/27/22 06:40 Assessment and Plan (1) Vertigo: Status: Acute (2) Autism disorder: Status: Acute Plan 41-year-old male who presents with ataxia and vertiginous symptoms; MRI brain/CT IAC showing significant bony thinning at the apices of both superior [place]. Case discussed with [facility]( Dr. Arellano); no indication for acute transfer at this time. 1. Vestibular neuropathy -no response from steroids yet.. No worse -continue PT; will likely need placement for vestibular therapy until symptoms resolve 2. Autism disorder -at baseline no acute issues -continue outpatient therapies Full code Will require ongoing hospitalization for IV steroids to treat vestibular neuritis Time Spent With Patient Time: Total time managing care of this patient today ____ minutes. Quality Stroke Does the patient have a stroke diagnosis?: No VTE Prior VTE?: No VTE Risk Level:: Medical - moderate - high VTE Device Contraindication: N/A - Device Ordered VTE Drug Contraindication: Treatment Not Indicated
[2022-02-05] MEDS: SUMAtriptan succinate 50 MG TABLET PO (16:35)
[2022-02-05 16:52] VITALS: BP 132/64; PULSE 65; RESP 20; TEMP 36.9; O2SAT 93
[2022-02-05 20:00] VITALS: BP 124/59; PULSE 66; RESP 16; TEMP 36.7; O2SAT 93
[2022-02-05] MEDS: clonazePAM 1 MG TABLET PO (21:34)
[2022-02-05] MEDS: Docusate Sodium 100 MG CAPSULE PO (21:34)
[2022-02-05] MEDS: hydrOXYzine HCL 50 MG TABLET 100 MG PO (21:35)
[2022-02-05] MEDS: traZODone HCL 100 MG TABLET PO (21:36)
[2022-02-06] MEDS: OLANZapine 5 MG TABLET PO ×2 (00:03→21:51)
[2022-02-06] MEDS: methylPREDNISolone Sod Succ 125 MG/2 ML VIAL 60 MG IVPUSH ×4 (00:04→19:23)
[2022-02-06] MEDS: diphenhydrAMINE HCL 50 MG/ML VIAL 25 MG IVPUSH ×2 (00:38→21:58)
[2022-02-06 04:00] VITALS: BP 117/57; PULSE 60; RESP 16; TEMP 36.5; O2SAT 93
--- NOTE | 2022-02-06 04:34 | PC.NURSE ---
AT 2355 bed alarm activated in room 2 RNS responded pt kneeling on floor with his hand on floor stating he fell trying to go to bathroom and got hurt, when helped to get back in bed. notified and nursing supervisor special effects, but pt now i said his alone and he was here for [place] and now new year he is very said. he was earlier calling frequently for sleeping aid he was explained he just received his night time medication and he will get his sleep aid in little bit, he was offered snack and when asked again if he was hurt he said no im not md and nursing supervisor special effects notified about this change . he was also very concern about another medication to help him sleep and dr WHITAKER PRESCRIBED benadryl iv. pt has has autism and camera was introduced but he started screaming and covering his ears; because the light he has to have completely dark in room. bed alarm is on and commode was placed near bed will monitor.
[2022-02-06 08:00] VITALS: BP 98/51; PULSE 65; RESP 16; TEMP 36.9; O2SAT 94
[2022-02-06] MEDS: Dextroamphetamine/Amphetamine XR 10 MG CAP.ER.24H 30 MG PO ×2 (08:55→14:43)
[2022-02-06] MEDS: Omeprazole 40 MG CAPSULE.DR PO ×2 (08:55→21:48)
[2022-02-06] MEDS: hydrOXYzine HCL 50 MG TABLET PO ×3 (08:55→16:21)
[2022-02-06] MEDS: cloNIDine HCL 0.2 MG TABLET PO ×3 (08:55→21:47)
[2022-02-06] MEDS: clonazePAM 0.5 MG TABLET PO ×3 (08:55→16:21)
[2022-02-06] MEDS: Meclizine HCl 25 MG TABLET PO ×3 (08:55→21:47)
[2022-02-06] MEDS: polyethylene glycoL 3350 17 GM POWD.PACK PO (08:56)
--- NOTE | 2022-02-06 11:28 | HO.PM.IMPN ---
Subjective Subjective Date of Service: 02/06/22 Interval History: c/o severe vertigo c/o N/V though tolerated large breakfast c/o constipation inconsistent historian Review of Systems Review of Systems: Yes all other systems are reviewed and are negative Physical Exam Vital Signs: Vital Signs: Last Vital Signs Temp 98.4 F 02/06/22 08:00 Pulse 65 02/06/22 08:00 Resp 16 02/06/22 08:00 BP 98/51 L 02/06/22 08:00 Pulse Ox 94 02/06/22 08:00 O2 Del Method 02/06/22 08:00 BMI result Body Mass Index 32.9 Gen: in no acute distress HEENT: sclera anicteric, moist mucus membranes Neck: supple Lungs: clear to auscultation bilaterally Heart: regular rate and rhythm, no murmurs Abd: soft, non-tender, non-distended Ext: no edema Skin: warm/well-perfused Neuro: alert and oriented x3, no focal findings Psych: appropriate affect Objective Data Active Medications Acetaminophen (Acetaminophen 325 Mg Tablet) 650 mg PO Q6H PRN PRN Reason: Pain, Mild, headache Last Admin: 02/04/22 20:09 Dose: 650 mg Documented By: MARLEY Amphetamine/Dextroamphetamine (Dextroamphetamine/Amphetamine Xr 10 Mg Cap.Er.24h) 30 mg PO BID@0830,1430 [facility]PL[facility] BY [facility] Last Admin: 02/06/22 08:55 Dose: 30 mg Documented By: PIPPA Clonazepam (Clonazepam 1 Mg Tablet) 1 mg PO BEDTIME [facility]PL[facility] BY [facility] Last Admin: 02/05/22 21:34 Dose: 1 mg Documented By: NICOLASA Clonazepam (Clonazepam 0.5 Mg Tablet) 0.5 mg PO TID@0800,1200,1600 [facility] Last Admin: 02/06/22 08:55 Dose: 0.5 mg Documented By: PIPPA Clonidine HCl (Clonidine Hcl 0.2 Mg Tablet) 0.2 mg PO TID [facility]; Protocol Last Admin: 02/06/22 08:55 Dose: 0.2 mg Documented By: PIPPA Docusate Sodium (Docusate Sodium 100 Mg Capsule) 100 mg PO BEDTIME [facility] Last Admin: 02/05/22 21:34 Dose: 100 mg Documented By: NICOLASA Hydroxyzine HCl (Hydroxyzine Hcl 50 Mg Tablet) 50 mg PO TID@0800,1200,1600 [facility] Last Admin: 02/06/22 08:55 Dose: 50 mg Documented By: PIPPA Hydroxyzine HCl (Hydroxyzine Hcl 50 Mg Tablet) 100 mg PO BEDTIME [facility] Last Admin: 02/05/22 21:35 Dose: 100 mg Documented By: NICOLASA Ibuprofen (Ibuprofen 400 Mg Tablet) 400 mg PO Q6H PRN PRN Reason: moderate pain Last Admin: 01/27/22 08:19 Dose: 400 mg Documented By: CLAY Lactulose (Lactulose 20 Gm/30 Ml Solution) 20 gm PO BID PRN PRN Reason: constipation Magnesium Hydroxide (Milk Of Magnesia 30 Ml Oral.Susp) 30 ml PO DAILY PRN PRN Reason: constipaiton Last Admin: 02/05/22 14:26 Dose: 30 ml Documented By: DIAZDECruz Meclizine HCl (Meclizine Hcl 25 Mg Tablet) 25 mg PO TID [facility]PL[facility] Last Admin: 02/06/22 08:55 Dose: 25 mg Documented By: PIPPA Methylprednisolone Sodium Succinate (Methylprednisolone Sod Succ 125 Mg/2 Ml Vial) 60 mg IVPUSH Q6H [facility]PL[facility] Last Admin: 02/06/22 06:26 Dose: 60 mg Documented By: NICOLASA Metoclopramide HCl (Metoclopramide Hcl 10 Mg/2 Ml Vial) 5 mg IVPUSH Q6H PRN PRN Reason: n/v not responding to Zofran Olanzapine (Olanzapine 5 Mg Tablet) 5 mg PO BEDTIME PRN PRN Reason: agitaiton,anxiety Last Admin: 02/06/22 00:03 Dose: 5 mg Documented By: NICOLASA Omeprazole (Omeprazole 40 Mg Capsule.Dr) 40 mg PO BID [facility]PL[facility] Last Admin: 02/06/22 08:55 Dose: 40 mg Documented By: PIPPA Ondansetron HCl (Ondansetron Hcl 4 Mg/2 Ml Vial) 4 mg IVPUSH Q4H PRN PRN Reason: Nausea and Vomiting Polyethylene Glycol (Polyethylene Glycol 3350 17 Gm Powd.Pack) 17 gm PO DAILY [facility] Last Admin: 02/06/22 08:56 Dose: 17 gm Documented By: PIPPA Sodium Chloride (0.9 % Sodium Chloride Flush 3 Ml Syringe) 3 ml IVFLUSH QSHIFT REPLACED BY [facility] Last Admin: 02/05/22 21:36 Dose: 3 ml Documented By: NICOLASA Sumatriptan Succinate (Sumatriptan Succinate 50 Mg Tablet) 50 mg PO DAILY MRX1 PRN PRN Reason: mejias/dizziness Last Admin: 02/05/22 16:35 Dose: 50 mg Documented By: LEO Testosterone Cypionate (Testosterone Cypionate 200 Mg/1 Ml Vial) 100 mg IM Q7D [facility]PLAC[facility] Last Admin: 02/02/22 16:09 Dose: 100 mg Documented By: BETTY Trazodone HCl (Trazodone Hcl 50 Mg Tablet) 50 mg PO Q6H PRN PRN Reason: agitation, anxiety Last Admin: 02/05/22 16:35 Dose: 50 mg Documented By: LEO Trazodone HCl (Trazodone Hcl 100 Mg Tablet) 100 mg PO BEDTIME [facility]PLACED [facility] Last Admin: 02/05/22 21:36 Dose: 100 mg Documented By: NICOLASA Labs CBC & Chem 7: 01/24/22 13:29 01/27/22 06:40 Assessment and Plan (1) Vertigo: Status: Acute (2) Autism disorder: Status: Acute Plan d#13 41yo F->M presenting with ataxia + vertigo. MRI brain/CT IAC showing significant bony thinning at the apices of both superior semi [place]. Case discussed with [facility] (Dr. Arellano); no indication for acute transfer at this time. # vestibular neuropathy - trial of steroids started 02/04/22 - meclizine - PT: vestibular therapy # autism # mood disorder # ADHD - psychiatry consulted - continue Adderall, clonidine, trazodone, hydroxyzine, clonazepam; prn olanzapine # gender transition - continue testosterone # VTE ppx: SCDs # dispo: STR for vestibular PT Time Spent With Patient Time: Total time managing care of this patient today _25___ minutes. Quality Stroke Does the patient have a stroke diagnosis?: No VTE Prior VTE?: No VTE Risk Level:: Medical - moderate - high VTE Device Contraindication: N/A - Device Ordered VTE Drug Contraindication: Treatment Not Indicated
[2022-02-06] MEDS: Sennosides/Docusate Sodium TABLET 2 TAB PO ×2 (12:03→21:48)
[2022-02-06] MEDS: Lactulose 20 GM/30 ML SOLUTION PO (12:04)
[2022-02-06] MEDS: 0.9 % Sodium Chloride Flush 3 ML SYRINGE IVFLUSH ×3 (12:06→19:23)
[2022-02-06 18:00] VITALS: BP 124/72; PULSE 70; RESP 20; TEMP 36.6; O2SAT 93
--- NOTE | 2022-02-06 18:36 | PC.NURSE ---
Parents at bedside requesting to have names and contact information in system to allow updaes of needs and or care of patient, patient agrees to sharing any and all information. Mm name Virginia Fernandes , Dad named Noah Dena . Parents will be returning to [facility] Monday where they reside.
[2022-02-06] MEDS: Milk of Magnesia 30 ML ORAL.SUSP PO (19:23)
[2022-02-06] MEDS: traZODone HCL 50 MG TABLET PO (19:23)
[2022-02-06] MEDS: SUMAtriptan succinate 50 MG TABLET PO (19:29)
[2022-02-06 21:11] VITALS: BP 123/67; RESP 20; TEMP 36.4; O2SAT 97
[2022-02-06] MEDS: hydrOXYzine HCL 50 MG TABLET 100 MG PO (21:48)
[2022-02-06] MEDS: clonazePAM 1 MG TABLET PO (21:48)
[2022-02-06] MEDS: traZODone HCL 100 MG TABLET PO (21:48)
[2022-02-07] MEDS: methylPREDNISolone Sod Succ 125 MG/2 ML VIAL 60 MG IVPUSH ×4 (00:34→18:08)
[2022-02-07 03:25] VITALS: PULSE 86; RESP 19; TEMP 36.4; O2SAT 91
[2022-02-07] MEDS: traZODone HCL 50 MG TABLET PO ×3 (03:35→19:26)
[2022-02-07 07:43] VITALS: BP 110/55; PULSE 72; RESP 18; TEMP 36.5; O2SAT 92
[2022-02-07] MEDS: hydrOXYzine HCL 50 MG TABLET PO ×3 (09:20→15:29)
[2022-02-07] MEDS: Sennosides/Docusate Sodium TABLET 2 TAB PO ×2 (09:20→21:12)
[2022-02-07] MEDS: cloNIDine HCL 0.2 MG TABLET PO ×3 (09:20→21:12)
[2022-02-07] MEDS: Omeprazole 40 MG CAPSULE.DR PO ×2 (09:20→21:12)
[2022-02-07] MEDS: bisacodyL 5 MG TABLET.DR 10 MG PO (09:20)
[2022-02-07] MEDS: Dextroamphetamine/Amphetamine XR 10 MG CAP.ER.24H 30 MG PO ×2 (09:21→15:29)
[2022-02-07] MEDS: polyethylene glycoL 3350 17 GM POWD.PACK PO (09:21)
[2022-02-07] MEDS: clonazePAM 0.5 MG TABLET PO ×3 (09:21→15:29)
[2022-02-07] MEDS: Meclizine HCl 25 MG TABLET PO ×3 (09:21→21:11)
[2022-02-07] MEDS: 0.9 % Sodium Chloride Flush 3 ML SYRINGE IVFLUSH ×3 (09:22→21:12)
--- NOTE | 2022-02-07 09:34 | P.PNIM_ITS ---
Subjective Subjective Date of Service: 02/07/22 Interval History: states vertigo is very slightly better since starting steroids ongoing N/V and still constipated Review of Systems Review of Systems: Yes all other systems are reviewed and are negative Physical Exam Vital Signs: Vital Signs: Last Vital Signs Temp 97.7 F 02/07/22 07:43 Pulse 72 02/07/22 07:43 Resp 18 02/07/22 07:43 BP 110/55 L 02/07/22 07:43 Pulse Ox 92 02/07/22 07:43 O2 Del Method 02/07/22 07:43 BMI result Body Mass Index 32.9 Gen: in no acute distress HEENT: sclera anicteric, moist mucus membranes Neck: supple Lungs: clear to auscultation bilaterally Heart: regular rate and rhythm, no murmurs Abd: soft, non-tender, non-distended Ext: no edema Skin: warm/well-perfused Neuro: alert and oriented x3, no focal findings Psych: appropriate affect Objective Data Active Medications Acetaminophen (Acetaminophen 325 Mg Tablet) 650 mg PO Q6H PRN PRN Reason: Pain, Mild, headache Last Admin: 02/04/22 20:09 Dose: 650 mg Documented By: MALREY Amphetamine/Dextroamphetamine (Dextroamphetamine/Amphetamine Xr 10 Mg Cap.Er.24h) 30 mg PO BID@0830,1430 [facility] Last Admin: 02/07/22 09:21 Dose: 30 mg Documented By: ANABELLA Bisacodyl (Bisacodyl 5 Mg Tablet.) 10 mg PO DAILY [facility] Last Admin: 02/07/22 09:20 Dose: 10 mg Documented By: ANABELLA Clonazepam (Clonazepam 1 Mg Tablet) 1 mg PO BEDTIME [facility] Last Admin: 02/06/22 21:48 Dose: 1 mg Documented By: DANNY Clonazepam (Clonazepam 0.5 Mg Tablet) 0.5 mg PO TID@0800,1200,1600 [facility] Last Admin: 02/07/22 09:21 Dose: 0.5 mg Documented By: ANABELLA Clonidine HCl (Clonidine Hcl 0.2 Mg Tablet) 0.2 mg PO TID [facility]; Protocol Last Admin: 02/07/22 09:20 Dose: 0.2 mg Documented By: ANABELLA Hydroxyzine HCl (Hydroxyzine Hcl 50 Mg Tablet) 50 mg PO TID@0800,1200,1600 [facility] Last Admin: 02/07/22 09:20 Dose: 50 mg Documented By: ANABELLA Hydroxyzine HCl (Hydroxyzine Hcl 50 Mg Tablet) 100 mg PO BEDTIME [facility] Last Admin: 02/06/22 21:48 Dose: 100 mg Documented By: DANNY Ibuprofen (Ibuprofen 400 Mg Tablet) 400 mg PO Q6H PRN PRN Reason: moderate pain Last Admin: 01/27/22 08:19 Dose: 400 mg Documented By: CLAY Lactulose (Lactulose 20 Gm/30 Ml Solution) 20 gm PO QID PRN PRN Reason: constipation Magnesium Hydroxide (Milk Of Magnesia 30 Ml Oral.Susp) 30 ml PO DAILY PRN PRN Reason: constipaiton Last Admin: 02/06/22 19:23 Dose: 30 ml Documented By: DANNY Meclizine HCl (Meclizine Hcl 25 Mg Tablet) 25 mg PO TID [facility] Last Admin: 02/07/22 09:21 Dose: 25 mg Documented By: ANABELLA Methylprednisolone Sodium Succinate (Methylprednisolone Sod Succ 125 Mg/2 Ml Vial) 60 mg IVPUSH Q6H [facility] Last Admin: 02/07/22 06:52 Dose: 60 mg Documented By: DANNY Metoclopramide HCl (Metoclopramide Hcl 10 Mg/2 Ml Vial) 5 mg IVPUSH Q6H PRN PRN Reason: n/v not responding to Zofran Olanzapine (Olanzapine 5 Mg Tablet) 5 mg PO BEDTIME PRN PRN Reason: agitaiton,anxiety Last Admin: 02/06/22 21:51 Dose: 5 mg Documented By: DANNY Omeprazole (Omeprazole 40 Mg Capsule.Dr) 40 mg PO BID [facility] Last Admin: 02/07/22 09:20 Dose: 40 mg Documented By: ANABELLA Ondansetron HCl (Ondansetron Hcl 4 Mg/2 Ml Vial) 4 mg IVPUSH Q4H PRN PRN Reason: Nausea and Vomiting Polyethylene Glycol (Polyethylene Glycol 3350 17 Gm Powd.Pack) 17 gm PO DAILY [facility] Last Admin: 02/07/22 09:21 Dose: 17 gm Documented By: ANABELLA Senna/Docusate Sodium (Sennosides/Docusate Sodium Tablet) 2 tab PO BID [facility] Last Admin: 02/07/22 09:20 Dose: 2 tab Documented By: ANABELLA Sodium Chloride (0.9 % Sodium Chloride Flush 3 Ml Syringe) 3 ml IVFLUSH QSHIFT [facility] Last Admin: 02/07/22 09:22 Dose: 3 ml Documented By: ANABELLA Sumatriptan Succinate (Sumatriptan Succinate 50 Mg Tablet) 50 mg PO DAILY MRX1 PRN PRN Reason: mejias/dizziness Last Admin: 02/06/22 19:29 Dose: 50 mg Documented By: DANNY Testosterone Cypionate (Testosterone Cypionate 200 Mg/1 Ml Vial) 100 mg IM Q7D [facility] Last Admin: 02/02/22 16:09 Dose: 100 mg Documented By: BETTY Trazodone HCl (Trazodone Hcl 50 Mg Tablet) 50 mg PO Q6H PRN PRN Reason: agitation, anxiety Last Admin: 02/07/22 03:35 Dose: 50 mg Documented By: DANNY Trazodone HCl (Trazodone Hcl 100 Mg Tablet) 100 mg PO BEDTIME [facility] Last Admin: 02/06/22 21:48 Dose: 100 mg Documented By: DANNY Labs CBC & Chem 7: 01/24/22 13:29 01/27/22 06:40 Assessment and Plan (1) Vertigo: Status: Acute (2) Autism disorder: Status: Acute Plan d#14 41yo F->M presenting with ataxia + vertigo. MRI brain/CT IAC showing significant bony thinning at the apices of both superior semi [place] canals. Case discussed with [facility] (Dr. Arellano); no indication for acute transfer at this time. # vestibular neuropathy - trial of steroids started 02/04/22 - meclizine - PT: vestibular therapy, STR placement # constipation - bowel regimen # autism # mood disorder # ADHD - psychiatry consulted - continue Adderall, clonidine, trazodone, hydroxyzine, clonazepam; prn olanzapine # gender transition - continue testosterone # VTE ppx: SCDs # dispo: STR for vestibular PT Time Spent With Patient Time: Total time managing care of this patient today __26__ minutes. Quality Stroke Does the patient have a stroke diagnosis?: No VTE Prior VTE?: No VTE Risk Level:: Medical - moderate - high VTE Device Contraindication: N/A - Device Ordered VTE Drug Contraindication: Treatment Not Indicated
--- NOTE | 2022-02-07 09:58 | MHC.CM.PN ---
EMR REVIEWED, C CONT'S TO AWAIT BED OFFER, REFRRAL UPDATED AND 15 NEW FACILITIES ADDED. CM ATTEMPTED TO CONTACT ADMISSIONS AT [facility] AT 0905AM [phone] HOWEVER PER PERSON ANSWERING PHONE ADMISSIONS IS CLOSED TODAY D/T THE HOSPITAL, DETAILED MESSAGE LEFT W/CM CONTACT INFO AND REQUEST FOR RETURN CALL. CM ALSO ATTEMPTED TO CONTACT [facility] AT 9:34AM, NO ANSWER ON ADMISSION LINE, DETAILED MESSAGE LEFT W/CM CONTACT INFO AND REQUEST FOR RETURN CALL.
[2022-02-07] MEDS: ondansetron HCL 4 MG/2 ML VIAL IVPUSH (10:51)
[2022-02-07 15:27] VITALS: BP 135/72; PULSE 62; RESP 15; TEMP 37; O2SAT 93
[2022-02-07] MEDS: Lactulose 20 GM/30 ML SOLUTION PO (16:57)
[2022-02-07 18:52] VITALS: BP 136/63; PULSE 60; RESP 17; TEMP 37; O2SAT 95
[2022-02-07] MEDS: OLANZapine 5 MG TABLET PO (21:11)
[2022-02-07] MEDS: traZODone HCL 100 MG TABLET PO (21:11)
[2022-02-07] MEDS: hydrOXYzine HCL 50 MG TABLET 100 MG PO (21:11)
[2022-02-07] MEDS: clonazePAM 1 MG TABLET PO (21:11)
[2022-02-07] MEDS: Mineral OiL enema 133 ML ENEMA PR (21:14)
[2022-02-07] MEDS: SUMAtriptan succinate 50 MG TABLET PO (23:53)
[2022-02-08] MEDS: methylPREDNISolone Sod Succ 125 MG/2 ML VIAL 60 MG IVPUSH ×4 (00:02→21:55)
[2022-02-08] MEDS: diphenhydrAMINE HCL 50 MG/ML VIAL 25 MG IVPUSH ×2 (00:03→21:54)
[2022-02-08 07:41] VITALS: BP 123/58; PULSE 51; RESP 16; TEMP 36.5; O2SAT 95
[2022-02-08] MEDS: cloNIDine HCL 0.2 MG TABLET PO ×3 (08:36→21:55)
[2022-02-08] MEDS: bisacodyL 5 MG TABLET.DR 10 MG PO (08:36)
[2022-02-08] MEDS: hydrOXYzine HCL 50 MG TABLET PO ×3 (08:36→14:34)
[2022-02-08] MEDS: Sennosides/Docusate Sodium TABLET 2 TAB PO ×2 (08:36→21:55)
[2022-02-08] MEDS: polyethylene glycoL 3350 17 GM POWD.PACK PO (08:36)
[2022-02-08] MEDS: Dextroamphetamine/Amphetamine XR 10 MG CAP.ER.24H 30 MG PO ×2 (08:37→14:31)
[2022-02-08] MEDS: 0.9 % Sodium Chloride Flush 3 ML SYRINGE IVFLUSH ×2 (08:37→18:17)
[2022-02-08] MEDS: Omeprazole 40 MG CAPSULE.DR PO ×2 (08:37→21:55)
[2022-02-08] MEDS: Meclizine HCl 25 MG TABLET PO ×3 (08:37→21:55)
[2022-02-08] MEDS: Lactulose 20 GM/30 ML SOLUTION PO (10:40)
[2022-02-08] MEDS: traZODone HCL 50 MG TABLET PO ×2 (11:34→16:04)
--- NOTE | 2022-02-08 11:47 | P.PNIM_ITS ---
Subjective Subjective Date of Service: 02/08/22 Interval History: vertigo very slightly improved after starting steroids had BM yesterday and today Review of Systems Review of Systems: Yes all other systems are reviewed and are negative Physical Exam Vital Signs: Vital Signs: Last Vital Signs Temp 97.7 F 02/08/22 07:41 Pulse 51 02/08/22 07:41 Resp 16 02/08/22 07:41 BP 123/58 L 02/08/22 07:41 Pulse Ox 95 02/08/22 07:41 O2 Del Method 02/08/22 07:41 BMI result Body Mass Index 32.9 Gen: in no acute distress HEENT: sclera anicteric, moist mucus membranes Neck: supple Lungs: clear to auscultation bilaterally Heart: regular rate and rhythm, no murmurs Abd: soft, non-tender, non-distended Ext: no edema Skin: warm/well-perfused Neuro: alert and oriented x3, no focal findings Psych: appropriate affect Objective Data Active Medications Acetaminophen (Acetaminophen 325 Mg Tablet) 650 mg PO Q6H PRN PRN Reason: Pain, Mild, headache Last Admin: 02/04/22 20:09 Dose: 650 mg Documented By: MARLEY Amphetamine/Dextroamphetamine (Dextroamphetamine/Amphetamine Xr 10 Mg Cap.Er .24h) 30 mg PO BID@0830,1430 [facility] Last Admin: 02/08/22 08:37 Dose: 30 mg Documented By: ANABELLA Bisacodyl (Bisacodyl 5 Mg Tablet.) 10 mg PO DAILY [facility] Last Admin: 02/08/22 08:36 Dose: 10 mg Documented By: ANABELLA Clonazepam (Clonazepam 1 Mg Tablet) 1 mg PO BEDTIME [facility] Last Admin: 02/07/22 21:11 Dose: 1 mg Documented By: DANNY Clonidine HCl (Clonidine Hcl 0.2 Mg Tablet) 0.2 mg PO TID [facility]; Protocol Last Admin: 02/08/22 08:36 Dose: 0.2 mg Documented By: ANABELLA Hydroxyzine HCl (Hydroxyzine Hcl 50 Mg Tablet) 50 mg PO TID@0800,1200,1600 [facility] Last Admin: 02/08/22 11:34 Dose: 50 mg Documented By: ANABELLA Hydroxyzine HCl (Hydroxyzine Hcl 50 Mg Tablet) 100 mg PO BEDTIME [facility] Last Admin: 02/07/22 21:11 Dose: 100 mg Documented By: DANNY Ibuprofen (Ibuprofen 400 Mg Tablet) 400 mg PO Q6H PRN PRN Reason: moderate pain Last Admin: 01/27/22 08:19 Dose: 400 mg Documented By: CLAY Lactulose (Lactulose 20 Gm/30 Ml Solution) 20 gm PO QID PRN PRN Reason: constipation Last Admin: 02/08/22 10:40 Dose: 20 gm Documented By: ANABELLA Magnesium Hydroxide (Milk Of Magnesia 30 Ml Oral.Susp) 30 ml PO DAILY PRN PRN Reason: constipaiton Last Admin: 02/06/22 19:23 Dose: 30 ml Documented By: DANNY Meclizine HCl (Meclizine Hcl 25 Mg Tablet) 25 mg PO TID [facility] Last Admin: 02/08/22 08:37 Dose: 25 mg Documented By: ANABELLA Methylprednisolone Sodium Succinate (Methylprednisolone Sod Succ 125 Mg/2 Ml Vial) 60 mg IVPUSH Q12H [facility] Last Admin: 02/08/22 10:36 Dose: 60 mg Documented By: ANABELLA Metoclopramide HCl (Metoclopramide Hcl 10 Mg/2 Ml Vial) 5 mg IVPUSH Q6H PRN PRN Reason: n/v not responding to Zofran Olanzapine (Olanzapine 5 Mg Tablet) 5 mg PO BEDTIME PRN PRN Reason: agitaiton,anxiety Last Admin: 02/07/22 21:11 Dose: 5 mg Documented By: DANNY Omeprazole (Omeprazole 40 Mg Capsule.) 40 mg PO BID [facility] Last Admin: 02/08/22 08:37 Dose: 40 mg Documented By: ANABELLA Ondansetron HCl (Ondansetron Hcl 4 Mg/2 Ml Vial) 4 mg IVPUSH Q4H PRN PRN Reason: Nausea and Vomiting Last Admin: 02/07/22 10:51 Dose: 4 mg Documented By: ANABELLA Polyethylene Glycol (Polyethylene Glycol 3350 17 Gm Powd.Pack) 17 gm PO DAILY [facility] Last Admin: 02/08/22 08:36 Dose: 17 gm Documented By: ANABELLA Senna/Docusate Sodium (Sennosides/Docusate Sodium Tablet) 2 tab PO BID [facility] Last Admin: 02/08/22 08:36 Dose: 2 tab Documented By: ANABELLA Sodium Chloride (0.9 % Sodium Chloride Flush 3 Ml Syringe) 3 ml IVFLUSH QSHIFT [facility] Last Admin: 02/08/22 08:37 Dose: 3 ml Documented By: ANABELLA Sumatriptan Succinate (Sumatriptan Succinate 50 Mg Tablet) 50 mg PO DAILY MRX1 PRN PRN Reason: mejias/dizziness Last Admin: 02/07/22 23:53 Dose: 50 mg Documented By: DANNY Testosterone Cypionate (Testosterone Cypionate 200 Mg/1 Ml Vial) 100 mg IM Q7D [facility] Last Admin: 02/02/22 16:09 Dose: 100 mg Documented By: BETTY Trazodone HCl (Trazodone Hcl 50 Mg Tablet) 50 mg PO Q6H PRN PRN Reason: agitation, anxiety Last Admin: 02/08/22 11:34 Dose: 50 mg Documented By: ANABELLA Trazodone HCl (Trazodone Hcl 100 Mg Tablet) 100 mg PO BEDTIME [facility] Last Admin: 02/07/22 21:11 Dose: 100 mg Documented By: DANNY Labs CBC & Chem 7: 01/24/22 13:29 01/27/22 06:40 Assessment and Plan (1) Vertigo: Status: Acute (2) Autism disorder: Status: Acute Plan d#15 41yo F->M presenting with ataxia + vertigo. MRI brain/CT IAC showing significant bony thinning at the apices of both superior semi [place] canals. Case discussed with [facility] (Dr. Arellano); no indication for acute transfer at this time. # vestibular neuropathy - trial of steroids started 02/04/22- start to taper dose today - meclizine - PT: vestibular therapy, STR placement # constipation - bowel regimen # autism # mood disorder # ADHD - psychiatry consulted - continue Adderall, clonidine, trazodone, hydroxyzine, clonazepam; prn olanzapine # gender transition - continue testosterone # VTE ppx: SCDs # dispo: STR for vestibular PT Time Spent With Patient Time: Total time managing care of this patient today _26___ minutes. Quality Stroke Does the patient have a stroke diagnosis?: No VTE Prior VTE?: No VTE Risk Level:: Medical - moderate - high VTE Device Contraindication: N/A - Device Ordered VTE Drug Contraindication: Treatment Not Indicated
--- NOTE | 2022-02-08 12:08 | MHC.CM.PN ---
CM CONTACTED ADMISSIONS AT [facility] AT 12:05PM [phone] WHO REPORT THEY HAVE REVIEWED AND ARE UNABLE TO OFFER PT A BED AT THIS TIME. CM CONTACTED FABIOLA IN ADMISSIONS AT [facility] AT 11:40AM, FABIOLA REQUESTING UPDATED CLINICALS FOR REVIEW, FABIOLA ALSO REPORTS THEY DO NOT HAVE AN OPEN BED AT THIS TIME AND WAS UNABLE TO GIVE A TIMELINE HOWEVER THEY WILL STILL REVIEW PT. UPDATED CLINICALS TO BE SENT ONCE TODAYS OT/PT NOTES ARE ENTERRED, PT WAS WORKING W/OT/PT JUST PRIOR TO THIS NOTE. CM WILL CONT TO FOLLOW.
[2022-02-08 12:39] VITALS: PULSE 51; O2SAT 95
--- NOTE | 2022-02-08 13:24 | PC.NURSE ---
Late entry 1030- Parents and pt requesting to speak to manager case management. Ruthy Bonds notified and will be in to talk with them. 1123- Ruthy in to see pt and pt parents. Pts mother upset in the hallway requesting to speak with the doctor immediately. Text sent to Dr White to speak with pt and pt family. 1230- Dr White in to see pt and pts family. 1320- Pt requesting to speak with floor worker. Text sent to floor worker Sima. Sima in with pt and pt family at this time
[2022-02-08 15:06] VITALS: BP 127/60; PULSE 75; RESP 18; TEMP 37.1; O2SAT 94
--- NOTE | 2022-02-08 15:12 | MHC.CM.PN ---
Addendum entered by Ruthy Bonds RN 02/08/22 16:19: CM RECEIVED FAX CONFIRMATION THAT UPDATES WENT THROUGH TO [facility], CONFIRMATION PLACED IN CHART UNDER CM. Original Note: CM HAS ATTEMPTED TO FAX UPDTES TO [facility] 7 TIMES W/BUSY RESULT, CM CONTACTED ADMISSIONS AND SPOKE W/THOMAS TO VERIFY FAX NUMBER, THOMAS REPORTS CM HAS CORRECT NUMBER AND RECOMMENDED CM KEEP TRYING THEY HAVE BEEN RECEIVING NONSTOP FAXES ALL DAY, IF FAX DOES NOT GO THROUGH BY END OF DAY CM WILL REVISIT IN AM.
[2022-02-08 18:59] VITALS: BP 138/64; PULSE 57; RESP 18; TEMP 37.1; O2SAT 94
[2022-02-08] MEDS: clonazePAM 1 MG TABLET PO (21:55)
[2022-02-08] MEDS: OLANZapine 5 MG TABLET PO (21:55)
[2022-02-08] MEDS: traZODone HCL 100 MG TABLET PO (21:55)
[2022-02-08] MEDS: hydrOXYzine HCL 50 MG TABLET 100 MG PO (21:56)
--- NOTE | 2022-02-09 07:08 | MHC.CM.PN ---
LATE ENTRY FOR 02/08/2021 @ 1600- THIS SHADE MAKER MEET WITH PATIENT AND FAMILY AT BEDSIDE ALONG WITH PATIENT EXPERIENCE COORDINATOR AND PT'S RN TO DISCUSSION DISCHARGE PLANNING CONCERNS. FAMILY REQUESTING NEW CORPORATE ATTORNEY TO BE ASSIGNED TO PT. FAMILY ALSO ASKING REGARDING THE DELAY FOR STR PLACEMENT. THIS SHADE MAKER HAD LENGTHY DISCUSSION REGARDING GENERAL BARRIERS [place]CROSS THE STATE FOR ALL PATIENTS TO OBTAIN STR BED OFFERS. ENSURED WITH PATIENT AND FAMILY THAT WE CONTINUE TO SEND UPDATES AND HAVE EXPANDED STR BED SEARCH ACROSS THE STATE. THIS SHADE MAKER SET EXPECTATION WITH PATIENT AND FAMILY THAT CM WILL CONTINUE TO FOLLOW PATIENT TO FACILITATE DISCHARGE, THE PATIENT AND FAMILY WILL BE UPDATED WHEN THERE ARE ANY NEW UPDATES. PT AND FAMILY AGREED WITH PLAN.
[2022-02-09 08:00] VITALS: BP 129/62; PULSE 50; RESP 17; TEMP 36.7; O2SAT 94
[2022-02-09] MEDS: cloNIDine HCL 0.2 MG TABLET PO ×3 (08:58→22:37)
[2022-02-09] MEDS: Meclizine HCl 25 MG TABLET PO ×3 (08:58→22:36)
[2022-02-09] MEDS: bisacodyL 5 MG TABLET.DR 10 MG PO (08:58)
[2022-02-09] MEDS: Dextroamphetamine/Amphetamine XR 10 MG CAP.ER.24H 30 MG PO ×2 (08:58→15:11)
[2022-02-09] MEDS: hydrOXYzine HCL 50 MG TABLET PO ×3 (08:58→16:08)
[2022-02-09] MEDS: Omeprazole 40 MG CAPSULE.DR PO ×2 (08:58→22:37)
[2022-02-09] MEDS: Sennosides/Docusate Sodium TABLET 2 TAB PO ×2 (08:58→22:37)
[2022-02-09] MEDS: methylPREDNISolone Sod Succ 125 MG/2 ML VIAL 60 MG IVPUSH (08:59)
[2022-02-09] MEDS: polyethylene glycoL 3350 17 GM POWD.PACK PO (08:59)
[2022-02-09] MEDS: 0.9 % Sodium Chloride Flush 3 ML SYRINGE IVFLUSH ×2 (08:59→15:14)
--- NOTE | 2022-02-09 09:37 | P.PNIM_ITS ---
Subjective Subjective Date of Service: 02/09/22 Interval History: Vertigo/N/V slightly improved Review of Systems Review of Systems: Yes all other systems are reviewed and are negative Physical Exam Vital Signs: Vital Signs: Last Vital Signs Temp 98.0 F 02/09/22 08:00 Pulse 50 02/09/22 08:00 Resp 17 02/09/22 08:00 BP 129/62 02/09/22 08:00 Pulse Ox 94 02/09/22 08:00 O2 Del Method 02/09/22 08:00 BMI result Body Mass Index 32.9 Gen: in no acute distress HEENT: sclera anicteric, moist mucus membranes Neck: supple Lungs: clear to auscultation bilaterally Heart: regular rate and rhythm, no murmurs Abd: soft, non-tender, non-distended Ext: no edema Skin: warm/well-perfused Neuro: alert and oriented x3, no focal findings Psych: restricted affect Objective Data Active Medications Acetaminophen (Acetaminophen 325 Mg Tablet) 650 mg PO Q6H PRN PRN Reason: Pain, Mild, headache Last Admin: 02/04/22 20:09 Dose: 650 mg Documented By: MARLEY Amphetamine/Dextroamphetamine (Dextroamphetamine/Amphetamine Xr 10 Mg Cap.Er.24h) 30 mg PO BID@0830,1430 [facility] Last Admin: 02/09/22 08:58 Dose: 30 mg Documented By: ALMA ROSA Bisacodyl (Bisacodyl 5 Mg Tablet.Dr) 10 mg PO DAILY [facility] Last Admin: 02/09/22 08:58 Dose: 10 mg Documented By: ALMA ROSA Clonazepam (Clonazepam 1 Mg Tablet) 1 mg PO BEDTIME [facility] Last Admin: 02/08/22 21:55 Dose: 1 mg Documented By: JESUS Clonidine HCl (Clonidine Hcl 0.2 Mg Tablet) 0.2 mg PO TID [facility]; Protocol Last Admin: 02/09/22 08:58 Dose: 0.2 mg Documented By: ALMA ROSA Hydroxyzine HCl (Hydroxyzine Hcl 50 Mg Tablet) 50 mg PO TID@0800,1200,1600 [facility] Last Admin: 02/09/22 08:58 Dose: 50 mg Documented By: ALMA ROSA Hydroxyzine HCl (Hydroxyzine Hcl 50 Mg Tablet) 100 mg PO BEDTIME [facility] Last Admin: 02/08/22 21:56 Dose: 100 mg Documented By: JESUS Ibuprofen (Ibuprofen 400 Mg Tablet) 400 mg PO Q6H PRN PRN Reason: moderate pain Last Admin: 01/27/22 08:19 Dose: 400 mg Documented By: CLAY Lactulose (Lactulose 20 Gm/30 Ml Solution) 20 gm PO QID PRN PRN Reason: constipation Last Admin: 02/08/22 10:40 Dose: 20 gm Documented By: ANABELLA Magnesium Hydroxide (Milk Of Magnesia 30 Ml Oral.Susp) 30 ml PO DAILY PRN PRN Reason: constipaiton Last Admin: 02/06/22 19:23 Dose: 30 ml Documented By: DANNY Meclizine HCl (Meclizine Hcl 25 Mg Tablet) 25 mg PO TID [facility] Last Admin: 02/09/22 08:58 Dose: 25 mg Documented By: ALMA ROSA Methylprednisolone Sodium Succinate (Methylprednisolone Sod Succ 125 Mg/2 Ml Vial) 60 mg IVPUSH Q12H [facility] Last Admin: 02/09/22 08:59 Dose: 60 mg Documented By: ALMA ROSA Metoclopramide HCl (Metoclopramide Hcl 10 Mg/2 Ml Vial) 5 mg IVPUSH Q6H PRN PRN Reason: n/v not responding to Zofran Olanzapine (Olanzapine 5 Mg Tablet) 5 mg PO BEDTIME PRN PRN Reason: agitaiton,anxiety Last Admin: 02/08/22 21:55 Dose: 5 mg Documented By: JESUS Omeprazole (Omeprazole 40 Mg Capsule.Dr) 40 mg PO BID [facility] Last Admin: 02/09/22 08:58 Dose: 40 mg Documented By: ALMA ROSA Ondansetron HCl (Ondansetron Hcl 4 Mg/2 Ml Vial) 4 mg IVPUSH Q4H PRN PRN Reason: Nausea and Vomiting Last Admin: 02/07/22 10:51 Dose: 4 mg Documented By: ANABELLA Polyethylene Glycol (Polyethylene Glycol 3350 17 Gm Powd.Pack) 17 gm PO DAILY [facility] Last Admin: 02/09/22 08:59 Dose: 17 gm Documented By: ALMA ROSA Senna/Docusate Sodium (Sennosides/Docusate Sodium Tablet) 2 tab PO BID [facility] Last Admin: 02/09/22 08:58 Dose: 2 tab Documented By: ALMA ROSA Sodium Chloride (0.9 % Sodium Chloride Flush 3 Ml Syringe) 3 ml IVFLUSH QSHIFT [facility] Last Admin: 02/09/22 08:59 Dose: 3 ml Documented By: ALMA ROSA Sumatriptan Succinate (Sumatriptan Succinate 50 Mg Tablet) 50 mg PO DAILY MRX1 PRN PRN Reason: mejias/dizziness Last Admin: 02/07/22 23:53 Dose: 50 mg Documented By: DANNY Testosterone Cypionate (Testosterone Cypionate 200 Mg/1 Ml Vial) 100 mg IM Q7D [facility] Last Admin: 02/02/22 16:09 Dose: 100 mg Documented By: BETTY Trazodone HCl (Trazodone Hcl 50 Mg Tablet) 50 mg PO Q6H PRN PRN Reason: agitation, anxiety Last Admin: 02/08/22 16:04 Dose: 50 mg Documented By: ANABELLA Comments: ok to give now per Dr White Trazodone HCl (Trazodone Hcl 100 Mg Tablet) 100 mg PO BEDTIME [facility] Last Admin: 02/08/22 21:55 Dose: 100 mg Documented By: OSCAR-VITOJ Labs CBC & Chem 7: 01/24/22 13:29 01/27/22 06:40 Assessment and Plan (1) Vertigo: Status: Acute (2) Autism disorder: Status: Acute Plan d#16 41yo F->M presenting with ataxia + vertigo. MRI brain/CT IAC showing significant bony thinning at the apices of both superior semi [place] canals. Case discussed with [facility] and pt has outpt appt in May; no indication for acute transfer at this time. # vestibular neuropathy - trial of steroids started 02/04/22- continue to taper steroids - meclizine - PT: vestibular therapy, STR placement # constipation - bowel regimen # autism # mood disorder # ADHD - psychiatry consulted - continue Adderall, clonidine, trazodone, hydroxyzine, clonazepam; prn olanzapine # gender transition - continue testosterone # VTE ppx: SCDs # dispo: STR for vestibular PT Time Spent With Patient Time: Total time managing care of this patient today _25__ minutes. Quality Stroke Does the patient have a stroke diagnosis?: No VTE Prior VTE?: No VTE Risk Level:: Medical - moderate - high VTE Device Contraindication: N/A - Device Ordered VTE Drug Contraindication: Treatment Not Indicated
[2022-02-09] MEDS: traZODone HCL 50 MG TABLET PO (12:05)
--- NOTE | 2022-02-09 13:41 | MHC.CM.PN ---
[facility] SNF REFERRALS WITH NO BED OFFERS. MULTIPLE DENIALS AND LACK OF INSURANCE CONTRACTED BEDS. [facility] IS ONLY FACILITY CURRENTLY FOLLOWING AND THEY HAVE NO BED OF THIS NOTE. CASE MANAGEMENT WILL UPDATE PATIENT WHEN A BED IS OFFERED
--- NOTE | 2022-02-09 15:04 | MHC.CM.PN ---
CM RECEIVED CALL FROM PT'S COMMUNITY CM CALVIN ESPINOZA WHO CONFIRMED PT HAS A PCP SONAM MAHAJAN MD. AND REPORTS PT IS ACTIVE. CALVIN ALSO REPORTS HE HAS ONLY 3-6HRS OF STAFF A WEEK AND REPORTS SHE PROVIDES HOURS. CALVIN STATES, BECAUSE HE IS SO MANIPULATING AND EXHAUSTING STAFF ONLY LAST A WEEK OR TWO AND CAN NOT HANDLE HIM. PER PT TODAY PT NEEDS 2 ASSIST ON STAIRS AND HAS TO TAKE FREQUENT BREAKS WHEN WALKING D/T DIZZINESS HOWEVER [facility] HAS OBSERVED PT WALKING TO BATHROOM INDEPENDENTLY W/NO APPARENT ISSUES.
[2022-02-09] MEDS: SUMAtriptan succinate 50 MG TABLET PO (15:10)
[2022-02-09] MEDS: ondansetron HCL 4 MG/2 ML VIAL IVPUSH (15:11)
[2022-02-09] MEDS: Testosterone Cypionate 200 MG/1 ML VIAL 100 MG IM (15:11)
[2022-02-09 15:39] VITALS: BP 120/58; PULSE 51; RESP 16; TEMP 36.6; O2SAT 97
[2022-02-09 20:00] VITALS: BP 130/62; PULSE 60; RESP 18; TEMP 36.8; O2SAT 97
[2022-02-09] MEDS: diphenhydrAMINE HCL 50 MG/ML VIAL 25 MG IVPUSH (22:36)
[2022-02-09] MEDS: methylPREDNISolone Sod Succ 125 MG/2 ML VIAL 40 MG IVPUSH (22:36)
[2022-02-09] MEDS: OLANZapine 5 MG TABLET PO (22:37)
[2022-02-09] MEDS: hydrOXYzine HCL 50 MG TABLET 100 MG PO (22:37)
[2022-02-09] MEDS: traZODone HCL 100 MG TABLET PO (22:37)
[2022-02-10] MEDS: Milk of Magnesia 30 ML ORAL.SUSP PO (00:01)
[2022-02-10 03:36] VITALS: BP 125/61; PULSE 75; RESP 18; TEMP 36.6; O2SAT 97
[2022-02-10 08:00] VITALS: BP 119/72; PULSE 53; RESP 18; TEMP 36.7; O2SAT 95
[2022-02-10] MEDS: cloNIDine HCL 0.2 MG TABLET PO ×3 (08:58→20:09)
[2022-02-10] MEDS: Meclizine HCl 25 MG TABLET PO ×3 (08:58→20:13)
[2022-02-10] MEDS: hydrOXYzine HCL 50 MG TABLET PO ×4 (08:58→20:10)
[2022-02-10] MEDS: Sennosides/Docusate Sodium TABLET 2 TAB PO ×2 (08:58→20:10)
[2022-02-10] MEDS: Dextroamphetamine/Amphetamine XR 10 MG CAP.ER.24H 30 MG PO ×2 (08:58→14:37)
[2022-02-10] MEDS: 0.9 % Sodium Chloride Flush 3 ML SYRINGE IVFLUSH ×3 (08:58→20:43)
[2022-02-10] MEDS: bisacodyL 5 MG TABLET.DR 10 MG PO (08:59)
[2022-02-10] MEDS: Lactulose 20 GM/30 ML SOLUTION PO (08:59)
[2022-02-10] MEDS: polyethylene glycoL 3350 17 GM POWD.PACK PO (08:59)
[2022-02-10] MEDS: Omeprazole 40 MG CAPSULE.DR PO ×2 (08:59→20:09)
[2022-02-10] MEDS: methylPREDNISolone Sod Succ 125 MG/2 ML VIAL 40 MG IVPUSH (08:59)
[2022-02-10] MEDS: traZODone HCL 50 MG TABLET PO ×2 (11:06→17:07)
--- NOTE | 2022-02-10 13:02 | P.PNIM_ITS ---
Subjective Subjective Date of Service: 02/10/22 Interval History: Denies nausea vomiting this morning but complaining of zapped in his head with change in position also complaining of dizziness with change in position, no fever chills no other acute issues overnight, vital stable. Review of Systems Review of Systems: Yes all other systems are reviewed and are negative Physical Exam Vital Signs: Vital Signs: Last Vital Signs Temp 98.0 F 02/10/22 08:00 Pulse 53 02/10/22 08:00 Resp 18 02/10/22 08:00 BP 119/72 02/10/22 08:00 Pulse Ox 95 02/10/22 08:00 O2 Del Method 02/10/22 08:00 BMI result Body Mass Index 32.9 Const: Other: Gen: Awake alert x3, in no acute distress HEENT: sclera anicteric, moist mucus membranes Neck: supple Lungs: clear to auscultation bilaterally Heart: regular rate and rhythm, no murmurs Abd: soft, non-tender, non-distended Ext: no edema Skin: warm/well-perfused Neuro: alert and oriented x3, no focal findings, no nystagmus Psych: restricted affect ? Objective Data Active Medications Acetaminophen (Acetaminophen 325 Mg Tablet) 650 mg PO Q6H PRN PRN Reason: Pain, Mild, headache Last Admin: 02/04/22 20:09 Dose: 650 mg Documented By: MARLEY Amphetamine/Dextroamphetamine (Dextroamphetamine/Amphetamine Xr 10 Mg Cap.Er.24h) 30 mg PO BID@0830,1430 [facility] Last Admin: 02/10/22 08:58 Dose: 30 mg Documented By: MARIUSZ Bisacodyl (Bisacodyl 5 Mg Tablet.Dr) 10 mg PO DAILY [facility] Last Admin: 02/10/22 08:59 Dose: 10 mg Documented By: MARIUSZ Clonidine HCl (Clonidine Hcl 0.2 Mg Tablet) 0.2 mg PO TID [facility]; Protocol Last Admin: 02/10/22 08:58 Dose: 0.2 mg Documented By: MARIUSZ Hydroxyzine HCl (Hydroxyzine Hcl 50 Mg Tablet) 50 mg PO TID@0800,1200,1600 [facility] Last Admin: 02/10/22 11:06 Dose: 50 mg Documented By: MARIUSZ Hydroxyzine HCl (Hydroxyzine Hcl 50 Mg Tablet) 100 mg PO BEDTIME [facility] Last Admin: 02/09/22 22:37 Dose: 100 mg Documented By: JESUS Ibuprofen (Ibuprofen 400 Mg Tablet) 400 mg PO Q6H PRN PRN Reason: moderate pain Last Admin: 01/27/22 08:19 Dose: 400 mg Documented By: CLAY Lactulose (Lactulose 20 Gm/30 Ml Solution) 20 gm PO QID PRN PRN Reason: constipation Last Admin: 02/10/22 08:59 Dose: 20 gm Documented By: MARIUSZ Magnesium Hydroxide (Milk Of Magnesia 30 Ml Oral.Susp) 30 ml PO DAILY PRN PRN Reason: constipaiton Last Admin: 02/10/22 00:01 Dose: 30 ml Documented By: JESUS Meclizine HCl (Meclizine Hcl 25 Mg Tablet) 25 mg PO TID [facility] Last Admin: 02/10/22 08:58 Dose: 25 mg Documented By: MARIUSZ Methylprednisolone Sodium Succinate (Methylprednisolone Sod Succ 125 Mg/2 Ml Vial) 40 mg IVPUSH Q12H [facility] Last Admin: 02/10/22 08:59 Dose: 40 mg Documented By: MARIUSZ Metoclopramide HCl (Metoclopramide Hcl 10 Mg/2 Ml Vial) 5 mg IVPUSH Q6H PRN PRN Reason: n/v not responding to Zofran Olanzapine (Olanzapine 5 Mg Tablet) 5 mg PO BEDTIME PRN PRN Reason: agitaiton,anxiety Last Admin: 02/09/22 22:37 Dose: 5 mg Documented By: JESUS Omeprazole (Omeprazole 40 Mg Capsule.Dr) 40 mg PO BID [facility] Last Admin: 02/10/22 08:59 Dose: 40 mg Documented By: MARIUSZ Ondansetron HCl (Ondansetron Hcl 4 Mg/2 Ml Vial) 4 mg IVPUSH Q4H PRN PRN Reason: Nausea and Vomiting Last Admin: 02/09/22 15:11 Dose: 4 mg Documented By: ALMA ROSA Polyethylene Glycol (Polyethylene Glycol 3350 17 Gm Powd.Pack) 17 gm PO DAILY [facility] Last Admin: 02/10/22 08:59 Dose: 17 gm Documented By: MARIUSZ Senna/Docusate Sodium (Sennosides/Docusate Sodium Tablet) 2 tab PO BID [facility] Last Admin: 02/10/22 08:58 Dose: 2 tab Documented By: MARIUSZ Sodium Chloride (0.9 % Sodium Chloride Flush 3 Ml Syringe) 3 ml IVFLUSH QSHIFT [facility] Last Admin: 02/10/22 08:58 Dose: 3 ml Documented By: MARIUSZ Sumatriptan Succinate (Sumatriptan Succinate 50 Mg Tablet) 50 mg PO DAILY MRX1 PRN PRN Reason: mejias/dizziness Last Admin: 02/09/22 15:10 Dose: 50 mg Documented By: ALMA ROSA Testosterone Cypionate (Testosterone Cypionate 200 Mg/1 Ml Vial) 100 mg IM Q7D [facility] Last Admin: 02/09/22 15:11 Dose: 100 mg Documented By: ALMA ROSA Trazodone HCl (Trazodone Hcl 50 Mg Tablet) 50 mg PO Q6H PRN PRN Reason: agitation, anxiety Last Admin: 02/10/22 11:06 Dose: 50 mg Documented By: MARIUSZ Trazodone HCl (Trazodone Hcl 100 Mg Tablet) 100 mg PO BEDTIME [facility] Last Admin: 02/09/22 22:37 Dose: 100 mg Documented By: OSCAR-DRAKJ Labs CBC & Chem 7: 01/24/22 13:29 01/27/22 06:40 Assessment and Plan (1) Vertigo: Status: Acute (2) Autism disorder: Status: Acute Plan d#16 41yo F->M presenting with ataxia + vertigo. MRI brain/CT IAC showing significant bony thinning at the apices of both superior semi [place] canals. Case discussed with [facility] and pt has outpt appt in May; no indication for acute transfer at this time. # vestibular neuropathy - trial of steroids started 02/04/22- will DC IV Solu Medrol 40 me ID and transition to by mouth prednisone continue Prilosec - continue meclizine - PT: vestibular therapy, being followed daily by Physical therapy # constipation - bowel regimen # autism # mood disorder # ADHD - consult psychiatry ,on Adderall, clonidine, trazodone, hydroxyzine, clonazepam; prn olanzapine, will decrease dose of hydroxyzine at bedtime to 50 mg, further med adjustment upper as per psych # gender transition - continue testosterone # VTE ppx: SCDs # dispo: STR for vestibular PT Time Spent With Patient Time: Total time managing care of this patient today ____ minutes. Quality Stroke Does the patient have a stroke diagnosis?: No VTE Prior VTE?: No VTE Risk Level:: Medical - moderate - high VTE Device Contraindication: N/A - Device Ordered VTE Drug Contraindication: Treatment Not Indicated
[2022-02-10 15:17] VITALS: BP 148/80; PULSE 51; RESP 16; TEMP 36.6; O2SAT 98
--- NOTE | 2022-02-10 16:33 | MHC.CM.PN ---
CM MET WITH PT WHO REPORTS HE LEARNED HE NOW HAS [facility] HE THEN EXPLAINS HE CHANGED IT BECAUSE SOMEONE TOLD HIM [facility] WAS NOT GOOD CM EXPLAINED THE BARRIERS TO PLACEMENT AND VNA RELATED TO HNE INSURANCE PT REPORTS HE WANTS TO CHANGE BACK REFERRAL SENT TO [facility], THEY WILL REQUEST INS CHANGE FOR PT BUT REPORT IT MAY TAKE A FEW DAYS THE PTS CURRENT INS IS [facility] # [id number] PT ALSO PROVIDED HIS SS# [id number] CURRENTLY PT REPORTS A DESIRE TO GO HOME, BUT REPORTS HE WILL NEED ASSITANCE HIS SHOWER IS ON THE 2ND FLOOR HE ALSO ASKS THAT HE BE TRANSFERRED TO ANOTHER HOSPITAL BECAUSE HE BELIEVES HE NEEDS A SPECIALIST AND REPORTS HE FEELS HE IS GETTING WORSE
[2022-02-10] MEDS: SUMAtriptan succinate 50 MG TABLET PO (17:06)
--- NOTE | 2022-02-10 17:40 | PC.NURSE ---
EROSION CONTROL SPECIALIST noted pt in room ambulating/turning off bed alarm. EROSION CONTROL SPECIALIST asked pt what he was doing, pt said Turning off the alarm. The call sanchez was off. Pt also noted taking off chair alarm earlier while seated in chair. Pt educated on use of call sanchez. Will attempt again to place a camera in room.
[2022-02-10 19:42] VITALS: BP 133/70; PULSE 71; RESP 16; TEMP 36.6; O2SAT 95
[2022-02-10] MEDS: traZODone HCL 100 MG TABLET PO (20:09)
[2022-02-10] MEDS: diphenhydrAMINE HCL 25 MG CAPSULE 50 MG PO (20:42)
[2022-02-10] MEDS: OLANZapine 5 MG TABLET PO (20:42)
[2022-02-11] MEDS: Ibuprofen 400 MG TABLET PO (01:10)
[2022-02-11] MEDS: Lactulose 20 GM/30 ML SOLUTION PO ×2 (01:48→09:14)
[2022-02-11] MEDS: traZODone HCL 50 MG TABLET PO ×3 (01:48→16:53)
[2022-02-11 03:40] VITALS: RESP 18
[2022-02-11 08:00] VITALS: BP 135/73; PULSE 78; RESP 16; TEMP 36.4; O2SAT 97
[2022-02-11] MEDS: cloNIDine HCL 0.2 MG TABLET PO ×3 (09:12→21:18)
[2022-02-11] MEDS: predniSONE 20 MG TABLET PO (09:12)
[2022-02-11] MEDS: 0.9 % Sodium Chloride Flush 3 ML SYRINGE IVFLUSH ×3 (09:12→21:19)
[2022-02-11] MEDS: Meclizine HCl 25 MG TABLET PO (09:13)
[2022-02-11] MEDS: hydrOXYzine HCL 25 MG TABLET PO ×3 (09:13→15:25)
[2022-02-11] MEDS: Omeprazole 40 MG CAPSULE.DR PO ×2 (09:13→21:19)
[2022-02-11] MEDS: bisacodyL 5 MG TABLET.DR 10 MG PO (09:13)
[2022-02-11] MEDS: Dextroamphetamine/Amphetamine XR 10 MG CAP.ER.24H 30 MG PO ×2 (09:14→15:25)
[2022-02-11] MEDS: Sennosides/Docusate Sodium TABLET 2 TAB PO ×2 (09:14→21:19)
[2022-02-11] MEDS: polyethylene glycoL 3350 17 GM POWD.PACK PO (09:14)
--- NOTE | 2022-02-11 13:09 | HO.PM.IMPN ---
Subjective Subjective Date of Service: 02/11/22 Interval History: Patient awake alert complaining of feeling same as yesterday on further questioning denies nausea, vomiting, has been tolerating regular diet finishing 75-100% of meals, complaining of dizziness with ambulation. No headache. Review of Systems Review of Systems: Yes all other systems are reviewed and are negative Physical Exam Vital Signs: Vital Signs: Last Vital Signs Temp 97.5 F 02/11/22 08:00 Pulse 78 02/11/22 08:00 Resp 16 02/11/22 08:00 BP 135/73 02/11/22 08:00 Pulse Ox 97 02/11/22 08:00 O2 Del Method 02/11/22 08:00 BMI result Body Mass Index 32.9 Const: Other: Gen:? Awake alert x3, in no acute distress HEENT: sclera anicteric, moist mucus membranes Neck: supple Lungs: clear to auscultation bilaterally Heart: regular rate and rhythm, no murmurs Abd: soft, non-tender, non-distended Ext: no edema Skin: warm/well-perfused Neuro: alert and oriented x3, no focal findings, no nystagmus, speech clear Psych: restricted affect Objective Data Active Medications Acetaminophen (Acetaminophen 325 Mg Tablet) 650 mg PO Q6H PRN PRN Reason: Pain, Mild, headache Last Admin: 02/04/22 20:09 Dose: 650 mg Documented By: MARLEY Amphetamine/Dextroamphetamine (Dextroamphetamine/Amphetamine Xr 10 Mg Cap.Er.24h) 30 mg PO BID@0830,1430 [facility] Last Admin: 02/11/22 09:14 Dose: 30 mg Documented By: MARIUSZ Bisacodyl (Bisacodyl 5 Mg Tablet.) 10 mg PO DAILY [facility] Last Admin: 02/11/22 09:13 Dose: 10 mg Documented By: MARIUSZ Clonidine HCl (Clonidine Hcl 0.2 Mg Tablet) 0.2 mg PO TID [facility]; Protocol Last Admin: 02/11/22 09:12 Dose: 0.2 mg Documented By: MARIUSZ Hydroxyzine HCl (Hydroxyzine Hcl 50 Mg Tablet) 50 mg PO BEDTIME [facility] Last Admin: 02/10/22 20:10 Dose: 50 mg Documented By: NICOLASA Hydroxyzine HCl (Hydroxyzine Hcl 25 Mg Tablet) 25 mg PO TID@0800,1200,1600 [facility] Last Admin: 02/11/22 12:08 Dose: 25 mg Documented By: MARIUSZ Ibuprofen (Ibuprofen 400 Mg Tablet) 400 mg PO Q6H PRN PRN Reason: moderate pain Last Admin: 02/11/22 01:10 Dose: 400 mg Documented By: NICOLASA Lactulose (Lactulose 20 Gm/30 Ml Solution) 20 gm PO QID PRN PRN Reason: constipation Last Admin: 02/11/22 09:14 Dose: 20 gm Documented By: MARIUSZ Magnesium Hydroxide (Milk Of Magnesia 30 Ml Oral.Susp) 30 ml PO DAILY PRN PRN Reason: constipaiton Last Admin: 02/10/22 00:01 Dose: 30 ml Documented By: JESUS Meclizine HCl (Meclizine Hcl 25 Mg Tablet) 25 mg PO TID [facility] Last Admin: 02/11/22 09:13 Dose: 25 mg Documented By: MARIUSZ Metoclopramide HCl (Metoclopramide Hcl 10 Mg/2 Ml Vial) 5 mg IVPUSH Q6H PRN PRN Reason: n/v not responding to Zofran Olanzapine (Olanzapine 5 Mg Tablet) 5 mg PO BEDTIME PRN PRN Reason: agitaiton,anxiety Last Admin: 02/10/22 20:42 Dose: 5 mg Documented By: NICOLASA Comments: pt wants it now Omeprazole (Omeprazole 40 Mg Capsule.Dr) 40 mg PO BID [facility] Last Admin: 02/11/22 09:13 Dose: 40 mg Documented By: MARIUSZ Ondansetron HCl (Ondansetron Hcl 4 Mg/2 Ml Vial) 4 mg IVPUSH Q4H PRN PRN Reason: Nausea and Vomiting Last Admin: 02/09/22 15:11 Dose: 4 mg Documented By: ALMA ROSA Polyethylene Glycol (Polyethylene Glycol 3350 17 Gm Powd.Pack) 17 gm PO DAILY [facility] Last Admin: 02/11/22 09:14 Dose: 17 gm Documented By: MARIUSZ Prednisone (Prednisone 20 Mg Tablet) 20 mg PO DAILY [facility] Last Admin: 02/11/22 09:12 Dose: 20 mg Documented By: MARIUSZ Senna/Docusate Sodium (Sennosides/Docusate Sodium Tablet) 2 tab PO BID [facility] Last Admin: 02/11/22 09:14 Dose: 2 tab Documented By: MARIUSZ Sodium Chloride (0.9 % Sodium Chloride Flush 3 Ml Syringe) 3 ml IVFLUSH QSHIFT [facility] Last Admin: 02/11/22 09:12 Dose: 3 ml Documented By: MARIUSZ Sumatriptan Succinate (Sumatriptan Succinate 50 Mg Tablet) 50 mg PO DAILY MRX1 PRN PRN Reason: mejias/dizziness Last Admin: 02/10/22 17:06 Dose: 50 mg Documented By: MARIUSZ Testosterone Cypionate (Testosterone Cypionate 200 Mg/1 Ml Vial) 100 mg IM Q7D [facility] Last Admin: 02/09/22 15:11 Dose: 100 mg Documented By: ALMA ROSA Trazodone HCl (Trazodone Hcl 50 Mg Tablet) 50 mg PO Q6H PRN PRN Reason: agitation, anxiety Last Admin: 02/11/22 09:13 Dose: 50 mg Documented By: MARIUSZ Trazodone HCl (Trazodone Hcl 100 Mg Tablet) 100 mg PO BEDTIME [facility] Last Admin: 02/10/22 20:09 Dose: 100 mg Documented By: [employer] [facility] 01/24/22 13:29 01/27/22 06:40 Assessment and Plan (1) Vertigo: Status: Acute (2) Autism disorder: Status: Acute Plan d#16 41yo F->M presenting with ataxia + vertigo. MRI brain/CT IAC showing significant bony thinning at the apices of both superior semi [place] canals. Case discussed with [facility] and pt has outpt appt in May; no indication for acute transfer at this time. # vestibular neuropathy/dizziness - complaining of dizziness with ambulation on trial of steroids started 02/04/22- initially on iv Solu Medrol now on po prednisone 20mg no significant improvement, will transition prednisone to 10 mg and stop in next couple days, continue Prilosec - on meclizine 25 mg t.i.d since 01/24. will taper dose to 12.5 mg t.i.d. taper dose of atarax since likely medication contributing to dizziness - being followed daily by Physical therapy # constipation - continue current bowel regimen # autism # mood disorder # ADHD - on Adderall, clonidine, trazodone, hydroxyzine, and prn olanzapine, will further decrease dose of hydroxyzine , DC olanzapine, will DC as needed trazodone Re-consult psych for further medication adjustment # gender transition - continue testosterone # VTE ppx: SCDs # dispo: STR for vestibular PT Time Spent With Patient Time: Total time managing care of this patient today ____ minutes. Quality Stroke Does the patient have a stroke diagnosis?: No VTE Prior VTE?: No VTE Risk Level:: Medical - moderate - high VTE Device Contraindication: N/A - Device Ordered VTE Drug Contraindication: Treatment Not Indicated
--- NOTE | 2022-02-11 14:08 | PM.PSYCN ---
History of Present Illness Date of Service: 02/11/2021 Chief Complaint: vertigo, headache Reason for Consult: f/u Discussed with referring provider: Yes Sources of Information: patient interviewed, chart reviewed and crisis/core team assessment reviewed HPI Narrative: Mr. Fernandes is a 41 trans male, admitted medically for vertigo. Pt seen by psych earlier during this admission and restarted medications he was on in the community. Pt known to this signwriter through previous assessments in the ED. Pt was recently started on meclizine for vertigo. Pt used to be on hydroxyzine for anxiety. Concern in terms of polypharmacy. Per nursing, pt has not had behavioral outburst and has been in good behavioral control. Pt reports it has been difficult to be in the hospital as it increases his anxiety more than when he is at home. Pt reports meclizine alone does not decrease anxiety as much as hydroxyzine. We discussed that both are antihistamines and concern of polypharmacy. However, it is possible that hydroxyzine may be more effective for anxiety. Pt also reports not sleeping well without trazodone. He denies SI/HI. He reports he was told by his father that his uncle today. He states they say they were sad, it's sad. He denies any plan or intent to harm himself. Past Psychiatric History: Past medication trials: adderall, which pt reports has been helpful, clonazepam. Pt reports he has paradoxical effects with antipsychotics and can't take them. Hx of impulsive behaviors such as running into traffic, but he denies that this was a suicide attempt. Review of Systems Review of Systems Denies chest pain Denies shortness of breath Denies nausea vomiting diarrhea Denies fever chills Yes all other systems are reviewed and are negative [facility] Medical History ADHD Autism Diagnostics Vital Signs (24Hr): Vital Signs - 24 hr 02/11/22 16:00 02/11/22 19:37 02/12/22 04:00 Temperature 96.9 F 97.8 F 97.5 F Pulse Rate 62 69 61 Respiratory Rate 15 15 17 Blood Pressure 138/64 132/60 119/66 Pulse Oximetry 96 96 96 Oxygen Delivery Method Room Air Room Air Room Air 02/12/22 08:00 Temperature 98.0 F Pulse Rate 53 Respiratory Rate 18 Blood Pressure 139/68 Pulse Oximetry 94 Oxygen Delivery Method Room Air BMI result Body Mass Index 32.9 Labs 01/24/22 13:29 01/27/22 06:40 Imaging Radiology Impressions: ITS Impressions Head CT 01/24/22 14:35 IMPRESSION: No acute intracranial pathology. Brain MRI 01/25/22 20:25 IMPRESSION: There is questionable thinning or dehiscence of bone at the apex of the right superior semicircular canal. Correlation with clinical symptoms of a third window phenomenon are therefore recommended. A dedicated CT scan of the temporal bone can also be obtained for better anatomic characterization. Otherwise no discrete anatomic finding to provide an explanation for this patient's vertigo and ataxia. Internal Auditory Canal CT 01/26/22 11:34 IMPRESSION: Significant focal bony thinning at the apices of both superior semicircular canals, for which the possibility of a subtle osseous dehiscence is difficult to rule out. KUB X-Ray 02/04/22 21:26 IMPRESSION: 1. Large colonic stool burden. Correlate clinically with signs or symptoms of constipation. 2. Nonobstructive bowel gas pattern. Mental Status Exam Mental Status Exam Narrative: A&O. Ambulates with walker, unkempt, hospital attire. Poor eye contact, inattentive. No Tics or Tremors. No abnormal involuntary movements. Activated, difficult to redirect and engage in conversation. Non-pressured speech, spontaneous with regular rate and rhythm, normal volume and prosody. No prolonged speech latency or dysarthria. Mood is ?anxious,? affect is intense. Denies SI/SIB/HI upon inquiry. Denies A/VH or delusional thought content. Thoughts are perseverative/ ruminative. Neuroatypical. Insight/ Judgment limited but fair. Medications Medications Current Medications Acetaminophen (Acetaminophen 325 Mg Tablet) 650 mg PO Q6H PRN PRN Reason: Pain, Mild, headache Last Admin: 02/04/22 20:09 Dose: 650 mg Amphetamine/Dextroamphetamine (Dextroamphetamine/Amphetamine Xr 10 Mg Cap.Er.24h) 30 mg PO BID@0830,1430 [facility] Last Admin: 02/12/22 09:31 Dose: 30 mg Bisacodyl (Bisacodyl 5 Mg Tablet.) 10 mg PO DAILY [facility] Last Admin: 02/12/22 09:32 Dose: 10 mg Clonidine HCl (Clonidine Hcl 0.2 Mg Tablet) 0.2 mg PO TID [facility]; Protocol Last Admin: 02/12/22 09:32 Dose: 0.2 mg Hydroxyzine HCl (Hydroxyzine Hcl 50 Mg Tablet) 50 mg PO BEDTIME [facility] Last Admin: 02/11/22 21:19 Dose: 50 mg Hydroxyzine HCl (Hydroxyzine Hcl 25 Mg Tablet) 25 mg PO TID@0800,1200,1600 [facility] Last Admin: 02/12/22 09:31 Dose: 25 mg Ibuprofen (Ibuprofen 400 Mg Tablet) 400 mg PO Q6H PRN PRN Reason: moderate pain Last Admin: 02/11/22 01:10 Dose: 400 mg Lactulose (Lactulose 20 Gm/30 Ml Solution) 20 gm PO QID PRN PRN Reason: constipation Last Admin: 02/11/22 09:14 Dose: 20 gm Magnesium Hydroxide (Milk Of Magnesia 30 Ml Oral.Susp) 30 ml PO DAILY PRN PRN Reason: constipaiton Last Admin: 02/10/22 00:01 Dose: 30 ml Meclizine HCl (Meclizine Hcl 12.5 Mg Tablet) 12.5 mg PO BID [facility] Last Admin: 02/12/22 09:32 Dose: 12.5 mg Omeprazole (Omeprazole 40 Mg Capsule.Dr) 40 mg PO BID [facility] Last Admin: 02/12/22 09:31 Dose: 40 mg Ondansetron HCl (Ondansetron Hcl 4 Mg/2 Ml Vial) 4 mg IVPUSH Q4H PRN PRN Reason: Nausea and Vomiting Last Admin: 02/09/22 15:11 Dose: 4 mg Polyethylene Glycol (Polyethylene Glycol 3350 17 Gm Powd.Pack) 17 gm PO DAILY [facility] Last Admin: 02/12/22 09:32 Dose: 17 gm Prednisone (Prednisone 20 Mg Tablet) 20 mg PO DAILY [facility] Last Admin: 02/12/22 09:32 Dose: 20 mg Senna/Docusate Sodium (Sennosides/Docusate Sodium Tablet) 2 tab PO BID [facility] Last Admin: 02/12/22 09:31 Dose: 2 tab Sodium Chloride (0.9 % Sodium Chloride Flush 3 Ml Syringe) 3 ml IVFLUSH QSHIFT [facility] Last Admin: 02/12/22 09:32 Dose: 3 ml Sumatriptan Succinate (Sumatriptan Succinate 50 Mg Tablet) 50 mg PO DAILY MRX1 PRN PRN Reason: mejias/dizziness Last Admin: 02/10/22 17:06 Dose: 50 mg Testosterone Cypionate (Testosterone Cypionate 200 Mg/1 Ml Vial) 100 mg IM Q7D [facility] Last Admin: 02/09/22 15:11 Dose: 100 mg Trazodone HCl (Trazodone Hcl 100 Mg Tablet) 100 mg PO BEDTIME [facility] Last Admin: 02/11/22 21:18 Dose: 100 mg Allergies Allergies Allergy/AdvReac Type Severity Reaction Status Date / Time quetiapine [From Seroquel] Allergy Unknown Verified 12/20/21 20:51 Assessment & Plan Assessment & Plan (1) Vertigo: Status: Acute Code(s): R42 - Dizziness and giddiness (2) Autism disorder: Status: Acute Code(s): F84.0 - Autistic disorder Plan Mr. rodriguez is a 41 y/o trans male with hx of mood disorder, tendecy to become quiet disregulated and agitated when in emotional distress. He has been able to cope with current medical admission without any significant behavioral outburst. Although, concern for polypharmacy is present, pt may still benefit from having hydroxyzine PRN 50mg po TID PRN for anxiety/sleep. monitor excessive sedation, dry mouth, urinary retention and constipation. Total time managing care of this patient today _25___ minutes. Patient educated on: diagnosis and medication risk/benefits
[2022-02-11 16:00] VITALS: BP 138/64; PULSE 62; RESP 15; TEMP 36.1; O2SAT 96
--- NOTE | 2022-02-11 16:41 | MHC.CM.PN ---
CM CONFIRMED WITH [facility] TODAY THAT PTS INSURANCE CHANGE REQUEST HAS BEEN SUBMITTED CURRENT PLAN IS FOR MD TO DECREASE MEDS THAT MAY BE CAUSING DIZZINESS AND FOR PT TO DC HOME OVER THE WEEKEND WITH A PLAN FOR SERVICES TO START EARLY NEXT WEEK PT WILL BE TRANSPORTED VIA BLS
[2022-02-11 19:37] VITALS: BP 132/60; PULSE 69; RESP 15; TEMP 36.6; O2SAT 96
[2022-02-11] MEDS: traZODone HCL 100 MG TABLET PO (21:18)
[2022-02-11] MEDS: hydrOXYzine HCL 50 MG TABLET PO (21:19)
[2022-02-11] MEDS: Meclizine HCl 12.5 MG TABLET PO (21:34)
[2022-02-12] MEDS: diphenhydrAMINE HCL 25 MG CAPSULE 50 MG PO (00:23)
[2022-02-12 04:00] VITALS: BP 119/66; PULSE 61; RESP 17; TEMP 36.4; O2SAT 96
[2022-02-12] MEDS: traZODone HCL 50 MG TABLET PO (05:27)
--- NOTE | 2022-02-12 07:08 | PC.NURSE ---
at 5 am pt states he was not sleeping all night and needs his trazadone md notified order recd. for 50 mg trazadone po x1 and given we will monitor
[2022-02-12 08:00] VITALS: BP 139/68; PULSE 53; RESP 18; TEMP 36.7; O2SAT 94
[2022-02-12] MEDS: Sennosides/Docusate Sodium TABLET 2 TAB PO ×2 (09:31→21:05)
[2022-02-12] MEDS: Omeprazole 40 MG CAPSULE.DR PO ×2 (09:31→21:05)
[2022-02-12] MEDS: hydrOXYzine HCL 25 MG TABLET PO ×3 (09:31→15:21)
[2022-02-12] MEDS: Dextroamphetamine/Amphetamine XR 10 MG CAP.ER.24H 30 MG PO ×2 (09:31→15:21)
[2022-02-12] MEDS: 0.9 % Sodium Chloride Flush 3 ML SYRINGE IVFLUSH ×2 (09:32→15:21)
[2022-02-12] MEDS: Meclizine HCl 12.5 MG TABLET PO ×2 (09:32→16:42)
[2022-02-12] MEDS: polyethylene glycoL 3350 17 GM POWD.PACK PO (09:32)
[2022-02-12] MEDS: bisacodyL 5 MG TABLET.DR 10 MG PO (09:32)
[2022-02-12] MEDS: cloNIDine HCL 0.2 MG TABLET PO ×3 (09:32→21:06)
[2022-02-12] MEDS: predniSONE 20 MG TABLET PO (09:32)
--- NOTE | 2022-02-12 11:52 | P.PNIM_ITS ---
Subjective Subjective Date of Service: 02/12/22 Interval History: Patient awake alert answers few question by speaking, otherwise mostly nodding yes or no, tolerated diet, finish 100% of breakfast without nausea vomiting has been refusing to be out of bed to chair, participating with physical therapy and ambulated with staff. Review of Systems Review of Systems: Yes all other systems are reviewed and are negative Physical Exam Vital Signs: Vital Signs: Last Vital Signs Temp 98.0 F 02/12/22 08:00 Pulse 53 02/12/22 08:00 Resp 18 02/12/22 08:00 BP 139/68 02/12/22 08:00 Pulse Ox 94 02/12/22 08:00 O2 Del Method 02/12/22 08:00 BMI result Body Mass Index 32.9 Const: Other: Gen:? Awake alert x3, in no acute di stress HEENT: scle ra anicteric, mois t mucus membranes Neck: supple Lungs : clear to auscult ation bilaterally Heart: regular rat e and rhythm, no m urmurs Abd: soft, non-tender, non-di stended Ext: no ed prachi Skin: warm/wel l-perfused Neuro: alert and oriented x3, no focal find ings, no nystagmus , talking less onl y in 1-2 words tod ay speech clear. P sych: restricted a ffect Objective Data Active Medications Acetaminophen (Acetaminophen 325 Mg Tablet) 650 mg PO Q6H PRN PRN Reason: Pain, Mild, headache Last Admin: 02/04/22 20:09 Dose: 650 mg Documented By: MARLEY Amphetamine/Dextroamphetamine (Dextroamphetamine/Amphetamine Xr 10 Mg Cap.Er.24h) 30 mg PO BID@0830,1430 [facility] Last Admin: 02/12/22 09:31 Dose: 30 mg Documented By: MARIUSZ Bisacodyl (Bisacodyl 5 Mg Tablet.Dr) 10 mg PO DAILY [facility] Last Admin: 02/12/22 09:32 Dose: 10 mg Documented By: MARIUSZ Clonidine HCl (Clonidine Hcl 0.2 Mg Tablet) 0.2 mg PO TID [facility]; Protocol Last Admin: 02/12/22 09:32 Dose: 0.2 mg Documented By: MARIUSZ Hydroxyzine HCl (Hydroxyzine Hcl 50 Mg Tablet) 50 mg PO BEDTIME [facility] Last Admin: 02/11/22 21:19 Dose: 50 mg Documented By: NICOLASA Hydroxyzine HCl (Hydroxyzine Hcl 25 Mg Tablet) 25 mg PO TID@0800,1200,1600 [facility] Last Admin: 02/12/22 09:31 Dose: 25 mg Documented By: MARIUSZ Ibuprofen (Ibuprofen 400 Mg Tablet) 400 mg PO Q6H PRN PRN Reason: moderate pain Last Admin: 02/11/22 01:10 Dose: 400 mg Documented By: NICOLASA Lactulose (Lactulose 20 Gm/30 Ml Solution) 20 gm PO QID PRN PRN Reason: constipation Last Admin: 02/11/22 09:14 Dose: 20 gm Documented By: MARIUSZ Magnesium Hydroxide (Milk Of Magnesia 30 Ml Oral.Susp) 30 ml PO DAILY PRN PRN Reason: constipaiton Last Admin: 02/10/22 00:01 Dose: 30 ml Documented By: ANGELIQUEJ Meclizine HCl (Meclizine Hcl 12.5 Mg Tablet) 12.5 mg PO BID [facility] Last Admin: 02/12/22 09:32 Dose: 12.5 mg Documented By: MARIUSZ Omeprazole (Omeprazole 40 Mg Capsule.Dr) 40 mg PO BID [facility] Last Admin: 02/12/22 09:31 Dose: 40 mg Documented By: MARIUSZ Ondansetron HCl (Ondansetron Hcl 4 Mg/2 Ml Vial) 4 mg IVPUSH Q4H PRN PRN Reason: Nausea and Vomiting Last Admin: 02/09/22 15:11 Dose: 4 mg Documented By: ALMA ROSA Polyethylene Glycol (Polyethylene Glycol 3350 17 Gm Powd.Pack) 17 gm PO DAILY [facility] Last Admin: 02/12/22 09:32 Dose: 17 gm Documented By: MARIUSZ Prednisone (Prednisone 20 Mg Tablet) 20 mg PO DAILY [facility] Last Admin: 02/12/22 09:32 Dose: 20 mg Documented By: MARIUSZ Senna/Docusate Sodium (Sennosides/Docusate Sodium Tablet) 2 tab PO BID [facility] Last Admin: 02/12/22 09:31 Dose: 2 tab Documented By: MARIUSZ Sodium Chloride (0.9 % Sodium Chloride Flush 3 Ml Syringe) 3 ml IVFLUSH QSHIFT [facility] Last Admin: 02/12/22 09:32 Dose: 3 ml Documented By: MARIUSZ Sumatriptan Succinate (Sumatriptan Succinate 50 Mg Tablet) 50 mg PO DAILY MRX1 PRN PRN Reason: mejias/dizziness Last Admin: 02/10/22 17:06 Dose: 50 mg Documented By: MARIUSZ Testosterone Cypionate (Testosterone Cypionate 200 Mg/1 Ml Vial) 100 mg IM Q7D [facility] Last Admin: 02/09/22 15:11 Dose: 100 mg Documented By: ALMA ROSA Trazodone HCl (Trazodone Hcl 100 Mg Tablet) 100 mg PO BEDTIME [facility] Last Admin: 02/11/22 21:18 Dose: 100 mg Documented By: MARLEY Labs 01/24/22 13:29 01/27/22 06:40 Assessment and Plan (1) Vertigo: Status: Acute (2) Autism disorder: Status: Acute Plan d#16 41yo F->M presenting with ataxia + vertigo. MRI brain/CT IAC showing significant bony thinning at the apices of both superior semi [place] canals. Case discussed with [facility] and pt has outpt appt in May; no indication for acute transfer at this time. # vestibular neuropathy/dizziness - offered no new complaints mostly in bed refused to be out of bed to chair, no recurrent nausea vomiting noted on trial of steroids started 02/04/22- initially on iv Solu Medrol now on po prednisone 20mg no significant improvement, will transition prednisone to 10 mg x 2 days stop on 02/14 - on meclizine 25 mg t.i.d since 01/24. tapered dose to 12.5 mg t.i.d., will DC today, since on Atarax also both of them antihistamine and likely contributing to dizziness. - being followed daily by Physical therapy Recommend out of bed to chair and ambulation with staff, # constipation - moving bowels, continue current bowel regimen # autism # mood disorder # ADHD on Adderall, clonidine, trazodone, hydroxyzine, at baseline , patient re- evaluated by psych they agree to continue current medications, no additional meds added. # gender transition - continue testosterone # VTE ppx: SCDs # dispo: STR for vestibular PT Patient need continued inpatient hospitalization for safe discharge to rehab f acility. Time Spent With Patient Time: Total time managing care of this patient today ____ minutes. Quality Stroke Does the patient have a stroke diagnosis?: No VTE Prior VTE?: No VTE Risk Level:: Medical - moderate - high VTE Device Contraindication: N/A - Device Ordered VTE Drug Contraindication: Treatment Not Indicated
--- NOTE | 2022-02-12 15:09 | MHC.CM.PN ---
CM RECEIVED A CALL FROM PTS FATHER WHO REPORTS HE FEELS THE PT NEEDS TO GO TO A DIFFERENT HOSPITAL HE REPORTS THE PT HAS BEEN HERE FOR NEARLY A MONTH AND IS NOT GETTING BETTER HE STATES HE WOULD LIKE THE PT TO GO TO A HOSPITAL THAT HAS AN ENGINEERING LIBRARIAN HE WAS INFORMED PT WOULD NOT BE APPROPRIATE FOR AN ACT AND THE ONLY WAY HE COULD GO TO A DIFFERENT HOSPITAL WOULD BE TO DC FROM HERE FIRST PTS FATHER REPORTS HE WILL DISCUSS THE MATTER WITH PTS MOTHER AND THEN MAKE ARRANGEMENTS TO PICK PT UP AND TRANSPORT HIM TO A DIFFERENT FACILITY
[2022-02-12 15:22] VITALS: BP 125/63; PULSE 67; RESP 16; TEMP 36.3; O2SAT 96
[2022-02-12] MEDS: SUMAtriptan succinate 50 MG TABLET PO (15:55)
[2022-02-12 19:25] VITALS: BP 117/58; PULSE 67; RESP 16; TEMP 36.3; O2SAT 97
[2022-02-12] MEDS: hydrOXYzine HCL 50 MG TABLET PO (21:05)
[2022-02-12] MEDS: traZODone HCL 100 MG TABLET PO (21:06)
[2022-02-13] MEDS: hydrOXYzine HCL 50 MG TABLET PO ×2 (00:26→15:44)
--- NOTE | 2022-02-13 04:02 | PC.NURSE ---
At 00:11 pt states he hasn't slept in the past 3 days and needed hydroxyzine. This nurse notified MD Hillman of the situation. ordered one time dose of hydroxyzine 5omg PO. Med given to pt. Will continue to monitor.
[2022-02-13] MEDS: 0.9 % Sodium Chloride Flush 3 ML SYRINGE IVFLUSH ×2 (09:10→15:44)
[2022-02-13] MEDS: Sennosides/Docusate Sodium TABLET 2 TAB PO ×2 (09:11→21:37)
[2022-02-13] MEDS: Omeprazole 40 MG CAPSULE.DR PO ×2 (09:11→21:38)
[2022-02-13] MEDS: hydrOXYzine HCL 25 MG TABLET PO ×2 (09:11→12:38)
[2022-02-13] MEDS: bisacodyL 5 MG TABLET.DR 10 MG PO (09:11)
[2022-02-13] MEDS: predniSONE 10 MG TABLET PO (09:11)
[2022-02-13] MEDS: Dextroamphetamine/Amphetamine XR 10 MG CAP.ER.24H 30 MG PO ×2 (09:12→15:44)
[2022-02-13] MEDS: polyethylene glycoL 3350 17 GM POWD.PACK PO (09:12)
[2022-02-13] MEDS: cloNIDine HCL 0.2 MG TABLET PO ×3 (09:17→21:38)
--- NOTE | 2022-02-13 13:36 | HO.PM.IMPN ---
Subjective Subjective Date of Service: 02/14/22 Interval History: Patient concern that he is not receiving the right dosages of his medications otherwise offers no acute complaints. Review of Systems Review of Systems: Yes all other systems are reviewed and are negative Physical Exam Vital Signs: Vital Signs: Last Vital Signs Temp 97.4 F 02/12/22 19:25 Pulse 67 02/12/22 19:25 Resp 16 02/12/22 19:25 BP 117/58 L 02/12/22 19:25 Pulse Ox 97 02/12/22 19:25 O2 Del Method 02/12/22 19:25 BMI result Body Mass Index 32.9 Const: Other: Gen:? Awake alert x3, in no acute distress HEENT: sclera anicteric, moist mucus membranes Neck: supple Lungs: clear to auscultation bilaterally Heart: regular rate and rhythm, no murmurs Abd: soft, non-tender, non-distended Ext: no edema Skin: warm/well-perfused Neuro: alert and oriented x3, no focal findings, no nystagmus, speech clear Psych: restricted affect Objective Data Active Medications Acetaminophen (Acetaminophen 325 Mg Tablet) 650 mg PO Q6H PRN PRN Reason: Pain, Mild, headache Last Admin: 02/04/22 20:09 Dose: 650 mg Documented By: MARLEY Amphetamine/Dextroamphetamine (Dextroamphetamine/Amphetamine Xr 10 Mg Cap.Er.24h) 30 mg PO BID@0830,1430 [facility] Last Admin: 02/13/22 09:12 Dose: 30 mg Documented By: MARIUSZ Bisacodyl (Bisacodyl 5 Mg Tablet.) 10 mg PO DAILY [facility] Last Admin: 02/13/22 09:11 Dose: 10 mg Documented By: MARIUSZ Clonidine HCl (Clonidine Hcl 0.2 Mg Tablet) 0.2 mg PO TID [facility]; Protocol Last Admin: 02/13/22 09:17 Dose: 0.2 mg Documented By: MARIUSZ Hydroxyzine HCl (Hydroxyzine Hcl 50 Mg Tablet) 50 mg PO BEDTIME [facility] Last Admin: 02/12/22 21:05 Dose: 50 mg Documented By: ADALID Hydroxyzine HCl (Hydroxyzine Hcl 50 Mg Tablet) 50 mg PO TID@0800,1200,1600 [facility] Ibuprofen (Ibuprofen 400 Mg Tablet) 400 mg PO Q6H PRN PRN Reason: moderate pain Last Admin: 02/11/22 01:10 Dose: 400 mg Documented By: NICOLASA Lactulose (Lactulose 20 Gm/30 Ml Solution) 20 gm PO QID PRN PRN Reason: constipation Last Admin: 02/11/22 09:14 Dose: 20 gm Documented By: MARIUSZ Magnesium Hydroxide (Milk Of Magnesia 30 Ml Oral.Susp) 30 ml PO DAILY PRN PRN Reason: constipaiton Last Admin: 02/10/22 00:01 Dose: 30 ml Documented By: ANGELIQUEJ Meclizine HCl (Meclizine Hcl 12.5 Mg Tablet) 12.5 mg PO Q8H PRN PRN Reason: Vertigo Last Admin: 02/12/22 16:42 Dose: 12.5 mg Documented By: MARIUSZ Omeprazole (Omeprazole 40 Mg Capsule.Dr) 40 mg PO BID [facility] Last Admin: 02/13/22 09:11 Dose: 40 mg Documented By: MARIUSZ Ondansetron HCl (Ondansetron Hcl 4 Mg/2 Ml Vial) 4 mg IVPUSH Q4H PRN PRN Reason: Nausea and Vomiting Last Admin: 02/09/22 15:11 Dose: 4 mg Documented By: ALMA ROSA Polyethylene Glycol (Polyethylene Glycol 3350 17 Gm Powd.Pack) 17 gm PO DAILY [facility] Last Admin: 02/13/22 09:12 Dose: 17 gm Documented By: MARIUSZ Prednisone (Prednisone 10 Mg Tablet) 10 mg PO DAILY [facility] Stop: 02/14/22 09:01 Last Admin: 02/13/22 09:11 Dose: 10 mg Documented By: MARIUSZ Senna/Docusate Sodium (Sennosides/Docusate Sodium Tablet) 2 tab PO BID [facility] Last Admin: 02/13/22 09:11 Dose: 2 tab Documented By: MARIUSZ Sodium Chloride (0.9 % Sodium Chloride Flush 3 Ml Syringe) 3 ml IVFLUSH QSHIFT [facility] Last Admin: 02/13/22 09:10 Dose: 3 ml Documented By: MARIUSZ Sumatriptan Succinate (Sumatriptan Succinate 50 Mg Tablet) 50 mg PO DAILY MRX1 PRN PRN Reason: mejias/dizziness Last Admin: 02/12/22 15:55 Dose: 50 mg Documented By: MARIUSZ Testosterone Cypionate (Testosterone Cypionate 200 Mg/1 Ml Vial) 100 mg IM Q7D [facility] Last Admin: 02/09/22 15:11 Dose: 100 mg Documented By: ALMA ROSA Trazodone HCl (Trazodone Hcl 100 Mg Tablet) 100 mg PO BEDTIME [facility] Last Admin: 02/12/22 21:06 Dose: 100 mg Documented By: TREMAINESA Labs 01/24/22 13:29 01/27/22 06:40 Assessment and Plan (1) Vertigo: Status: Acute (2) Autism disorder: Status: Acute Plan d#16 41yo F->M presenting with ataxia + vertigo. MRI brain/CT IAC showing significant bony thinning at the apices of both superior semi [place] canals. Case discussed with [facility] and pt has outpt appt in May; no indication for acute transfer at this time. # vestibular neuropathy/dizziness - no recurrent nausea, vomiting noted, complaining of persistent dizziness on ambulation on steroids started 02/04/22- initially on iv Solu Medrol now on po prednisone being gradually tapered for total 10 day treatment last dose is scheduled for tomorrow. - received short course of meclizine, subsequently stopped, since on high-dose Atarax, both together can cause significant anticholinergic side effects. - being followed by Physical therapy Recommend out of bed to chair and ambulation with staff. # constipation - moving bowels, continue current bowel regimen # autism # mood disorder # ADHD on Adderall, clonidine, omeprazole, hydroxyzine, testosterone at baseline , as per patient he is not receiving his regular medications, requested him to provide his home medication so his home medication can be adjusted. # gender transition - continue testosterone # VTE ppx: SCDs # dispo: STR for vestibular PT/as per patient his family is coming to pick him this afternoon. Patient need continued inpatient hospitalization for safe discharge to rehab facility. Time Spent With Patient Time: Total time managing care of this patient today ____ minutes. Quality Stroke Does the patient have a stroke diagnosis?: No VTE Prior VTE?: No VTE Risk Level:: Medical - moderate - high VTE Device Contraindication: N/A - Device Ordered VTE Drug Contraindication: Treatment Not Indicated
[2022-02-13 16:00] VITALS: BP 165/79; PULSE 104; RESP 20; TEMP 36.7; O2SAT 97
--- NOTE | 2022-02-13 16:07 | MHC.CM.PN ---
KUSHAL SPOKE WITH PTS PARENTS ([phone]) WHO REPORT THEY PLAN TO SURVEILLANCE INVESTIGATOR PT TOMORROW MORNING TO TRANSPORT HIM TO A [facility] SO THAT HE CAN SEE A SPECIALIST THEY DID REQUEST MEDICAL RECORDS AND WERE INFORMED THEY WOULD NEED TO STOP AT [facility] KUSHAL MET WITH PT WHO REPORTS CONCERN THAT HE DOES NOT WANT ANY INFO RE HX OF SI OR CRISIS EVALS TO BE SHARED WITH HIS PARENTS HE REPORTS BEING UPSET THAT HIS PARENTS WERE EVER CONTACTED, HE REPORTS THIS IS A VIOLATION OF HIS HIPPA RIGHTS CM EXPLAINED BEHAVIORAL HEALTH SPECIALISTS ARE ABLE TO CONTACT FAMILY TO OBTAIN COLLATERAL INFORMATION WHEN SOMEONE PRESENTS IN A CRISIS SITUATION. PT REPORTS WHY DID THE SECURITY DEPT SPEAK TO THE [facility]. KUSHAL EXPLAINED THE DETAILS OF THAT INTERACTION WERE UNKNOWN HOWEVER HE COULD DISCUSS THIS WITH THE EXPERIENCE OFFICER OR QUALITY. HE ASKS CM TO INFORM EXPERIENCE OFFICER HIS PARENTS WILL BE HERE IN THE MORNING AND HE CANNOT DISCUSS IT IN FRONT OF THEM CURRENT PLAN IS TO DC PTS TO PARENTS CARE PARENTS REPORT A PLAN TO TRANSPORT PT TO A SPECIALIST
[2022-02-13 19:06] VITALS: BP 129/80; PULSE 99; RESP 18; TEMP 36.6; O2SAT 97
[2022-02-13] MEDS: OLANZapine 5 MG TABLET PO (21:37)
[2022-02-13] MEDS: traZODone HCL 100 MG TABLET PO (21:37)
[2022-02-13] MEDS: hydrOXYzine HCL 50 MG TABLET 100 MG PO (21:38)
--- NOTE | 2022-02-14 02:43 | PC.NURSE ---
1900; Patient reports has not been able to sleep well. patient requesting trazadone and zyprexa for bedtime, Dr. Hillman notified. Orders received, medications administered.
[2022-02-14 08:00] VITALS: BP 104/57; PULSE 64; RESP 16; TEMP 36.4; O2SAT 97
[2022-02-14] MEDS: Omeprazole 40 MG CAPSULE.DR PO (08:31)
[2022-02-14] MEDS: hydrOXYzine HCL 50 MG TABLET PO ×2 (08:31→11:12)
[2022-02-14] MEDS: predniSONE 10 MG TABLET PO (08:31)
[2022-02-14] MEDS: cloNIDine HCL 0.2 MG TABLET PO (08:31)
[2022-02-14] MEDS: Dextroamphetamine/Amphetamine XR 10 MG CAP.ER.24H 30 MG PO (08:31)
--- NOTE | 2022-02-14 09:34 | PC.NURSE ---
In to see pt with DR Cohen. Offered to walk pt and help him get dressed. He declined at this time and states he would wait for his parents.
--- NOTE | 2022-02-14 10:28 | P.DS_ITS ---
DS: Providers Provider Date of Service: 02/14/22 Date of admission: 01/25/22 13:34 Primary care physician: Fabiola Wilkerson MD Consults: 01/24/22 18:47 Consult to Neurology Routine Consulting Provider: [facility] Reason for consultation: vertigo, gait ataxia 01/28/22 07:33 Consult to Psychiatry Routine Consulting Provider: Psych Covering Reason for consultation: Anxiety w depression, agitation, vertigo, med review and advice. 02/10/22 12:55 Consult to Psychiatry Routine Consulting Provider: Henri Jones Reason for consultation: medication and behavior Has provider been notified: No DS: Diagnosis Discharge Diagnosis (1) Vertigo: Status: Acute (2) Autism disorder: Status: Acute DS: Summary Hospital Course Hospital Course: Date of Service: 01/24/22 Attending physician on admission: Jim Egan Chief Complaint: headache, vertigo 41-year-old assigned female at , now male on hormone injections, history of autism, history of violent and manipulative behaviors, and ADHD presented to the ED earlier today from home where he states he resides alone with the assistance of AIDS from DDS, for evaluation of dizziness, headache, and gait instability for the last 2 days.? He communicates primarily typing into his cellphone and is unable to verbalize when under stress.? He states dizziness feels like the room is spinning in circles and is worse with head movements.? States he has had a constant headache rated as a 5/10 sharp pain that increases to a 10/10 with head movements.? There has also been associated nausea but no vomiting.? He has been unable to walk without feeling as if he is going to fall which is not his baseline.? 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 In the ED, vital signs stable.? Hematology chemistry studies unremarkable.? Negative for flu, RSV, and COVID-19.? Head CT negative for any acute intracranial pathology.? In the ED, patient treated with Phenergan, 25 mg meclizine, 1 mg lorazepam, 50 mg diphenhydramine with some improvement in symptoms.? However, he was still noted to be very unsteady on his feet and as a result as being recommended for admission.? He is also given 1 L IV NS. Hospital course 41yo F->M presenting with ataxia + vertigo.? MRI brain/CT IAC showed significant bony thinning at the apices of both superior semi [place] canals for which a possibility of a subtle osseous dehiscence is difficult to rule out Patient was seen by neurologist Dr. Farris , he was diagnosed to have vestibular neuropathy, MRI/CT findings were not felt to be clinically relevant, however neurology recommended if symptoms do not improve he can follow up with [facility], an appointment was made for May and patient is on cancellation list. Patient was treated with short course of meclizine, and Klonopin, he has finished 10 day course of steroids, last dose on February 14, patient symptoms of headache, nausea, vomiting has resolved, he has been tolerating diet , patient was also followed closely by Physical therapy and due to persistent dizziness they recommend short-term rehab. In regard to his chronic medical issues including ADHD, autism and mood disorder patient was continued on Adderall, clonidine, hydroxyzine and testosterone, he was evaluated by Psychiatry, he did not except as needed antipsychotic medications therefore they added Klonopin only while in hospital and recommend to continue Vistaril, and added trazodone however patient declined to use trazodone. While awaiting to be aranged to go to rehab, patient has decided that he wants to leave and seek further in [place], his parents are in agreement with him and will transport him to a hospital in [place], patient understand this to be leaving against our advise and demonstrated understanding of the risks of doing so. gender transition- continue testosterone Time Spent with Patient Time attestation: Total time managing care of this patient today ____ minutes. Discharge coordination time: Greater than 30 minutes Quality: Safe Use of Opioids Does Pt have an Active Cancer Diagnosis on the Problem List?: No Quality: Stroke Does the patient have a stroke diagnosis?: No Physical Exam Vital Signs: Vital Signs: Last Vital Signs Temp 97.5 F 02/14/22 08:00 Pulse 64 02/14/22 08:00 Resp 16 02/14/22 08:00 BP 104/57 L 02/14/22 08:00 Pulse Ox 97 02/14/22 08:00 O2 Del Method 02/14/22 08:00 BMI result Body Mass Index 32.9 Const: Other: Gen: Awake alert x3 in no acute distress HEENT: sclera anicteric, moist mucus membranes Neck: supple Lungs: clear to auscultation bilaterally Heart: regular rate and rhythm, no murmurs Abd: soft, non-tender, non-distended Ext: no edema Skin: warm/well-perfused Neuro: alert and oriented x3, no focal findings , no nystagmus, speech clear at time of discharge Psych: appropriate affect Discharge Plan Discharge Patient Disposition: Left Against Medical Advice Discharge Diagnosis: Vestibular neuropathy Referrals: Physician,None [Physician] - 05/27/22 10:15 am (you have an appointment scheduled with ears nose throat. call office if you need to reschedule. [phone] ) Discharge Medications: Continued hydroxyzine pamoate 50 mg capsule 2 cap PO BEDTIME dextroamphetamine-amphetamine [Adderall XR] 30 mg capsule,extended release 24hr 1 cap PO BID testosterone cypionate 200 mg/mL oil 0.5 ml IM NUÑEZ clonidine HCl 0.2 mg tablet 1 tab PO TID omeprazole 40 mg capsule,delayed release(DR/EC) 1 cap PO BID hydroxyzine pamoate 50 mg capsule 1 cap PO TID@0800,1200,1600 Discharge Orders: Discharge Order (Routine); Ordered 02/14/22 Ordered By: Maira Cohen Diet: Advance to usual diet Activity on Discharge: As tolerated Care Plan Goals: Diagnosed with Vestibular neuropathy finished 10 day course of steroids nausea and headache resolved also treated with short course of meclizine and received physical therapy Recommend vestibular rehab Health Concerns: In regard to chronic medical issues resume all home medications Plan of Treatment: Recommend referral to [facility] for another opinion about the relevance of the MRI and CT scan. Follow-up with primary care physician call to make an appointment in next 1-2 weeks Assessment: as above
--- NOTE | 2022-02-14 11:02 | MHC.CM.PN ---
PLAN IS FOR PT TO DC TODAY, FAMILY STATES THEY WILL TRANSPORT HIM TO A [facility] WHERE THEY CAN FIND A SPECIALIST CM CONTACTED RADIOLOGY AND A DISC WAS CREATED WITH PTS IMAGING HE AND FAMILY ARE AWARE HE CAN BRING THIS AND THE DC SUMMARY TO THE NEXT FACILITY AND THAT ONCE THERE, PT CAN SIGN A TAZ FOR ANY OTHER DOCUMENTS FAMILY IS AT BEDSIDE AND REPORT THEY ARE READY ONCE THEY RECEIVE THE DC PAPERWORK
== END 2022-02-14 11:52 | disposition left against medical advice (07) | DRG 756 ==
LOC: HO.ED 16:22 → HO.EDOVER 18:31 → HO.S3 20:34
PROVIDERS: Admitting Provider Physician Assistant; Emergency Provider Emergency Medicine; PCP Family Medicine; Visit Provider Hospitalist
DX: F41.8 Other specified anxiety disorders (principal); H81.20 Vestibular neuronitis, unspecified ear; F64.0 Transsexualism; F90.9 Attention-deficit hyperactivity disorder, unspecified type; K21.9 Gastro-esophageal reflux disease without esophagitis; K59.00 Constipation, unspecified; R00.1 Bradycardia, unspecified; G43.909 Migraine, unspecified, not intractable, without status migrainosus; F84.0 Autistic disorder; Z20.822 Contact with and (suspected) exposure to COVID-19; Z91.52 Personal history of nonsuicidal self-harm; Z88.8 Allergy status to other drugs, medicaments and biological substances; Z79.899 Other long term (current) drug therapy
CPT/HCPCS: 0241U; 36415; 70450; 70480; 70553; 74018; 80048; 80053; 85025; 93005; 97116; 97162; 97166; 97530; 97535; 99218; 99221; 99285; A9585; J1071; J1200; J2060; J2250; J2405; J2550; J2930